=== PATIENT | female | born 1955 | race Caucasian/White ===

== ENCOUNTER 2023-04-24 | Outpatient (REF) | payer MEDICARE, OTHER, SELFPAY ==
--- NOTE | ~2023-04-24 | XR_ITS ---
EXAMINATION: XR KNEE, LEFT CLINICAL INFORMATION: Pain in the left knee. COMPARISON: X-ray of the left knee February 2023. TECHNIQUE: Four views of the left knee. FINDINGS: Moderate-size marginal osteophytes about all compartments without definite joint space narrowing. Findings indicative of hiqo-mj-ivxunjau osteoarthritis. Small joint effusion. Surrounding bone and soft tissues unremarkable. XR/XR knee LT 3V IMPRESSION: Oxsw-vn-mhsvcniv osteoarthritis of the left knee. No change compared to February 2023.
== END 2023-04-24 00:01 | disposition home or self-care (01) ==
LOC: HO.HOSX
PROVIDERS: Visit Provider Orthopaedic Surgery
DX: S83.242A Other tear of medial meniscus, current injury, left knee, initial encounter (principal)
CPT/HCPCS: 73562; 99212

== ENCOUNTER 2023-04-24 08:48 | Outpatient (AMB) | payer MEDICARE, OTHER, SELFPAY ==
--- NOTE | 2023-04-24 09:02 | A.OFFVIS_ITS ---
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 Sosa. For patient presents with complaints of progressively worsening left knee pain and giving way. She did undergo right total knee replacement surgery and 2021. She reports minimal discomfort in her right knee. She describes her left knee pain as sharp and severe in nature. Most of her left knee pain is along the medial and lateral aspects of her knee. Her symptoms have gotten worse over the last few years in spite of continued non operative treatments. She has had multiple injections. The most recent injection gave her minimal relief. She has also done physical therapy for 12 weeks over the last 6 months which aggravated her pain. She has tried Tylenol and anti-inflammatory medicines which gave her minimal relief. She states that her left knee will give out several times per day. Allergies walnuts Allergy (Uncoded 04/24/23 09:05) tingling in mouth Medication List - Last Reconciled 04/24/23 by Madi Sosa MD atorvastatin 40 mg PO .QOD calcium carbonate-vitamin D3 600 mg-20 mcg (800 unit) (Caltrate 600 plus D) 2 tabs PO DAILY lisinopril 5 mg PO DAILY PFSH Surgical History (Updated 04/24/23 @ 09:07 by Frida Richard [facility]) S/P left knee arthroscopy Hx of appendectomy History of total right knee replacement (TKR) (10/20/21) Social History (Updated 04/24/23 @ 09:08 by Frida Richard CMA) Patient Tobacco Use Status: Never used Tobacco Current occupational status: retired Physical Exam Vital Signs: BMI result Body Mass Index 30.9 Const Other: Well-nourished well-developed very friendly female awake alert and oriented x3 in no acute distress Lungs clear to auscultation bilaterally with symmetric expansion Cardiovascular exam regular rate and rhythm Abdominal exam is soft nontender nondistended Extrem Other: Bilateral lower extremity examination shows good capillary refill, no skin lesions noted, normal sensation light touch Left knee examination shows a minimal effusion, mild crepitus with range of motion, tenderness along her medial and lateral joint lines, positive Manuel's test, no instability Results Reviewed Results Reviewed: X-rays of the patient's left knee show mild diffuse joint space narrowing, no acute bony abnormalities MRI of the patient's left knee shows mild diffuse degenerative changes as well as tearing of her medial and lateral menisci Assessment & Plan Assessment & Plan (1) Tear of medial meniscus of left knee: Code(s): S83.242A - Other tear of medial meniscus, current injury, left knee, initial encounter Plan: Ms. Oconnell presents with progressively worsening left knee pain and mechanical symptoms due to tearing of her medial and lateral menisci. I had a lengthy discussion with the patient regarding the treatment options. She wishes to hold off on left total knee replacement surgery for as long as possible. The risks and benefits of left knee arthroscopic surgery were discussed at length with the patient. The patient wishes to proceed. She does understand that she may not get 100% relief of her symptoms depending on the severity of her degenerative changes. The patient will contact my office to pick a surgery date. She will follow-up as instructed. Feel free to call me at any time should questions regarding her orthopedic management arise. I spent 22 minutes in reviewing the patient's records and imaging studies, seeing the patient and documenting in the medical record. Orders: Orders XR knee LT 3V Today M25.562 - Pain in left knee Coding Level of Care Code Est Pt Level 2 (20227) Diagnoses Tear of medial meniscus of left knee S83.242A
[2023-04-24 09:05] VITALS: BMI 30.9
== END 2023-04-24 09:42 | disposition home or self-care (01) ==
PROVIDERS: PCP Nurse Practitioner Family; Visit Provider Orthopaedic Surgery
DX: S83.242A Other tear of medial meniscus, current injury, left knee, initial encounter (principal)
CPT/HCPCS: 99212

== ENCOUNTER 2023-05-24 12:23 | Day surgery (SDC) | payer MEDICARE, OTHER, SELFPAY ==
[2023-05-22 09:30] VITALS: BMI 30.9
--- NOTE | 2023-05-23 13:04 | HO.ANESPROP2 ---
Documented by User: Carline Schafer NP 05/23/23 13:04 HPI - Anesthesia Eval Consult details Narrative: 68yo F for Left Knee Arthroscopy,partial medial mensicectomy,poss lateral mensicectomy PMFSH Active Problems Active Problems: All Active Problems (Updated 05/22/23 @ 09:27 by Dorie Noonan RN) Tear of medial meniscus of left knee (Acute) Left knee pain (Acute) Past Medical History Medical History (Updated 05/22/23 @ 09:27 by Dorie Noonan RN) Elevated cholesterol HTN (hypertension) Tear of medial meniscus of knee Surgical History Surgical History (Updated 05/22/23 @ 09:30 by Dorie Noonan RN) S/P left knee arthroscopy Hx of appendectomy History of total right knee replacement (TKR) (10/20/21) Social History Social History (Updated 04/24/23 @ 09:08 by Frida Richard CMA) Patient Tobacco Use Status: Never used Tobacco Advance Directives: No Advance Directives Information Provided: Yes Current occupational status: retired [employer] Allergies Allergy/AdvReac Type Severity Reaction Status Date / Time walnut Allergy Intermediate tingling Verified 05/22/23 09:28 in mouth Active Medications: Current Medications Cefazolin Sodium/Dextrose (Ancef) 2 gm in 50 mls @ 100 mls/hr IV PREOP ONE Stop: 05/24/23 04:20 Home Medications Medication Instructions Recorded Confirmed Last Taken Type atorvastatin 40 mg tablet 40 mg PO .QOD 04/24/23 05/22/23 Unknown History calcium carbonate 600 mg-vitamin 2 tab PO DAILY 04/24/23 05/22/23 Unknown History D3 20 mcg (800 unit) chewable tablet (Caltrate 600 plus D) lisinopril 5 mg tablet 5 mg PO DAILY 04/24/23 05/22/23 Unknown History Exam Exam Date and Time: May 23, 2023 1304 Height,Weight and Vital Signs: Height 5 ft 4 in Weight 81.647 kg Assessment and Plan Assessment Anesthesia Assessment: Chart Reviewed Documented by User: Rylan Tucker MD 05/24/23 12:42 PMF Past Medical History Medical History (Updated 05/22/23 @ 09:27 by Dorie Noonan RN) Elevated cholesterol HTN (hypertension) Tear of medial meniscus of knee Family History Family history of problems with anesthesia: No Surgical History Surgical History (Updated 05/22/23 @ 09:30 by Dorie Noonan RN) S/P left knee arthroscopy Hx of appendectomy History of total right knee replacement (TKR) (10/20/21) History of Problems with Anesthesia: No Social History Social History (Updated 04/24/23 @ 09:08 by Frida Richard CMA) Patient Tobacco Use Status: Never used Tobacco Advance Directives: No Advance Directives Information Provided: Yes Current occupational status: retired Meds Allergies Allergy/AdvReac Type Severity Reaction Status Date / Time walnut Allergy Intermediate tingling Verified 05/22/23 09:28 in mouth Home Medications Medication Instructions Recorded Confirmed Last Taken Type atorvastatin 40 mg tablet 40 mg PO .QOD 04/24/23 05/22/23 Unknown History calcium carbonate 600 mg-vitamin 2 tab PO DAILY 04/24/23 05/22/23 Unknown History D3 20 mcg (800 unit) chewable tablet (Caltrate 600 plus D) lisinopril 5 mg tablet 5 mg PO DAILY 04/24/23 05/22/23 Unknown History Exam Airway Mallampati Class: II TM Dist: >3cm Neck ROM: Full Heart: rrr Lungs: cta Assessment and Plan Assessment Anesthesia Assessment: Anesthesia Plan Discussed Final Anesthetic Review Family History of Problems with Anesthesia: No History of Problems with Anesthesia: No NPO: Yes ASA Class: II Final Preanesthetic Review: No Changes in Pt Med Stat, Meds/Allgs Chart Reviewed, Consent Obtained/Reviewed and Anes Risks/Benef Reviewed Patient Risk: Intermediate Procedure Risk: Intermediate Anesthetic Plan Anesthetic Plan: GA and Agree w/ Assess. and Plan Disposition: Standard PACU
[2023-05-24] VITALS (11 sets, daily range): BP systolic 129–150; BP diastolic 66–89; PULSE 64–89; RESP 16–18; TEMP 36.2–37.1; O2SAT 95–99; BMI 30.9
[2023-05-24] MEDS: Lactated Ringers 1,000 ML 100 ML IVCONT (14:14)
--- NOTE | 2023-05-24 15:39 | PM.OP ---
Brief Operative Note Date of Service: 05/24/23 Pre-op diagnosis: Left knee medial meniscus tear, left knee degenerative joint disease, left knee plica syndrome Post-op diagnosis: same Procedure: Left knee arthroscopy with left knee arthroscopic partial medial meniscectomy, left knee arthroscopic chondroplasty of the undersurface of the patella, left knee arthroscopic plica excision Surgeon: Madi Sosa MD Anesthesia: GLMA Was an Radio Producer used for this Procedure?: No Estimated blood loss (mL): 10 Pathology: none sent Condition: stable Disposition: PACU
--- NOTE | 2023-05-24 15:40 | W.PM.OPN ---
Operative Note Operative Note Date of Service: 05/24/23 Narrative: After the patient was identified as Raiza Oconnell and their left knee was initialed by myself they were brought to the operating room where general anesthesia was induced by the anesthesiologist in routine fashion. The patient was given 2 g of IV Ancef preoperatively for infection prophylaxis. The patient's left lower extremity was prepped and draped in sterile fashion. A formal time-out was completed. Marcaine was injected into the planned incision sites as well as the patient's left knee joint. A #11 scalpel blade was used to make an anterolateral portal 1 cm proximal to the joint line and 1 cm lateral to the patellar tendon. Blunt trocar technique was used to enter the suprapatellar pouch with the knee in extension. Diagnostic arthroscopy showed multiple bands of thickened plica which would be excised at the end of the procedure. There were no loose bodies or abnormalities found in either the medial or lateral gutters. The articular surface of the patella showed diffuse grades 3 and 4 degenerative changes. The trochlear groove articular surface showed diffuse grades 3 and 4 degenerative changes. The patient's knee was flexed to 45 degrees and a valgus force was placed upon it. The medial compartment was entered. An anteromedial portal was made 1 cm proximal to the joint line and 1 cm medial to the patellar tendon. Probing of the medial meniscus showed a radial tear of the posterior horn. A partial medial meniscectomy was performed using the arthroscopic shaver. Following the partial meniscectomy the remainder of the meniscus tissue was stable. There were diffuse grades 3 and 4 degenerative changes of the medial femoral condyle as well as grades 2 degenerative changes of the medial tibial plateau. The articular surface of the medial femoral condyle was then made smooth using the arthroscopic shaver. The articular surface of the medial tibial plateau was already smooth so no chondroplasty was indicated. The patient's knee was placed into a neutral position. There was no injury to the anterior cruciate ligament. The patient's knee was then placed in the figure of 4 position and the lateral compartment was entered. There was no evidence of lateral meniscus tearing. There were minimal degenerative changes of the lateral femoral condyle and lateral tibial plateau. The patient's knee was once again brought into extension and the suprapatellar pouch was entered. The arthroscopic shaver and the ArthroCare Wand were used to excise the thickened bands of plica. The undersurface of the patella was then made smooth using the arthroscopic shaver. The articular surface of the trochlear groove was already smooth so no chondroplasty was indicated. The knee joint was irrigated and then drained. All arthroscopic instruments were removed. The 2 portals were closed with 3-0 nylon interrupted suture. The knee joint was injected with Marcaine. Dry sterile dressing and Renato bandages were placed over the patient's knee. The patient was awoken and extubated in the operating room. The patient was transferred to the recovery room in stable condition.
[2023-05-24] MEDS: HYDROmorphone HCl 0.5 MG/0.5 ML SYRINGE 0.25 MG IVPUSH ×4 (15:41→16:06)
[2023-05-24] MEDS: cefTRIAXone sodium 1 GM in 0.9 % Sodium Chloride 50 ML IV (15:58)
== END 2023-05-24 17:23 | disposition home or self-care (01) ==
PROVIDERS: PCP Nurse Practitioner Family; Visit Provider Orthopaedic Surgery
PROC: (CPT 29870; principal; 2023-05-24 14:40)
DX: S83.242A Other tear of medial meniscus, current injury, left knee, initial encounter (principal); M17.12 Unilateral primary osteoarthritis, left knee; M67.52 Plica syndrome, left knee; X58.XXXA Exposure to other specified factors, initial encounter; Y93.9 Activity, unspecified; Y92.9 Unspecified place or not applicable; Y99.8 Other external cause status; Z96.651 Presence of right artificial knee joint; I10 Essential (primary) hypertension; E78.00 Pure hypercholesterolemia, unspecified; Z79.899 Other long term (current) drug therapy; Z87.891 Personal history of nicotine dependence
CPT/HCPCS: 29881; J0131; J0171; J0690; J0696; J1100; J1170; J1885; J2371; J2405; J2795; J3010

== ENCOUNTER → 2023-05-24 12:23 | Outpatient (BNV) | payer MEDICARE, OTHER, SELFPAY | PROVIDERS: PCP Nurse Practitioner Family; Visit Provider Orthopaedic Surgery | DX: S83.232A Complex tear of medial meniscus, current injury, left knee, initial encounter (principal) | CPT/HCPCS: 29881 ==

== ENCOUNTER 2023-06-06 11:12 | Outpatient (AMB) | payer MEDICARE, OTHER, SELFPAY ==
--- NOTE | 2023-06-06 11:21 | A.OFFVIS_ITS ---
Intake Intake Visit Reasons: PO-Lt Knee 05/24/23 Intake Note: Raiza a 68 year old female presents today for a post operative left knee , DOS 05/24/23 . Patient reports that she is doing well, mild pain and soreness by the end of the day. Allergies walnut Allergy (Intermediate, Verified 06/06/23 11:34) tingling in mouth HPI PO-Lt Knee 05/24/23 HPI Details 68-year-old female who returns to the [facility] today for post-op left knee , 05/24/[address] Sosa. She continues to have mild pain and soreness in her knee by end of the day but is doing well overall. She has no other concerns today. [facility] Medical History (Updated 06/06/23 @ 12:27 by Alicia Stoddard PA-C) Elevated cholesterol HTN (hypertension) Tear of medial meniscus of knee Surgical History H/O carpal tunnel repair S/P left knee arthroscopy Hx of appendectomy History of total right knee replacement (TKR) (10/20/21) Social History Patient Tobacco Use Status: Former Tobacco user Quit Date: 1980 Tobacco use type: Cigarette Current occupational status: retired Review of Systems Const All systems reviewed & are unremarkable except as noted in HPI and below Physical Exam Extrem Other: Left knee: Incision clean, dry and intact. No erythema or joint effusion. Calf supple, nontender. NVI. Results Reviewed Results Reviewed: Date of Service: 05/24/23 Pre-op diagnosis: Left knee medial meniscus tear, left knee degenerative joint disease, left knee plica syndrome Post-op diagnosis: same Procedure: Left knee arthroscopy with left knee arthroscopic partial medial meniscectomy, left knee arthroscopic chondroplasty of the undersurface of the patella, left knee arthroscopic plica excision Surgeon: Madi Sosa MD Assessment & Plan Assessment & Plan (1) Tear of medial meniscus of left knee: Code(s): S83.242A - Other tear of medial meniscus, current injury, left knee, initial encounter Qualifiers: Tear current or old: current Encounter type: subsequent encounter Meniscus tear of knee type: peripheral Qualified Code(s): S83.222D - Peripheral tear of medial meniscus, current injury, left knee, subsequent encounter (2) Osteoarthritis of left knee: Code(s): M17.12 - Unilateral primary osteoarthritis, left knee Qualifiers: Osteoarthritis type: primary Qualified Code(s): M17.12 - Unilateral primary osteoarthritis, left knee Plan Sutures removed today, steri strips applied. We did discuss physical therapy which she would hold off at this time she does have exercises at home that she will perform from when she had her right TKA. I would like to see her back in [address] Sosa, sooner if needed. Patient Instructions: Scribed for Alicia Stoddard PA-C, by Maurizio Wakefield lpn or medical assistant, on 06/06/2023 at 11:30 AM EST. Alicia Greenwood PA-C, have personally reviewed and agree with the information entered by the scribe. Coding Level of Care Code Global (08990) Diagnoses Peripheral tear of medial meniscus of left knee as current injury, subsequent encounter S83.222D Tear current or old: current Encounter type: subsequent encounter Meniscus tear of knee type: peripheral Primary osteoarthritis of left knee M17.12 Osteoarthritis type: primary
== END 2023-06-06 11:52 | disposition home or self-care (01) ==
PROVIDERS: PCP Nurse Practitioner Family; Visit Provider Physician Assistant
DX: S83.222D Peripheral tear of medial meniscus, current injury, left knee, subsequent encounter (principal); M17.12 Unilateral primary osteoarthritis, left knee
CPT/HCPCS: 99024

== ENCOUNTER → 2023-06-06 11:12 | Outpatient (BNVA) | payer MEDICARE, OTHER, SELFPAY | PROVIDERS: PCP Nurse Practitioner Family; Visit Provider Physician Assistant ==

== ENCOUNTER 2023-07-04 11:08 | Outpatient (AMB) | payer MEDICARE, OTHER, SELFPAY ==
--- NOTE | 2023-07-04 11:12 | MHC.OFFVIS ---
Intake Intake Visit Reasons: PO-Lt Knee 05/24/23 Intake Note: Raiza is a 68 year old female who presents today for a post op appointment s/p Lt Knee 05/24/23 . She reports mild intermittent discomfort in her left knee. She denies any fevers or chills. She did recently aggravated her knee while doing work in her basement and going up and down the stairs multiple times. Allergies walnut Allergy (Intermediate, Verified 06/06/23 11:34) tingling in mouth Medication List - Last Reconciled 07/04/23 by Madi Sosa MD atorvastatin 40 mg PO .QOD calcium carbonate-vitamin D3 600 mg-20 mcg (800 unit) (Caltrate 600 plus D) 2 tabs PO DAILY lisinopril 5 mg PO DAILY oxycodone-acetaminophen 5-325 mg (Percocet) 1 tab PO DAILY PRN PFSH Medical History (Updated 06/06/23 @ 12:27 by Alicia Stoddard PA-C) Elevated cholesterol HTN (hypertension) Tear of medial meniscus of knee Surgical History H/O carpal tunnel repair S/P left knee arthroscopy Hx of appendectomy History of total right knee replacement (TKR) (10/20/21) Social History Patient Tobacco Use Status: Former Tobacco user Quit Date: 1980 Tobacco use type: Cigarette Current occupational status: retired Physical Exam Extrem Other: Left knee examination shows minimal discomfort with range of motion, minimal crepitus with range of motion Assessment & Plan Assessment & Plan (1) Left knee pain: Code(s): M25.562 - Pain in left knee Plan: Ms. Oconnell continues to do well after undergoing left knee arthroscopic surgery on 05/24/2023. She will continue with her home exercise program. She will follow up with me on an as-needed basis should her symptoms worsen in any way. Feel free to call me at any time should questions regarding her orthopedic management arise. Coding Level of Care Code Global (69656) Diagnoses Left knee pain M25.562
== END 2023-07-04 11:47 | disposition home or self-care (01) ==
PROVIDERS: PCP Nurse Practitioner Family; Visit Provider Orthopaedic Surgery
DX: M25.562 Pain in left knee (principal)
CPT/HCPCS: 99024

== ENCOUNTER → 2023-07-04 11:08 | Outpatient (BNVA) | payer MEDICARE, OTHER, SELFPAY | PROVIDERS: PCP Nurse Practitioner Family; Visit Provider Orthopaedic Surgery ==

== ENCOUNTER 2023-12-25 07:38 | Outpatient (AMB) | payer MEDICARE, OTHER, SELFPAY ==
--- NOTE | 2023-12-25 07:45 | MHC.OFFVIS ---
Intake Visit Reasons: OV - Left Knee - Request Inj Intake Note: Raiza is a 68 year old female who presents for a follow up for Left knee pain. The patient describes her pain as achy in nature. She did undergo left knee arthroscopic surgery on 05/24/2023. She has tried ibuprofen which gives her mild relief. She continues to walk for exercise. She also reports intermittent swelling in her left knee. She wishes to hold off on total knee replacement surgery for as long as possible. Allergies walnut Allergy (Intermediate, Verified 12/25/23 07:48) tingling in mouth Medication List - Last Reconciled 12/25/23 by Madi Sosa MD atorvastatin 40 mg PO .QOD calcium carbonate-vitamin D3 600 mg-20 mcg (800 unit) (Caltrate 600 plus D) 2 tabs PO DAILY lisinopril 10 mg PO DAILY oxycodone-acetaminophen 5-325 mg (Percocet) 1 tab PO DAILY PRN PFSH Medical History Elevated cholesterol HTN (hypertension) Tear of medial meniscus of knee Surgical History H/O carpal tunnel repair S/P left knee arthroscopy Hx of appendectomy History of total right knee replacement (TKR) (10/20/21) Social History Patient Tobacco Use Status: Former Tobacco user Quit Date: 1980 Tobacco use type: Cigarette Current occupational status: retired Physical Exam Const Other: Well-nourished well-developed very friendly female awake alert and oriented x3 in no acute distress Extrem Other: Bilateral lower extremity examination shows good capillary refill, no skin lesions noted, normal sensation light touch Left knee examination shows that the surgical incisions are well healed, no erythema, a moderate effusion, palpable crepitus with range of motion, pain with range of motion, no instability Office Procedures Joint Injection/Drain Joint Injection/Drain Primary Site: left knee Prep: site was prepped using aseptic technique Injected: 40 mg of, DepoMedrol and 1% plain lidocaine Procedure: The patient tolerated the procedure well Coding 34796 - Large joint Procedure code (CPT) selection complete Assessment & Plan Assessment & Plan (1) Osteoarthritis of left knee: Code(s): M17.12 - Unilateral primary osteoarthritis, left knee Category: Medical Qualifiers: Osteoarthritis type: primary Qualified Code(s): M17.12 - Unilateral primary osteoarthritis, left knee Plan Ms. Oconnell presents with left knee pain due to degenerative joint disease. I had a lengthy discussion with the patient regarding the treatment options. The patient wishes to hold off on left total knee replacement surgery for as long as possible. I agree with this plan. The risks and benefits of a left knee cortisone injection were discussed at length with the patient. The patient wished to proceed. She tolerated the injection well. Prior to the injection I aspirated 12 cc of clear fluid from her left knee. She will continue with her home exercise program. She will follow up with me on an as-needed basis should her symptoms not plateau at an unacceptable level over the next few months. Feel free to call me at any time should questions regarding her orthopedic management arise. I spent 20 minutes in reviewing the patient's records and imaging studies, seeing the patient and documenting in the medical record. Orders: Orders AMB Joint Injection/Aspiration Today M17.12 - Unilateral primary osteoarthritis, left knee Coding Level of Care Code Est Pt Level 3 (20995) Diagnoses Primary osteoarthritis of left knee M17.12 Osteoarthritis type: primary CPT Codes Coding - 07133 Large joint: 57016 - Large joint ([id number])
== END 2023-12-25 08:04 | disposition home or self-care (01) ==
PROVIDERS: PCP Nurse Practitioner Family; Visit Provider Orthopaedic Surgery
DX: M17.12 Unilateral primary osteoarthritis, left knee (principal)
CPT/HCPCS: 20610; 99213

== ENCOUNTER → 2023-12-25 07:38 | Outpatient (BNVA) | payer MEDICARE, OTHER, SELFPAY | PROVIDERS: PCP Nurse Practitioner Family; Visit Provider Orthopaedic Surgery | DX: M17.12 Unilateral primary osteoarthritis, left knee (principal) | CPT/HCPCS: 20610; 99212; J1010 ==

== ENCOUNTER 2024-03-26 08:25 | Outpatient (AMB) | payer MEDICARE, OTHER, SELFPAY ==
--- NOTE | 2024-03-26 08:28 | A.OFFVIS_ITS ---
Intake Visit Reasons: Left knee pain Intake Note: Raiza is a 69 year old female who presents with complaints of left knee pain and swelling. The patient describes her pain as sharp in nature. Her pain has gotten worse over the last few months. She has had cortisone injections in the past which gave her fairly good relief. She has also tried Tylenol and anti- inflammatory medicines which gave her only mild relief. She would like to hold off on surgery for as long as possible. Allergies walnut Allergy (Intermediate, Verified 03/26/24 08:30) tingling in mouth Medication List - Last Reconciled 03/26/24 by Madi Sosa MD atorvastatin 40 mg PO .QOD calcium carbonate-vitamin D3 600 mg-20 mcg (800 unit) (Caltrate 600 plus D) 2 tabs PO DAILY lisinopril 10 mg PO DAILY PFSH Medical History Elevated cholesterol HTN (hypertension) Tear of medial meniscus of knee Surgical History H/O carpal tunnel repair S/P left knee arthroscopy Hx of appendectomy History of total right knee replacement (TKR) (10/20/21) Social History Patient Tobacco Use Status: Former Tobacco user Tobacco use type: Cigarette Current occupational status: retired Physical Exam Const Other: Well-nourished well-developed very friendly female awake alert and oriented x3 in no acute distress Extrem Other: Bilateral lower extremity examination shows good capillary refill, no skin lesions noted, normal sensation light touch Left knee examination shows a moderate effusion, palpable crepitus with range of motion, pain with range motion, no instability Office Procedures Joint Injection/Aspiration Joint Injection/Aspiration Primary Site: left knee Prep: site was prepped using aseptic technique Injected: 40 mg of, DepoMedrol and 1% plain lidocaine Procedure: The patient tolerated the procedure well Coding 83151 - Large joint Procedure code (CPT) selection complete Results Reviewed Results Reviewed: X-rays of the patient's left knee taken previously show joint space narrowing, subchondral sclerosis, no acute bony abnormalities Assessment & Plan Assessment & Plan (1) Osteoarthritis of left knee: Code(s): M17.12 - Unilateral primary osteoarthritis, left knee Category: Medical Qualifiers: Osteoarthritis type: primary Qualified Code(s): M17.12 - Unilateral pr imary osteoarthritis, left knee (2) Left knee pain: Code(s): M25.562 - Pain in left knee Category: Medical Plan Ms. Oconnell presents with left knee pain due to degenerative joint disease. I had a lengthy discussion with the patient regarding the treatment options. The risks and benefits of a left knee cortisone injection were discussed at length with the patient. The patient wished to proceed. Prior to the injection I aspirated 14 cc of clear fluid from her left knee. She tolerated the injection well. She will continue activities as tolerated. She will follow up with me on an as-needed basis should her symptoms not plateau at an unacceptable level over the next few months. Feel free to call me at any time should questions regarding her orthopedic management arise. I spent 21 minutes in reviewing the patient's records and imaging studies, seeing the patient and documenting in the medical record. Orders: Orders AMB Joint Injection/Aspiration Today M17.12 - Unilateral primary osteoarthritis, left knee Coding Level of Care Code Est Pt Level 3 (81333) Diagnoses Primary osteoarthritis of left knee M17.12 Osteoarthritis type: primary Left knee pain M25.562 CPT Codes Coding - 28401 Large joint: 02696 - Large joint ([id number])
== END 2024-03-26 08:55 | disposition home or self-care (01) ==
PROVIDERS: PCP Nurse Practitioner Family; Visit Provider Orthopaedic Surgery
DX: M17.12 Unilateral primary osteoarthritis, left knee (principal); M25.562 Pain in left knee
CPT/HCPCS: 20610; 99213

== ENCOUNTER → 2024-03-26 08:25 | Outpatient (BNVA) | payer MEDICARE, OTHER, SELFPAY | PROVIDERS: PCP Nurse Practitioner Family; Visit Provider Orthopaedic Surgery | DX: M17.12 Unilateral primary osteoarthritis, left knee (principal) | CPT/HCPCS: 20610; 99212; J1010 ==

== ENCOUNTER 2024-06-30 08:26 | Outpatient (AMB) | payer MEDICARE, OTHER, SELFPAY ==
--- NOTE | 2024-06-30 08:33 | MHC.OFFVIS ---
Vital Signs 06/30/24 08:35 Height 5 ft 4 in Weight 172 lb BMI 29.5 Intake Visit Reasons: Left knee pain Intake Note: Raiza is a 69 year old female who presents with complaints of progressively worsening left knee pain. The patient describes her pain as sharp and severe in nature, 05/14. She did undergo right total knee replacement surgery in October of 2021. She reports minimal discomfort in her right knee. Her left knee pain has gotten worse over the last few years in spite of continued non operative treatments. She has done physical therapy which aggravated her pain. She has tried Tylenol and anti-inflammatory medicines which gave her minimal relief. She has had injections in the past which gave her only temporary relief. The patient has difficulty walking even short distances because of her left knee pain. At this point her left knee pain is interfering with her activities of daily living and her ability to sleep well through the night. Allergies walnut Allergy (Intermediate, Verified 06/30/24 08:36) tingling in mouth Medication List - Last Reconciled 07/01/24 by Madi Sosa MD atorvastatin 40 mg PO .QOD calcium carbonate-vitamin D3 600 mg-20 mcg (800 unit) (Caltrate plus D) 2 tabs PO DAILY lisinopril 10 mg PO DAILY PFSH Medical History Elevated cholesterol HTN (hypertension) Tear of medial meniscus of knee Surgical History H/O carpal tunnel repair S/P left knee arthroscopy Hx of appendectomy History of total right knee replacement (TKR) (10/20/21) Social History Patient Tobacco Use Status: Former Tobacco user Tobacco use type: Cigarette Current occupational status: retired Physical Exam Vital Signs: BMI result Body Mass Index 29.5 Const Other: Well-nourished well-developed very friendly female awake alert and oriented x3 in no acute distress Extrem Other: Bilateral lower extremity examination shows good capillary refill, no skin lesions noted, normal sensation light touch Left knee examination shows a minimal effusion, palpable crepitus with range of motion, pain with range of motion, range of motion from -3 degrees to 115 degrees, no instability Office Procedures AMB Joint Injection/Aspiration Joint Injection/Aspiration Primary Site: left knee Prep: site was prepped using aseptic technique Injected: 40 mg of, DepoMedrol and 1% plain lidocaine Procedure: The patient tolerated the procedure well Coding - Large joint Procedure code (CPT) selection complete Results Reviewed Results Reviewed: X-rays of the patient's left knee taken previously show end-stage degenerative joint disease with grade 4 ohzo-ze-[id number] arthritis, subchondral sclerosis, osteophyte formation, no acute bony abnormalities Assessment & Plan Assessment & Plan (1) Osteoarthritis of left knee: Code(s): M17.12 - Unilateral primary osteoarthritis, left knee Category: Medical Qualifiers: Osteoarthritis type: primary Qualified Code(s): M17.12 - Unilateral primary osteoarthritis, left knee (2) Left knee pain: Code(s): M25.562 - Pain in left knee Category: Medical Plan Ms. Oconnell presents with progressively worsening left knee pain due to end-stage degenerative joint disease. I had a lengthy discussion with the patient regarding the treatment options. The risks and benefits of a left knee cortisone injection were discussed at length with the patient. The patient wished to proceed. She tolerated the injection well. If she does not get lasting relief from the cortisone injection she is considering undergoing left total knee replacement surgery early next year. She will contact my office to pick a surgery date. I will see her back prior to her surgery to answer any final questions that she might have. Feel free to call me at any time should questions regarding her orthopedic management arise. I spent 22 minutes in reviewing the patient's records and imaging studies, seeing the patient and documenting in the medical record. Orders: Orders AMB Joint Injection/Aspiration 06/30/24 M17.12 - Unilateral primary osteoarthritis, left knee Coding Level of Care Code Est Pt Level 3 (94179) Complex EM visit Add On G2211 Diagnoses Primary osteoarthritis of left knee M17.12 Osteoarthritis type: primary Left knee pain M25.562 CPT Codes Coding - 37402 Large joint: 14303 - Large joint ([id number])
[2024-06-30 08:35] VITALS: BMI 29.5
== END 2024-06-30 09:14 | disposition home or self-care (01) ==
PROVIDERS: PCP Nurse Practitioner Family; Visit Provider Orthopaedic Surgery
DX: M17.12 Unilateral primary osteoarthritis, left knee (principal)
CPT/HCPCS: 20610; 99213

== ENCOUNTER → 2024-06-30 08:26 | Outpatient (BNVA) | payer MEDICARE, OTHER, SELFPAY | PROVIDERS: PCP Nurse Practitioner Family; Visit Provider Orthopaedic Surgery | DX: M17.12 Unilateral primary osteoarthritis, left knee (principal); M25.562 Pain in left knee | CPT/HCPCS: 20610; 99212; J1010; J2003 ==

== ENCOUNTER → 2024-09-11 08:07 | Outpatient (BNVA) | payer MEDICARE, OTHER, SELFPAY | PROVIDERS: PCP Nurse Practitioner Family | DX: Z01.818 Encounter for other preprocedural examination (principal) ==

== ENCOUNTER 2024-10-01 08:01 | Outpatient (AMB) | payer MEDICARE, OTHER, SELFPAY ==
--- NOTE | 2024-10-01 08:07 | MHC.OFFVIS ---
Vital Signs 10/01/24 08:13 Height 5 ft 4 in Weight 172 lb BMI 29.5 Intake Visit Reasons: Pre-Op: L TKA w/ 10/05/24 Intake Note: Raiza is a 69 year old female who presents with complaints of progressively worsening left knee pain. The patient describes her pain as sharp and severe in nature, 05/14. She did undergo right total knee replacement surgery in October of 2021. She reports minimal discomfort in her right knee. Her left knee pain has gotten worse over the last few years in spite of continued non operative treatments. She has done physical therapy which aggravated her pain. She has tried Tylenol and anti-inflammatory medicines which gave her minimal relief. She has had injections in the past which gave her only temporary relief. The patient has difficulty walking even short distances because of her left knee pain. At this point her left knee pain is interfering with her activities of daily living and her ability to sleep well through the night. Allergies walnut Allergy (Intermediate, Verified 10/01/24 08:13) tingling in mouth Medication List - Last Reconciled 10/01/24 by Madi Sosa MD amoxicillin 2,000 mg PO ONCE atorvastatin 40 mg PO .QOD calcium carbonate-vitamin D3 600 mg-20 mcg (800 unit) (Caltrate plus D) 1 tab PO BID lisinopril 10 mg PO BEDTIME sertraline 25 mg PO QPM [facility] Medical History Depression Habitual snoring Murmur Elevated cholesterol HTN (hypertension) Tear of medial meniscus of knee Surgical History H/O colonoscopy H/O carpal tunnel repair S/P left knee arthroscopy Hx of appendectomy History of total right knee replacement (TKR) (10/20/21) Social History Are you a primary live in caregiver to a significant other at home: Yes (spouse needs care) Do you presently have visiting nurse or other home services: No Patient Tobacco Use Status: Former Tobacco user Tobacco use type: Cigarette Current occupational status: retired Physical Exam Vital Signs: BMI result Body Mass Index 29.5 Const Other: Well-nourished well-developed very friendly female awake alert and oriented x3 in no acute distress Extrem Other: Bilateral lower extremity examination shows good capillary refill, no skin lesions noted, normal sensation light touch Left knee examination shows a minimal effusion, palpable crepitus with range of motion, pain with range of motion, range of motion from -3 degrees to 115 degrees, no instability Results Reviewed Results Reviewed: X-rays of the patient's left knee taken previously show end-stage degenerative joint disease with grade 4 [id number] arthritis, subchondral sclerosis, no acute bony abnormalities Assessment & Plan Assessment & Plan (1) Osteoarthritis of left knee: Code(s): M17.12 - Unilateral primary osteoarthritis, left knee Category: Medical Qualifiers: Osteoarthritis type: primary Qualified Code(s): M17.12 - Unilateral primary osteoarthritis, left knee Plan Ms. Oconnell presents with left knee pain due to end-stage degenerative joint disease. I had a lengthy discussion with the patient regarding the treatment options. At this point she has failed continued non operative treatments. The risks and benefits of left total knee replacement surgery were discussed at length with the patient. The patient wishes to proceed with surgery. director of food and nutrition services will be consulted following her surgery for home physical therapy and nursing. The patient will follow-up as instructed. Feel free to call me at any time should questions regarding her orthopedic management arise. I spent 20 minutes in reviewing the patient's records and imaging studies, seeing the patient and documenting in the medical record. Coding Level of Care Code Est Pt Level 3 (39049) Complex EM visit Add On G2211 Diagnoses Primary osteoarthritis of left knee M17.12 Osteoarthritis type: primary
--- OUTSIDE RECORDS SUMMARY | 2024-10-01 08:09 | XMS_ITS | Encounter Summary ---
Author Organization [employer] Address [address] [place] [address] Care Team Providers Care Plaster Whittler Name Role Phone Sanaz Blanco CONCRETE CARPENTER Primary Care Provider Unavailable Mary Blunt Unavailable Unavailable Encounter Details Date Type Department Care Team (Latest Contact Info) Description 09/01/2024 Travel Social History Tobacco Use Types Packs/Day Years Used Date Smoking Tobacco: Former Cigarettes Passive Smoke Exposure: Past Smokeless Tobacco: Never Alcohol Use Standard Drinks/Week Comments Yes 6 (1 standard drink = 0.6 oz pur e alcohol) Alcohol Answer Date Recorded How often do you have a drink containing alcohol ? 0 06/27/2024 How many drinks containing a lcohol do you have on a typical day when you are drinking? 0 06/27/2024 How often do you have six or more drinks on one occasion? 0 06/27/2024 Depression Answer Date Recorded Patient Health Questionnaire-9 Score 7 06/12/2023 Patient Health Questionnaire-9 Score 7 06/12/2023 Last PHQ-9: Questionnaire Data Not on file 1 08/12/2022 Housing Stability Answer Date Recorded What is your housing situation today? I have rey giang 09/02/[address] you li ve. Do you have problems with any of the following? None of the above 09/02/2023 Food Insecurity Answer Date Recorded Within the past 12 months, y ou worried that your food would run out before you got money to buy more: Never True 09/02/2023 Within the past 12 months,th e food you bought just didn't last and you didn't have enough money to get more: Never True Transportation Answer Date Recorded In the past 12 months, has l ack of transportation kept you from medical appts, meetings, work or from getting things needed for daily living? No 09/02/2023 Intimate Partner Violence Answer Date R ecorded Within the last year, have y ou been afraid of your partner or ex-partner? 2 06/27/2024 Within the last year, have y ou been humiliated or emotionally abused in other ways by your partner or ex-partner? 2 Within the last year, have y ou been kicked, hit, slapped, or otherwise physically hurt by your partner or ex-partner? 2 06/27/2024 Within the last year, have y ou been raped or forced to have any kind of sexual activity by your partner or ex-partner? 2 06/27/2024 Utilities Answer Date Recorded In the past 12 months, has t he electric, gas, oil or water company threatened to shut off services in your home? No 09/02/2023 Depression Answer Date Recorded Patient Health Questionnaire-2 Score 0 06/27/2024 Internet Access Answer Date Recorded Internet Access Q1 Yes 06/27/2024 Internet Access Q2 Not on file 06/27/2024 Education Answer Date Recorded What is the highest level of school you have completed or the highest degree you have received? Associate degree: academic program 05/31/2023 Comments No Sex and Gender Information Value Date Recorded Sex Assigned at Female 08/27/2022 4:06 PM EST Legal Sex Female 8:38 PM EDT Gender Identity Female 08/27/2022 4:06 PM EST Sexual Orientation Straight 08/27/2022 4: 06 PM EST Occupation Industry Job Start Date Job End Date Retired Not on file Not on file Not on file documented as of this encounter Plan of Treatment Upcoming Encounters Date Type Department Care Team (Late st Contact Info) Description 2025 9:00 AM EDT Office Visit [facility] [address] [place] [address] Rubina Devlin MD [address] [place] [address] documented as of this encounter Visit Diagnoses Not on filedocumented in this encounter Additional Health Concerns Assessment Noted Time PHQ-9 Depression Total Score: 7 06/12/20 10:16 AM EST documented as of this encounter Care Teams Plaster Whittler Relationship Specialty Start Date End Date Sanaz Blanco FNP PCP - General Family Medicine 08/27/22 Mary Blunt Community Health Worker 01/29/24 documented as of this encounter
--- OUTSIDE RECORDS SUMMARY | 2024-10-01 08:09 | XMS_ITS | Encounter Summary ---
Author Organization [employer] Address [address] [place] [address] Care Team Providers Care Elevated Guard Name Role Phone Sanaz Blanco STEAMFITTER SUPERVISOR Primary Care Provider Unavailable Mary Blunt Unavailable Unavailable Reason for Visit * Reason Onset Date Comments Appointment 09/07/2024 Encounter Details Date Type Department Care Team (Late st Contact Info) Description 09/07/2024 Telephone [place] [facility] [address] [place] [address] Sanaz Blanco FNP Appointment Social History Tobacco Use Types Packs/Day Years [...] the past 12 months, has t he [employer], gas, oil or water company threatened to [...] on file documented as of this encounter Miscellaneous Notes * Telephone Encounter - Theresa Hanks LPN - 09/07/2024 2:31 PM EST Call placed to patient. Patient states she just went to the surgeons office for pre-op intake. Office had told patient they had everything they needed for surgery. Patient thought appointment on 09/08/24 was for another preop clearance. Discussed with patient it appears to be for a new medication follow up. Patient was not aware and is agreeable to med follow up on 09/08/24. Patient states due to some issues with obtaining Rx, she started the medication on 08/28/24 but would like to still update provider. Appointment not cancelled, patient will come to appointment on 09/08/24. * Telephone Encounter - Hermila Doan - 09/07/2024 12:50 PM EST Pt LMOM requesting cancel tomorrow's appt due to no longer needed, but mentioned appt was for pre-admission testing whereas appt notes say med f/u Are these the same thing? Previous visit (where meds were prescribed) seems to be pre-op but otherwise not sure documented in this encounter Plan of Treatment Upcoming Encounters Date Type Department Care Team (Late st Contact Info) Description 2025 9:00 AM EDT Office Visit [facility] [address] [place] [address] Rubina Devlin MD [address] [place] [address] documented as of this encounter Visit Diagnoses Not on filedocumented in this encounter Additional Health Concerns Assessment Noted Time PHQ-9 Depression Total Score: 7 06/12/20 23 10:16 AM EST documented as of this encounter Care Teams Elevated Guard Relationship Specialty Start Date End Date Sanaz Blanco FNP PCP - General Family Medicine 08/27/22 Mary Blunt Community Health Worker 01/29/24 documented as of this encounter
--- OUTSIDE RECORDS SUMMARY | 2024-10-01 08:09 | XMS_ITS | Encounter Summary ---
Author Organization [employer] Address [address] [place] [address] Care Team Providers Care Invas Tech Name Role Phone Sanaz Blanco SYSTEM SAFETY ENGINEER Primary Care Provider Unavailable Mary Blunt Unavailable Unavailable Encounter Details Date Type Department Care Team (Latest Contact Info) Description 09/07/2024 Travel Social History Tobacco Use Types Packs/Day [...] 2025 9:00 AM EDT Office Visit [facility] [address] [place] [address] Rubina Devlin MD [address] [place] [address] documented as of this encounter Visit Diagnoses Not on filedocumented in this encounter Additional Health Concerns Assessment Noted Time PHQ-9 Depression Total Score: 7 06/12/20 10:16 AM EST documented as of this encounter Care Teams Invas Tech Relationship Specialty Start Date End Date Sanaz Blanco FNP PCP - General Family Medicine 08/27/22 Mary Blunt Community Health Worker 01/29/24 documented as of this encounter
--- OUTSIDE RECORDS SUMMARY | 2024-10-01 08:09 | XMS_ITS | Clinical Summary ---
Author Organization [employer] Address [address] [facility] [address] [place] [address] Care Team Providers Care Military Logistics Specialist Name Role Phone Sanaz Blanco Primary Care Provider Unavailable Mary Blunt Unavailable Unavailable Allergies Active Allergy Reactions Criticality Noted Date Comments Black [place] Flavoring Agent (Non-Screening) Itching Low 01/01/2024 [place] Hives 05/21/2011 Medications * This document contains information received from the source organization and may not represent a complete record from that organization. Calcium Carbonate-Vitami n D (CALTRATE 600+D PO) Take 2 tablets by mouth in the morning. Active atorvastatin (Lipitor) 40 MG tabletIndication s:Hypercholester emia TAKE ONE TABLET BY MOUTH EVERY OTHER DAY 45 tablet 3 05/15/20 24 Active amoxicillin (Amoxil) 500 MG capsule Active sertraline (Zoloft) 25 MG tabletIndication s:Depression, recurrent (CMS/HCC) Take 1 tablet (25 mg) by mouth Once per day. 90 tablet 3 09/08/19 25 026 Active lisinopril 10 MG tabletIndication s:Primary hypertension Take 1 tablet (10 mg) by mouth at bedtime. 90 tablet 3 09/22/19 25 026 Active lisinopril 10 MG tabletIndication s:Primary hypertension Take 1 tablet (10 mg) by mouth at bedtime. 90 tablet 3 06/27/20 24 025 Discontinued(Re order (will not trigger notification to Pharmacy)) sertraline (Zoloft) 25 MG tabletIndication s:Depression, recurrent (CMS/HCC) Take 1 tablet (25 mg) by mouth Once per day. 30 tablet 1 08/08/19 25 025 Discontinued(Re order (will not trigger notification to Pharmacy)) Active Problems Problem Noted Date Diagnosed Date Right knee pain 06/27/2024 Overview (06/27/2024): Patient receiving injections in right knee for OA at [facility]. Helpful for pain. Also taking ibuprofen and acetaminophen sparingly. S/p replacement of left knee 2 years ago. She is considering right knee replacement as well. Caregiver role strain 01/27/2024 Overview (06/27/2024): Patient with difficult home situation, caring for disables . Very stressful. Offered emotional support, discussed resources. Patient declines at this time. Encouraged patient to reach out for depressed mood, changes to mental health, resources. Depression, recurrent 01/01/2024 Status post arthroscopic surgery of left knee Overview (06/01/2023): Recovering very well No significant post op pain Ambulating well No s/s of infection Has f/u with surgeon in a few weeks. Pancreatic cyst 01/17/2023 Pulmonary nodule 01/17/2023 Adjustment disorder with mixed anxiety and depre ssed mood 01/17/2023 Overview (01/01/2024): Has good support in place from family and friends. Having increased stress d/t caregiver role for . Hoping to see therapist/BH to help her through this difficult time. Class 1 obesity 08/29/2022 Overview (09/02/2023): Approx 10 lbs of weight loss in the past year - largely due to stress. Hypercholesteremia 08/29/2022 Overview (06/27/2024): Component Ref Range & Units 6 mo ago 2 yr ago Cholesterol, Total 100 - 199 mg/dL 167 Triglycerides 0 - 149 mg/dL 92 119 R HDL Cholesterol >39 mg/dL 88 VLDL Cholesterol Daniel 5 - 40 mg/dL 17 LDL Chol Calc ([facility]) 0 - 99 mg/dL 62 Last lipid panel 12/27/23 well controlled. Tolerating atorvastatin 40 mg. We will continue with current plan. Hypertension 08/29/2022 Overview (06/27/2024): BP Readings from Last 4 Encounters: 06/27/24 130/72 01/01/24 126/74 09/02/23 146/82 05/31/23 157/81 BP at goal today. Patient taking lisinopril 10 mg with no side effects. We will continue with current plan. Last echo from 11/05/22 Mild dilation of the left atrium, LVEF 60-65%, Grade I mild diastolic dysfunction, w/ impaired LV relaxation. Vitamin D deficiency 08/29/2022 Overview (06/27/2024): Low D @ 28 (12/27/23). Taking daily supplement. We will recheck. Encounters * This document contains information received from the source organization and may not represent a complete record from that organization. Date Type Department Care Team Description 09/22/2024 Refill [facility] [address] [place] [address] Komal Gardner FNP Primary hypertension 09/21/2024 Travel 09/08/2024 3:00 PM EST Office Visit [facility] [address] [place] [address] Rubina Devlin MD Depression, recurrent (CMS/HCC) 09/07/2024 Travel 09/07/2024 Telephone [facility] [address] [place] [address] Sanaz Blanco FNP Appointment 09/01/2024 Travel 08/25/2024 Travel 08/12/2024 Travel 08/07/2024 11:30 AM EST Office Visit [facility] [address] [place] [address] Salma Alcantara MD Primary hypertension (Primary Dx); Osteoarthritis of left knee, unspecified osteoarthritis type; Vitamin D deficiency; Hypercholesteremia; Depression, recurrent (CMS/HCC); Systolic murmur 08/05/2024 Travel 07/17/2024 Travel from Last 3 Months Immunizations Name Administration Dates Next Due Tdap 05/16/2016 Social History Tobacco Use Types Packs/Day Years Used Date Smoking Tobacco: Former Cigarettes Passive Smoke Exposure: Past Smokeless Tobacco: Never Tobacco Cessation:Counseling Given: Not Answered Alcohol Use Standard Drinks/Week Comments Yes 6 [...] your housing situation today? I have rey rahat 09/02/[address] you li [...] file Not on file Not on file Last Filed Vital Signs Vital Sign Reading Time Taken Comments Blood Pressure 134/75 09/08/2024 2:51 PM EST Pulse 83 09/08/2024 2:51 PM EST Temperature 36.5 ??C (97.7 ??F) 09/08/2024 2:51 PM ES T Respiratory Rate 16 09/08/2024 2:51 PM EST Oxygen Saturation 98% 06/27/2024 9:04 AM EST Inhaled Oxygen Concentration - - Weight 78.5 kg (173 lb) 09/08/2024 2:51 PM EST Height 162.6 cm (5' 4 ) 09/08/2024 2:51 PM EST Body Mass Index 29.7 09/08/2024 2:51 PM EST Plan of Treatment Upcoming Encounters Date Type Department Care Team (Late st Contact Info) Description 2025 9:00 AM EDT Office Visit [place] [address] [place] [address] Rubina Devlin MD [address] [place] [address] Health Maintenance Due Date Last Done Comments CT Colonography 1956 FIT DNA/Cologuard 1956 FIT 1955 FOBT 1955 Sigmoidoscopy 1955 Pneumococcal Vaccine: 50+ Years (1 of 1 - PCV) 2006 Zoster Vaccines (1 of 2) 2006 COVID-19 Vaccine (1 - season) 2024 Influenza Vaccine (#1) 2024 Alcohol/Substance Use Screening 06/27/2025 06/27/2024 Depression Screening 06/27/2025 06/27/2024, 06/12/20 SDOH Screening 06/27/2025 06/27/2024 Tobacco Screening 06/27/2025 06/27/2024 Mammogram 01/13/2026 01/14/2024, 06/0 04/2023, 12/29/2021, Additional history exists DTaP/Tdap/Td Vaccines (2 - Td or Tdap) 05/16/2026 05/16/2016 HPV/Cotest 06/18/2027 Pap Smear 06/18/2027 06/18/2022, 06/14/2021 Lipid Panel 08/10/2029 08/10/2024, 12/04, 01/31/2023, Additional history exists RSV Patients and Patients Aged 60 years or older (1 - 1-dose 75+ series) 2031 Colonoscopy 12/28/2031 12/27/2021, 12/27/2021 Colorectal Cancer Screening 12/28/2031 Hepatitis C Screening Completed 08/29/2022 HIB Vaccines Aged Out No longer eligi ble based on patient's age to complete this topic HPV Vaccines Aged Out No longer eligi ble based on patient's age to complete this topic Hepatitis A Vaccines Aged Out No long er eligible based on patient's age to complete this topic Hepatitis B Vaccines Aged Out No long er eligible based on patient's age to complete this topic IPV Vaccines Aged Out No longer eligi ble based on patient's age to complete this topic Meningococcal Vaccine Aged Out No jefry richard eligible based on patient's age to complete this topic RSV under 20 months Aged Out No longe r eligible based on patient's age to complete this topic Rotavirus Vaccines Aged Out No longer eligible based on patient's age to complete this topic Procedures Procedure Name Priority Date/Time Associated Diagnosis Comments VITAMIN D 25 HYDROXY Routine 08/10/2024 9:16 AM EST Vitamin D deficiency LIPID PANEL, STANDARD Routine 08/10/2024 9:16 AM EST Hypercholesteremia COMPREHENSIVE METABOLIC PANEL Routine 08/10/2024 9:16 AM EST Primary hypertension BI MAMMOGRAM SCREENING TOMOSYNTHESIS BILATERAL Routine 01/14/2024 11:11 AM EDT HEPATITIS C ANTIBODY W/RFLX HCV QUANT PCR AND GENOTYPE Routine 08/29/2022 3:10 PM EST Encounter for hepatitis C screening test for low risk patient PAP SMEAR Routine 06/18/2022 12:00 AM EST HM COLONOSCOPY Routine 12/27/2021 from Last 3 Months or Most Recently Relevant to Health Maintenance Results * (ABNORMAL) Vitamin D 25 hydroxy 744833 (08/10/2024 9:16 AM EST) Vitamin D, 25-OH, Total 29.9(L) 30.0 - 100.0 ng/mL [facility] Comment: Vitamin D deficiency has been defined by the [place] of Medicine and an Endocrine Society practice guideline as a level of serum 25-OH vitamin D less than 20 ng/mL (1,2). The Endocrine Society went on to further define vitamin D insufficiency as a level between 21 and 29 ng/mL (2). 1. IOM ([place] of Medicine). 2010. Dietary reference ?? intakes for calcium and D. [place]: The ?? National Academies Press. 2. Yosvany MF, Saida NC, Gorge BLEVINS, et al. ?? Evaluation, treatment, and prevention of vitamin D ?? deficiency: an Endocrine Society clinical practice ?? guideline. JCEM. 2010; 96(7):1911-30. Blood Venous blood specimen / Unknown 08/10/2024 9:16 AM EST 08/10/2024 Narrative [facility] 1 - 08/11/2024 6:05 AM EST Performed at: ??01 - [facility] [address] ??[id number] [employer] Stitcher Hand: Sary Parker MD, Phone: ??[phone] [facility] Kendra [facility] LAB BLOOD ORDERABLES Deysi l Result [facility] * Lipid Panel, Standard 76365 (08/10/2024 9:16 AM EST) Cholesterol, Total 173 100 - 199 mg/dL [facility] 1 Triglycerides 107 0 - 149 mg/dL [facility] 1 HDL Cholesterol 90 >39 mg/dL [facility] 1 VLDL Cholesterol Daniel 19 5 - 40 mg/dL [facility] 1 LDL Chol Calc ([facility]) 64 0 - 99 mg/dL [facility] 1 Blood Venous blood specimen / Unknown 08/10/2024 9:16 AM EST 08/10/2024 Narrative [facility] - 08/11/2024 6:05 AM EST Performed at: ??01 - [facility] [address] ??[id number] [employer] St[employer] Hand: Sary Parker MD, Phone: ??[phone] [facility] LAB BLOOD ORDERABLES Deysi l Result Performing Organization Address [facility] Co de Phone Number [facility] * (ABNORMAL) Comprehensive metabolic panel (08/10/2024 9:16 AM EST) Glucose 110(H) 70 - 99 mg/dL [facility] Urea Nitrogen (BUN) 15 8 - 27 mg/dL [facility] Creatinine, Serum 0.69 0.57 - 1.00 mg/dL [facility] 1 eGFR 94 >59 mL/min/1.7 3 [facility] 1 BUN/Creatinine Ratio 22 12 - 28 [facility] 1 Sodium 142 134 - 144 mmol/L [facility] 1 Potassium 4.3 3.5 - 5.2 mmol/L [facility] 1 Chloride 103 96 - 106 mmol/L [facility] 1 Anion Gap 16.0 10.0 - 18.0 mmol/L [facility] 1 Carbon Dioxide 23 20 - 29 mmol/L [facility] 1 Calcium 9.3 8.7 - 10.3 mg/dL [facility] Protein, Total 6.5 6.0 - 8.5 g/dL [facility] 1 Albumin 4.6 3.9 - 4.9 g/dL [facility] 1 Globulin 1.9 1.5 - 4.5 g/dL [facility] 1 Bilirubin, Total 1.2 0.0 - 1.2 mg/dL [facility] 1 Alkaline Phosphatase 77 44 - 121 IU/L [facility] AST 17 0 - 40 IU/L [facility] ALT 17 0 - 32 IU/L [facility] 1 Blood Venous blood specimen / Unknown 08/10/2024 9:16 AM EST 08/10/2024 Narrative [facility] - 08/11/2024 6:05 AM EST Performed at: ??01 - [facility] [address] ??[id number] [employer] Hand: Sary Parker MD, Phone: ??[phone] Komal Gardner BUILDING EQUIPMENT INSPECTOR LAB BLOOD ORDERABLES Deysi minor Result [facility] * BI Mammogram Screening Tomosynthesis Bilateral (01/14/2024 11:11 AM EDT) Anatomical Region Laterality Modality Breast Bilateral Mammography 01/14/2024 11:1 1 AM EDT Narrative 01/14/2024 1:26 PM EDT PROCEDURE: MM Digital Mammo Screening INDICATION: Screening for breast cancer. No known palpable abnormalities. COMPARISON: Priors, most recent dated 01/11/2023 TECHNIQUE: Full-field digital CC and MLO 3D tomosynthesis images of both breasts were acquired. Computer-aided detection (CAD) was utilized in the interpretation of this study. DENSITY: The breast tissue is heterogeneously dense, which may obscure small masses. FINDINGS: No suspicious masses, suspicious microcalcifications, or areas of architectural distortion are seen in either breast to suggest malignancy. IMPRESSION: No mammographic evidence of malignancy. RECOMMENDATION: Annual mammographic screening BI-RADS: 1 (Negative) Lay letter mailed to patient WSN: [id number] Ordering Physician: Sanaz Blanco Dictated By: ?Apryl Gonzalez MD Dictated Date/Time: ?01/14/24 1:23 pm Reviewed By: ?Apryl Gonzalez MD Signed By: ? Apryl Gonzalez MD Signed Date/Time: ? 01/14/24 1:23 pm Transcribed By: ? CSB Director Corporate Date/Time: ? 01/14/24 1:20 pm Birads: Procedure Note Donotuseinterpreter, Image - 01/14/2024 PROCEDURE: MM Digital Mammo Screening INDICATION: Screening for breast cancer. No known palpableabnormalities. COMPARISON: Priors, most recent dated 01/11/2023 TECHNIQUE: Full-field digital CC and MLO 3D tomosynthesis images of bothbreasts were acquired. Computer-aided detection (CAD) was utilized in theinterpretation of this study. DENSITY: The breast tissue is heterogeneously dense, which may obscuresmall masses. FINDINGS: No suspicious masses, suspicious microcalcifications, or areasof architectural distortion are seen in either breast to suggestmalignancy. IMPRESSION: No mammographic evidence of malignancy. RECOMMENDATION: Annual mammographic screening BI-RADS: 1 (Negative) Lay letter mailed to patient WSN: [id number] Ordering Physician: Sanaz Blanco Dictated By: Apryl Gonzalez MD Dictated Date/Time: 01/14/24 1:23 pm Reviewed By: Apryl Gonzalez MD Signed By: Apryl Gonzalez MD Signed Date/Time: 01/14/24 1:23 pm Transcribed By: ARNAV Director Corporate Date/Time: 01/14/24 1:20 pm Birads: Sanaz Blanco BUILDING EQUIPMENT INSPECTOR IMG BI PROCEDURES Deysi l Result * Hepatits C Antibody w/Reflex HCV Quant PCR and Genotyping (08/29/2022 3:10 PM EST) Hepatitis C Virus Ab, Serum NEGATIVE (NEG) [facility] Comment: Reference range: Negative This test was performed on the [employer] immunoassay system. Testing performed or reported by [facility], a Service of [facility], [address] [place] [address] Kei Anne MD, [place] [facility]# [id number] 08/29/2022 3:10 PM EST 08/29/2022 3:12 PM EST Sanaz Blanco BUILDING EQUIPMENT INSPECTOR LAB BLOOD ORDERABLES F inal Result [facility] [address] [place] [address] * Pap Smear (06/18/2022 12:00 AM EST) Swab Historical Provider LAB CYTOLOGY ORDERABLES F inal Result * Hm Colonoscopy (12/27/2021) Colonoscopy 10 year recall Historical Provider HEALTH MAINTENANCE Final Result from Last 3 Months or Most Recently Relevant to Health [place] [id number] [facility] Care Teams Military Logistics Specialist Relationship Specialty Start Date End Date Sanaz Blanco FNP PCP - General Family Medicine 08/27/22 Mary Blunt Community Health Worker 01/29/24
--- OUTSIDE RECORDS SUMMARY | 2024-10-01 08:09 | XMS_ITS | Clinical Summary ---
Author Organization [facility] Address [address] [place] [address] Care Team Providers Care Deburrer Name Role Phone Sanaz Blanco Primary Care Provider [phone] Allergies No known active allergies Medications Medication Sig Dispensed Refills Start Date End Date Status lisinopril (PRINIVIL,ZESTRIL) tablet 5 mg TAKE ONE TABLET BY MOUTH EVERY DAY 0 05/16/2021 Active atorvastatin (LIPITOR) tablet 40 mgIndications:patie nt takes every other day Take 1 tablet (40 mg total) by mouth every other day. 0 Active calcium citrate-vitamin D (CITRACAL+D) 315-200 MG-UNIT per tablet Take 1 tablet by mouth 2 (two) times a day. 0 Active acetaminophen (TYLENOL EXTRA STRENGTH) 500 MG tablet TAKE TWO TABLETS BY MOUTH EVERY 6 HOURS NEEDED FOR MODERATE PAIN 0 07/13/2021 Active ibuprofen 600 MG tablet TAKE ONE TABLET BY MOUTH FOUR TIMES A DAY NEEDED FOR SEVERE PAIN WITH FOOD OR MILK 0 07/12/2021 Active celecoxib (CeleBREX) 200 MG capsule Take 200 mg by mouth daily. 0 10/20/2021 Active gabapentin (NEURONTIN) 300 MG capsule Take 300 mg by mouth every evening. 0 10/20/2021 Active amoxicillin (AMOXIL) 500 MG tablet Take 4 tabs 1 hour prior to dental appointment 20 tablet 3 11/03/2021 Active oxyCODONE (ROXICODONE) 5 MG immediate release tablet 1-2 tabs p.o. every 10 to 12 hours as needed for pain. May fill for lesser quantity 26 tablet 0 12/29/2021 Active Family History Medical History Relation Name Comments Cancer Father Cancer Mother Diabetes Mother Relation Name Status Comments Father (Age 71) Mother (Age 95) pnuemonia Social History Tobacco Use Types Packs/Day Years Used Date Smoking Tobacco: Never Assessed Tobacco Cessation:Counseling Given: Not Answered Sex and Gender Information Value Date Recorded Sex Assigned at Female 04/09/2023 1:38 PM EDT Gender Identity Female 04/09/2023 1:38 PM EDT Sexual Orientation Not on file Job Start Date Occupation Industry Not on file Not on file Not on file Last Filed Vital Signs Vital Sign Reading Time Taken Comments Blood Pressure - - Pulse - - Temperature - - Respiratory Rate - - Oxygen Saturation - - Inhaled Oxygen Concentration - - Weight 81.6 kg (180 lb) 04/09/2023 1:35 PM EDT Height 162.6 cm (5' 4 ) 04/09/2023 1:35 PM EDT Body Mass Index 30.9 04/09/2023 1:35 PM EDT Plan of Treatment Health Maintenance Due Date Last Done Comments Hepatitis C Screening 1955 COVID-19 Vaccine (#1) 1956 Depression Screening 1968 BMI Counseling 1974 Preventative Health Evaluation 1974 Colon Cancer Screening (Colonoscopy) 2001 Breast Cancer Screening (Mammogram) 2006 Shingrix-Zoster Vaccine (1 of 2) 2006 Fall Risk Assessment 2021 Osteoporosis Screening (DEXA Scan) 2021 Pneumococcal Vaccine (1 of 1 - PCV) 2021 Influenza Vaccine (#1) 2024 DTap / Tdap / Td (2 - Td or Tdap) 05/16/2026 016 RSV Adult > 60+ Yrs or Pregn ant (1 - 1-dose 75+ series) 2031 Hepatitis B Vaccines Aged Out No long er eligible based on patient's age to complete this topic RSV Ped < 20 months Aged Out No longe r eligible based on patient's age to complete this topic Care Teams Deburrer Relationship Specialty Start Date End Date Sanaz Blanco [address] [facility] [address] PCP - General Family Medicine 06/16/21
--- OUTSIDE RECORDS SUMMARY | 2024-10-01 08:09 | XMS_ITS | Data Portability ---
Author Organization [place] [facility] Le[facility] [place] Address [address] [place] [address] Care Team Providers Care Unix System Administrator Name Role Phone SULMA IBANEZ Primary Care Provider Assessment Encounter Date Assessment Date Assessment LastModified by Organization Details LastModified Time 10/23/2022 10/23/2022 Ms. Boles continues to do well after undergoing right total knee replacement surgery on October 20, 2021. She will continue with her home exercise program. She does know to take antibiotic before any dental work. The patient does have progressively worsening left knee pain and mechanical symptoms possibly due to a recurrent medial meniscus tear. Thus, I will send her for an MRI of her left knee for further evaluation. I will contact her by phone once the MRI results are available. [email or web address] Not available 10/23/2022 15:26:21 12/10/2022 12/10/2022 Pleasant 67-year-old female here for follow-up on her MRI study as described under HPI. I had a discussion with the patient guarding management. She has moderately severe arthritis of the left knee joint which is the predominant factor. She denies any acute known injury or instability. With her current arthritic states she is not an arthroscopy candidate. We did discuss having her see Dr. Montelongo for consult Tatian regarding left total knee arthroplasty which she is interested in sometime in the fall 2022. In the meantime she opted for cortisone injection the left knee joint. After verbal consent was granted by the patient. The procedure was then carried out. The patient tolerated the procedure well. Aftercare instructions were discussed in detail. She will have her next visit with Dr. Montelongo. Should she have any questions or concerns she should contact my office. She agrees with the above-noted plan. Indirect care and treatment in conjunction with Dr. Montelongo Additional treatment plan discussed with the patient in detail included the following; - Provider focused nonsteroidal anti-inflammatory regimen (discussed were the pros, cons, benefits and risks as well as any black box warnings) in patients over 60 years old they should be very cautious in taking these medications due to potential decreased kidney function and or elevated blood pressure. - Analgesic pain medication for pain suppression (discussed were the pros, cons, benefits and risks as well as any black box warnings) - The use of topical pain relieving medication were discussed - The use of ice to decrease inflammation and pain - The use of assistive ambulatory devices for ambulation and fall prevention - Formal specific guided physical therapy program I reviewed my findings at length with the patient today. ??We discussed the nature and etiology of this problem along with current treatment options. We discussed the expected course and outcomes and what to expect. We also discussed risks and benefits. ?? All of their questions were answered today, and there was exhibited understanding and comprehension of all that was discussed. 10 minutes were spent reviewing previous imaging and charting. ??10 minutes were spent obtaining patient history. ??5 minutes were spent on physical exam. ??5??minutes were spent explaining diagnosis and assessment. Today's documentation was made using voice recognition software. This note may contain grammatical errors secondary to the software. [email or web address] Not available 12/10/2022 15:14:18 02/08/2023 02/08/2023 HPI : ? Thank you for the pleasure of requesting a consultation on this patient. Patient comes in complaining of left knee pain. She underwent a right total knee replacement with Dr. Gaines in October 2021. She is recovering well in regards to the right knee. She has having increasing left knee pain. She underwent a cortisone injection in December which brought some relief but is starting to wear off. She also has some lateral sided hip and leg pain. This patient is experiencing left knee pain for a period lasting greater than the last three months, which is severe (VAS score greater than or equal to 6 on a 0-10 scale) in intensity and the restriction of function (appropriate for a patient of this age) are intolerable. The pain substantially limits activities of daily living. In particular, walking tolerance and ability to stair climb is reduced. Conservative management such as non-steroidal anti-inflammatory medications available by prescription, physician directed therapy, ice and/or heat and activity modification have been minimally effective or deemed insufficient by the patient for a period lasting greater than 3-6 months in duration. Assistive devices and external support were not deemed by the patient to be helpful in improving their function. The patient is unable to tolerate further conservative measures, including physical therapy, due to the severity of arthritis and level of pain. Review of systems is negative for rapidly progressive neurological disorder, chest pain, shortness of breath, fevers, chills, or any signs of active or persistent local or systemic infection. Physical Exam : Patient is well nourished, well-developed, in no acute distress, with appropriate mood and affect. The patient is oriented to time, place, and person. Respirations are even and unlabored. Gait evaluation does reveal a limp. There is no inguinal adenopathy. Examination of the contralateral knee shows normal range of motion, strength, no tenderness, and intact skin. The affected limb is well-perfused, without skin lesions, shows a grossly normal motor and sensory examination. Left knee motion is significantly reduced and does cause significant pain. The knee moves from 5-130 degrees. The knee is stable within that [id number] to AP and ML stress. The alignment of the knee is neutral. Lateral joint line tenderness. Muscle strength is normal. Tenderness along the IT band. Pedal pulses are palpable. Hip examination, including flexion and internal rotation, was negative in that groin pain was not produced. Assessment/Plan : The patient is an appropriate candidate for consideration of left total knee replacement. An extensive discussion was conducted of the natural history of the disease and the variety of surgical and non-surgical treatment options available to the patient. A risk/benefit analysis was discussed with the patient reviewing the advantages and disadvantages of surgical intervention at this time. A full explanation was given of the nature and the purpose of the procedure and anesthesia, its benefits, possible alternative methods of diagnosis of treatment, the risks involved, the possibility of complications, the foreseeable consequences of the procedure and the possible results of the non-treatment. No guarantee or assurance was made as to the results that may be obtained. Specifically, the risks were identified to include, but are not limited, to the following: Infection, phlebitis, pulmonary embolism, , paralysis, dislocation, pain, stiffness, instability, limp, weakness, breakage, leg-length inequality, uncontrolled bleeding, nerve injury, blood vessel injury, pressure sores, anesthetic risks, delayed healing of wound and bone, and wear and loosening. Additional risks of robotic knee replacement were discussed (if used) including but not limited to pin site infection, draining, longer incision, longer OR time, and fracture near the pin sites. Further discussion was undertaken with the patient about the details of surgical preparation, treatment and postoperative rehabilitation including medical clearance, autotransfusion, the hospital course and the postoperative rehabilitation involved. As a part of routine preoperative counseling, if the patient is a smoker, the patient recognizes the increased risk of complications in patients who utilize tobacco products. The patient has also been counseled regarding the elevated risk of surgical complications in patients with an elevated BMI. The patient demonstrates understanding of the increased risk in such patients. The patient was encouraged to participate in physical activity and diet modification under the direction of their primary care physician. We will plan on proceeding with left total knee arthroplasty using the [employer]jo Omnibot total knee replacement system. However, it is possible during the preoperative planning process or due to intraoperative findings that a different implant system may be utilized in order to optimize the patient's outcome. We had a discussion regarding implant and bearing options. We had a detailed discussion of the advantages and limitations of the specific implant designs, materials and bearing surfaces. All questions were answered to the patient's satisfaction, and the patient was asked to call the office with any further concerns. All in all, I feel that this patient is a good candidate for surgical reconstruction.? Plan for left total knee replacement, robotic assisted, on May 09, 2023 at [facility]. Not available 02/08/2023 14:35:02 Plan of Treatment Reminders Order Date Submit Date Provider Last Modified By Organization Details Last Modified Time Details Appointments None recorded. Lab None recorded. Referral None recorded. Procedures None recorded. Surgeries total knee replacement (SURG) 2022 023 [email or web address] [id number] [facility], [address] [place] [address], [address], 14:38:05 Imaging XR, knee, 3 view 2022 023 [facility], [address], [address], [place], [address], 3 15:40:51 XR, hip, unilateral, 2 or 3 view 2022 023 [facility], [address], [address], [place], [address], 3 15:40:51 XR, knee, 1 or 2 view 2022 023 snarus [facility], [address], [address], [place], [address], 3 10:10:03 Medication Orders Kenalog 40 mg/mL suspension for injection 2022 023 [facility], [address] [place], [address], 3 15:16:32 lidocaine (PF) 10 mg/mL (1 %) injection solution 2022 023 [facility], [address] [place], [address], 3 15:16:31 Patient TargetsNo targets recorded. Patient Instructions Encounter Date Encounter Id Patient Instructions Last Modified By Organization Details Last Modified Time 02/08/2023 [id number] AP, lateral, Ann, and patellar radiographs views of the left knee taken today demonstrate left knee degenerative joint disease with joint space narrowing, osteophyte formation, and subchondral sclerosis. There is wftl-wo-wezj articulation in the lateral compartment. AP pelvis, AP and lateral of the left hip demonstrate no signs of fracture, subluxation, dislocation or other acute bony changes. There are minimal degenerative changes of the left hip joint. Not available 02/08/2023 14:31:50 Reason for Referral None Reported. Results Created Date Observation Date Name Description Value Unit Range Abnormal Flag Note LastModifiedBy Organization Detail LastModifiedTime 11/08/19 23 MRI, knee, w/o contr ast No observ ation record ed. [email or web address] Not Available 2022 08:02:42 Result Notes None recorded. Problems Name Problem SNOMED Code Status Onset Date Resolution Date Notes Provider Name and Address Organization Details Recorded Time Arthritis of knee 578654811 Active 2022 Kyrie Montelongo MD [address], [place], [address], [place] [facility] 3 14:35:26 Osteoarthri tis of left knee joint 0269246069055 09 Active 2022 MANDY VARGHESE PA-C [address], [place], [address], [place] [facility], [facility] 3 15:12:56 Tear of medial meniscus of knee 721585871 Active 2022 MANDY VARGHESE PA-C [address], [place], [address], [place] [facility], [facility] 3 15:14:58 Pain of left knee joint 8822744670815 07 Active 2022 Yu Gaines MD [address], [place], [address], [place] [facility], [facility] 3 15:26:34 Problem Notes None recorded. Procedures Surgical History Date Name Laterality Status Provider Name and Address Organization Details Recorded Time 12/11/19 23 Knee Joint/Bursa Asp & Inj completed MANDY VARGHESE PA-C [address], [place], [address], [place] [facility] 12/10/2022 15:16:24 Total knee arthroplasty completed Evie Royal [place] [facility] 10/23/2022 14:59:13 Carpal tunnel surgery completed Evie Royal [place] [facility] 10/23/2022 14:59:26 Imaging Results Imaging Date Name Status LastModified by Organiz [facility] Details LastModified Time 11/07/2022 MRI, knee, w/o contrast completed [email or web address] Information not available 11/07/2022 08:02:42 Procedure Notes None recorded. Medical Equipment None Reported. Allergies No known drug allergies Medications Name Sig Start Date Stop Date Status Note LastModified by Organization Details LastModified Time tramadol 50 mg tablet TAKE ONE TO TWO TABLETS BY MOUTH AT BEDTIME FOR 5 DAYS active Not Available Not Available No t Available amoxicillin 500 mg tablet TAKE 4 TABLETS BY MOUTH 1 HOUR PRIOR TO DENTAL APPOINTME NT active Not Available Not Available No t Available Kenalog 40 mg/mL suspension for injection Take 1 mL by injection route. 2022 active Not Available Not Available Not Avai lable meloxicam 7.5 mg tablet TAKE ONE TABLET BY MOUTH AT BEDTIME active Not Available Not Available No t Available lisinopril 5 mg tablet TAKE ONE TABLET BY MOUTH EVERY DAY active Not Available Not Available No t Available oxycodone 5 mg tablet TAKE 1 TO 2 TABLET BY MOUTH EVERY 10 TO 12 HOURS NEEDED FOR PAIN 10/23 completed Not Available Not Available Not Available Jantoven 1 mg tablet TAKE 4 TABLETS ( 4MG) BY MOUTH AT DINNER DAILY UNLESS OTHERWISE INSTRUCTE D BY DR. GAINES'S OFFICE. 10/23 completed Not Available Not Available Not Available lidocaine (PF) 10 mg/mL (1 %) injection solution Take 1 mL by injection route. 2022 active Not Available Not Available Not Avai lable oxycodone 10 mg tablet TAKE 1 TO 1&1/2 TABLETS (10-15MG) BY MOUTH BY MOUTH EVERY 4 TO 6 HOURS NEEDED FOR SEVERE PAIN SCALE 7-10. 10/23 completed Not Available Not Available Not Available Vitals Date Recorded Body height Provider Name an d Address Organization Details Last Updated DateTime 12/10/[address] [place] [facility] 12/10/2022 13:32:33 Date Recorded Body height Body mass index (BMI) Body weight Provider Name and Address Organization Details Last Updated DateTime 10/23/2022 162.56 cm 30.9 kg/m2 [address]303.[address] [place] [facility] 10/23/2022 14:58:35 Date Recorded Body height Body mass index (BMI) Body weight Provider Name and Address Organization Details Last Updated DateTime 02/08/2023 162.56 cm 33.5 kg/m2 31687.[address] [place] [facility] 02/08/2023 14:09:59 Social History Question Answer Notes LastModified by Organizat ion Details LastModified Time Tobacco Smoking Status Former Smoker Dejan tapia, [place] [facility] 02/08/2023 14:10:29 What Is Your Level Of Alcohol Consumption? Moderate [email or web address] Information not available 02/08/2023 How Many Times Per Week Do You Consume Alcohol? 5-7 Times Per Week [email or web address] Information not available 02/08/2023 When Did You Quit Smoking? 16+yearssince lastcigarette [email or web address] Information not available 02/08/2023 Do You Use Any Illicit Or Recreational Drugs? No [email or web address] Information not available 02/08/2023 Do You Or Have You Ever Used Any Other Forms Of Tobacco Or Nicotine? No [email or web address] Information not available 02/08/2023 Sex: Unknown Functional Status None recorded. Mental Status None recorded. Family History Nothing Reported. Medical History Condition Response Hypertension Y Gynecological HistoryNo gynecological history recorded. Obstetrics History GPAL:G 0 P 0 0 0 0 Past Encounters Encounter ID Performer Location Encounter Start Date Encounter Closed Date Diagnosis/Indication Diagnosis SNOMED-CT Code Diagnosis ICD10 Code Diagnosis Note [id number] MD BINA Shelley [address] [address] 10/23/2022 14:52:33 10/23/2022 15:23:27 Pain of right knee joint 1899853117 54084 M25.561 Pain of le ft knee joint 9035077090 75882 M25.562 [id number] MD BINA Amanda [address] [address] 12/10/2022 13:22:40 12/10/2022 14:01:57 Osteoarthritis of left knee joint 9902442233 59890 M17.12 Tear of me dial meniscus of knee 169626893 S83.242D [id number] MD BINA Amandaisreal [address] [address] 02/08/2023 13:47:32 02/08/2023 14:41:47 Pain of left knee joint 5740877538 30926 M25.562 Pain of le ft hip joint 0687756823 84744 M25.552 Osteoarthr itis of left knee joint 0187377855 54289 M17.12 Arthritis of knee 092841 002 M13.869 Health Concerns Section Related Observation LastModified by Organization Detai ls LastModified Time None Recorded Concern Status LastModified by Organization Details LastModified Time None Recorded Advance Directives Directive None Recorded Payers Encounter Date Sequence Insurance Name Policy Number Policy Ball Covered Member ID Ball Member ID Guarantor Name 10/23/2022 1 [place]: [facility] Raiza P Spingler [id number] Raiza P Spingler 10/23/2022 2 () Raiza P Spingler [id number] Raiza P Spingler 12/10/2022 1 [place] [facility] Raiza P Spingler [id number] Raiza P Spingler 12/10/2022 2 () Raiza P Spingler [id number] Raiza P Spingler 02/08/2023 1 [place] [facility] Raiza P Spingler [id number] Raiza P Spingler 02/08/2023 2 () Raiza P Spingler [id number] Raiza P Spingler Notes Date Note Type Note Provider Name and Address Organization Details Recorded Time 10/23/2022 text/html The patient pres ents with complaints of mild intermittent discomfort in her right knee after undergoing right total knee replacement surgery on October 20, 2021. She continues with her home exercise program. She does not take any medicines for her discomfort. She denies any fevers or chills.Patient is most concerned with progressively worsening left knee pain and giving way. She describes her left knee pain as sharp in nature. Most of the pain is along the medial aspect of her left knee. She did injure her left knee several years ago. She twisted her knee and had acute onset of pain. She has done physical therapy which aggravated her pain. She has also tried Tylenol and anti-inflammatory medicines which gave her minimal relief. She has had injections in the past which gave her only temporary relief. She states that her left knee will give out several times per day. Yu Gaines MD [address] [place] [address], [address], [place] [facility] 10/23/2022 15:26:43 12/10/2022 text/html Dr. Gaines assess ment / Plan date of visit 10/23/2022 Ms. Boles continues to do well after undergoing right total knee replacement surgery on October 20, 2021. She will continue with her home exercise program. She does know to take antibiotic before any dental work. The patient does have progressively worsening left knee pain and mechanical symptoms possibly due to a recurrent medial meniscus tear. Thus, I will send her for an MRI of her left knee for further evaluation. I will contact her by phone once the MRI results are available. 1. Pain of right knee lvjxzP41.561: Pain in right knee XR KNEE, 1 OR 2 VIEW, [id number]. Pain of left knee rvddqO19.562: Pain in left knee Return to Office Patient will return to the office as needed.Encounter Sign-OffEncounter signed-off by Yu Gaines MD, 10/23/2022.Encounter performed and documented by Yu Gaines MDEncounter reviewed & signed by Yu Gaines MD on 10/23/2022 at 3:26pm HPI: 10/23/2022 x-rays AP and right lateral view were performed which reveal well-seated well-positioned right total knee arthroplasty without sign of obvious loosening or acute bony abnormality. However there was no left lateral knee x-ray performed. Patient is here for follow-up on her MRI results of her left knee those are by Dr. Gaines chronic pain. I personally reviewed these. Patient states ongoing left knee pain its been getting progressively worse. She describes the pain is generalized in nature throughout the entire knee. Denies any instability symptoms. Denies any known injury. She states certain weightbearing exercises increase her discomfort as well as bending. Here for evaluation and treatment discussion regarding her MRI. [facility] [address] [place] [address] Patient: RAIZA BOLES /Age/Sex: 1955 - 67 - FUnit#: [id number] Location/Status: SPDIMRI/REG CLIAccount#: [id number] Mnemonic/Ordering Site: [facility]/SPMAINOrdering Physician: YU GAINES MD __MR Knee LT WO - 11/02/22 -MRI of the left knee. November 02, 2022 at 1132 hoursClinical History: Left knee pain. Rule out tear.Technique: Multiplanar multiecho sequences through the left knee wereobtained without intravenous contrast.Comparison: No prior study is available for comparison.Findings:The re is no fracture or osteonecrosis.There is a vertical tear of the body and posterior horn of the lateralmeniscus. There are several cystic lesions along the posterolateral surfaceof the lateral tibial condyle, likely ganglion cysts. The anterior horn ofthe lateral meniscus is small in size with altered signal, likelydemonstrates complex tear.Degenerative changes are noted in the medial meniscus.Grade II injury of the proximal lateral collateral ligament. The cruciateand patellar retinaculum are intact. Extensor mechanism is preserved.Moderate joint effusion is seen. There is no Bolaños? s cyst.There are moderate degenerative changes of the knee joint in the form ofmarginal osteophytes and narrowing of the joint space. Articular cartilagein the medial and lateral femorotibial and patellofemoral compartments isworn. There are multiple small chondral defects, the most prominent in thelateral femoral articular surface.There is mild soft tissue edema in the prepatellar and infrapatellarregions.Im pression:1. Vertical tear of body and posterior horn of lateral meniscus.2. Anterior horn of lateral meniscus is small in size with altered signal,likely demonstrates complex tear.3. Grade II injury of proximal lateral collateral ligament.4. Moderate degenerative changes of the knee joint.5. Moderate joint effusion.6. Mild soft tissue edema in prepatellar and infrapatellar regions.7. Other findings as described above.Dictating Physician: IZZY JONES MDElectronically Signed by: IZZY JONES MDDic Date/Time: 11/07/22508Sign date/Time: 11/07/22508 MANDY VARGHESE PA-C [address] [place] [address], [phone], [place] [facility] 12/10/2022 15:17:07 OBGyn Episode No OBEpisode recorded.
--- OUTSIDE RECORDS SUMMARY | 2024-10-01 08:09 | XMS_ITS | Clinical Summary ---
Author Organization [facility] [place] Address [address] [place] [address] Care Team Providers Care Molder Name Role Phone Sanaz Blanco CONVERSION MAN Primary Care Provider Surgical History Surgery Date Site/Laterality Comments KNEE SURGERY PROCEDURE:KNEE SURGERY WRIST SURGERY PROCEDURE:WRIST SURGERY JOINT REPLACEMENT PROCEDURE:JOINT REPLACEMENT Medical History Medical History Date Comments Hypertension DX:Hypertension Family History Medical History Relation Name Comments Cancer Father Cancer Mother Diabetes Mother Relation Name Status Comments Father (Age 71) Mother (Age 95) pnuemonia Social History Tobacco Use Types Packs/Day Years Used Date Smoking Tobacco: Never Assessed Comments Unknown Sex and Gender Information Value Date Recorded Sex Assigned at Not on file Legal Sex Female 7:12 AM EST Gender Identity Not on file Sexual Orientation Not on file Obstetrics History Last Filed Vital Signs Vital Sign Reading Time Taken Comments Blood Pressure - - Pulse - - Temperature - - Respiratory Rate - - Oxygen Saturation - - Inhaled Oxygen Concentration - - Weight 81.6 kg (180 lb) 03/08/2022 11:08 AM EDT Height 162.6 cm (5' 4 ) 03/08/2022 11:08 AM EDT Body Mass Index 30.9 03/08/2022 11:08 AM EDT Plan of Treatment Health Maintenance Due Date Last Done Comments Breast Cancer Screening 1955 DTaP,Tdap,and Td Vaccines (1 - Tdap) 1975 Pneumococcal Vaccine: 50+ Ye ars (1 of 1 - PCV) 2006 Zoster Vaccines (1 of 2) 2006 Colorectal Cancer Screening: Colonoscopy 07/13/2022 Depression Screening 07/13/2022 Falls Risk Assessment 07/13/2022 Hepatitis C Screening 07/13/2022 Osteoporosis Screening (Bone Density Screening) 07/13/2022 Social Influencers of Health Screening 07/13/2022 COVID-19 Vaccine (1 - 2023-2 5 season) 2024 Influenza Vaccine (#1) 2024 RSV Immunization Patients 60 + Years Old (1 - 1-dose 75+ series) 2031 HIB Vaccines Aged Out No longer eligi [...] on patient's age to complete this topic MMR Vaccines Aged Out No longer eligi ble based on patient's age to complete this topic Meningococcal ACWY Vaccine Aged Out N o longer eligible based on patient's age to complete this topic Meningococcal B Vacine Aged Out No lo nger eligible based on patient's age to complete this topic RSV Immunization Patients Un lelo 20 months Aged Out No longer eligible b ased on patient's age to complete this topic Varicella Vaccines Aged Out No longer eligible based on patient's age to complete this topic Advance Directives Documents on File Type Date Recorded Patient Commercial Analyst Expl anation Health Care Decision (hx) 10/20/2021 AD REA DIRECTIVE Health Care Decision (hx) 10/20/2021 AD REA DIRECTIVE Care Teams Molder Relationship Specialty Start Date End Date Sanaz Blanco FNP PCP - General Family Medicine 06/16/21
--- OUTSIDE RECORDS SUMMARY | 2024-10-01 08:09 | XMS_ITS | Encounter Summary ---
Author Organization [employer] Address [address] [place] [address] [address] [place] [address] Care Team Providers Care Coastal/Harbor Defense Officer Name Role Phone Sanaz Blanco Primary Care Provider Unavailable Mary Blunt Unavailable Unavailable Reason for Visit * Reason Comments Follow-up Follow up per Dr Christiano damon re: new medication - doing fine feeling better Encounter Details Date Type Department Care Team (Late st Contact Info) Description 09/08/2024 3:00 PM EST Office Visit [facility] MEDICAL [address] [place] [address] Rubina Devlin MD [address] [place] [address] Depression, recurrent (CMS/HCC) Social History Tobacco Use Types Packs/Day Years [...] on file documented as of this encounter Last Filed Vital Signs Vital Sign Reading Time Taken Comments Blood Pressure 134/75 09/08/2024 2:51 PM EST Pulse 83 09/08/2024 2:51 PM EST Temperature 36.5 ??C (97.7 ??F) 09/08/2024 2:51 PM ES T Respiratory Rate 16 09/08/2024 2:51 PM EST Oxygen Saturation - - Inhaled Oxygen Concentration - - Weight 78.5 kg (173 lb) 09/08/2024 2:51 PM EST Height 162.6 cm (5' 4 ) 09/08/2024 2:51 PM EST Body Mass Index 29.7 09/08/2024 2:51 PM EST documented in this encounter Progress Notes * Rubina Devlin MD - 09/08/2024 3:00 PM EST Subjective Patient ID: Raiza Oconnell is a 69 y.o. female who presents for Follow-up (Follow up per Dr Alcantara re: new medication - doing fine feeling better ). HPI Followup, started on zoloft by Dr. Alcantara about a month ago, at her pre-op for her knee. Due to PHQscore of 11. Has h/o depression, has been on zoloft in the past. 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 Does see a counsellor already. I'm not crying every day' for the past week. Doesn't feel super happy or anything, just feels like she can function more. No side effects. Does not wish dose adjustment at this time. Review of Systems Review of Systems No fever No fatigue No cough No sinus symptoms No rash No leg swelling No urinary symptoms Objective Physical Exam Patient is alert and oriented, no apparent distress Head normo-cephalic, face symmetric Speech clear, no audible wheezing No respiratory distress, speaking full sentences Affect normal Assessment/Plan Diagnoses and all orders for this visit: Depression, recurrent (CMS/HCC) Comments: continue current dose of sertraline; pt will call if wishes adjustment. conitnue at least 6 months. Orders: - sertraline (Zoloft) 25 MG tablet; Take 1 tablet (25 mg) by mouth Once per day. documented in this encounter Plan of Treatment Upcoming Encounters Date Type Department Care Team (Late st Contact Info) Description 2025 9:00 AM EDT Office Visit [facility] MEDICAL [address] [place] [address] Rubina Devlin MD [address] [place] [address] documented as of this encounter Visit Diagnoses Diagnosis Depression, recurrent (CMS/HCC) Major depressive disorder, recurrent episode, unspecified documented in this encounter Additional Health Concerns Assessment Noted Time PHQ-9 Depression Total Score: 7 06/12/20 23 10:16 AM EST documented as of this encounter Care Teams Coastal/Harbor Defense Officer Relationship Specialty Start Date End Date Sanaz Blanco FNP PCP - General Family Medicine 08/27/22 Mary Blunt Community Health Worker 01/29/24 documented as of this encounter
--- OUTSIDE RECORDS SUMMARY | 2024-10-01 08:10 | XMS_ITS | Encounter Summary ---
Author Organization [employer] Address [address] [facility] 7[address] [place] [address] Care Team Providers Care Hand Box Folder Name Role Phone Sanaz Blanco ACCOUNTS PAYABLE MANAGER Primary Care Provider Unavailable Mary Blunt Unavailable Unavailable Reason for Visit * Reason Onset Date Comments Med Refill 09/22/2024 Encounter Details Date Type Department Care Team (Late st Contact Info) Description 09/22/2024 Refill [facility] MED[facility] [address] [place] [address] Komal Gardner FNP [address] [place] [address] Primary hypertension Social History Tobacco Use Types Packs/Day Years [...] is your housing situation today? I have rye giang 09/02/[address] you [...] Description 2025 9:00 AM EDT Office Visit [facility] MEDICAL [address] [place] [address] Rubina Devlin MD [address] [place] [address] documented as of this encounter Visit Diagnoses Diagnosis Primary hypertension Unspecified essential hypertension documented in this encounter Additional Health Concerns Assessment Noted Time PHQ-9 Depression Total Score: 7 06/12/20 23 10:16 AM EST documented as of this encounter Care Teams Hand Box Folder Relationship Specialty Start Date End Date Sanaz Blanco FNP PCP - General Family Medicine 08/27/22 Mary Blunt Community Health Worker 01/29/24 documented as of this encounter
--- OUTSIDE RECORDS SUMMARY | 2024-10-01 08:10 | XMS_ITS | Encounter Summary ---
Author Organization [employer] Address [address] [place] [address] Care Team Providers Care Ticket Seller Name Role Phone Sanaz Blanco SINGLE END SEWER Primary Care Provider Unavailable Mary Blunt Unavailable Unavailable Encounter Details Date Type Department Care Team (Latest Contact Info) Description 09/21/2024 Travel Social History Tobacco Use Types Packs/Day [...] 2025 9:00 AM EDT Office Visit [facility] MED[facility] [address] [place] [address] Rubina Devlin MD [address] [place] [address] documented as of this encounter Visit Diagnoses Not on filedocumented in this encounter Additional Health Concerns Assessment Noted Time PHQ-9 Depression Total Score: 7 06/12/20 10:16 AM EST documented as of this encounter Care Teams Ticket Seller Relationship Specialty Start Date End Date Sanaz Blanco FNP PCP - General Family Medicine 08/27/22 Mary Blunt Community Health Worker 01/29/24 documented as of this encounter
--- OUTSIDE RECORDS SUMMARY | 2024-10-01 08:10 | XMS_ITS | Continuity of Care Document ---
Author Name [facility] Organization [facility] Care Team Providers Care Warehouse Handler Name Role Phone [facility] Unavailable Unavailable Problems Combined list of problems from Department of Defense and Veterans Affairs facilities. It does not include entries that were removed or entered in error. Problem Status Onset Date Problem Type Date of Resolution Comments Source Diagnosis: ICD-10-CM Z71.0 Prsn encntr hlth serv to consult on behalf of another person Active Diagnosis [facility] [facility] Encounters Combined list of: 1) Encounters from Department of Veterans Affairs facilities going backup to the last 18 months, not all [place] inpatient encounters are included; 2) Encounters from the Department of Defense facilities going backup to 280 months. Location Location Details Encounter Type Encounter Number Reason For Visit Attending Provider ADM Date DC Date Status Disposition Source [facility] [place] [facility] Outpatient Encounter [id number] 12/18 [place] [facility] [place] [facility] [place] [facility] PROGRAM INTAKE ASSESSMENT [id number] Diagnos is: ICD-10- CM Z71.0 Prsn encntr hlth serv to consult on behalf of another person TERESE BELTRAN 02/24 [place] [facility] [place] [facility] [place] [facility] PROGRAM INTAKE ASSESSMENT [id number] Diagnos is: ICD-10- CM Z71.0 Prsn encntr hlth serv to consult on behalf of another person RENETTAKandisTERESE 07/24 [place] [facility] [place] [facility]
--- OUTSIDE RECORDS SUMMARY | 2024-10-01 08:10 | XMS_ITS | Encounter Summary ---
Author Organization [email or web address] Address [address] [facility] [address] [place] [address] Care Team Providers Care 3D Specialist Name Role Phone Sanaz Blanco Primary Care Provider Unavailable Ene Lozano Unavailable Unavailable Mary Blunt Unavailable Unavailable Encounter Details Date Type Department Care Team (Late st Contact Info) Description 01/08/2024 Orders Only [facility] [address] [place] [address] Provider, MD Molina Social History Tobacco Use Types Packs/Day Years Used Date Smoking Tobacco: Former Cigarettes Smokeless Tobacco: Never Alcohol Use Standard Drinks/Week Comments Yes 6 (1 standard drink = 0.6 oz pur e alcohol) Depression Answer Date Recorded Patient Health Questionnaire-9 [...] things needed for daily living? No 09/02/2023 Utilities Answer Date Recorded In the past 12 months, has t he electric, gas, oil or water [facility] threatened to shut off services in your home? No 09/02/2023 Depression Answer Date Recorded Patient Health Questionnaire-2 Score 1 06/12/2023 Education Answer Date Recorded What is the highest level of school you have completed or the highest degree you have received? Associate degree: academic program 05/31/2023 Comments Unknown Sex and Gender Information Value Date Recorded Sex Assigned at Female 08/27/2022 4:06 PM EST Legal Sex Female 8:38 PM EDT Gender Identity Female 08/27/2022 4:06 PM EST Sexual Orientation Straight 08/27/2022 4: 06 PM EST Occupation Industry Job Start Date Job End Date Retired/ Going back to work perdiem Not on file Not o n file Not on file documented as of this encounter Plan of Treatment Upcoming Encounters Date Type Department Care Team (Late st Contact Info) Description 2025 9:00 AM EDT Office Visit [facility] MEDICAL [address] [place] [address] Rubina Devlin MD [address] [place] [address] documented as of this encounter Procedures Procedure Name Priority Date/Time Associated Diagnosis Comments DXA BONE DENSITY HIP/SPINE/PELVIS Routine 10/31/2023 5:43 AM EDT documented in this encounter Results * DXA BONE DENSITY HIP/SPINE/PELVIS (10/31/2023 5:43 AM EDT) Anatomical Region Laterality Modality Radiographic Peg ging us Historical Provider MD GOMEZ DXA PROCEDURES Final Result documented in this encounter Visit Diagnoses Not on filedocumented in this encounter Additional Health Concerns Assessment Noted Time PHQ-9 Depression Total Score: 7 06/12/20 10:16 AM EST documented as of this encounter Care Teams 3D Specialist Relationship Specialty Start Date End Date Sanaz Blanco FNP PCP - General Family Medicine 08/27/22 Ene Lozano Community Health Worker 12/10/22 4 Mary Blunt Community Health Worker 01/29/24 documented as of this encounter
--- OUTSIDE RECORDS SUMMARY | 2024-10-01 08:10 | XMS_ITS | Data Portability ---
Author Organization [facility] Address [address] [place] [address] Assessment Encounter Date Assessment Date Assessment LastModified by Organization Details LastModified Time 10/22/2023 10/22/2023 X-RAYS: Three standing views of the left foot were ordered, obtained and reviewed by me today at [facility], demonstrating healed hallux MTP joint with well aligned hallux, well-positioned hardware, second hammertoe. IMPRESSION: 14 weeks postop, doing well; second varus hammertoe PLAN: She is doing well from the standpoint of her hallux and I believe she will continue to improve. I have recommended supportive shoe wear. With regard to her second hammertoe, I have suggested he do taping the toe in a more plantarflexed position or wearing a Budin splint, which was provided today. She wishes to follow up with me as needed in the future. If her second toe becomes more bothersome, I would recommend left second metatarsal shortening (Malika) osteotomy, second MTP angular correction and second PIP arthrodesis. All questions were answered. She understands and agrees with this plan. The patient is ambulatory, but has weakness and/or instability of their extremity which requires stabilization from this semi-rigid/rigid orthosis to improve their function. Verbal and written instructions for the use and application of this item were given. Patient was instructed that should the brace result in increased pain, decreased sensation, increased swelling or an overall worsening of their medical condition, to please contact our office immediately. [email or web address] Not available 10/22/2023 12:39:14 Plan of Treatment Reminders Order Date Submit Date Provider Last Modified By Organization Details Last Modified Time Details Appointments None recorded. Lab None recorded. Referral None recorded. Procedures None recorded. Surgeries None recorded. Imaging XR, foot, 3 or more view - recheck 3v foot wb-- room 107 024 024 [email or web address] Not available 4 14:04:37 Medication Orders None recorded. Patient TargetsNo targets recorded. Patient InstructionsNo instructions recorded. Reason for Referral None Reported. Problems Name Problem SNOMED Code Status Onset Date Resolution Date Notes Provider Name and Address Organization Details Recorded Time No complaints [id number] Active Status : 'I'; Not Available [facility] 4 09:25:00 Problem Notes None recorded. Medical Equipment None Reported. Allergies Allergen ID Allergen Name Allergen Category Reaction Reaction Severity Criticality Documentation Date Start Date Code Code System Note Provider Name and Address Organization Details Recorded Time 75247 walnut allergeni c extract food Not available Not available Not available 10/07/20232010 41484 0 RxNorm Aller gyRea ction : 'Skin React ion'; Not Available [facility] 4 12:31:57 No known drug allergies Medications Name Sig Start Date Stop Date Status Note LastModified by Organization Details LastModified Time amoxicillin 500 mg capsule TAKE 4 CAPSULES BY MOUTH 1 HOUR PRIOR TO DENTAL APPOINTMENT active Not Available Not Available Not Available acetaminophe n 500 mg tablet TAKE 2 TABLETS BY MOUTH EVERY 8 HOURS NEEDED FOR PAIN active Not Available Not Available No t Available meloxicam 7.5 mg tablet TAKE ONE TABLET BY MOUTH AT BEDTIME active Not Available Not Available No t Available oxycodone-ac etaminophen 5 mg-325 mg tablet TAKE ONE TABLET BY MOUTH EVERY DAY NEEDED FOR PAIN active Not Available Not Available No t Available aspirin 325 mg tablet,delay ed release TAKE 1 TABLET DAILY TO START THE DAY AFTER SURGERY active Not Available Not Available No t Available cholecalcife rol (vitamin D3) 125 mcg (5,000 unit) capsule TAKE 1 CAPSULE BY MOUTH EVERY DAY active Not Available Not Available No t Available oxycodone 5 mg tablet TAKE 1 TABLET BY MOUTH EVERY 12 HOURS NEEDED FOR PAIN. DO NOT DRIVE WHILE ON THIS MEDICATION active Not Available Not Available N ot Available oxycodone HCl-oxycodon e-ASA 1 tab q [address] WHILE ON THIS MEDICATION 2023 active Statu s: 'Curr ent'; Not Available Not Available Not Available Vitals Date Recorded Body height Body mass index (BMI) Body weight Provider Name and Address Organization Details Last Updated DateTime 10/22/2023 162.56 cm 30 kg/m2 58950.66 g BEBETO CHAYO [facility] 10/22/2023 12:23:46 Social History None recorded. Functional Status None recorded. Mental Status None recorded. Family History Nothing Reported. Medical History No medical history recorded. Gynecological HistoryNo gynecological history recorded. Obstetrics History GPAL:G 0 P 0 0 0 0 Past Encounters Encounter ID Performer Location Encounter Start Date Encounter Closed Date Diagnosis/Indication Diagnosis SNOMED-CT Code Diagnosis ICD10 Code Diagnosis Note [id number] MD Macie Cowan [address] [place] [address] 10/22/2023 12:13:20 11/11/2023 11:44:06 Pain in left foot 8543323655 07479 M79.672 Follow-up orthopedic assessment 845037365 Z47.89 Hammer toe 653503843 M20 .42 Health Concerns Section Related Observation LastModified by Organization Detai ls LastModified Time None Recorded Concern Status LastModified by Organization Details LastModified Time None Recorded Advance Directives Directive None Recorded Payers Encounter Date Sequence Insurance Name Policy Number Policy Ball Covered Member ID Ball Member ID Guarantor Name 10/22/2023 2 ELISA () Raiza Lucian Spingler [id number] Raiza Lucian Spingler 10/22/2023 1 MEDICARE B-CO: [facility] [employer] Raiza Epstein Spingler [id number] Raiza Epstein Spingler Notes Date Note Type Note Provider Name and Address Organization Details Recorded Time 10/22/2023 text/html Raiza is a cresencio y pleasant 68-year-old woman who is 14 weeks status post left hallux MTP arthrodesis with plate screw construct and calcaneal autogenous bone graft augmentation. I last saw her 8 weeks ago. She is doing very well. She denies any pain about her great toe. She has been experiencing some discomfort about her left second hammertoe and she did not have any pain about the second toe preoperatively. She is happy with her surgical result. She has been wearing regular shoes. Past family, medical, social history and review of systems has been reviewed and is located in the patient? s chart. No interval change. Tye Baxter MD [address], [place], [address], [facility] 10/22/2023 16:51:18 OBGyn Episode No OBEpisode recorded.
[2024-10-01 08:13] VITALS: BMI 29.5
== END 2024-10-01 08:31 | disposition home or self-care (01) ==
PROVIDERS: PCP Nurse Practitioner Family; Visit Provider Orthopaedic Surgery
DX: M17.12 Unilateral primary osteoarthritis, left knee (principal)
CPT/HCPCS: 99213; G2211

== ENCOUNTER → 2024-10-01 08:01 | Outpatient (BNVA) | payer MEDICARE, OTHER, SELFPAY | PROVIDERS: PCP Nurse Practitioner Family; Visit Provider Orthopaedic Surgery | DX: M17.12 Unilateral primary osteoarthritis, left knee (principal) | CPT/HCPCS: 99212 ==

== ENCOUNTER 2024-10-05 09:58 | Day surgery (SDC) | payer MEDICARE, OTHER, SELFPAY ==
[2024-09-07 10:27] VITALS: BP 162/73; PULSE 63; RESP 20; O2SAT 96; BMI 29.7
--- NOTE | 2024-09-07 10:50 | HO.ANESPROP2 ---
Documented by User: Carline Schafer NP 10/01/24 14:28 HPI - Anesthesia Eval Consult details Narrative: 69yo F for Left?Knee Replacement Total, 10/05/24 Medically optimized per PCP No recent illness No CP/SOB within limits of knee pain, walking/stairs Murmur: long standing, benign PMFSH Active Problems Active Problems: All Active Problems Osteoarthritis of left knee (Acute) Tear of medial meniscus of left knee (Acute) Left knee pain (Acute) Past Medical History Medical History Depression Habitual snoring Murmur Elevated cholesterol HTN (hypertension) Tear of medial meniscus of knee Family History Family history of problems with anesthesia: No Surgical History Surgical History H/O colonoscopy H/O carpal tunnel repair S/P left knee arthroscopy Hx of appendectomy History of total right knee replacement (TKR) (10/20/21) History of Problems with Anesthesia: No Social History Social History Are you a primary regular senior care provider to a significant other at home: Yes (spouse needs care) Do you presently have visiting nurse or other home services: No Patient Tobacco Use Status: Former Tobacco user Tobacco use type: Cigarette Use of substances other than those prescribed or required for medical reasons: No Have you been hit, kicked, punched, or otherwise hurt by someone within the past year? If so, by whom?: No Are you DNR?: No Advance Directives: No Advance Directives Information Provided: Yes Advance Directives on File: No Recently lost weight without trying: No Eating poorly because of decreased appetite: No Nutrition Risks: No Nutritional Risk Patient : No : No Poor oral hygiene: Yes (crown) Current occupational status: retired Meds Allergies Allergy/AdvReac Type Severity Reaction Status Date / Time walnut Allergy Intermediate tingling Verified 10/01/24 08:13 in mouth Home Medications ?Medication ?Instructions ?Recorded ?Confirmed ?Last Taken ?Type atorvastatin 40 mg tablet 40 mg PO .QOD 04/24/23 10/01/24 Unknown History calcium 600 mg (as carbonate)-vit 1 tab PO BID 04/24/23 10/01/24 Unknown History D3 20 mcg (800 unit) chewable tablet (Caltrate plus D) lisinopril 10 mg tablet 10 mg PO BEDTIME 12/25/23 10/01/24 Unknown History amoxicillin 500 mg tablet 2,000 mg PO ONCE 09/07/24 10/01/24 Unknown History sertraline 25 mg tablet 25 mg PO QPM 09/07/24 10/01/24 Unknown History Exam Height,Weight and Vital Signs: Height 5 ft 4 in Weight 78.471 kg Last Vital Signs Pulse 63 09/07/24 10:27 Resp 20 09/07/24 10:27 BP 162/73 H 09/07/24 10:27 Pulse Ox 96 09/07/24 10:27 O2 Del Method Room Air 09/07/24 10:27 Pertinent Lab Results Pertinent Lab Results: Lab Results 09/07/24 09/07/24 10/01/24 Range/Units 10:45 11:16 09:00 WBC 7.1 (4.8-10.8) X10*3/uL RBC 4.54 (4.20-5.50) X10*6/uL Hgb 14.6 (12.0-16.0) g/dl Hct 43.7 (37.0-47.0) % MCV 96.3 (80.0-98.0) fL MCH 32.2 (27.0-33.0) pg MCHC 33.4 (31.0-35.0) g/dl RDW 12.0 (11.0-16.0) % Plt Count 219 (160-400) X10*3/uL MPV 10.3 (9.4-12.3) fL Absolute Nucleated RBC 0.000 (0.0-0.012) X10*3/uL Nucleated RBC % (auto) 0.0 (0.0-0.2) /100WBC Nasal Screen MRSA (PCR) NEGATIVE (Negative) Nasal S. aureus Screen POSITIVE A (Negative) Nasal MRSA/S.aureus Interp SEE NOTE Blood Type B Positive Antibody Screen NEGATIVE CMP 08/2024 from outside facility [place] Narrative Narrative: EKG 08/2024 SR @ 70 LAD c/w LAFB Airway Mallampati Class: III TM Dist: >3cm Neck ROM: Full Loose/Missing/Broken Teeth: Yes (crown #3, stable) Assessment and Plan Assessment Anesthesia Assessment: Anesthesia Plan Discussed and PAT Visit Final Anesthetic Review Family History of Problems with Anesthesia: No History of Problems with Anesthesia: No Documented by User: Jammie Rosa MD 10/05/24 11:17 PMFSH Past Medical History Medical History Depression Habitual snoring Murmur Elevated cholesterol HTN (hypertension) Tear of medial meniscus of knee Surgical History Surgical History H/O colonoscopy H/O carpal tunnel repair S/P left knee arthroscopy Hx of appendectomy History of total right knee replacement (TKR) (10/20/21) Social History Social History Are you a primary regular senior care provider to a significant other at home: Yes (spouse needs care) Do you presently have visiting nurse or other home services: No Patient Tobacco Use Status: Former Tobacco user Tobacco use type: Cigarette Use of substances other than those prescribed or required for medical reasons: No Have you been hit, kicked, punched, or otherwise hurt by someone within the past year? If so, by whom?: No Are you DNR?: No Advance Directives: No Advance Directives Information Provided: Yes Advance Directives on File: No Recently lost weight without trying: No Eating poorly because of decreased appetite: No Nutrition Risks: No Nutritional Risk Patient : No : No Poor oral hygiene: Yes (crown) Current occupational status: retired Meds Allergies Allergy/AdvReac Type Severity Reaction Status Date / Time walnut Allergy Intermediate tingling Verified 10/01/24 08:13 in mouth Home Medications ?Medication ?Instructions ?Recorded ?Confirmed ?Last Taken ?Type atorvastatin 40 mg tablet 40 mg PO .QOD 04/24/23 10/01/24 Unknown History calcium 600 mg (as carbonate)-vit 1 tab PO BID 04/24/23 10/01/24 Unknown History D3 20 mcg (800 unit) chewable tablet (Caltrate plus D) lisinopril 10 mg tablet 10 mg PO BEDTIME 12/25/23 10/01/24 Unknown History amoxicillin 500 mg tablet 2,000 mg PO ONCE 09/07/24 10/01/24 Unknown History sertraline 25 mg tablet 25 mg PO QPM 09/07/24 10/01/24 Unknown History Exam Airway Heart: rrr Lungs: cta Assessment and Plan Final Anesthetic Review NPO: Yes ASA Class: II Final Preanesthetic Review: No Changes in Pt Med Stat, Meds/Allgs Chart Reviewed, Consent Obtained/Reviewed and Anes Risks/Benef Reviewed Patient Risk: Intermediate Procedure Risk: Intermediate Anesthetic Plan Anesthetic Plan: Spinal, Neuraxial Block: and Regional Block Disposition: Standard PACU
[2024-09-07 11:59] LABS: Hematocrit 43.7 % (37.0-47.0); Hemoglobin 14.6 g/dl (12.0-16.0); Mean Corpuscular HGB Conc 33.4 g/dl (31.0-35.0); Mean Corpuscular Hemoglobin 32.2 pg (27.0-33.0); Mean Corpuscular Volume 96.3 fL (80.0-98.0); Mean Platelet Volume 10.3 fL (9.4-12.3); Platelet Count 219 X10*3/uL (160-400); Red Blood Count 4.54 X10*6/uL (4.20-5.50); White Blood Count 7.1 X10*3/uL (4.8-10.8)
[2024-09-07 13:04] LABS: MRSA Nasal PCR NEGATIVE (Negative); SA Nasal PCR POSITIVE (Negative)
[2024-10-05] VITALS (8 sets, daily range): BP systolic 129–166; BP diastolic 71–83; PULSE 47–66; RESP 16–18; TEMP 36.1–36.7; O2SAT 93–100; BMI 29.7
[2024-10-05] MEDS: Lactated Ringers 1,000 ML 100 ML IVCONT ×2 (10:37→16:15)
[2024-10-05] MEDS: ceFAZolin Sodium/Dextrose,Iso 2 GM/50 ML PIGGYBACK IV (12:30)
[2024-10-05] MEDS: Acetaminophen 1,000 MG/100 ML PIGGYBACK 400 MG IV (13:10)
[2024-10-05] MEDS: oxyCODONE HCl Immed Release 5 MG TABLET PO ×3 (16:31→23:33)
[2024-10-05] MEDS: methocarbamoL 500 MG TABLET PO ×2 (16:32→20:33)
[2024-10-05] MEDS: HYDROmorphone HCl 0.5 MG/0.5 ML SYRINGE IVPUSH ×2 (17:26→21:44)
[2024-10-05] MEDS: Aspirin 325 MG TABLET PO ×2 (17:27→20:32)
[2024-10-05] MEDS: 0.9 % Sodium Chloride Flush 3 ML SYRINGE IVFLUSH (17:27)
--- NOTE | 2024-10-05 19:41 | PHA.MEDREC ---
Addendum entered by Cheri Robb RPh 10/05/24 19:50: reviewed by [facility]. Original Note: Pharmacy Consult ? Medication Reconciliation Pharmacy reviewed med rec done by nursing. Spoke with patient and she was able to confirm her medications and confirm she is getting her medications mail ordered through [facility]. She confirmed her Atorvastatin 40mg tab, taking it every other day and confirmed she took that 2 days ago and everything else yesterday.
[2024-10-05] MEDS: Celecoxib 200 MG CAPSULE PO (20:32)
[2024-10-05] MEDS: Atorvastatin Calcium 40 MG TABLET PO (20:32)
[2024-10-05] MEDS: Sertraline HCL 25 MG TABLET PO (20:32)
[2024-10-05] MEDS: lisinopriL 10 MG TABLET PO (20:32)
[2024-10-05] MEDS: oxyCODONE HCl ER 10 MG TAB.ER.12H PO (20:33)
[2024-10-05] MEDS: Gabapentin 100 MG CAPSULE PO (20:33)
[2024-10-05] MEDS: Docusate Sodium 100 MG CAPSULE PO (20:33)
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
[2024-10-06] MEDS: HYDROmorphone HCl 0.5 MG/0.5 ML SYRINGE IVPUSH ×4 (02:08→17:23)
[2024-10-06] MEDS: Lactated Ringers 1,000 ML 100 ML IVCONT ×2 (02:23→11:11)
[2024-10-06 03:48] VITALS: BP 160/71; PULSE 71; RESP 18; TEMP 36.2; O2SAT 96
[2024-10-06] MEDS: oxyCODONE HCl Immed Release 5 MG TABLET PO ×6 (04:13→23:39)
[2024-10-06 07:01] LABS: MANUAL DIFF FLAG NO
[2024-10-06 07:09] LABS: Basophils Percent Auto 0.3 % (0-2); Hematocrit 32.5 % (37.0-47.0); Hemoglobin 10.8 g/dl (12.0-16.0); Imm Gran Abs Auto 0.05 X10*3/uL (0.00-0.03); Imm Gran Pct Auto 0.4 % (0.0-0.4); Lymphocytes Absolute Auto 1.3 X10*3/uL (1.2-4.9); Lymphocytes Percent Auto 11.3 % (20-40); Mean Corpuscular HGB Conc 33.2 g/dl (31.0-35.0); Mean Corpuscular Hemoglobin 31.8 pg (27.0-33.0); Mean Corpuscular Volume 95.6 fL (80.0-98.0); Mean Platelet Volume 10.7 fL (9.4-12.3); Monocytes Absolute Auto 0.8 X10*3/uL (0.1-1.2); Monocytes Percent Auto 7.1 % (2-11); Neutrophils Absolute Auto 9.4 x10*3/uL (2.0-8.3); Neutrophils Percent Auto 80.9 % (45-73); Platelet Count 183 X10*3/uL (160-400); Red Cell Distribution Width 12.3 % (11.0-16.0); White Blood Count 11.6 X10*3/uL (4.8-10.8)
[2024-10-06] MEDS: Aspirin 325 MG TABLET PO ×2 (07:19→19:51)
[2024-10-06] MEDS: Docusate Sodium 100 MG CAPSULE PO ×2 (07:20→19:50)
[2024-10-06] MEDS: Celecoxib 200 MG CAPSULE PO ×2 (07:20→19:50)
[2024-10-06] MEDS: oxyCODONE HCl ER 10 MG TAB.ER.12H PO ×2 (07:20→19:52)
[2024-10-06] MEDS: methocarbamoL 500 MG TABLET PO ×3 (07:20→19:52)
[2024-10-06 07:30] LABS: Anion Gap 10 (12-20); Blood Urea Nitrogen 17 mg/dL (9-16); Calcium 8.6 mg/dL (8.4-10.2); Carbon Dioxide 24 mmol/L (22-29); Chloride 106 mmol/L (96-108); Creatinine Clr Calc Pharmacy 89.4; Estimated Glomerular Filt Rate > 60; Glucose Fasting 161 mg/dL (60-99); Potassium 3.8 mmol/L (3.3-5.1); Sodium 136 mmol/L (135-145)
[2024-10-06 07:40] VITALS: BP 167/83; PULSE 64; RESP 16; TEMP 36.3; O2SAT 98
--- NOTE | 2024-10-06 09:19 | HO.POSTANES ---
Post Anesthesia Evaluation Post Anesthesia Evaluation Date of Service: 10/06/24 Vital Signs: Vital Signs Temp Pulse Resp BP Pulse Ox O2 Del Method 10/06/24 07:40 97.3 F 64 16 167/83 H 98 Room Air 10/06/24 03:48 97.2 F 71 18 160/71 H 96 Room Air 10/05/24 23:53 97.3 F 63 18 166/77 H 93 Room Air Anesthesia: Spinal Mental Status: Awake Pain Control: Satisfactory Hydration: Adequate Anesthesia-Related Issues: No Anes. Related Issues
--- NOTE | 2024-10-06 09:31 | PM.OP ---
Brief Operative Note Date of Service: 10/05/24 Pre-op diagnosis: Left knee degenerative joint disease Post-op diagnosis: same Procedure: Left total knee arthroplasty Implants: Diaz Triathlon cemented posterior stabilized total knee arthroplasty with a femoral component size 4 left, tibial component size 3, polyethylene liner size 3 with 9 mm of thickness, an asymmetric patellar component size 29 with 9 mm of thickness Surgeon: Madi Sosa MD Anesthesia: regional and spinal Was an Decommissioning Well Site Manager used for this Procedure?: No Decommissioning Well Site Manager: Antonia Mcduffie Estimated blood loss (mL): 200 Pathology: other (Bony fragments from the left femur, tibia and patella) Condition: stable Disposition: PACU
--- NOTE | 2024-10-06 09:34 | P.OP_ITS ---
Operative Note Operative Note Date of Service: 10/05/24 Narrative: After the patient was identified as Raiza Oconnell and her left knee was initialed by myself the patient was brought to the holding area where a left leg nerve block was performed by the anesthesiologist in routine fashion. The patient was then brought to the operating room where conscious sedation and spinal anesthesia were performed by the anesthesiologist in routine fashion. The patient was given 2 g of IV Ancef preoperatively for infection prophylaxis. The patient's left lower extremity was prepped and draped in sterile fashion. A formal time-out was completed. The patient's left knee was placed onto a small bump to produce 30? of knee flexion during exposure. A #10 scalpel blade was used to make a midline incision extending 1 handbreadth proximal and distal to the patella. A second #10 scalpel blade was used to dissect the subcutaneous tissues down to the extensor mechanism. The subcutaneous flaps were maintained as thick as possible. A medial parapatellar arthrotomy was then performed using a #10 scalpel blade. The arthrotomy was begun just medial to the patellar tendon. The arthrotomy was continued 1 cm medial to the patella and then 5 mm into the medial aspect of the quadriceps tendon. The infrapatellar fat pad was partially excised to help with exposure. The soft tissue retinaculum was raised one-half of the way around the medial aspect of the proximal tibia. The patella was everted and the knee was flexed to 90?. There was no injury to the patellar tendon or its insertion onto the tibial tubercle. A drill bit was introduced into the distal aspect of the femur with a starting point 1 cm anterior to the origin of the posterior cruciate ligament. The intramedullary alignment sandra was put into place. The distal alignment guide was set for a 5 degree valgus cut. The distal cutting block was put into place and was held with 4 pins. The intramedullary alignment sandra was removed. Soft tissues were retracted in the distal femoral cut was made using a sagittal saw. The distal aspect of the femur measured to be a size 4 left component. Two drill holes were placed into the distal aspect of the femur marking 3? of external rotation. The distal cutting block was impacted into place and was held with 2 pins. Soft tissues were retracted and the 4 distal femoral cuts were made using a sagittal saw. Final notching and drilling of the distal aspect of the femur were performed in routine fashion. The trial femoral component was impacted into place. The knee was taken through a full range of motion. The patella tracked well. The patella was everted and the knee was flexed to 90?. The trial component was removed and our attention was directed to the proximal tibia. The medial and lateral menisci were removed using a #10 scalpel blade. A small rim of the medial meniscus was left intact to help prevent injury to the medial collateral ligament. A drill bit was then introduced into the proximal tibia with a starting point midway from medial to lateral and one-third of the way posteriorly. The intramedullary alignment sandra was put into place. The proximal tibial cutting guide was placed over the alignment sandra in line with the 2nd toe. The guide was held in place using 3 pins. The intramedullary alignment sandra was removed. Soft tissues were retracted and the proximal tibial cut was made using a sagittal saw. The proximal tibia measured to be a size 3 component. The tibial tray was put into place with a 9 mm liner. The femoral component was impacted into place. The knee was taken through a full range of motion. There was full flexion and full extension. There was no instability with varus or valgus stress testing with the knee in flexion or extension. The patella tracked well with no medially directed force. The rotation of the tibial tray was marked using electrocautery with the knee in extension. The patella was everted and the knee was flexed to 90?. All trial components were removed. The tibial tray was placed onto the proximal tibia in line with the electrocautery isaac. The tray was held in place using 3 pins. Final broaching of the proximal tibia was performed in routine fashion. The trial liner and trial femoral component were put into place. The knee was brought into extension and our attention was directed to the patella. The patella measured 25 mm in thickness. The patellar resection guide was set for a 10 mm resection. Soft tissues were retracted and the patella cut was made using a sagittal saw. The remaining patella measured 15 mm in thickness. The undersurface of the patella was measur ed to be a size 29 asymmetric component. Three drill holes were placed into the undersurface of the patella in routine fashion. The trial component was put into place. The knee was taken through a full range of motion. The patella tracked well. The patella was everted and the knee was flexed to 90?. All trial components were removed. The knee was once again brought into extension and placed onto a small bump. The knee joint was irrigated with copious amounts of normal saline solution via pulse lavage while the cement was mixed. The patella was everted and the knee was flexed to 90?. A small amount of cement was placed along the posterior aspects of the tibial and femoral components. Cement was then pressurized into the proximal tibia. The tibial component was impacted into place. Any excess cement was removed. The polyethylene liner was then impacted into place. Cement was then pressurized into the distal aspect of the femur. A small amount of cement was placed into the intramedullary canal to help reduce bleeding. The femoral component was impacted into place. Any excess cement was removed. The knee was then brought into extension. Cement was pressurized into the undersurface of the patella. The patellar component was put into place and was held with a patella clamp. Any excess cement was removed. Once the cement had hardened the patellar clamp was removed. The knee was taken through a full range of motion. There was full flexion and extension. There was no instability with varus or valgus stress testing with the knee in flexion or extension. The patella tracked well with no medially directed force. The knee joint was irrigated with copious amounts of normal saline solution via pulse lavage. Any significant bleeding vessels were coagulated. The patient's left knee was placed onto a small bump. The arthrotomy was closed with #2 Ethibond [id number] interrupted suture as well as #1 Vicryl [id number] interrupted suture. The wound was once again irrigated. The subcutaneous tissues were closed with 0 Vicryl and 2-0 Vicryl interrupted sutures. The skin was closed with skin elizabeth. Dry sterile dressing and Renato bandages were placed over the patient's left knee. The patient was awake and alert. The patient was transferred to the recovery room in stable condition.
--- NOTE | 2024-10-06 09:52 | MHC.CM.PN ---
PT IS INDEPENDENT HAS OWN RIDE HOME WILL; BE GPOING HOME WITH A VNA REQUESTED CARETENDERS
[2024-10-06 11:13] VITALS: BP 134/82; PULSE 69; RESP 16; TEMP 36.8; O2SAT 98
--- NOTE | 2024-10-06 14:03 | PM.DS ---
DS: Providers Provider Date of Service: 10/07/24 Date of discharge: 10/07/24 Primary care physician: Rubina Devlin MD Consults: 10/05/24 15:39 Consult to Hospitalist Routine Comment: Consulting Provider: [facility] Reason For Exam: Routine medical management DS: Diagnosis Discharge Diagnosis (1) Status post total left knee replacement: Status: Acute DS: Summary Hospital Course Hospital Course: The patient underwent a successful left total knee arthroplasty, they were transferred to PACU and then to the floor to recover. During their stay, their vitals were stable, afebrile at 98.2. Labs were unremarkable, H/H 9.7/28.6. POD 1 they were started on Aspirin 325mg po bid for DVT ppx, they also received Physical Therapy services twice a day. Prior to discharge, their dressing was clean dry and intact, and the plan was to be discharged home with VNA services. Time Attestation Total time managing care of this patient today: 30 mintues. Discharge Coordination Time (in mins): 30 Quality: Safe Use of Opioids Does Pt have an Active Cancer Diagnosis on the Problem List?: No Quality: Stroke Does the patient have a stroke diagnosis?: No Physical Exam Vital Signs: Vital Signs: Last Vital Signs Temp 98.2 F 10/06/24 11:13 Pulse 69 10/06/24 11:13 Resp 16 10/06/24 11:13 BP 134/82 10/06/24 11:13 Pulse Ox 98 10/06/24 11:13 O2 Del Method Room Air 10/06/24 11:13 BMI result Body Mass Index 29.7 Const: General: cooperative, healthy appearing and no acute distress Resp: Effort & Inspection: normal respiratory effort and able to speak in complete sentences Cardio: Rate: regular rate Peripheral pulses: Peripheral pulses 2+ throughout GI: Palpation (GI): Soft to palpation Skin: Lesions: no lesions Rashes: no rashes Extrem: Other: left knee dressing is c/d/i. Able to dorsi/plantar flex. Calf is supple and nontender. Sensation intact. Pedal pulse intact. DS: Data Data Completed and Pending Pending studies at discharge: Pending at discharge 10/05/24 14:06 Surgical [PTH] Routine Labs on day of discharge: Laboratory Results - last 24 hr 10/06/24 05:38 WBC 11.6 H RBC 3.40 L D Hgb 10.8 L D Hct 32.5 L D MCV 95.6 MCH 31.8 MCHC 33.2 RDW 12.3 Plt Count 183 MPV 10.7 Immature Gran % (Auto) 0.4 Neut % (Auto) 80.9 H Lymph % (Auto) 11.3 L [place] % (Auto) 7.1 Eos % (Auto) 0.0 Baso % (Auto) 0.3 Lymph # (Auto) 1.3 [place] # (Auto) 0.8 Eos # (Auto) 0.0 Baso # (Auto) 0.0 Abs Immat Gran (auto) 0.05 H Absolute Neuts (auto) 9.4 H Absolute Nucleated RBC 0.000 Nucleated RBC % (auto) 0.0 Sodium 136 Potassium 3.8 Chloride 106 Carbon Dioxide 24 Anion Gap 10 L BUN 17 H Creatinine 0.61 Estim Creat Clear Calc 89.4 Estimated GFR > 60 Fasting Glucose 161 H Calcium 8.6 Discharge Plan Discharge Patient Disposition: Home Health Service Referrals: Antonia Mcduffie PA-C [Physician Family Practice Nurse Practitioner] - 10/22/24 12:45 pm Discharge Medications: New celecoxib 200 mg Capsule 200 mg PO BID 30 Days Qty: 60 0RF methocarbamol 500 mg Tablet 500 mg PO TID 7 Days Qty: 21 0RF acetaminophen 325 mg Tablet 650 mg PO Q6H PRN (Reason: Pain, Mild 1-3,Fever,Headache) 30 Days Qty: 240 0RF aspirin 325 mg Tablet 325 mg PO BID 42 Days Qty: 84 0RF docusate sodium 100 mg Capsule 100 mg PO BID Qty: 30 0RF gabapentin 100 mg Capsule 100 mg PO BEDTIME 7 Days Qty: 7 0RF oxycodone 5 mg Tablet 5 mg PO Q4H 7 Days Qty: 42 0RF Rx Instructions: Partial Fill upon patient request. Continued sertraline 25 mg Tablet 25 mg PO BEDTIME atorvastatin 40 mg tablet 40 mg PO Q48H Caltrate 600 plus D 600 mg-20 mcg (800 unit) tablet,chewable 1 tab PO BID lisinopril 10 mg tablet 10 mg PO BEDTIME Discharge Orders: Discharge Order (Routine); Ordered 10/07/24 Ordered By: Antonia Mcduffie Diet: Advance to usual diet Activity on Discharge: Use cane or walker Activity Restrictions/Additional Instructions: Physical Therapy for ROM 0-120, quad strength, gait training. Use walker for ambulation Limit stair climbing, No shower, No tub bath, No driving Continue anticoagulant x 6 weeks Keep Aquacel dressing clean, dry and intact. Follow up with orthopedics in 2 weeks Print Language: Setswana
--- NOTE | 2024-10-06 14:04 | P.F2F_ITS ---
Service Date Service Date: 10/06/24 Encounter Date of encounter: 10/06/24 Reasons for Services Signs and symptoms assessed: s/p LTKA Pt. is considered homebound due to recent surgery. Unable to drive, poor balance, poor gait mechanics. Reason for physical therapy: home safety and mobility, therapeutic exercises, restore joint function, gait/transfer training and ADL training Homebound: Leaving the home is medically contraindicated at this time without the asist of a device and/or another person due th the listed conditions above and below. Reason homebound: unsteady gait / fall risk, leg weakness, pain with ambulation, poor balance / fall risk and unable to drive Certification: Based on the above findings, I certify that this patient is confined to the home and needs intermittent long term care, physical therapy and/or speech therapy, or continues to need occupational therapy. The patient is under my care, and I have initiated the establishment of the plan of care. The patient will be followed by a physician who will periodically review the plan of care. Time Spent With Patient Time: Total time managing care of this patient today ____ minutes.
[2024-10-06 15:33] VITALS: BP 148/79; PULSE 65; RESP 20; TEMP 36; O2SAT 99
--- NOTE | 2024-10-06 15:46 | P.PNOP_ITS ---
Subjective Subjective Date of Service: 10/06/24 Interval history: POD 1 s/p LT TKA no overnight events resting in bed pain not well managed denies sob, cp, palpitations Physical Exam Vital Signs: Vital Signs: Last Vital Signs Temp 96.8 F 10/06/24 15:33 Pulse 65 10/06/24 15:33 Resp 20 10/06/24 15:33 BP 148/79 H 10/06/24 15:33 Pulse Ox 99 10/06/24 15:33 O2 Del Method Room Air 10/06/24 15:33 BMI result Body Mass Index 29.7 Const: General: cooperative, healthy appearing and no acute distress Resp: Effort & Inspection: normal respiratory effort and able to speak in complete sentences Cardio: Rate: regular rate Peripheral pulses: Peripheral pulses 2+ throughout GI: Palpation (GI): Soft to palpation Skin: General skin exam: no rashes or lesions noted Extrem: Other: bandage clean dry and intact. [place] intact. No erythema or joint effusion. Calf supple nontender. Neurovascularly intact. Procedures Date of Service Date of Service: 10/06/24 Progress Note: A&P Assessment and plan (1) Status post total left knee replacement: Status: Acute Assessment and Plan: * Continue pain mgmnt * Aspirin for dvt ppx PT for LT TKA * Dispo planning-Pending PT eval, pain mgmnt Need for continued inpatient stay: pain management and PT Time Spent With Patient Time: Total time managing care of this patient today ____ minutes. Quality Stroke Does the patient have a stroke diagnosis?: No VTE Prior VTE?: No VTE Risk Level:: Surgical - very high VTE Device Contraindication: N/A - Device Ordered VTE Drug Contraindication: N/A - Med Ordered
[2024-10-06] MEDS: 0.9 % Sodium Chloride Flush 3 ML SYRINGE IVFLUSH (19:05)
[2024-10-06] MEDS: ceFAZolin Sodium/Dextrose,Iso 2 GM/50 ML PIGGYBACK IV (19:06)
[2024-10-06 19:07] VITALS: BP 156/74; PULSE 61; RESP 18; TEMP 37.4; O2SAT 97
[2024-10-06] MEDS: lisinopriL 10 MG TABLET PO (19:50)
[2024-10-06] MEDS: Gabapentin 100 MG CAPSULE PO (19:51)
[2024-10-06] MEDS: Sertraline HCL 25 MG TABLET PO (19:51)
[2024-10-06 23:43] VITALS: BP 141/72; PULSE 68; RESP 18; TEMP 36.9; O2SAT 97
[2024-10-07 03:07] VITALS: RESP 18
[2024-10-07] MEDS: HYDROmorphone HCl 0.5 MG/0.5 ML SYRINGE IVPUSH (03:07)
[2024-10-07] MEDS: ceFAZolin Sodium/Dextrose,Iso 2 GM/50 ML PIGGYBACK IV (03:08)
[2024-10-07 03:39] VITALS: BP 160/74; PULSE 59; RESP 16; TEMP 36.2; O2SAT 97
[2024-10-07] MEDS: oxyCODONE HCl Immed Release 5 MG TABLET PO (03:39)
[2024-10-07 06:03] LABS: MANUAL DIFF FLAG NO
[2024-10-07 06:11] LABS: Basophils Percent Auto 0.4 % (0-2); Eosinophils Absolute Auto 0.1 X10*3/uL (0.0-0.4); Hematocrit 28.6 % (37.0-47.0); Hemoglobin 9.7 g/dl (12.0-16.0); Imm Gran Abs Auto 0.02 X10*3/uL (0.00-0.03); Imm Gran Pct Auto 0.3 % (0.0-0.4); Lymphocytes Absolute Auto 1.1 X10*3/uL (1.2-4.9); Mean Corpuscular HGB Conc 33.9 g/dl (31.0-35.0); Mean Corpuscular Hemoglobin 32.3 pg (27.0-33.0); Mean Corpuscular Volume 95.3 fL (80.0-98.0); Mean Platelet Volume 10.7 fL (9.4-12.3); Monocytes Absolute Auto 0.7 X10*3/uL (0.1-1.2); Monocytes Percent Auto 9.3 % (2-11); Neutrophils Absolute Auto 5.9 x10*3/uL (2.0-8.3); Platelet Count 150 X10*3/uL (160-400); Red Cell Distribution Width 12.6 % (11.0-16.0); White Blood Count 7.9 X10*3/uL (4.8-10.8)
[2024-10-07 06:22] LABS: Anion Gap 10 (12-20); Blood Urea Nitrogen 8 mg/dL (9-16); Calcium 8.7 mg/dL (8.4-10.2); Carbon Dioxide 25 mmol/L (22-29); Chloride 103 mmol/L (96-108); Creatinine Clr Calc Pharmacy 95.7; Estimated Glomerular Filt Rate > 60; Glucose Fasting 150 mg/dL (60-99); Potassium 3.8 mmol/L (3.3-5.1); Sodium 134 mmol/L (135-145)
[2024-10-07] MEDS: oxyCODONE HCl Immed Release 5 MG TABLET 10 MG PO (07:29)
[2024-10-07 08:00] VITALS: BP 141/79; PULSE 64; RESP 12; TEMP 36.6; O2SAT 97
[2024-10-07] MEDS: Docusate Sodium 100 MG CAPSULE PO (08:21)
[2024-10-07] MEDS: methocarbamoL 500 MG TABLET PO (08:21)
[2024-10-07] MEDS: Celecoxib 200 MG CAPSULE PO (08:21)
[2024-10-07] MEDS: Aspirin 325 MG TABLET PO (08:21)
[2024-10-07] MEDS: oxyCODONE HCl ER 10 MG TAB.ER.12H PO (08:22)
[2024-10-07] MEDS: 0.9 % Sodium Chloride Flush 3 ML SYRINGE IVFLUSH (08:24)
== END 2024-10-07 11:08 | disposition home health service (06) ==
LOC: HO.SSS 09:59 → HO.S3 14:26
PROVIDERS: Nurse Practitioner; Physician Assistant; PCP Internal Medicine; Visit Provider Orthopaedic Surgery
PROC: (CPT 27447; principal; 2024-10-05 12:00)
DX: M17.12 Unilateral primary osteoarthritis, left knee (principal); R26.2 Difficulty in walking, not elsewhere classified; M25.562 Pain in left knee; R01.1 Cardiac murmur, unspecified; I10 Essential (primary) hypertension; E78.00 Pure hypercholesterolemia, unspecified; R06.83 Snoring; Z96.651 Presence of right artificial knee joint; F32.A Depression, unspecified; Z79.899 Other long term (current) drug therapy; Z98.890 Other specified postprocedural states; Z87.891 Personal history of nicotine dependence
CPT/HCPCS: 27447; 36415; 80048; 85025; 85027; 86850; 86900; 86901; 87640; 87641; 88304; 88305; 88311; 97110; 97116; 97161; 97530; C1776; J0131; J0171; J0665; J0690; J1100; J1171; J2003; J2250; J2405; J2704; J3370; J7120

== ENCOUNTER → 2024-10-05 09:58 | Outpatient (BNV) | payer MEDICARE, OTHER, SELFPAY | PROVIDERS: PCP Internal Medicine; Visit Provider Physician Assistant | DX: I10 Essential (primary) hypertension (principal); Z96.652 Presence of left artificial knee joint | CPT/HCPCS: 99222 ==

== ENCOUNTER → 2024-10-05 09:58 | Outpatient (BNV) | payer MEDICARE, OTHER, SELFPAY | PROVIDERS: PCP Internal Medicine; Visit Provider Orthopaedic Surgery | DX: Z47.1 Aftercare following joint replacement surgery (principal); Z96.652 Presence of left artificial knee joint; M17.12 Unilateral primary osteoarthritis, left knee | CPT/HCPCS: 27447; 99024 ==

== ENCOUNTER 2024-10-22 08:15 | Outpatient (REF) | payer MEDICARE, OTHER, SELFPAY ==
--- NOTE | ~2024-10-22 | XR_ITS ---
EXAMINATION: XR KNEE, LEFT CLINICAL INFORMATION: M25.569 - Pain in unspecified knee COMPARISON: 04/24/2023. TECHNIQUE: AP view bilateral knees standing, lateral and patellofemoral views left knee. FINDINGS: Right Knee: Post total right knee arthroplasty. Tibial and femoral components intact, well seated, in anatomic alignment. Normal soft tissues. Left Knee: There is been a total left knee arthroplasty. Tibial and femoral components are intact, well seated, in anatomic alignment. There is no associated patellar resurfacing. No fracture or periprosthetic abnormality. There is small volume subcutaneous and intra-articular gas. There are ventral skin elizabeth present. There is expected prepatellar soft tissue swelling. XR/XR knee LT 3V IMPRESSION: 1. Post left knee arthroplasty without complication. Electronically signed by: Doc Silverio MD 10/26/2024 08:25 AM EDT
== END 2024-10-22 08:16 | disposition home or self-care (01) ==
LOC: HO.HOSX 08:15
PROVIDERS: Visit Provider Physician Assistant
DX: Z96.653 Presence of artificial knee joint, bilateral (principal)
CPT/HCPCS: 73562; 99212

== ENCOUNTER 2024-10-22 12:27 | Outpatient (AMB) | payer MEDICARE, OTHER, SELFPAY ==
--- NOTE | 2024-10-22 12:37 | MHC.OFFVIS ---
Intake Visit Reasons: 2WK PO: L TKA w/ 10/05/24 Intake Note: Raiza is a 69 year old female who presents today for a post op appointment s/p left total knee arthroplasty 10/05/24 Patient reports - . Allergies walnut Allergy (Intermediate, Verified 10/22/24 12:37) tingling in mouth HPI HPI 2WK PO: L TKA w/ 10/05/24: Details: Ms. Briseno is a 69-year-old female who presents to the office today status post left total knee arthroplasty with Dr. Tracey on 10/05/2024. Patient is doing very well. She is using a cane to ambulate. She is working with [facility]. Her pain is well managed. No additional complaints. [facility]LY [facility] Medical History Depression Habitual snoring Murmur Elevated cholesterol HTN (hypertension) Tear of medial meniscus of knee Surgical History H/O colonoscopy H/O carpal tunnel repair S/P left knee arthroscopy Hx of appendectomy History of total right knee replacement (TKR) (10/20/21) Social History Household Members: Spouse Housing: House Are you a primary primary care coordinator to a significant other at home: Yes (spouse needs care) Do you presently have visiting nurse or other home services: No Patient Tobacco Use Status: Former Tobacco user Tobacco use type: Cigarette Second Hand Smoke Exposure: No Substance Use Type: Marijuana service: No Current occupational status: retired Review of Systems Const All systems reviewed & are unremarkable except as noted in HPI and below Physical Exam Const General: cooperative, healthy appearing and no acute distress Resp Effort & Inspection: normal respiratory effort and able to speak in complete sentences Cardio Rate: regular rate Peripheral pulses: Peripheral pulses 2+ throughout Skin Lesions: no lesions Rashes: no rashes Extrem Other: Left knee incision site is clean dry and intact. Salvador intact. Range of motion is 0-120. Calf is supple and nontender. Able to dorsiflex and plantar flex. NVI. Assessment & Plan Assessment & Plan (1) Status post total left knee replacement: Code(s): Z96.652 - Presence of left artificial knee joint Category: Surgical Plan Ms. Briseno is a 69-year-old female who presents to the office today status post left total knee arthroplasty with Dr. Tracey on 10/05/2024. Patient is doing very well. She is using a cane to ambulate. She is working with [facility]. Her pain is well managed. No additional complaints. On the office today, salvador removed and Steri-Strips were applied. Patient will continue working with physical therapy. She will continue anticoagulation for 6 weeks total postop. She will see Dr. tracey in 4 weeks, sooner if needed. X-rays of the left knee which were obtained while in the office today and were reviewed by me, Antonia Mcduffie PA-C, revealed left knee total arthroplasty with satisfactory alignment. Orders: Orders XR knee RT 1V Today M25.569 - Pain in unspecified knee XR knee LT 3V Today M25.569 - Pain in unspecified knee Coding Level of Care Code Global (80199) Diagnoses Status post total left knee replacement Z96.652
--- OUTSIDE RECORDS SUMMARY | 2024-10-22 14:46 | XMS_ITS | Encounter Summary ---
Author Organization [employer] Address [address] 7[address] [place] [address] Care Team Providers Care Lieutenant Ballistics Name Role Phone Sanaz Blanco COUNTRY PRINTER Primary Care Provider Unavailable Mary Blunt Unavailable Unavailable Encounter Details Date Type Department Care Team (Latest Contact Info) Description 10/21/2024 Travel Social History Tobacco Use Types Packs/Day [...] Care Team (Late st Contact Info) Description 10/28/2024 11:[address] [facility] MEDICAL [address] [place] [address] Salma Alcantara MD [address] [place] [address] 2025 9:00 AM EDT Office Visit [facility] [address] [place] [address] Rubina Devlin MD [address] [place] [address] documented as of this encounter Visit Diagnoses Not on filedocumented in this encounter Additional Health Concerns Assessment Noted Time PHQ-9 Depression Total Score: 7 06/12/20 23 10:16 AM EST documented as of this encounter Care Teams Lieutenant Ballistics Relationship Specialty Start Date End Date Sanaz Blanco FNP PCP - General Family Medicine 08/27/22 Mary Blunt Community Health Worker 01/29/24 documented as of this encounter
--- OUTSIDE RECORDS SUMMARY | 2024-10-22 14:46 | XMS_ITS | Encounter Summary ---
Author Organization [employer] Address [address] [facility] 7t [place] [address] Care Team Providers Care Mender Knit Goods Name Role Phone Sanaz Blanco Primary Care Provider Unavailable Mary Blunt Unavailable Unavailable Encounter Details Date Type Department Care Team ([facility] st Contact Info) Description 10/16/2024 Population Health Risk Score [facility] (C3) Department [address] [address] Provider, Population Health Generic Social History Tobacco Use Types Packs/Day Years [...] Info) Description 10/28/2024 11:30 AM EDT Telemedicine [facility] MEDICAL [address] [place] [address] Salma Alcantara MD [address] [place] [address] 2025 9:00 AM EDT Office Visit [facility] MEDICAL [address] [place] [address] Rubina Devlin MD [address] [place] [address] documented as of this encounter Visit Diagnoses Not on filedocumented in this encounter Additional Health Concerns Assessment Noted Time PHQ-9 Depression Total Score: 7 06/12/20 23 10:16 AM EST documented as of this encounter Care Teams Mender Knit Goods Relationship Specialty Start Date End Date Sanaz Blanco FNP PCP - General Family Medicine 08/27/22 Mary Blunt Community Health Worker 01/29/24 documented as of this encounter
--- OUTSIDE RECORDS SUMMARY | 2024-10-22 14:46 | XMS_ITS | Encounter Summary ---
Author Organization [employer] Address [address] 7[address] [place] [address] Care Team Providers Care Cosmetics Presser Name Role Phone Sanaz Blanco LEAD ELECTRICAL ENGINEER Primary Care Provider Unavailable Mary Blunt Unavailable Unavailable Encounter Details Date Type Department Care Team (Latest Contact Info) Description 10/11/2024 Travel Social History Tobacco Use Types Packs/Day [...] 10/28/2024 11:[address] [facility] MEDICAL [address] [place] [address] Salma Alcantara MD 70 [place] [address] 2025 9:00 AM EDT Office Visit [facility] [address] [place] [address] Rubina Devlin MD [address] [place] [address] documented as of this encounter Visit Diagnoses Not on filedocumented in this encounter Additional Health Concerns Assessment Noted Time PHQ-9 Depression Total Score: 7 06/12/20 23 10:16 AM EST documented as of this encounter Care Teams Cosmetics Presser Relationship Specialty Start Date End Date Sanaz Blanco FNP PCP - General Family Medicine 08/27/22 Mary Blunt Community Health Worker 01/29/24 documented as of this encounter
--- OUTSIDE RECORDS SUMMARY | 2024-10-22 14:46 | XMS_ITS | Encounter Summary ---
Author Organization [employer] Address [address] 7t [place] [address] Care Team Providers Care Mobile Phone Salesperson Name Role Phone Sanaz Blanco AGENT TICKETING GATE Primary Care Provider Unavailable Mary Blunt Unavailable Unavailable Encounter Details Date Type Department Care Team (Latest Contact Info) Description 10/19/2024 Travel Social History Tobacco Use Types Packs/Day [...] Info) Description 10/28/2024 11:30 AM EDT Telemedicine [facility] MEDICAL [address] [place] [address] Salma Alcantara MD 70 [place] [address] 2025 9:00 AM EDT Office Visit [facility] [address] [place] [address] Rubina Devlin MD [address] [place] [address] documented as of this encounter Visit Diagnoses Not on filedocumented in this encounter Additional Health Concerns Assessment Noted Time PHQ-9 Depression Total Score: 7 06/12/20 23 10:16 AM EST documented as of this encounter Care Teams Mobile Phone Salesperson Relationship Specialty Start Date End Date Sanaz Blanco FNP PCP - General Family Medicine 08/27/22 Mary Blunt Community Health Worker 01/29/24 documented as of this encounter
--- OUTSIDE RECORDS SUMMARY | 2024-10-22 14:46 | XMS_ITS | Data Portability ---
Author Organization [place] [facility] Lucian Leos [facility] [place] Address [address] [place] [address] Care Team Providers Care Pleater Name Role Phone SULMA IBANEZ Primary Care [...] degrees. The knee is stable within that [id number] to AP and ML stress. The alignment [...] robotic assisted, on May 09, 2023 at [facility]. Not available 02/08/2023 14:35:02 Plan of Treatment Reminders Order Date Submit Date Provider Last Modified By Organization Details Last Modified Time Details Appointments None recorded. Lab None recorded. Referral None recorded. Procedures None recorded. Surgeries total knee replacement (SURG) 2022 023 [email or web address] [id number] [facility], [address] [place] [address], [address], 14:38:05 Imaging XR, knee, 3 view 2022 023 [facility], [address], [place], [address], 3 15:40:51 XR, hip, unilateral, 2 or 3 view 2022 023 [facility], [address], [address], [place], [address], 3 15:40:51 XR, knee, 1 or 2 view 2022 023 snarus [facility], [address], [address], [place], [address], 3 10:10:03 Medication Orders Kenalog 40 mg/mL suspension for injection 2022 023 [facility], [address] [place], [address], 3 15:16:32 lidocaine (PF) 10 mg/mL (1 %) injection solution 2022 023 [facility], [address] [place], [address], 3 15:16:31 Patient TargetsNo targets recorded. Patient Instructions Encounter Date Encounter Id Patient Instructions Last Modified By Organization Details Last Modified Time 02/08/2023 [id number] AP, lateral, Ann, and patellar radiographs views of the left knee taken today demonstrate left knee degenerative joint disease with joint space narrowing, osteophyte formation, and subchondral sclerosis. There is uuvy-sq-tshc articulation in the lateral compartment. AP pelvis, [...] Organization Details Recorded Time Arthritis of knee 716688158 Active 2022 Kyrie Montelongo MD [address], [place], [address], [place] [facility] 3 14:35:26 Osteoarthri tis of left knee joint 7563399870938 09 Active 2022 MANDY VARGHESE PA-C [address], [place], [address], [place] [facility] 3 15:12:56 Tear of medial meniscus of knee 465943128 Active 2022 MANDY VARGHESE PA-C [address], [place], [address], [place] [facility] 3 15:14:58 Pain of left knee joint 5800606257827 07 Active 2022 Yu Gaines MD [address], [place], [address], [place] [facility] 3 15:26:34 Problem Notes None recorded. Procedures Surgical History Date Name Laterality Status Provider Name and Address Organization Details Recorded Time 12/11/19 23 Knee Joint/Bursa Asp & Inj completed MANDY VARGHESE PA-C [address], [place], [address], [place] [facility] 12/10/2022 15:16:24 Total knee arthroplasty completed Evie Royal [place] [facility] 10/23/2022 14:59:13 Carpal tunnel surgery completed Evie Royal [place] [facility] 10/23/2022 14:59:26 Imaging Results Imaging Date Name Status LastModified by Organiz [facility] Details LastModified Time 11/07/2022 MRI, knee, [...] cm Rose Mckeon [facility] 12/10/2022 13:32:33 Date Recorded Body height Body mass index (BMI) Body weight Provider Name and Address Organization Details Last Updated DateTime 10/23/2022 162.56 cm 30.9 kg/m2 27991.[address] [place] [facility] 10/23/2022 14:58:35 Date Recorded Body height Body mass index (BMI) Body weight Provider Name and Address Organization Details Last Updated DateTime 02/08/2023 162.56 cm 33.5 kg/m2 47970.[address] [place] [facility] 02/08/2023 14:09:59 Social History Question Answer Notes LastModified by Organizat ion Details LastModified Time Tobacco Smoking Status Former Smoker Dejan tapia, [place] [facility] 02/08/2023 14:10:29 What Is Your Level Of Alcohol Consumption? Moderate [email or web address] Information not available 02/08/2023 How Many Times Per Week Do You Consume Alcohol? 5-7 Times Per Week [email or web address] Information not available 02/08/2023 When Did You Quit Smoking? 16+yearssince lastcigarette [email or web address] Information not available 02/08/2023 Do You Use Any Illicit Or Recreational Drugs? No [email or web address] Information not available 02/08/2023 Do You Or Have You Ever Used Any Other Forms Of Tobacco Or Nicotine? No [email or web address] Information not available 02/08/2023 Sex: Unknown Functional [...] Diagnosis Note 1417 MD BINA Shelley [address] [address] 10/23/2022 14:52:33 10/23/2022 15:23:27 Pain of right knee joint 0235909029 03595 M25.561 Pain of le ft knee joint 3837667667 41215 M25.562 7001 MD BINA Amanda [address] [address] 12/10/2022 13:22:40 12/10/2022 14:01:57 Osteoarthritis of left knee joint 9811002463 07151 M17.12 Tear of me dial meniscus of knee 910822586 S83.242D [id number] MD BINA Amandaisreal [address] [address] 02/08/2023 13:47:32 02/08/2023 14:41:47 Pain of left knee joint 8757566690 70703 M25.562 Pain of le ft hip joint 6689593072 17783 M25.552 Osteoarthr itis of left knee joint 6297107741 59514 M17.12 Arthritis of knee 651693 002 M13.869 Health Concerns Section Related Observation LastModified by Organization Detai ls LastModified Time None Recorded Concern Status LastModified by Organization Details LastModified Time None Recorded Advance Directives Directive None Recorded Payers Encounter Date Sequence Insurance Name Policy Number Policy Ball Covered Member ID Ball Member ID Guarantor Name 10/23/2022 1 [place] [facility] Raiza P Spingler [id number] Raiza P Spingler 10/23/2022 2 () Raiza P Spingler [id number] Raiza P Spingler 12/10/2022 1 [place] [facility] Raiza P Spingler [id number] Raiza P Spingler 12/10/2022 2 () Raiza P Spingler [id number] Raiza P Spingler 02/08/2023 1 [place] [facility] Raiza P Spingler [id number] Raiza P Spingler 02/08/2023 2 () Raiza P Spingler [id number] Raiza P Spingler Notes Date Note Type [...] several times per day. Yu Gaines MD [address] [place] [address], [address], [place] [facility] 10/23/2022 15:26:43 12/10/2022 text/html Dr. Gaines [...] are available. 1. Pain of right knee zwkohM87.561: Pain in right knee XR KNEE, 1 OR 2 VIEW, 340264. Pain of left knee zhjmyL02.562: Pain in left knee Return to Office [...] evaluation and treatment discussion regarding her MRI. [facility] [address] [place] [address] Patient: RAIZA BOLES /Age/Sex: 1955 - 67 - FUnit#: [id number] Location/Status: SPDIMRI/REG CLIAccount#: [id number] Mnemonic/Ordering Site: [facility]/SPMAINOrdering Physician: YU GAINES MD [...] Date/Time: 11/07/22508Sign date/Time: 11/07/22508 MANDY VARGHESE PA-C [address] [place] [address], [address], [place] [facility] 12/10/2022 15:17:07 OBGyn Episode No OBEpisode recorded.
--- OUTSIDE RECORDS SUMMARY | 2024-10-22 14:46 | XMS_ITS | Clinical Summary ---
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
--- OUTSIDE RECORDS SUMMARY | 2024-10-22 14:46 | XMS_ITS | Clinical Summary ---
Author Organization [employer] Address [address] [facility] 7t [place] [address] Care Team Providers Care Social Media Sr Strategy Manager Name Role Phone Sanaz Blanco SOLAR ELECTRIC INSTALLER Primary Care Provider Unavailable Mary Blunt Unavailable Unavailable Allergies Active Allergy Reactions Criticality Noted Date Comments Black Welcome Flavoring Agent (Non-Screening) Itching Low 01/01/2024 Welcome Hives 05/21/2011 Medications * This document contains information received from the source organization and may not represent a complete record from that organization. Calcium Carbonate-Vitamin D (CALTRATE 600+D PO) Take 2 tablets by mouth in the morning. Active atorvastatin (Lipitor) 40 MG tabletIndications :Hypercholesterem ia TAKE ONE TABLET BY MOUTH EVERY OTHER DAY 45 tablet 3 4 Active amoxicillin (Amoxil) 500 MG capsule Active sertraline (Zoloft) 25 MG tabletIndications :Depression, recurrent (CMS/HCC) Take 1 tablet (25 mg) by mouth Once per day. 90 tablet 3 5 09/08/19 26 Active lisinopril 10 MG tabletIndications :Primary hypertension Take 1 tablet (10 mg) by mouth at bedtime. 90 tablet 3 5 09/22/19 26 Active Active Problems Problem Noted Date Diagnosed Date Right knee pain 06/27/2024 Overview (06/27/2024): Patient receiving injections in right knee for OA at [facility]. Helpful for pain. Also taking ibuprofen and [...] - 40 mg/dL 17 LDL Chol Calc ([facility]) 0 - 99 mg/dL 62 Last lipid [...] organization. Date Type Department Care Team Description 10/21/2024 Travel 10/19/2024 Travel 10/16/2024 Population Health Risk Score [facility] ([facility] Department [address] [id number] Provider, Population Health Generic 10/11/2024 Travel 09/22/2024 Refill [facility] MEDICAL [address] [place] [address] Komal Gardner FNP Primary hypertension 09/21/2024 Travel 09/08/2024 3:00 PM EST Office Visit [facility] MEDICAL [address] [place] [address] Rubina Devlin MD Depression, recurrent (CMS/HCC) 09/07/2024 Travel 09/07/2024 Telephone [facility] MEDICAL [address] [place] [address] Sanaz Blanco FNP Appointment 09/01/2024 Travel 08/25/2024 Travel 08/12/2024 Travel 08/07/2024 11:30 AM EST Office Visit [facility] MEDICAL [address] [place] [address] Salma Alcantara MD Primary hypertension (Primary Dx); Osteoarthritis of left knee, unspecified osteoarthritis type; Vitamin D deficiency; Hypercholesteremia; Depression, recurrent (CMS/HCC); Systolic murmur 08/05/2024 Travel from Last 3 Months Immunizations Name [...] Info) Description 10/28/2024 11:30 AM EDT Telemedicine [facility] MEDICAL [address] [place] [address] Salma Alcantara MD [address] [place] [address] 2025 9:00 AM EDT [facility] [address] [place] [address] Rubina Devlin MD [address] [place] [address] Health Maintenance Due Date Last Done Comments CT Colonography 1955 FIT DNA/Cologuard 1955 FIT 1955 FOBT 1955 Sigmoidoscopy 1955 Pneumococcal Vaccine: 50+ Years (1 of 1 - PCV) 2006 Zoster Vaccines (1 of 2) 2006 COVID-19 Vaccine (1 - 2023- season) 2024 Influenza Vaccine (#1) 2024 Alcohol/Substance [...] Results * (ABNORMAL) Vitamin D 25 hydroxy 558826 (08/10/2024 9:16 AM EST) Vitamin D, 25-OH, Total 29.9(L) 30.0 - 100.0 ng/mL [facility] 1 Comment: Vitamin D deficiency has been defined by the Pearson of Medicine and an Endocrine Society practice guideline as a level of serum 25-OH vitamin D less than 20 ng/mL (1,2). The Endocrine Society went on to further define vitamin D insufficiency as a level between 21 and 29 ng/mL (2). 1. IOM (Pearson of Medicine). 2010. Dietary reference ?? intakes for calcium and D. [place]: The ?? National Academies Press. 2. Yosvany MF, Saida NC, Gorge BLEVINS, et al. ?? Evaluation, treatment, and prevention of vitamin D ?? deficiency: an Endocrine Society clinical practice ?? guideline. JCEM. 2011 Feb; 96(7):1911-30. Blood Venous blood specimen / Unknown 08/10/2024 9:16 AM EST 08/10/2024 Narrative [facility] 1 - 08/11/2024 6:05 AM EST Performed at: ??01 - [facility] [address] ??[id number] Ton Container Shipper: Sary Parker MD, Phone: ??[phone] Komal Dmitrysaurabh [facility] LAB BLOOD ORDERABLES Deysi minor Result [facility] 1 * Lipid Panel, Standard 95058 (08/10/2024 9:16 AM EST) Cholesterol, Total 173 100 - 199 mg/dL [facility] 1 Triglycerides 107 0 - 149 mg/dL [facility] 1 HDL Cholesterol 90 >39 mg/dL [facility] 1 VLDL Cholesterol Daniel 19 5 - 40 mg/dL [facility] 1 LDL Chol Calc (NIH) 64 0 - 99 mg/dL [facility] 1 Blood Venous blood specimen / Unknown 08/10/2024 9:16 AM EST 08/10/2024 Narrative [facility] 1 - 08/11/2024 6:05 AM EST Performed at: ??01 - [facility] [address] ??[id number] Ton Container Shipper: Sary Parker MD, Phone: ??[phone] [facility] Divinemyrna [facility] LAB BLOOD ORDERABLES Deysi minor Result Performing Organization Address [facility]/ZIP Co de Phone Number [facility] 1 * [...] AM EST Performed at: ??01 - [facility] [address] ??[id number] Ton Container Shipper: Sary Parker MD, Phone: ??[phone] Komal Gardner SOLAR ELECTRIC INSTALLER LAB BLOOD ORDERABLES Deysi minor Result [facility] [...] (Negative) Lay letter mailed to patient WSN: [id number] Ordering Physician: Sanaz Blanco Dictated By: ?Apryl Gonzalez MD Dictated Date/Time: ?01/14/24 1:23 pm Reviewed By: ?Apryl Gonzalez MD Signed By: ? Apryl Gonzalez MD Signed Date/Time: ? 01/14/24 1:23 pm Transcribed By: ? CSB Stamping Die Maker Bench Date/Time: ? 01/14/24 1:20 pm Birads: Procedure [...] (Negative) Lay letter mailed to patient WSN: [id number] Ordering Physician: Sanaz Blanco Dictated By: Apryl Gonzalez MD Dictated Date/Time: 01/14/24 1:23 pm Reviewed By: Apryl Gonzalez MD Signed By: Apryl Gonzalez MD Signed Date/Time: 01/14/24 1:23 pm Transcribed By: CSB Stamping Die Maker Bench Date/Time: 01/14/24 1:20 pm Birads: Sanaz Blanco SOLAR ELECTRIC INSTALLER IMG BI PROCEDURES Deysi l Result * Hepatits C Antibody w/Reflex HCV Quant PCR and Genotyping (08/29/2022 3:10 PM EST) Hepatitis C Virus Ab, Serum NEGATIVE (NEG) [facility] Comment: Reference range: Negative This test was performed on the Venegas Reporting Consultant immunoassay system. Testing performed or reported by [facility], a Service of [facility], [address] [place], [place] [address] [address] Kei Anne MD, Electronic Masking System Operator [facility]# [id number] 08/29/2022 3:10 PM EST 08/29/2022 3:12 PM EST Sanaz Blanco SOLAR ELECTRIC INSTALLER LAB BLOOD ORDERABLES F inal Result [facility] [address] [place] [address] * Pap Smear (06/18/2022 12:00 AM EST) Swab Historical Provider LAB CYTOLOGY ORDERABLES F inal Result * Hm Colonoscopy (12/27/2021) Colonoscopy 10 year recall Historical Provider HEALTH MAINTENANCE Final Result from Last 3 Months or Most Recently Relevant to Health Maintenance Insurance MEDICARE Member Subscriber Plan / Payer (Ef fective 2022-Present) Name:Raiza Oconnell Member ID:[id number] Relation to Subscriber:Self Name:Raiza Oconnell Subscriber ID:[id number] Payer ID:STATE Group ID:Not on file Type:Medicare Address: [facility] [address] [place] [address] [facility] Care Teams Social Media Sr Strategy Manager Relationship Specialty Start Date End Date Sanaz Blanco FNP PCP - General Family Medicine 08/27/22 Mary Blunt Community Health Worker 01/29/24
--- OUTSIDE RECORDS SUMMARY | 2024-10-22 14:46 | XMS_ITS | Encounter Summary ---
Author Name [facility] Organization [facility] [place] Address [address] [place] [address] Selected Encounter This section includes the information on record at [place] for the Encounter. Date/Time Encounter Type Encounter Description Reason Provider Source Jul 24, 2024 10:30 AM PROGRAM INTAKE ASSESSMENT ADMIN PAT ACTIVTIES (MASNONCT) ICD-10-CM Z71.0 Prsn encntr hlth serv to consult on behalf of another person TERESE BELTRAN E Encounter Template Text not used by [place] Assessments - Encounter Diagnoses This section includes the primary and secondary diagnoses documented for the Encounter. Date/Time Primary/Secondary Diagnosis Diagnosis Name Provider Source Jul 24, 2024 11:28 AM PRIMARY Prsn encntr hlth serv to consult on behalf of another person TERESE BELTRAN [facility] Encounter Notes: All associated encounter notes This section contains the clinical notes associated to the Encounter. Date/Time Encounter Note(s) Provider Source Jul 24, 2024 11:11 AM CAREGIVER CERTIFIC ATE: LOCAL TITLE: [facility] TELEPHONE NOTE STANDARD TITLE: CAREGIVER CERTIFICATE DATE OF NOTE: JUL 24, 2024@11:11 ENTRY DATE: JUL 24, 2024@11:12:05 AUTHOR: TERESE BELTRAN EXP COSIGNER: URGENCY: STATUS: COMPLETED This account underwriter returned a call to the [facility] office in [place] from the . She took the call from her neighbor's house, noting that she was there so she could have some privacy and brief respite. reports that the Deering has recently returned home from a brief hospital admission, but that his MH was deteriorating, as well as his physical health. Reported that the Deering has continued to consumme alcohol, and was already drinking by 10:30 this AM. He is increasingly paranoid and refuses some care from providers. She stated that he is an increasing risk of harm to both himself (noting his falling from bed 6 times in one night) and to her, reporting angry demeanor and interactions. She reports having filed a 201A, presumably for POA. She states that she is at the end of her rope, and is frustrated trying to manage the Deering while he becomes increasingly more challenging. She is uncertain that he can remain safely in their home, and was seeking options for [facility] covered LTC placement. She had spoken with a person from the contract senior living program, and had their contact info. discussed her calling them to discuss placement, also the need for a PCP consult, and how to approach that. Also continued to discuss the [employer]GC[employer], which she remains interested in and hopes to be able to apply when she feels she is less in the middle of a crisis. Discussed her safety at home, which she feels is adequate, but noted that the does not have his LTC or any of his guns currently due to recent questions about his mental capacity. He speaks about getting them back persistently, but she does not want that to happen. She assurred t/w that she was safe, and would return to enroll in [employer]GC[employer] in the future. /krzysztof/ TERESE BELTRAN LCSW Clinical Aesthetician Signed: 07/24/2024 11:28 TERESE BELTRAN [facility]
--- OUTSIDE RECORDS SUMMARY | 2024-10-22 14:46 | XMS_ITS | Clinical Summary ---
Author Organization [facility] Address [address] [place] [address] Care Team Providers Care Safety Lead Name Role Phone Sanaz Blanco Primary Care Provider [phone] Allergies No known active allergies Medications Medication [...] age to complete this topic Care Teams Safety Lead Relationship Specialty Start Date End Date Sanaz Blanco [address] [facility] [place] [address] PCP - General Family Medicine 06/16/21
--- OUTSIDE RECORDS SUMMARY | 2024-10-22 14:47 | XMS_ITS | Encounter Summary ---
Author Organization [employer] Address [address] [place] [address] Care Team Providers Care Engineering Professionals Name Role Phone Sanaz Blanco Primary Care Provider Unavailable Ene Lozano Unavailable Unavailable Mary Blunt Unavailable Unavailable Encounter Details Date Type Department Care Team (Late st Contact Info) Description 01/08/2024 Orders Only [place] [facility] MEDICAL [address] [place] [address] Provider, MD Molina Social History Tobacco Use [...] t he electric, gas, oil or water [employer] threatened to shut off services in your [...] Info) Description 10/28/2024 11:30 AM EDT Telemedicine [facility] [address] [place] [address] Salma Alcantara MD [address] [place] [address] 2025 9:00 AM EDT Office Visit [facility] [address] [place] [address] Rubina Devlin MD [address] [place] [address] documented as of this encounter Procedures Procedure [...] documented as of this encounter Care Teams Engineering Professionals Relationship Specialty Start Date End Date Sanaz Blanco FNP PCP - General Family Medicine 08/27/22 Ene Lozano Community Health Worker 12/10/22 4 Mary Blunt Community Health Worker 01/29/24 documented as of this encounter
--- OUTSIDE RECORDS SUMMARY | 2024-10-22 14:47 | XMS_ITS | Data Portability ---
Author Organization [place] [facility], [facility] Address [address] [place] [address] Assessment Encounter Date Assessment Date Assessment LastModified by Organization Details LastModified Time 10/22/2023 10/22/2023 X-RAYS: Three standing views of the left foot were ordered, obtained and reviewed by me today at [facility], demonstrating healed hallux MTP joint with [...] 3v foot wb-- room 107 024 024 [email or web address] Not available 4 14:04:37 Medication Orders None recorded. Patient TargetsNo targets recorded. Patient InstructionsNo instructions recorded. Reason for Referral None Reported. Problems Name Problem SNOMED Code Status Onset Date Resolution Date Notes Provider Name and Address Organization Details Recorded Time No complaints [id number] Active Status : 'I'; Not Available [facility] 4 09:25:00 Problem Notes None recorded. Medical Equipment None Reported. Allergies Allergen ID Allergen Name Allergen Category Reaction Reaction Severity Criticality Documentation Date Start Date Code Code System Note Provider Name and Address Organization Details Recorded Time 53771 walnut allergeni c extract food Not available Not available Not available 10/07/20232010 16973 0 RxNorm Aller gyRea ction : 'Skin React ion'; Not Available [facility] 4 12:31:57 No known drug allergies [...] Updated DateTime 10/22/2023 162.56 cm 30 kg/m2 82267.66 g BEBETO CHAYO Norris [place] [facility] 10/22/2023 12:23:46 Social History None recorded. Functional Status None recorded. Mental Status None recorded. Family History Nothing Reported. Medical History No medical history recorded. Gynecological HistoryNo gynecological history recorded. Obstetrics History GPAL:G 0 P 0 0 0 0 Past Encounters Encounter ID Performer Location Encounter Start Date Encounter Closed Date Diagnosis/Indication Diagnosis SNOMED-CT Code Diagnosis ICD10 Code Diagnosis Note [id number] MD Macie Cowan 1[address] [place] [address] 10/22/2023 12:13:20 11/11/2023 11:44:06 Pain in left foot [id number] 85707 M79.672 Follow-up orthopedic assessment 086882401 Z47.89 Hammer toe 223390901 M20 .42 Health Concerns Section Related Observation LastModified by Organization Detai ls LastModified Time None Recorded Concern Status LastModified by Organization Details LastModified Time None Recorded Advance Directives Directive None Recorded Payers Encounter Date Sequence Insurance Name Policy Number Policy Ball Covered Member ID Ball Member ID Guarantor Name 10/22/2023 2 ELISA () Raiza Lucian Spingler [id number] Raiza Lucian Spingler 10/22/2023 1 MEDICARE [place]: [facility] [employer] Raiza Epstein Spingler [id number] Raiza Epstein Spingler Notes Date Note Type [...] No interval change. Tye Baxter MD [address] [facility] [address], [place], [address], [facility] 10/22/2023 16:51:18 OBGyn Episode No OBEpisode recorded.
--- OUTSIDE RECORDS SUMMARY | 2024-10-22 14:47 | XMS_ITS | Encounter Summary ---
Author Organization [employer] Address [address] [facility] 7t [place] [address] Care Team Providers Care Mannequin Refinisher Name Role Phone Sanaz Blanco PROFESSIONAL DEVELOPMENT MANAGER Primary Care Provider Unavailable Mary Blunt Unavailable Unavailable Reason for Visit * Reason Onset Date Comments Med Refill 09/22/2024 Encounter Details Date Type Department Care Team (Late st Contact Info) Description 09/22/2024 Refill [facility] MEDICAL [address] [place] [address] Komal Gardner FNP [address] [place] [address] Primary hypertension Social History Tobacco Use Types [...] Info) Description 10/28/2024 11:30 AM EDT Telemedicine [address] [address] Salma Alcantara MD [address] [place] [address] 2025 9:00 AM EDT Office Visit [facility] MEDICAL [address] [place] [address] Rubina Devlin MD [address] [place] [address] documented as of this encounter Visit Diagnoses Diagnosis Primary hypertension Unspecified essential hypertension documented in this encounter Additional Health Concerns Assessment Noted Time PHQ-9 Depression Total Score: 7 06/12/20 23 10:16 AM EST documented as of this encounter Care Teams Mannequin Refinisher Relationship Specialty Start Date End Date Sanaz Blanco FNP PCP - General Family Medicine 08/27/22 Mary Blunt Community Health Worker 01/29/24 documented as of this encounter
--- OUTSIDE RECORDS SUMMARY | 2024-10-22 14:47 | XMS_ITS | Continuity of Care Document ---
Author Name [facility] Organization [facility] Care Team Providers Care Seconds Handler Name Role Phone [facility] Unavailable Unavailable Problems Combined list of problems from Department of Defense and Veterans Affairs facilities. It does not include entries that were removed or entered in error. Problem Status Onset Date Problem Type Date of Resolution Comments Source Diagnosis: ICD-10-CM Z71.0 Prsn encntr hlth serv to consult on behalf of another person Active Diagnosis [facility] [place] [facility] Encounters Combined list of: 1) Encounters from Department of Veterans Affairs facilities going backup to the last 18 months, not all ID inpatient encounters are included; 2) Encounters from the Department of Defense facilities going backup to 280 months. Location Location Details Encounter Type Encounter Number Reason For Visit Attending Provider ADM Date DC Date Status Disposition Source [facility] [place] [facility] Outpatient Encounter [id number] 12/18 [place] [facility] [facility] [place] [facility] PROGRAM INTAKE ASSESSMENT [id number] Diagnos is: ICD-10- CM Z71.0 Prsn encntr hlth serv to consult on behalf of another person TERESE BELTRAN 02/24 [place] [facility] [place] [place] [facility] [place] [facility] PROGRAM INTAKE ASSESSMENT [id number] Diagnos is: ICD-10- CM Z71.0 Prsn encntr hlth serv to consult on behalf of another person RENETTAKandisTERESE LO 07/24 [place] [facility] [place] [facility]
== END 2024-10-22 13:03 | disposition home or self-care (01) ==
LOC: HO.HOS 12:28
PROVIDERS: PCP Nurse Practitioner Family; Visit Provider Physician Assistant
DX: Z96.652 Presence of left artificial knee joint (principal)
CPT/HCPCS: 99024

== ENCOUNTER → 2024-10-22 12:32 | Outpatient (BNV) | payer MEDICARE, OTHER, SELFPAY | PROVIDERS: Visit Provider Radiology Diagnostic Radiology | DX: M25.562 Pain in left knee (principal) | CPT/HCPCS: 73562 ==

== ENCOUNTER 2024-11-06 08:40 | Outpatient (REF) | payer MEDICARE, OTHER, SELFPAY ==
--- NOTE | ~2024-11-06 | XR_ITS ---
EXAMINATION: XR KNEE, LEFT CLINICAL INFORMATION: M25.569 - Pain in unspecified knee COMPARISON: None available. TECHNIQUE: AP view bilateral knees standing, lateral and patellofemoral views left knee. FINDINGS: Right Knee: Total arthroplasty without complication. Normal alignment. Normal soft tissues. Left Knee: Total left knee arthroplasty in place. Femoral and tibial components intact, well seated, in anatomic alignment. Associated patellar resurfacing. Normal patellar alignment. Small suprapatellar joint effusion. Normal soft tissues. XR/XR knee LT 3V IMPRESSION: 1. Total left knee arthroplasty without definite complication. Electronically signed by: Doc Silverio MD 11/09/2024 02:57 PM EDT
--- OUTSIDE RECORDS SUMMARY | 2024-11-06 09:11 | XMS_ITS | Encounter Summary ---
Author Organization [employer] Address [address] [place] [address] Care Team Providers Care Beer Coil Cleaner Name Role Phone Sanaz Blanco Primary Care Provider Unavailable Ene Lozano Unavailable Unavailable Mary Blunt Unavailable Unavailable Encounter Details Date Type Department Care Team (Late st Contact Info) Description 01/08/2024 Orders Only [place] [facility] MED[facility] [address] [place] [address] Provider, MD Molina Social History Tobacco Use [...] t he electric, gas, oil or water [employer] threatened to shut off services in your [...] Description 2025 9:00 AM EDT Office Visit [facility] MEDICAL [address] [place] [address] Rubina Devlin MD [address] [place] [address] documented as of this encounter Procedures Procedure [...] documented as of this encounter Care Teams Beer Coil Cleaner Relationship Specialty Start Date End Date Sanaz Blanco FNP PCP - General Family Medicine 08/27/22 Ene Lozano Community Health Worker 12/10/22 4 Mary Blunt Community Health Worker 01/29/24 documented as of this encounter
--- OUTSIDE RECORDS SUMMARY | 2024-11-06 09:11 | XMS_ITS | Clinical Summary ---
Author Organization [employer] Address [address] [facility] 7t [place] [address] Care Team Providers Care Shop Technician Name Role Phone Sanaz Blanco Primary Care Provider Unavailable Mary Blunt Unavailable Unavailable Allergies Active Allergy Reactions Criticality Noted Date Comments Black [place] Flavoring Agent (Non-Screening) Itching Low 01/01/2024 [place] Hives 05/21/2011 Medications * This document contains [...] Active amoxicillin (Amoxil) 500 MG capsule Active lisinopril 10 MG tabletIndication s:Primary hypertension Take 1 tablet (10 mg) by mouth at bedtime. 90 tablet 3 09/22/19 25 026 Active acetaminophen (Tylenol) 325 MG tablet Take 325 mg by mouth every 6 (six) hours if needed. 10/09/19 25 Active aspirin 325 MG EC tablet Take 325 mg by mouth Once per day. 07/11/20 23 Active celecoxib (CeleBREX) 200 MG capsule Take 200 mg by mouth 2 times daily. 10/06/19 25 Active oxyCODONE (Roxicodone) 5 MG immediate release tablet Take 5 mg by mouth every 6 (six) hours if needed for severe pain. Active sertraline (Zoloft) 50 MG tabletIndication s:Depression, recurrent (CMS/HCC) Take 1 tablet (50 mg) by mouth Once per day. 90 tablet 1 10/29/19 25 025 Active sertraline (Zoloft) 25 MG tabletIndication s:Depression, recurrent (CMS/HCC) Take 1 tablet (25 mg) by mouth Once per day. 90 tablet 3 09/08/19 25 025 Discontinued Active Problems Problem Noted Date Diagnosed Date Right knee pain 06/27/2024 Overview (06/27/2024): Patient receiving injections in right knee for OA at [facility]. Helpful for pain. Also taking ibuprofen and [...] - 40 mg/dL 17 LDL Chol Calc ([facility]) 0 - 99 mg/dL 62 Last lipid [...] organization. Date Type Department Care Team Description 10/30/2024 Travel 10/28/2024 11:30 AM EDT Telemedicine [facility] MEDICAL [address] [place] [address] Salma Alcantara MD Depression, recurrent (CMS/HCC) (Primary Dx); History of knee replacement procedure of left knee 10/27/2024 Travel 10/21/2024 Travel 10/19/2024 Travel 10/16/2024 Population Health Risk Score [facility] ([facility] Department [address] [place] [address] [phone] Provider, Population Health Generic 10/11/2024 Travel 09/22/2024 Refill [facility] MEDICAL [address] [place] [address] Komal Gardner FNP Primary hypertension 09/21/2024 Travel 09/08/2024 3:00 PM EST Office Visit [facility] [address] [place] [address] Rubina Devlin MD Depression, recurrent (CMS/HCC) 09/07/2024 Travel 09/07/2024 Telephone [facility] [address] [place] [address] Sanaz Blanco FNP Appointment 09/01/2024 Travel 08/25/2024 Travel 08/12/2024 Travel from Last 3 Months Immunizations Name [...] Answer Date Recorded Patient Health Questionnaire-9 Score 10 10/28/2024 Patient Health Questionnaire-9 Score 10 10/28/2024 Last PHQ-9: Questionnaire Data Not on file 0 10/28/2024 Housing Stability Answer Date Recorded What is [...] Answer Date Recorded Patient Health Questionnaire-2 Score 4 10/28/2024 Internet Access Answer Date Recorded Internet Access [...] 2025 9:00 AM EDT Office Visit [facility] [address] [place] [address] Rubina Devlin MD [address] [place] [address] Health Maintenance Due Date Last Done Comments CT Colonography 1956 FIT DNA/Cologuard 1956 FIT 1956 FOBT 1955 Sigmoidoscopy 1955 Pneumococcal Vaccine: 50+ Years (1 of 1 - PCV) 2006 Zoster Vaccines (1 of 2) 2006 COVID-19 Vaccine (1 - season) 2024 Influenza Vaccine (#1) 2024 Depression Monitoring (PHQ-9) 04/30/2025 10/28/2024, 10/28/2024 Alcohol/Substance Use Screening 06/27/2025 06/27/2024 SDOH Screening 06/27/2025 06/27/2024 Tobacco Screening 06/27/2025 06/27/2024 Depression Screening 10/28/2025 10/28/2024, 10/29/19 25 Mammogram 01/13/2026 01/14/2024, 06/0 04/2023, 12/29/2021, Additional [...] Results * (ABNORMAL) Vitamin D 25 hydroxy 305316 (08/10/2024 9:16 AM EST) Vitamin D, 25-OH, Total 29.9(L) 30.0 - 100.0 ng/mL [facility] 1 Comment: Vitamin D deficiency has been defined by the [place] of Medicine and an Endocrine Society practice guideline as a level of serum 25-OH vitamin D less than 20 ng/mL (1,2). The Endocrine Society went on to further define vitamin D insufficiency as a level between 21 and 29 ng/mL (2). 1. IOM ([place] of Medicine). 2010. Dietary reference ?? intakes for calcium and D. [place]: The ?? National LUM[employer]back Press. 2. Yosvany MF, Saida NC, Gorge BLEVINS, et al. ?? Evaluation, treatment, and prevention of vitamin D ?? deficiency: an Endocrine Society clinical practice ?? guideline. JCEM. 2010; 96(6):1911-30. Blood Venous blood specimen / Unknown 08/10/2024 9:16 AM EST 08/10/2024 Narrative [facility] 1 - 08/11/2024 6:05 AM EST Performed at: ??01 - [facility] [address] ??[id number] Manager Integrity: Sary Parker MD, Phone: ??[phone] [facility] LAB BLOOD ORDERABLES Deysi l Result Performing Organization Address [facility]/ZIP Co de Phone Number [facility] 1 * Lipid Panel, Standard 28494 (08/10/2024 9:16 AM EST) Cholesterol, Total 173 [...] AM EST Performed at: ??01 - [facility] [address] ??[id number] Manager Integrity: Sary Parker MD, Phone: ??[phone] [facility] LAB BLOOD ORDERABLES Deysi l Result [facility] 1 * (ABNORMAL) Comprehensive metabolic panel [...] AM EST Performed at: ??01 - [facility] [address] ??[id number] Manager Integrity: Sary Parker MD, Phone: ??[phone] Komal Gardner [employer] LAB BLOOD ORDERABLES Deysi l Result [facility] 1 * BI Mammogram Screening [...] (Negative) Lay letter mailed to patient WSN: [id number] Ordering Physician: Sanaz Blanco Dictated By: ?Apryl Gonzalez MD Dictated Date/Time: ?01/14/24 1:23 pm Reviewed By: ?Apryl Gonzalez MD Signed By: ? Apryl Gonzalez MD Signed Date/Time: ? 01/14/24 1:23 pm Transcribed By: ? CSB Manager Intermediate Date/Time: ? 01/14/24 1:20 pm Birads: Procedure [...] (Negative) Lay letter mailed to patient WSN: [id number] Ordering Physician: Sanaz Blanco Dictated By: Apryl Gonzalez MD Dictated Date/Time: 01/14/24 1:23 pm Reviewed By: Apryl Gonzalez MD Signed By: Apryl Gonzalez MD Signed Date/Time: 01/14/24 1:23 pm Transcribed By: ARNAV Manager Intermediate Date/Time: 01/14/24 1:20 pm Birads: Sanaz Blanco [employer] IMG BI PROCEDURES Deysi l Result * Hepatits C Antibody w/Reflex HCV Quant PCR and Genotyping (08/29/2022 3:10 PM EST) Hepatitis C Virus Ab, Serum NEGATIVE (NEG) [facility] Comment: Reference range: Negative This test was performed on the [employer] immunoassay system. Testing performed or reported by [facility], a Service of [facility], [address] [place] [id number] Kei Anne MD, Maintenance Team Leader [facility]# [id number] 08/29/2022 3:10 PM EST 08/29/2022 3:12 PM EST Sanaz Blanco [employer] LAB BLOOD ORDERABLES F inal Result Performing Organization Address [facility]/State/[facility] Co de Phone Number [facility] [address] [place] [address] * Pap Smear (06/18/2022 12:00 AM EST) Swab Historical Provider LAB CYTOLOGY ORDERABLES F inal Result * Hm Colonoscopy (12/27/2021) Colonoscopy 10 year recall Historical Provider HEALTH MAINTENANCE Final Result from Last 3 Months or Most Recently Relevant to Health Maintenance Insurance MEDICARE [facility] Care Teams Shop Technician Relationship Specialty Start Date End Date Sanaz Blanco FNP PCP - General Family Medicine 08/27/22 Mary Blunt Community Health Worker 01/29/24
--- OUTSIDE RECORDS SUMMARY | 2024-11-06 09:11 | XMS_ITS | Data Portability ---
Author Organization [place] [facility] Lucian Leos [place] Address [address] [place] [address] Care Team Providers Care Icer Hand Name Role Phone SULMA IBANEZ Primary Care [...] findings at length with the patient today. ? ? ?We discussed the nature and etiology of this problem along with current treatment options. We discussed the expected course and outcomes and what to expect. We also discussed risks and benefits. ? ? ? All of their questions were answered today, and there was exhibited understanding and comprehension of all that was discussed. 10 minutes were spent reviewing previous imaging and charting. ? ? ?10 minutes were spent obtaining patient history. ? ? ?5 minutes were spent on physical exam. ? ? ?5? ? ?minutes were spent explaining diagnosis and assessment. Today's documentation was made using voice recognition software. This note may contain grammatical errors secondary to the software. [email or web address] Not available 12/10/2022 15:14:18 02/08/2023 02/08/2023 HPI : ?Thank you for the pleasure of requesting a [...] degrees. The knee is stable within that [id number] to AP and ML stress. The alignment [...] robotic assisted, on May 09, 2023 at [facility]. Not available 02/08/2023 14:35:02 Plan of Treatment Reminders Order Date Submit Date Provider Last Modified By Organization Details Last Modified Time Details Appointments None recorded. Lab None recorded. Referral None recorded. Procedures None recorded. Surgeries total knee replacement (SURG) 2022 023 [email or web address] 0 [facility], [address] [facility], [place], [address], 3 14:38:05 Imaging XR, knee, 3 view 2022 023 [facility], [address], [place], [address], 3 15:40:51 XR, hip, unilateral, 2 or 3 view 2022 023 [facility], [address], [place], [address], 3 15:40:51 XR, knee, 1 or 2 view 2022 023 [place] [facility], [address], [place], [address], 3 10:10:03 Medication Orders Kenalog 40 mg/mL suspension for injection 2022 023 [place] [address] [facility], [address] [place], [address], 3 15:16:32 lidocaine (PF) 10 mg/mL (1 %) injection solution 2022 023 [place] [address] [facility], [address] [place], [address], 3 15:16:31 Patient TargetsNo targets recorded. Patient Instructions Encounter Date Encounter Id Patient Instructions Last Modified By Organization Details Last Modified Time 02/08/2023 [id number] AP, lateral, Ann, and patellar radiographs views of the left knee taken today demonstrate left knee degenerative joint disease with joint space narrowing, osteophyte formation, and subchondral sclerosis. There is jesc-nq-sqpt articulation in the lateral compartment. AP pelvis, AP and lateral of the left hip demonstrate no signs of fracture, subluxation, dislocation or other acute bony changes. There are minimal degenerative changes of the left hip joint. Not available 02/08/2023 14:31:50 Reason for Referral None Reported. Results Created Date Observation Date Name Description Value Unit Range Abnormal Flag Note LastModifiedBy Organization Detail LastModifiedTime 04/05/20 23 MRI, knee, w/o contr ast No observ ation record ed. [email or web address] Not Available 2022 08:02:42 Result Notes None recorded. Problems Name Problem SNOMED Code Status Onset Date Resolution Date Notes Provider Name and Address Organization Details Recorded Time Arthritis of knee 330362953 Active 2022 Kyrie Montelongo MD [address], [place], [address], [place] [facility] 3 14:35:26 Osteoarthri tis of left knee joint 4705212729602 09 Active 2022 MANDY VARGHESE PA-C [address], [place], [address], [place] [facility] 3 15:12:56 Tear of medial meniscus of knee 360968353 Active 2022 MANDY VARGHESE PA-C [address], [place], [address], [place] [facility] 3 15:14:58 Pain of left knee joint 3763568123397 07 Active 2022 Yu Gaines MD [address], [place], [address], [place] [facility] 3 15:26:34 Problem Notes None recorded. Procedures Surgical History Date Name Laterality Status Provider Name and Address Organization Details Recorded Time 12/11/19 23 Knee Joint/Bursa Asp & Inj completed MANDY VARGHESE PA-C [address], [place], [address], [place] [facility] 12/10/2022 15:16:24 Total knee arthroplasty completed Evie Royal [place] [facility] 10/23/2022 14:59:13 Carpal tunnel surgery completed Evie Royal [place] [facility] 10/23/2022 14:59:26 Imaging Results Imaging Date Name Status LastModified by Organiz ation Details LastModified Time 11/07/2022 MRI, knee, w/o [...] cm Rose Mckeon [place] [facility] 12/10/2022 13:32:33 Date Recorded Body height Body mass index (BMI) Body weight Provider Name and Address Organization Details Last Updated DateTime 10/23/2022 162.56 cm 30.9 kg/m2 70870.[address] [place] [facility] 10/23/2022 14:58:35 Date Recorded Body height Body mass index (BMI) Body weight Provider Name and Address Organization Details Last Updated DateTime 02/08/2023 162.56 cm 33.5 kg/m2 [address]7030.[address] [place] [facility] 02/08/2023 14:09:59 Social History Question Answer Notes LastModified by Organizat ion Details LastModified Time Tobacco Smoking Status Former Smoker Dejan Olivia null, [place] [facility] 02/08/2023 14:10:29 What Is Your Level Of Alcohol Consumption? Moderate [email or web address] Information not available 02/08/2023 How Many Times Per Week Do You Consume Alcohol? 5-7 Times Per Week [email or web address] Information not available 02/08/2023 When Did You Quit Smoking? 16+yearssince lastcigarette [email or web address] Information not available 02/08/2023 Do You Use Any Illicit Or Recreational Drugs? No [email or web address] Information not available 02/08/2023 Do You Or Have You Ever Used Any Other Forms Of Tobacco Or Nicotine? No [email or web address] Information not available 02/08/2023 Sex: Unknown Functional [...] Diagnosis Note 1417 MD BINA Shelley [address] [facility] [address] [place] [address] 10/23/2022 14:52:33 10/23/2022 15:23:27 Pain of right knee joint 2738666555 51625 M25.561 Pain of le ft knee joint 3573152069 41631 M25.562 7001 MD BINA Amanda [address] [facility] [address] [place] [address] 12/10/2022 13:22:40 12/10/2022 14:01:57 Osteoarthritis of left knee joint 7713202908 90942 M17.12 Tear of me dial meniscus of knee 195465126 S83.242D 68744 MD BINA Amanda [address] [facility] [address] [place] [address] 02/08/2023 13:47:32 02/08/2023 14:41:47 Pain of left knee joint 6846716614 41848 M25.562 Pain of le ft hip joint 2190483788 13063 M25.552 Osteoarthr itis of left knee joint 9469832723 00234 M17.12 Arthritis of knee 734911 002 M13.869 Health Concerns Section Related Observation LastModified by Organization Detai ls LastModified Time None Recorded Concern Status LastModified by Organization Details LastModified Time None Recorded Advance Directives Directive None Recorded Payers Encounter Date Sequence Insurance Name Policy Number Policy Ball Covered Member ID Ball Member ID Guarantor Name 10/23/2022 1 MEDICARE [place]: [facility] Raiza P Spingler [id number] Raiza P Spingler 10/23/2022 2 () Raiza P Spingler [id number] Raiza P Spingler 12/10/2022 1 [place]: [facility] Raiza P Spingler [id number] Raiza P Spingler 12/10/2022 2 () Raiza P Spingler [id number] Raiza P Spingler 02/08/2023 1 MEDICARE [place]: [employer] Raiza P Spingler [id number] Raiza P Spingler 02/08/2023 2 () Raiza P Spingler [id number] Raiza P Spingler Notes Date Note Type [...] several times per day. Yu Gaines MD [address] [place] [address], [address], [place] [facility] 10/23/2022 15:26:43 12/10/2022 text/html Dr. Gaines [...] are available. 1. Pain of right knee jifyrO64.561: Pain in right knee XR KNEE, 1 OR 2 VIEW, 007333. Pain of left knee yuddnS89.562: Pain in left knee Return to Office [...] evaluation and treatment [facility] [address] [place] [address] Patient: RAIZA BOLES /Age/Sex: 1955 67 - FUnit#: [id number] Location/Status: SPDIMRI/REG CLIAccount#: [id number] Mnemonic/Ordering Site: [facility]/SPMAINOrdering Physician: YU GAINES MD [...] Date/Time: 11/07/22508Sign date/Time: 11/07/22508 MANDY VARGHESE PA-C [address] [place] [address], [address], [place] [facility] 12/10/2022 15:17:07 OBGyn Episode No OBEpisode recorded.
--- OUTSIDE RECORDS SUMMARY | 2024-11-06 09:11 | XMS_ITS | Data Portability ---
Author Organization [place] [facility] Address [address] [place] [address] Assessment Encounter Date Assessment Date Assessment LastModified by Organization Details LastModified Time 10/22/2023 10/22/2023 X-RAYS: Three standing views of the left foot were ordered, obtained and reviewed by me today at [facility], demonstrating healed hallux MTP joint with [...] 3v foot wb-- room 107 024 024 [email or web address] Not available 4 14:04:37 Medication Orders None recorded. Patient TargetsNo targets recorded. Patient InstructionsNo instructions recorded. Reason for Referral None Reported. Problems Name Problem SNOMED Code Status Onset Date Resolution Date Notes Provider Name and Address Organization Details Recorded Time No complaints 361731182 Active Status : 'I'; Not Available [facility] 4 09:25:00 Problem Notes None recorded. Medical Equipment None Reported. Allergies Allergen ID Allergen Name Allergen Category Reaction Reaction Severity Criticality Documentation Date Start Date Code Code System Note Provider Name and Address Organization Details Recorded Time 48762 walnut allergeni c extract food Not available Not available Not available 10/07/20232010 20157 0 RxNorm Aller gyRea ction : 'Skin React ion'; Not Available [facility] 4 12:31:57 No known drug allergies Medications [...] Updated DateTime 10/22/2023 162.56 cm 30 kg/m2 39899.66 g BEBETO CHAYO [place] [facility] 10/22/2023 12:23:46 Social History None recorded. Functional Status None recorded. Mental Status None recorded. Family History Nothing Reported. Medical History No medical history recorded. Gynecological HistoryNo gynecological history recorded. Obstetrics History GPAL:G 0 P 0 0 0 0 Past Encounters Encounter ID Performer Location Encounter Start Date Encounter Closed Date Diagnosis/Indication Diagnosis SNOMED-CT Code Diagnosis ICD10 Code Diagnosis Note [id number] MD Macie Cowan [address] [place] [address] 10/22/2023 12:13:20 11/11/2023 11:44:06 Pain in left foot 7823345328 26697 M79.672 Follow-up orthopedic assessment 310070989 Z47.89 Hammer toe 896420374 M20 .42 Health Concerns Section Related Observation LastModified by Organization Detai ls LastModified Time None Recorded Concern Status LastModified by Organization Details LastModified Time None Recorded Advance Directives Directive None Recorded Payers Encounter Date Sequence Insurance Name Policy Number Policy Ball Covered Member ID Ball Member ID Guarantor Name 10/22/2023 2 ELISA () Raiza Lucian Spingler [id number] Raiza Lucian Spingler 10/22/2023 1 MEDICARE [place]: [facility] Raiza Epstein Spingler [id number] Raiza Epstein Spingler Notes Date Note [...] No interval change. Tye Baxter MD [address] [facility] [address], [place], [address], [facility] 10/22/2023 16:51:18 OBGyn Episode No OBEpisode recorded.
--- OUTSIDE RECORDS SUMMARY | 2024-11-06 09:11 | XMS_ITS | Clinical Summary ---
Author Organization [facility] Address [address] [place] [address] Care Team Providers Care Electrolysis Needle Operator Name Role Phone Sanaz Blanco Primary Care Provider +1- [phone] Allergies No known active allergies Medications Medication [...] age to complete this topic Care Teams Electrolysis Needle Operator Relationship Specialty Start Date End Date Saanz Blanco [address] [facility] [place] [address] PCP - General Family Medicine 06/16/21
--- OUTSIDE RECORDS SUMMARY | 2024-11-06 09:11 | XMS_ITS | Clinical Summary ---
Author Organization [facility] Address [address] [place] [address] Care Team Providers Care Medical Asst Name Role Phone Sanaz Blanco DRUM SANDER Primary Care Provider Surgical History Surgery Date [...] Influencers of Health Screening 07/13/2022 COVID-19 Vaccine ( - 2023-2 5 season) 2024 Influenza Vaccine (Season Ended) 2025 RSV Immunization Adult Patie nts (1 - 1-dose 75+ series) 2031 HIB [...] Documents on File Type Date Recorded Patient Air Conditioning Supervisor Expl anation Health Care Decision (hx) 10/20/2021 AD REA DIRECTIVE Health Care Decision (hx) 10/20/2021 AD REA DIRECTIVE Care Teams Medical Asst Relationship Specialty Start Date End Date Sanaz Blanco FNP PCP - General Family Medicine 06/16/21
--- OUTSIDE RECORDS SUMMARY | 2024-11-06 09:11 | XMS_ITS | Continuity of Care Document ---
Author Name [facility] Organization [facility] Care Team Providers Care Recreation Therapy Director Name Role Phone [facility] Unavailable Unavailable Problems Combined list of problems from Department of Defense and Veterans Affairs facilities. It does not include entries that were removed or entered in error. Problem Status Onset Date Problem Type Date of Resolution Comments Source Diagnosis: ICD-10-CM Z71.0 Prsn encntr hlth serv to consult on behalf of another person Active Diagnosis [facility] [place] [facility] Encounters Combined list of: 1) Encounters from Department of Veterans Affairs facilities going backup to the last 18 months, not all [place] inpatient encounters are included; 2) Encounters from the Department of Defense facilities going backup to 280 months. Location Location Details Encounter Type Encounter Number Reason For Visit Attending Provider ADM Date DC Date Status Disposition Source [place] [facility] [place] [facility] Outpatient Encounter [id number] 12/18 [place] [facility] [place] [facility] [place] PROGRAM INTAKE ASSESSMENT [id number] Diagnos is: ICD-10- CM Z71.0 Prsn encntr hlth serv to consult on behalf of another person TERESE BELTRAN 02/24 [place] [facility] [place] [place] [facility] [place] [facility] PROGRAM INTAKE ASSESSMENT [id number] Diagnos is: ICD-10- CM Z71.0 Prsn encntr hlth serv to consult on behalf of another person RENETTAKandisTERESE 07/24 [place] [facility] [place] [facility]
== END 2024-11-06 08:41 | disposition home or self-care (01) ==
LOC: HO.HOSX 08:40
PROVIDERS: Visit Provider Physician Assistant
DX: M25.562 Pain in left knee (principal); Z96.652 Presence of left artificial knee joint
CPT/HCPCS: 73562; 99212

== ENCOUNTER 2024-11-06 13:05 | Outpatient (AMB) | payer MEDICARE, OTHER, SELFPAY ==
--- NOTE | 2024-11-06 13:11 | MHC.OFFVIS ---
Intake Visit Reasons: PO L TKA w/ 10/05/24 Intake Note: Raiza is a 69 year old female who presents today for a wound check s/p left total knee arthroplasty 10/05/24 Patient reports she was . Allergies walnut Allergy (Intermediate, Verified 10/22/24 12:37) tingling in mouth HPI HPI PO L TKA w/ 10/05/24: Details: Patient is a 69-year-old female who presents the office today for a wound check status post left total knee arthroplasty with Dr. Sosa performed on 10/05/2024. She reports that this morning she had a pustule area that she popped. When she did so she noticed some pus coming from the area. She continues to have some of the Steri-Strips in place. [facility] Medical History Depression Habitual snoring Murmur Elevated cholesterol HTN (hypertension) Tear of medial meniscus of knee Surgical History H/O colonoscopy H/O carpal tunnel repair S/P left knee arthroscopy Hx of appendectomy History of total right knee replacement (TKR) (10/20/21) Social History Household Members: Spouse Housing: House Are you a primary resident care manager to a significant other at home: Yes (spouse needs care) Do you presently have visiting nurse or other home services: No Patient Tobacco Use Status: Former Tobacco user Tobacco use type: Cigarette Second Hand Smoke Exposure: No Substance Use Type: Marijuana service: No Current occupational status: retired Review of Systems Const All systems reviewed & are unremarkable except as noted in HPI and below Physical Exam Const General: cooperative, healthy appearing and no acute distress Resp Effort & Inspection: normal respiratory effort and able to speak in complete sentences Cardio Rate: regular rate Peripheral pulses: Peripheral pulses 2+ throughout Skin Lesions: no lesions Rashes: no rashes Extrem Other: Left knee incision site is intact. There are 2 small areas along the incision site 1 the size of a nickel the other size of a dime but they are slightly erythematous. There is no active drainage from these areas. Range of motion 0-120. NVI. Assessment & Plan Assessment & Plan (1) Status post total left knee replacement: Code(s): Z96.652 - Presence of left artificial knee joint Category: Surgical Plan While the office today conducted wound check of the left knee status post left total knee arthroplasty with Dr. Sosa performed on 10/05/2024. It appears the patient has started to develop some small suture abscesses. I sent a prescription for Bactrim 800-160 mg to the pharmacy she should take this by mouth twice a day for the next 10 days. She has a follow-up appointment with Dr. Sosa next . I educated her on the signs of infection which include but are not limited to any increase in redness swelling drainage or warmth. Should she experience any the she will contact our office immediately or present to the emergency department for further evaluation and treatment. Patient understands and accepts. Orders: Orders XR knee LT 3V Today M25.569 - Pain in unspecified knee Medications: New sulfamethoxazole-trimethoprim 800-160 mg (Bactrim DS) 1 tab PO BID 20 tabs 0RF 10 days Coding Level of Care Code Global (42108) Diagnoses Status post total left knee replacement Z96.652
--- OUTSIDE RECORDS SUMMARY | 2024-11-06 14:57 | XMS_ITS | Clinical Summary ---
Author Organization [facility] Address [address] [place] [address] Care Team Providers Care Coding Clerk Name Role Phone Sanaz Blanco Primary Care Provider +1- [phone] Allergies No known active allergies Medications Medication [...] age to complete this topic Care Teams Coding Clerk Relationship Specialty Start Date End Date Sanaz Blanco [address] [facility] [place] [address] PCP - General Family Medicine 06/16/21
--- OUTSIDE RECORDS SUMMARY | 2024-11-06 14:58 | XMS_ITS | Encounter Summary ---
Author Organization [employer] Address [address] [place] [address] Care Team Providers Care Union Carpenter Name Role Phone Sanaz Blanco Primary Care Provider Unavailable Ene Lozano Unavailable Unavailable Mary Blunt Unavailable Unavailable Encounter Details Date Type Department Care Team (Late st Contact Info) Description 01/08/2024 Orders Only [place] [facility] [address] [place] [address] Provider, MD Mol[place] Social History Tobacco Use [...] t he electric, gas, oil or water Raise threatened to shut off services in your [...] Description 2025 9:00 AM EDT Office Visit [facility] [address] [place] [address] Rubina Devlin MD [address] [place] [address] documented as of this encounter Procedures Procedure [...] documented as of this encounter Care Teams Union Carpenter Relationship Specialty Start Date End Date Sanaz Blanco FNP PCP - General Family Medicine 08/27/22 Ene Lozano Community Health Worker 12/10/22 4 Mary Blunt Community Health Worker 01/29/24 documented as of this encounter
--- OUTSIDE RECORDS SUMMARY | 2024-11-06 14:58 | XMS_ITS | Continuity of Care Document ---
Author Name [facility] Organization [facility] Care Team Providers Care Operations Supervisor 2Nd Shift Name Role Phone [facility] Unavailable Unavailable Problems Combined list of problems from Department of Defense and Veterans Affairs facilities. It does not include entries that were removed or entered in error. Problem Status Onset Date Problem Type Date of Resolution Comments Source Diagnosis: ICD-10-CM Z71.0 Prsn encntr hlth serv to consult on behalf of another person Active Diagnosis [facility] [place] [facility] Encounters Combined list of: 1) Encounters from Department of Veterans Affairs facilities going backup to the last 18 months, not all [place] inpatient encounters are included; 2) Encounters from the Department of Defense facilities going backup to 280 months. Location Location Details Encounter Type Encounter Number Reason For Visit Attending Provider ADM Date DC Date Status Disposition Source [place] [facility] [place] [facility] Outpatient Encounter [id number] 12/18 [place] [facility] [place] [facility] [place] [facility] PROGRAM INTAKE ASSESSMENT [id number] Diagnos is: ICD-10- CM Z71.0 Prsn encntr hlth serv to consult on behalf of another person TERESE BELTRAN 02/24 [place] [facility] [place] [facility] [place] [facility] PROGRAM INTAKE ASSESSMENT [id number] Diagnos is: ICD-10- CM Z71.0 Prsn encntr hlth serv to consult on behalf of another person RENETTAKandisTERESE 07/24 [place] [facility] [place] [facility]
--- OUTSIDE RECORDS SUMMARY | 2024-11-06 14:58 | XMS_ITS | Encounter Summary ---
Author Organization [employer] Address [address] [facility] [address] [place] [address] Care Team Providers Care Target Network Analyst Name Role Phone Sanaz Blanco GLASSWARE SELECTOR Primary Care Provider Unavailable Mary Blunt Unavailable Unavailable Encounter Details Date Type Department Care Team (Latest Contact Info) Description 11/06/2024 Travel Social History Tobacco Use Types Packs/Day [...] 2025 9:00 AM EDT Office Visit [facility] [address] [place] [address] Rubina Devlin MD [address] [place] [address] documented as of this encounter Visit Diagnoses Not on filedocumented in this encounter Additional Health Concerns Assessment Noted Time PHQ-9 Depression Total Score: 10 025 11:56 AM EDT documented as of this encounter Care Teams Target Network Analyst Relationship Specialty Start Date End Date Sanaz Blanco FNP PCP - General Family Medicine 08/27/22 Mary Blunt Community Health Worker 01/29/24 documented as of this encounter
--- OUTSIDE RECORDS SUMMARY | 2024-11-06 14:58 | XMS_ITS | Clinical Summary ---
Author Organization [employer] Address [address] [place] [address] Care Team Providers Care Underwriting Support Manager Name Role Phone Sanaz Blanco Primary Care Provider Unavailable Mary Blunt Unavailable Unavailable Allergies Active Allergy Reactions Criticality Noted Date Comments Black Pacolet Flavoring Agent (Non-Screening) Itching Low 01/01/2024 Pacolet Hives 05/21/2011 Medications * This document contains [...] injections in right knee for OA at [facility]. Helpful for pain. Also taking ibuprofen and [...] - 40 mg/dL 17 LDL Chol Calc ([facility]) 0 - 99 mg/dL 62 Last lipid [...] organization. Date Type Department Care Team Description 11/06/2024 Travel 10/30/2024 Travel 10/28/2024 11:30 AM EDT Telemedicine [facility] [address] [place] [address] Salma Alcantara MD Depression, recurrent (CMS/HCC) (Primary Dx); History of knee replacement procedure of left knee 10/27/2024 Travel 10/21/2024 Travel 10/19/2024 Travel 10/16/2024 Population Health Risk Score Community Care [facility] ([facility]) Department [address] [place] [phone] Provider, Population Health Generic 10/11/2024 Travel 09/22/2024 Refill [facility] [address] [place] [address] Komal Gardner FNP Primary hypertension 09/21/2024 Travel 09/08/2024 3:00 PM EST Office Visit [facility] [address] [place] [address] Rubina Devlin MD Depression, recurrent (CMS/HCC) 09/07/2024 Travel 09/07/2024 Telephone [facility] [address] [place] [address] Sanaz Blanco FNP Appointment 09/01/2024 Travel 08/25/2024 [...] 9:00 AM EDT Office Visit [facility] [address] [place] [address] Rubina Devlin MD [address] [place] [address] Health Maintenance Due Date Last Done Comments CT Colonography 1955 FIT DNA/Cologuard 1955 FIT 1955 FOBT 1955 Sigmoidoscopy 1955 Pneumococcal Vaccine: 50+ Years (1 of 1 - PCV) 2006 Zoster Vaccines (1 of 2) 2006 COVID-19 Vaccine (1 - 2023- season) 2024 Influenza Vaccine (#1) 2024 Depression Monitoring (PHQ-9) 04/30/2025 10/28/2024, 10/28/2024 Alcohol/Substance Use Screening 06/27/2025 06/27/2024 SDOH Screening 06/27/2025 06/27/2024 Tobacco Screening 06/27/2025 06/27/2024 Depression Screening 10/28/2025 10/28/2024, 10/29/19 25 Mammogram 01/13/2026 01/14/2024, 06/0 04/2023, 12/29/2021, Additional history exists DTaP/Tdap/Td Vaccines (2 - Td or Tdap) 05/16/2026 05/16/2016 HPV/Cotest 06/18/2027 Pap Smear 06/18/2027 06/18/2022, 06/14/2021 Lipid Panel 08/10/2029 08/10/2024, 052 11/2023, 01/31/2023, Additional history exists RSV Patients and [...] Results * (ABNORMAL) Vitamin D 25 hydroxy 619733 (08/10/2024 9:16 AM EST) Vitamin D, 25-OH, Total 29.9(L) 30.0 - 100.0 ng/mL [facility] 1 Comment: Vitamin D deficiency has been defined by the Eagle of Medicine and an Endocrine Society practice guideline as a level of serum 25-OH vitamin D less than 20 ng/mL (1,2). The Endocrine Society went on to further define vitamin D insufficiency as a level between 21 and 29 ng/mL (2). 1. IOM (Eagle of Medicine). 2010. Dietary reference ?? intakes for calcium and D. Rolle [place]: The ?? National [employer] Press. 2. Yosvany MF, Saida NC, Gorge BLEVINS, et al. ?? Evaluation, treatment, and prevention of vitamin D ?? deficiency: an Endocrine Society clinical practice ?? guideline. JCEM. 2010; 96(9):1911-30. Blood Venous blood specimen / Unknown 08/10/2024 9:16 AM EST 08/10/2024 Narrative [facility] 1 - 08/11/2024 6:05 AM EST Performed at: ??01 - [facility] [address] ??[id number] Senior Java Ui Developer: Sary Parker MD, Phone: ??[phone] [facility] LAB BLOOD ORDERABLES Deysi l Result Performing Organization Address City/[facility]/ZIP Co de Phone Number [facility] 1 * Lipid Panel, Standard 36963 (08/10/2024 9:16 AM EST) Cholesterol, Total 173 [...] AM EST Performed at: ??01 - [facility] [address] ??[id number] Senior Java Ui Developer: Sary Parker MD, Phone: ??[phone] [facility] LAB BLOOD ORDERABLES Deysi l Result Performing Organization Address City/[facility]/ZIP Co de Phone Number [facility] 1 [...] AM EST Performed at: ??01 - [facility] [address] ??[id number] Senior Java Ui Developer: Sary Parker MD, Phone: ??[phone] Komal Gardner CHANNEL DEVELOPMENT DIRECTOR LAB BLOOD ORDERABLES Deysi l Result [facility] [...] (Negative) Lay letter mailed to patient WSN: [id number] Ordering Physician: Sanaz Blanco Dictated By: ?Apryl Gonzalez MD Dictated Date/Time: ?01/14/24 1:23 pm Reviewed By: ?Apryl Gonzalez MD Signed By: ? Apryl Gonzalez MD Signed Date/Time: ? 01/14/24 1:23 pm Transcribed By: ? CSB Early Intervention School Psychologist Date/Time: ? 01/14/24 1:20 pm Birads: Procedure [...] (Negative) Lay letter mailed to patient WSN: [id number] Ordering Physician: Sanaz Blanco Dictated By: Apryl Gonzalez MD Dictated Date/Time: 01/14/24 1:23 pm Reviewed By: Apryl Gonzalez MD Signed By: Apryl Gonzalez MD Signed Date/Time: 01/14/24 1:23 pm Transcribed By: ARNAV Early Intervention School Psychologist Date/Time: 01/14/24 1:20 pm Birads: Sanaz Blanco CHANNEL DEVELOPMENT DIRECTOR IMG BI PROCEDURES Deysi l Result * Hepatits C Antibody w/Reflex HCV Quant PCR and Genotyping (08/29/2022 3:10 PM EST) Hepatitis C Virus Ab, Serum NEGATIVE (NEG) [facility] Comment: Reference range: Negative This test was performed on the [employer] immunoassay system. Testing performed or reported by [facility], a Service of [facility], [address] [place] [address] Kei Anne MD, Tie Binder [facility]# [id number] 08/29/2022 3:10 PM EST 08/29/2022 3:12 PM EST Sanaz Blanco CHANNEL DEVELOPMENT DIRECTOR LAB BLOOD ORDERABLES F inal Result Performing Organization Address City/State/[facility] Co de Phone Number [facility] [address] [place] [address] * Pap Smear (06/18/2022 12:00 AM EST) Swab Historical Provider LAB CYTOLOGY ORDERABLES F inal Result * Hm Colonoscopy (12/27/2021) Colonoscopy 10 year recall Historical Provider HEALTH MAINTENANCE Final Result from Last 3 Months or Most Recently Relevant to Health Maintenance Insurance MEDICARE [facility] Care Teams Underwriting Support Manager Relationship Specialty Start Date End Date Sanaz Blanco FNP PCP - General Family Medicine 08/27/22 Mary Blunt Community Health Worker 01/29/24
--- OUTSIDE RECORDS SUMMARY | 2024-11-06 14:58 | XMS_ITS | Clinical Summary ---
Author Organization [facility] Address [address] [place] [address] Care Team Providers Care Pharmacy Account Director Name Role Phone Sanaz Blanco BACK SEWER Primary Care Provider Surgical History Surgery Date [...] Documents on File Type Date Recorded Patient Semiconductor Wafer Inspector Expl anation Health Care Decision (hx) 10/20/2021 AD REA DIRECTIVE Health Care Decision (hx) 10/20/2021 AD REA DIRECTIVE Care Teams Pharmacy Account Director Relationship Specialty Start Date End Date Sanaz Blanco FNP PCP - General Family Medicine 06/16/21
== END 2024-11-06 13:53 | disposition home or self-care (01) ==
LOC: HO.HOS 13:06
PROVIDERS: Visit Provider Physician Assistant
DX: Z96.652 Presence of left artificial knee joint (principal)
CPT/HCPCS: 99024

== ENCOUNTER → 2024-11-06 13:08 | Outpatient (BNV) | payer MEDICARE, OTHER, SELFPAY | PROVIDERS: Visit Provider Radiology Diagnostic Radiology | DX: M25.562 Pain in left knee (principal); Z96.652 Presence of left artificial knee joint | CPT/HCPCS: 73562 ==

== ENCOUNTER 2024-11-10 09:53 | Outpatient (AMB) | payer MEDICARE, OTHER, SELFPAY ==
--- NOTE | 2024-11-10 10:07 | MHC.OFFVIS ---
Intake Visit Reasons: PO- Wound Check L TKA w/ 10/05/24 Intake Note: Raiza is a 69 year old female who presents today for a would check s/p left TKA 10/05/24 Patient reports she noticed the bandage getting saturated almost everyday. She feels like it is stinging her as well. Allergies walnut Allergy (Intermediate, Verified 11/10/24 10:14) tingling in mouth HPI HPI PO- Wound Check L TKA w/ 10/05/24: Details: Patient is a 69-year-old female who presents the office today for wound check status post left total knee arthroplasty with Dr. Sosa on 10/05/2024. I last saw the patient on Saturday11/06/2024 who and the patient appeared to be forming a suture abscess over the incision site. I provided the patient with Bactrim 800-160 mg in which she has been taking. She presented to the office today stating that her symptoms have been worsening and she continues to have drainage from the area. [facility] Medical History Depression Habitual snoring Murmur Elevated cholesterol HTN (hypertension) Tear of medial meniscus of knee Surgical History H/O colonoscopy H/O carpal tunnel repair S/P left knee arthroscopy Hx of appendectomy History of total right knee replacement (TKR) (10/20/21) Social History Household Members: Spouse Housing: House Are you a primary life care planner to a significant other at home: Yes (spouse needs care) Do you presently have visiting nurse or other home services: No Patient Tobacco Use Status: Former Tobacco user Tobacco use type: Cigarette Second Hand Smoke Exposure: No Substance Use Type: Marijuana service: No Current occupational status: retired Review of Systems Const All systems reviewed & are unremarkable except as noted in HPI and below Physical Exam Const General: cooperative, healthy appearing and no acute distress Resp Effort & Inspection: normal respiratory effort and able to speak in complete sentences Cardio Rate: regular rate Peripheral pulses: Peripheral pulses 2+ throughout Skin Lesions: no lesions Rashes: no rashes Extrem Other: Left knee incision site is intact. There are 2 small areas along the incision site 1 the size of a nickel the other size of a dime but they are slightly erythematous. There is no active drainage from these areas. Range of motion 0-120. NVI. Irritation from previous bandage noted with no signs of infection. Assessment & Plan Assessment & Plan (1) Status post total left knee replacement: Code(s): Z96.652 - Presence of left artificial knee joint Category: Surgical Plan Patient is a 69-year-old female who presents the office today for wound check status post left total knee arthroplasty with Dr. Sosa on 10/05/2024. I last saw the patient on Saturday11/06/2024 who and the patient appeared to be forming a suture abscess over the incision site. I provided the patient with Bactrim 800-160 mg in which she has been taking. She presented to the office today stating that her symptoms have been worsening and she continues to have drainage from the area. Dr. Sosa was available to see the patient with me in the office today in a collaborative treatment plan was created. The patient will continue taking Bactrim as directed. She has an upcoming appointment with Dr. Sosa on 11/12/2024 in which she will keep. Bandages were placed over the area and she was instructed to keep the area clean dry and intact. She may shower and wash the area with soap and water gently. She will follow-up with Dr. Sosa on 11/12/2024, sooner if needed. Coding Level of Care Code Global (77562) Diagnoses Status post total left knee replacement Z96.652
--- OUTSIDE RECORDS SUMMARY | 2024-11-10 11:23 | XMS_ITS | Data Portability ---
Author Organization [place] [facility] Lucian Leos [employer] Address [address] [place] [address] Care Team Providers Care Hl7 Interface Developer Name Role Phone SULMA IBANEZ Primary Care [...] degrees. The knee is stable within that gpjqc-zh-pwqowa to AP and ML stress. The alignment [...] robotic assisted, on May 09, 2023 at [facility]. Not available 02/08/2023 14:35:02 Plan of Treatment Reminders Order Date Submit Date Provider Last Modified By Organization Details Last Modified Time Details Appointments None recorded. Lab None recorded. Referral None recorded. Procedures None recorded. Surgeries total knee replacement (SURG) 2022 023 [email or web address] [id number] [facility] [place] [address], [place], [address], 3 14:38:05 Imaging XR, knee, 3 view 2022 023 [facility], [address], [place], [address], 3 15:40:51 XR, hip, unilateral, 2 or 3 view 2022 023 [facility], [address], [place], [address], 3 15:40:51 XR, knee, 1 or 2 view 2022 023 snarus [facility], [address], [place], [address], 3 10:10:03 Medication Orders Kenalog 40 mg/mL suspension for injection 2022 023 [place] [address] [facility], [address] [place], [address], 3 15:16:32 lidocaine (PF) 10 mg/mL (1 %) injection solution 2022 023 [place] [address] [facility], [address] [place], [address], 3 15:16:31 Patient TargetsNo targets recorded. Patient Instructions Encounter Date Encounter Id Patient Instructions Last Modified By Organization Details Last Modified Time 02/08/2023 [id number] AP, lateral, Ann, and patellar radiographs views of the left knee taken today demonstrate left knee degenerative joint disease with joint space narrowing, osteophyte formation, and subchondral sclerosis. There is jwgf-kx-gwmo articulation in the lateral compartment. AP pelvis, [...] Organization Details Recorded Time Arthritis of knee 536116926 Active 2022 Kyrie Montelongo MD [address], [place], [address], [place] [facility] 3 14:35:26 Osteoarthri tis of left knee joint 9477001860351 09 Active 2022 MANDY VARGHESE PA-C [address], [place], [address], [place] [facility] 3 15:12:56 Tear of medial meniscus of knee 093514599 Active 2022 MANDY VARGHESE PA-C [address], [place], [address], [place] [facility] 3 15:14:58 Pain of left knee joint 4864753811882 07 Active 2022 Yu Gaines MD [address], [place], [address], [place] [facility] 3 15:26:34 Problem Notes None recorded. Procedures Surgical History Date Name Laterality Status Provider Name and Address Organization Details Recorded Time 12/11/19 23 Knee Joint/Bursa Asp & Inj completed MANDY VARGHESE PA-C [address], [place], [address], [place] [facility] 12/10/2022 15:16:24 Total knee arthroplasty completed Evie Royal [place] - [facility] 10/23/2022 14:59:13 Carpal tunnel surgery completed Evie Royal [facility] - [facility] 10/23/2022 14:59:26 Imaging Results Imaging Date [...] cm Rose Mckeon [place] - [facility] 12/10/2022 13:32:33 Date Recorded Body height Body mass index (BMI) Body weight Provider Name and Address Organization Details Last Updated DateTime 10/23/2022 162.56 cm 30.9 kg/m2 57566.[address] [facility] 10/23/2022 14:58:35 Date Recorded Body height Body mass index (BMI) Body weight Provider Name and Address Organization Details Last Updated DateTime 02/08/2023 162.56 cm 33.5 kg/m2 16043.[address] [facility] 02/08/2023 14:09:59 Social History Question Answer Notes LastModified by Organizat ion Details LastModified Time Tobacco Smoking Status Former Smoker Dejan Olivia null, [place] [facility] 02/08/2023 14:10:29 What Is Your Level Of Alcohol Consumption? Moderate [email or web address] Information not available 02/08/2023 How Many Times Per Week Do You Consume Alcohol? 5-7 Times Per Week [email or web address] Information not available 02/08/2023 When Did You Quit Smoking? 16+yearssince lastcigarette [email or web address] Information not available 02/08/2023 Do You Use Any Illicit Or Recreational Drugs? No [email or web address] Information not available 02/08/2023 Do You Or Have You Ever Used Any Other Forms Of Tobacco Or Nicotine? No [email or web address] Information not available 02/08/2023 Sex: Unknown Functional [...] Diagnosis Note [id number] MD BINA Shelley [address] [facility] [address] [place] [address] 10/23/2022 14:52:33 10/23/2022 15:23:27 Pain of right knee joint 8845286034 15394 M25.561 Pain of le ft knee joint 2360168745 35284 M25.562 7001 MD BINA Amanda [address] [facility] [address] [place] [address] 12/10/2022 13:22:40 12/10/2022 14:01:57 Osteoarthritis of left knee joint 5994032577 71185 M17.12 Tear of me dial meniscus of knee 822196900 S83.242D [id number] MD BINA Amanda [address] [facility] [address] [place] [address] 02/08/2023 13:47:32 02/08/2023 14:41:47 Pain of left knee joint 3915339373 63871 M25.562 Pain of le ft hip joint 3175452686 60412 M25.552 Osteoarthr itis of left knee joint 5776915006 51751 M17.12 Arthritis of knee 116867 002 M13.869 Health Concerns Section Related Observation LastModified by Organization Detai ls LastModified Time None Recorded Concern Status LastModified by Organization Details LastModified Time None Recorded Advance Directives Directive None Recorded Payers Encounter Date Sequence Insurance Name Policy Number Policy Ball Covered Member ID Ball Member ID Guarantor Name 10/23/2022 1 MEDICARE B-MS: [facility] [employer] Raiza P Spingler [id number] Raiza P Spingler 10/23/2022 2 () Raiza P Spingler [id number] Raiza P Spingler 12/10/2022 1 MEDICARE B-[place]: [facility] [employer] Raiza P Spingler [id number] Raiza P Spingler 12/10/2022 2 () Raiza P Spingler [id number] Raiza P Spingler 02/08/2023 1 MEDICARE B-MS: [employer] Raiza P Spingler [id number] Raiza P Spingler 02/08/2023 2 () Raiza P Spingler [id number] Raiza P Spingler Notes Date Note Type [...] several times per day. Yu Gaines MD [address] [place] [address], [address], [place] [facility] 10/23/2022 15:26:43 12/10/2022 text/html Dr. Gaines [...] are available. 1. Pain of right knee twsitR54.561: Pain in right knee XR KNEE, 1 OR 2 VIEW, 759452. Pain of left knee pwxmoK52.562: Pain in left knee Return to Office [...] evaluation and treatment discussion regarding her MRI. [facility] [address] [place] [address] Patient: RAIZA BOLES /Age/Sex: 1955 67 - FUnit#: [id number] Location/Status: SPDIMRI/REG CLIAccount#: [id number] Mnemonic/Ordering Site: [facility]ELTWO/SPMAINOrdering Physician: YU GAINES MD [...] Physician: IZZY JONES MDElectronically Signed by: IZZY JOENS MDDic Date/Time: 11/07/22508Sign date/Time: 11/07/22508 MANDY VARGHESE PA-C [address] [place] [address], [phone], [place] [facility] 12/10/2022 15:17:07 OBGyn Episode No OBEpisode recorded.
--- OUTSIDE RECORDS SUMMARY | 2024-11-10 11:23 | XMS_ITS | Encounter Summary ---
Author Organization [employer] Address [address] [place] [address] Care Team Providers Care Contact Clerk Name Role Phone Sanaz Blanco Primary Care Provider Unavailable Ene Lozano Unavailable Unavailable Mary Blunt Unavailable Unavailable Encounter Details Date Type Department Care Team (Late st Contact Info) Description 01/08/2024 Orders Only [place] [facility] [address] [place] [address] Provider, MD Molina Social History Tobacco Use [...] t he electric, gas, oil or water [employer] threatened to shut off services in your [...] Description 2025 9:00 AM EDT Office Visit [facility] [address] [place] [address] Rubina Devlin MD [address] [place] [address] documented as of this encounter Procedures Procedure [...] documented as of this encounter Care Teams Contact Clerk Relationship Specialty Start Date End Date Sanaz Blanco FNP PCP - General Family Medicine 08/27/22 Ene Lozano Community Health Worker 12/10/22 4 Mary Blunt Community Health Worker 01/29/24 documented as of this encounter
--- OUTSIDE RECORDS SUMMARY | 2024-11-10 11:23 | XMS_ITS | Encounter Summary ---
Author Organization [employer] Address [address] [place] [address] Care Team Providers Care Interlocking Installer Name Role Phone Sanaz Blanco ANIMAL CARE ASSISTANT Primary Care Provider Unavailable Mary Blunt Unavailable [...] 2025 9:00 AM EDT Office Visit [facility] [address] [place] [address] Rubina Devlin MD [address] [place] [address] documented as of this encounter Visit Diagnoses Not on filedocumented in this encounter Additional Health Concerns Assessment Noted Time PHQ-9 Depression Total Score: 10 025 11:56 AM EDT documented as of this encounter Care Teams Interlocking Installer Relationship Specialty Start Date End Date Sanaz Blanco FNP PCP - General Family Medicine 08/27/22 Mary Blunt Community Health Worker 01/29/24 documented as of this encounter
--- OUTSIDE RECORDS SUMMARY | 2024-11-10 11:23 | XMS_ITS | Clinical Summary ---
Author Organization [facility] Address [address] [place] [address] Care Team Providers Care Embossing Machine Operator Helper Name Role Phone Sanaz Blanco Primary Care Provider [phone] Allergies No known active allergies Medications Medication [...] age to complete this topic Care Teams Embossing Machine Operator Helper Relationship Specialty Start Date End Date Sanaz Blanco [address] [facility] [place] [address] PCP - General Family Medicine 06/16/21
--- OUTSIDE RECORDS SUMMARY | 2024-11-10 11:23 | XMS_ITS | Data Portability ---
Author Organization [place] [facility] Address [address] [place] [address] Assessment Encounter Date Assessment Date Assessment LastModified by Organization Details LastModified Time 10/22/2023 10/22/2023 X-RAYS: Three standing views of the left foot were ordered, obtained and reviewed by me today at [facility], demonstrating healed hallux MTP joint with well [...] 3v foot wb-- room 107 024 024 [id number] Not available 4 14:04:37 Medication Orders None recorded. Patient TargetsNo targets recorded. Patient InstructionsNo instructions recorded. Reason for Referral None Reported. Problems Name Problem SNOMED Code Status Onset Date Resolution Date Notes Provider Name and Address Organization Details Recorded Time No complaints [id number] Active Status : 'I'; Not Available [facility] 4 09:25:00 Problem Notes None recorded. Medical Equipment None Reported. Allergies Allergen ID Allergen Name Allergen Category Reaction Reaction Severity Criticality Documentation Date Start Date Code Code System Note Provider Name and Address Organization Details Recorded Time 88642 walnut allergeni c extract food Not available Not available Not available 10/07/20232010 95018 0 RxNorm Aller gyRea ction : 'Skin React ion'; Not Available [facility] 4 12:31:57 No known drug allergies Medications [...] Updated DateTime 10/22/2023 162.56 cm 30 kg/m2 40611.66 g BEBETO CHAYO [place] [facility] [place] [facility] 10/22/2023 12:23:46 Social History None recorded. Functional Status None recorded. Mental Status None recorded. Family History Nothing Reported. Medical History No medical history recorded. Gynecological HistoryNo gynecological history recorded. Obstetrics History GPAL:G 0 P 0 0 0 0 Past Encounters Encounter ID Performer Location Encounter Start Date Encounter Closed Date Diagnosis/Indication Diagnosis SNOMED-CT Code Diagnosis ICD10 Code Diagnosis Note [id number] MD Macie Cowan 1st [address] [place] [address] 10/22/2023 12:13:20 11/11/2023 11:44:06 Pain in left foot 3519085919 67766 M79.672 Follow-up orthopedic assessment 194871572 Z47.89 Hammer toe 681157720 M20 .42 Health Concerns Section Related Observation LastModified by Organization Detai ls LastModified Time None Recorded Concern Status LastModified by Organization Details LastModified Time None Recorded Advance Directives Directive None Recorded Payers Encounter Date Sequence Insurance Name Policy Number Policy Ball Covered Member ID Ball Member ID Guarantor Name 10/22/2023 2 ELISA () Raiza Lucian Spingler [id number] Raiza Lucian Spingler 10/22/2023 1 MEDICARE [place] [facility] Raiza Epstein Spingler [id number] Raiza Epstein Spingler Notes Date Note [...] patient? s chart. No interval change. Tye Baxtre MD [address] [facility] [address], [place], [address], [facility] [place] [facility] 10/22/2023 16:51:18 OBGyn Episode No OBEpisode recorded.
--- OUTSIDE RECORDS SUMMARY | 2024-11-10 11:23 | XMS_ITS | Clinical Summary ---
Author Organization [facility] Address [address] [place] [address] Care Team Providers Care Cotton Agent Name Role Phone Sanaz Blanco AUTOMOTIVE DIAGNOSTIC TECHNICIAN Primary Care Provider Surgical History Surgery Date [...] age to complete this topic Meningococcal B Vaccine Aged Out No l onger eligible based on patient's age to complete this topic RSV Immunization Patients Un lelo 20 months Aged Out No longer eligible b ased on patient's age to complete this topic Varicella Vaccines Aged Out No longer eligible based on patient's age to complete this topic Advance Directives Documents on File Type Date Recorded Patient Floor Representative Expl anation Health Care Decision (hx) 10/20/2021 AD REA DIRECTIVE Health Care Decision (hx) 10/20/2021 AD REA DIRECTIVE Care Teams Cotton Agent Relationship Specialty Start Date End Date Sanaz Blanco FNP PCP - General Family Medicine 06/16/21
--- OUTSIDE RECORDS SUMMARY | 2024-11-10 11:23 | XMS_ITS | Clinical Summary ---
Author Organization [employer] Address [address] [facility] [address] [place] [address] Care Team Providers Care General Ledger Accountant Name Role Phone Sanaz Blanco Primary Care Provider Unavailable Mary Blunt Unavailable Unavailable Allergies Active Allergy Reactions Criticality Noted Date Comments Black [place] Flavoring Agent (Non-Screening) Itching Low 01/01/2024 [place] Hives 05/21/2011 Medications * This document contains [...] injections in right knee for OA at [facility]. Helpful for pain. Also taking ibuprofen [...] - 40 mg/dL 17 LDL Chol Calc ([facility]) 0 - 99 mg/dL 62 Last lipid [...] 10/30/2024 Travel 10/28/2024 11:30 AM EDT Telemedicine [facility] MEDICAL [address] [place] [address] Salma Alcantara MD Depression, recurrent (CMS/HCC) (Primary Dx); History of knee replacement procedure of left knee 10/27/2024 Travel 10/21/2024 Travel 10/19/2024 Travel 10/16/2024 Population Health Risk Score Community Care [facility] (C3) Department [address] [place] [phone] Provider, Population Health Generic 10/11/2024 Travel 09/22/2024 Refill [facility] MEDICAL [address] [place] [address] Komal Gardner FNP Primary hypertension 09/21/2024 Travel 09/08/2024 3:00 PM EST Office Visit [facility] [address] [place] [address] Rubina Devlin MD Depression, recurrent (CMS/HCC) 09/07/2024 Travel 09/07/2024 Telephone [facility] [address] [place] [address] Sanaz Blanco FNP Appointment 09/01/2024 Travel 08/25/2024 [...] Description 2025 9:00 AM EDT Office Visit [facility] MEDICAL [address] [place] [address] Rubina Devlin MD [address] [place] [address] Health Maintenance Due Date Last Done Comments [...] Procedure Name Priority Date/Time Associated Diagnosis Comments LIPID PANEL, STANDARD Routine 08/10/2024 9:16 AM EST Hypercholesteremia BI MAMMOGRAM SCREENING TOMOSYNTHESIS BILATERAL Routine 01/14/2024 11:11 AM EDT HEPATITIS C ANTIBODY W/RFLX HCV QUANT PCR AND GENOTYPE Routine 08/29/2022 3:10 PM EST Encounter for hepatitis C screening test for low risk patient PAP SMEAR Routine 06/18/2022 12:00 AM EST HM COLONOSCOPY Routine 12/27/2021 from Last 3 Months or Most Recently Relevant to Health Maintenance Results * Lipid Panel, Standard 29580 (08/10/2024 9:16 AM EST) Cholesterol, Total 173 [...] AM EST Performed at: ??01 - [facility] [address] ??[id number] Dimensional Inspector: Sary Parker MD, Phone: ??[phone] us Komal Gardner TRAINING AND DEVELOPMENT HEAD LAB BLOOD ORDERABLES Deysi l Result [facility] [...] (Negative) Lay letter mailed to patient WSN: [id number] Ordering Physician: Sanaz Blanco Dictated By: ?Apryl Gonzalez MD Dictated Date/Time: ?01/14/24 1:23 pm Reviewed By: ?Apryl Gonzalez MD Signed By: ? Apryl Gonzalez MD Signed Date/Time: ? 01/14/24 1:23 pm Transcribed By: ? CSB Gas Meter Repair Supervisor Date/Time: ? 01/14/24 1:20 pm Birads: Procedure Note Lupe, Image - 01/14/2024 PROCEDURE: MM Digital Mammo [...] (Negative) Lay letter mailed to patient WSN: [id number] Ordering Physician: Sanaz Blanco Dictated By: Apryl Gonzalez MD Dictated Date/Time: 01/14/24 1:23 pm Reviewed By: Apryl Gonzalez MD Signed By: Apryl Gonzalez MD Signed Date/Time: 01/14/24 1:23 pm Transcribed By: ARNAV Gas Meter Repair Supervisor Date/Time: 01/14/24 1:20 pm Birads: Sanaz Blanco TRAINING AND DEVELOPMENT HEAD IMG BI PROCEDURES Deysi l Result * Hepatits C Antibody w/Reflex HCV Quant PCR and Genotyping (08/29/2022 3:10 PM EST) Hepatitis C Virus Ab, Serum NEGATIVE (NEG) [facility] Comment: Reference range: Negative This test was performed on the [employer] immunoassay system. Testing performed or reported by [facility], a Service of [facility], [address] [place] [address] Kei Anne MD, Mechanical Engineering Advisor [facility]# [id number] 08/29/2022 3:10 PM EST 08/29/2022 3:12 PM EST Sanaz Blanco TRAINING AND DEVELOPMENT HEAD LAB BLOOD ORDERABLES F inal Result [facility] [address] [place] [address] * Pap Smear (06/18/2022 12:00 AM EST) Swab Historical Provider LAB CYTOLOGY ORDERABLES F inal Result * Hm Colonoscopy (12/27/2021) Colonoscopy 10 year recall us Historical Provider HEALTH MAINTENANCE Final Result from Last 3 Months or Most Recently Relevant to Health Maintenance Insurance MEDICARE Member Subscriber Plan / Payer ( fective 2022-Present) Name:Raiza Oconnell Member ID:[id number] Relation to Subscriber:Self Name:Raiza Oconnell Subscriber ID:[id number] Payer ID:STATE Group ID:Not on file Type:Medicare Address: [facility] [address] [address] [facility] Care Teams General Ledger Accountant Relationship Specialty Start Date End Date Sanaz Blanco FNP PCP - General Family Medicine 08/27/22 Mary Blunt Community Health Worker 01/29/24
--- OUTSIDE RECORDS SUMMARY | 2024-11-10 11:23 | XMS_ITS | Continuity of Care Document ---
Author Name [facility] Organization [facility] Care Team Providers Care Perinatal Educator Name Role Phone [facility] Unavailable Unavailable Problems Combined list of problems from Department of Defense and Veterans Affairs facilities. It does not include entries that were removed or entered in error. Problem Status Onset Date Problem Type Date of Resolution Comments Source Diagnosis: ICD-10-CM Z71.0 Prsn encntr hlth serv to consult on behalf of another person Active Diagnosis [facility] Encounters Combined list of: 1) Encounters from Department of Veterans Affairs facilities going backup to the last 18 months, not all [place] inpatient encounters are included; 2) Encounters from the Department of Defense facilities going backup to 280 months. Location Location Details Encounter Type Encounter Number Reason For Visit Attending Provider ADM Date DC Date Status Disposition Source [place] [facility] [facility] Outpatient Encounter [id number] 12/18 [place] [facility] [place] [facility] PROGRAM INTAKE ASSESSMENT [id number] Diagnos is: ICD-10- CM Z71.0 Prsn encntr hlth serv to consult on behalf of another person TERESE BELTRAN 02/24 [place] [facility] [place] [facility] PROGRAM INTAKE ASSESSMENT [id number] Diagnos is: ICD-10- CM Z71.0 Prsn encntr hlth serv to consult on behalf of another person RENETTAKandisTERESE 07/24 [place] [facility] [place] [facility]
== END 2024-11-10 10:50 | disposition home or self-care (01) ==
LOC: HO.HOS 09:53
PROVIDERS: Visit Provider Physician Assistant
DX: Z96.652 Presence of left artificial knee joint (principal)
CPT/HCPCS: 99024

== ENCOUNTER → 2024-11-10 09:53 | Outpatient (BNVA) | payer MEDICARE, OTHER, SELFPAY | PROVIDERS: Visit Provider Physician Assistant | DX: Z47.1 Aftercare following joint replacement surgery (principal); Z96.652 Presence of left artificial knee joint; Z79.2 Long term (current) use of antibiotics | CPT/HCPCS: 99212 ==

== ENCOUNTER 2024-11-12 13:32 | Outpatient (AMB) | payer MEDICARE, OTHER, SELFPAY ==
--- NOTE | 2024-11-12 13:40 | MHC.OFFVIS ---
Intake Visit Reasons: PO: L TKA w/ 10/05/24-one week follow up Intake Note: Raiza is a 69 year old female who presents today post-operatively after undergoing left total knee arthroplasty on 10/05/24. Patient was seen earlier this week on 11/10/24 for a wound check. At the time of her visit bandages were placed over the area and she was instructed to keep the area clean dry and intact. Patient was also notified she may shower and wash the area with soap and water gently. Patient was instructed to continue taking Bactrim. She continues with her physical therapy exercises. She denies any fevers or chills. Allergies walnut Allergy (Intermediate, Verified 11/12/24 13:43) tingling in mouth Medication List - Last Reconciled 11/12/24 by Madi Sosa MD acetaminophen 650 mg (2 x 325 mg) PO Q6H PRN 30 days aspirin 325 mg PO BID 42 days atorvastatin 40 mg PO Q48H calcium carbonate-vitamin D3 600 mg-20 mcg (800 unit) (Caltrate plus D) 1 tab PO BID celecoxib 200 mg PO BID 30 days docusate sodium 100 mg PO BID gabapentin 100 mg PO BEDTIME 7 days lisinopril 10 mg PO BEDTIME methocarbamol 500 mg PO TID 7 days oxycodone 5 mg PO Q8H 7 days sertraline 25 mg PO BEDTIME sulfamethoxazole-trimethoprim 800-160 mg (Bactrim DS) 1 tab PO BID 10 days PFSH Medical History Depression Habitual snoring Murmur Elevated cholesterol HTN (hypertension) Tear of medial meniscus of knee Surgical History H/O colonoscopy H/O carpal tunnel repair S/P left knee arthroscopy Hx of appendectomy History of total right knee replacement (TKR) (10/20/21) Social History Household Members: Spouse Housing: House Are you a primary career development associate to a significant other at home: Yes (spouse needs care) Do you presently have visiting nurse or other home services: No Patient Tobacco Use Status: Former Tobacco user Tobacco use type: Cigarette Second Hand Smoke Exposure: No Substance Use Type: Marijuana service: No Current occupational status: retired Physical Exam Extrem Other: Left knee examination shows that the surgical incision is well healed, there is a suture abscess along the mid aspect of the incision measuring approximately 1 mm x 1 mm, no suture material seen, full active extension and flexion to 120 degrees with minimal discomfort Assessment & Plan Assessment & Plan (1) Status post total left knee replacement: Code(s): Z96.652 - Presence of left artificial knee joint Category: Medical Plan Ms. Oconnell presents for follow-up of her left knee suture abscess. At this point the abscess is improving. She has minimal discomfort with full range of motion. I will keep her on Bactrim until her follow-up appointment next week. She will continue with her physical therapy exercises. She will contact me prior to her follow-up appointment should any questions or concerns arise. Medications: Refilled sulfamethoxazole-trimethoprim 800-160 mg (Bactrim DS) 1 tab PO BID 10 days 20 tabs 0RF Coding Level of Care Code Global (11921) Diagnoses Status post total left knee replacement Z96.652
--- OUTSIDE RECORDS SUMMARY | 2024-11-12 16:20 | XMS_ITS | Clinical Summary ---
Author Organization [facility] Address [address] [place] [address] Care Team Providers Care Bottling Line Operator Name Role Phone Sanaz Blanco Primary Care Provider [phone] Allergies No known active allergies Medications Medication [...] age to complete this topic Care Teams Bottling Line Operator Relationship Specialty Start Date End Date Sanaz Blanco [address] [facility] [place] [address] PCP - General Family Medicine 06/16/21
--- OUTSIDE RECORDS SUMMARY | 2024-11-12 16:20 | XMS_ITS | Clinical Summary ---
Author Organization [employer] Address [address] [facility] 7t [place] [address] Care Team Providers Care Cloth Colorer Name Role Phone Sanaz Blanco Primary Care Provider Unavailable Mary Blunt Unavailable Unavailable Allergies Active Allergy Reactions Criticality Noted Date Comments Black [place] Flavoring Agent (Non-Screening) Itching Low 01/01/2024 [place] Hives 05/21/2011 Medications * This document contains [...] injections in right knee for OA at [facility]. Helpful for pain. Also taking ibuprofen [...] - 40 mg/dL 17 LDL Chol Calc ([facility]) 0 - 99 mg/dL 62 [...] organization. Date Type Department Care Team Description 11/10/2024 Travel 11/06/2024 Travel 10/30/2024 Travel 10/28/2024 11:30 AM EDT Telemedicine [facility] MEDICAL [address] [place] [address] Salma Alcantara MD Depression, recurrent (CMS/HCC) (Primary Dx); History of knee replacement procedure of left knee 10/27/2024 Travel 10/21/2024 Travel 10/19/2024 Travel 10/16/2024 Population Health Risk Score [facility] (C3) Department [address] [place] [phone] Provider, Population Health Generic 10/11/2024 Travel 09/22/2024 Refill [facility] MEDICAL [address] [place] [address] Komal Gardner FNP Primary hypertension 09/21/2024 Travel 09/08/2024 3:00 PM EST Office Visit [facility] [address] [place] [address] Rubina Devlin MD Depression, recurrent (CMS/HCC) 09/07/2024 Travel 09/07/2024 Telephone [facility] MEDICAL [address] [place] [address] Sanaz Blanco FNP Appointment 09/01/2024 Travel 08/25/2024 Travel from Last 3 Months Immunizations Name [...] Description 2025 9:00 AM EDT Office Visit [facility] MEDICAL [address] [place] [address] Rubina Devlin MD [address] [place] [address] Health Maintenance Due Date Last Done Comments CT Colonography 1956 FIT DNA/Cologuard 1955 FIT 1955 FOBT 1955 Sigmoidoscopy 1955 Pneumococcal Vaccine: 50+ Years (1 of 1 - PCV) 2006 Zoster Vaccines (1 of 2) 2006 COVID-19 Vaccine (1 - 2023- season) 2024 Influenza Vaccine (#1) 2024 Depression Monitoring 04/30/2025 10/28/2024, 025 Alcohol/Substance Use Screening 06/27/2025 06/27/2024 SDOH Screening [...] Health Maintenance Results * Lipid Panel, Standard 82207 (08/10/2024 9:16 AM EST) Cholesterol, Total 173 [...] AM EST Performed at: ??01 - [facility] [address] ??[id number] Health And Safety Director: Sary Parker MD, Phone: ??[phone] us Komal Garnder EVISCERATOR LAB BLOOD ORDERABLES Deysi minor Result [facility] [...] (Negative) Lay letter mailed to patient WSN: [id number] Ordering Physician: Sanaz Blanco Dictated By: ?Apryl Gonzaelz MD Dictated Date/Time: ?01/14/24 1:23 pm Reviewed By: ?Apryl Gonzalez MD Signed By: ? Apryl Gonzalez MD Signed Date/Time: ? 01/14/24 1:23 pm Transcribed By: ? CSB Staff Readiness Officer Date/Time: ? 01/14/24 1:20 pm Birads: Procedure [...] (Negative) Lay letter mailed to patient WSN: [id number] Ordering Physician: Sanaz Blanco Dictated By: Apryl Gonzalez MD Dictated Date/Time: 01/14/24 1:23 pm Reviewed By: Apryl Gonzalez MD Signed By: Apryl Gonzalez MD Signed Date/Time: 01/14/24 1:23 pm Transcribed By: ARNAV Staff Readiness Officer Date/Time: 01/14/24 1:20 pm Birads: Sanaz Blanco EVISCERATOR IMG BI PROCEDURES Deysi l Result * Hepatits C Antibody w/Reflex HCV Quant PCR and Genotyping (08/29/2022 3:10 PM EST) Hepatitis C Virus Ab, Serum NEGATIVE (NEG) [facility] Comment: Reference range: Negative This test was performed on the [employer] Worker immunoassay system. Testing performed or reported by [facility], a Service of [facility], [address] [place] [address] Kei Anne MD, Fast Food Crew Lead [facility]# [id number] 08/29/2022 3:10 PM EST 08/29/2022 3:12 PM EST Sanaz Blanco EVISCERATOR LAB BLOOD ORDERABLES F inal Result [facility] [address] [place] [address] * Pap Smear (06/18/2022 12:00 AM EST) Swab Historical Provider LAB CYTOLOGY ORDERABLES F inal Result * Hm Colonoscopy (12/27/2021) Colonoscopy 10 year recall us Historical Provider HEALTH MAINTENANCE Final Result from Last 3 Months or Most Recently Relevant to Health Maintenance Insurance MEDICARE Member Subscriber Plan / Payer (Ef fective 2022-Present) Name:Raiza Oconnell Member ID:[id number] Relation to Subscriber:Self Name:Raiza Oconnell Subscriber ID:[id number] Payer ID:[facility] Group ID:Not on file Type:Medicare [facility] [address] [address] [facility] Care Teams Cloth Colorer Relationship Specialty Start Date End Date Sanaz Blanco FNP PCP - General Family Medicine 08/27/22 Mary Blunt Community Health Worker 01/29/24
--- OUTSIDE RECORDS SUMMARY | 2024-11-12 16:20 | XMS_ITS | Encounter Summary ---
Author Organization [facility] [employer] Address [address] [place] [address] Care Team Providers Care Product Technology Scientist Name Role Phone Sanaz Blanco VP INTEGRITY Primary Care Provider Unavailable Mary lBunt Unavailable Unavailable Encounter Details Date Type Department Care Team (Latest Contact Info) Description 11/10/2024 Travel Social History Tobacco Use Types Packs/Day [...] 2025 9:00 AM EDT Office Visit [facility] MED[facility] [address] [place] [address] Rubina Devlin MD [address] [place] [address] documented as of this encounter Visit Diagnoses Not on filedocumented in this encounter Additional Health Concerns Assessment Noted Time PHQ-9 Depression Total Score: 10 025 11:56 AM EDT documented as of this encounter Care Teams Product Technology Scientist Relationship Specialty Start Date End Date Sanaz Blanco FNP PCP - General Family Medicine 08/27/22 Mary Blunt Community Health Worker 01/29/24 documented as of this encounter
--- OUTSIDE RECORDS SUMMARY | 2024-11-12 16:20 | XMS_ITS | Continuity of Care Document ---
Author Name [facility] Organization [facility] Care Team Providers Care Biochemical Development Engineer Name Role Phone [facility] Unavailable Unavailable Problems Combined list of problems from Department of Defense and Veterans Affairs facilities. It does not include entries that were removed or entered in error. Problem Status Onset Date Problem Type Date of Resolution Comments Source Diagnosis: ICD-10-CM Z71.0 Prsn encntr hlth serv to consult on behalf of another person Active Diagnosis [facility] [place] [facility] Encounters Combined list of: 1) Encounters from Department of Veterans Affairs facilities going backup to the last 18 months, not all [place] inpatient encounters are included; 2) Encounters from the Department of Defense facilities going backup to 280 months. Location Location Details Encounter Type Encounter Number Reason For Visit Attending Provider ADM Date DC Date Status Disposition Source [place] [facility] [place] [facility] Outpatient Encounter [id number] 12/18 [place] [facility] [place] [place] [facility] [place] [facility] PROGRAM INTAKE ASSESSMENT [id number] Diagnos is: ICD-10- CM Z71.0 Prsn encntr hlth serv to consult on behalf of another person TERESE BELTRAN 02/24 [place] [facility] [place] [place] [facility] [place] [facility] PROGRAM INTAKE ASSESSMENT [id number] Diagnos is: ICD-10- CM Z71.0 Prsn encntr hlth serv to consult on behalf of another person RENETTAKandisTERESE 07/24 [place] [facility] [place] [place] [facility]
--- OUTSIDE RECORDS SUMMARY | 2024-11-12 16:20 | XMS_ITS | Data Portability ---
Author Organization [place] [facility], [facility] Address [address] [place] [address] Assessment Encounter Date Assessment Date Assessment LastModified by Organization Details LastModified Time 10/22/2023 10/22/2023 X-RAYS: Three standing views of the left foot were ordered, obtained and reviewed by me today at [facility], demonstrating healed hallux MTP joint with [...] 3v foot wb-- room 107 024 024 [email or web address] Not available 4 14:04:37 Medication Orders None recorded. Patient TargetsNo targets recorded. Patient InstructionsNo instructions recorded. Reason for Referral None Reported. Problems Name Problem SNOMED Code Status Onset Date Resolution Date Notes Provider Name and Address Organization Details Recorded Time No complaints 877928426 Active Status : 'I'; Not Available [facility] 4 09:25:00 Problem Notes None recorded. Medical Equipment None Reported. Allergies Allergen ID Allergen Name Allergen Category Reaction Reaction Severity Criticality Documentation Date Start Date Code Code System Note Provider Name and Address Organization Details Recorded Time 33550 walnut allergeni c extract food Not available Not available Not available 10/07/20232010 89411 0 RxNorm Aller gyRea ction : 'Skin React ion'; Not Available [facility] 4 12:31:57 No known drug [...] Updated DateTime 10/22/2023 162.56 cm 30 kg/m2 21781.66 g BEBETO CHAYO Norris [place] [facility] [place] [facility] 10/22/2023 12:23:46 Social History None recorded. Functional Status None recorded. Mental Status None recorded. Family History Nothing Reported. Medical History No medical history recorded. Gynecological HistoryNo gynecological history recorded. Obstetrics History GPAL:G 0 P 0 0 0 0 Past Encounters Encounter ID Performer Location Encounter Start Date Encounter Closed Date Diagnosis/Indication Diagnosis SNOMED-CT Code Diagnosis ICD10 Code Diagnosis Note [id number] MD Macie Cowan [address] [place] [address] 10/22/2023 12:13:20 11/11/2023 11:44:06 Pain in left foot 2617241858 27145 M79.672 Follow-up orthopedic assessment 213621623 Z47.89 Hammer toe 208838107 M20 .42 Health Concerns Section Related Observation LastModified by Organization Detai ls LastModified Time None Recorded Concern Status LastModified by Organization Details LastModified Time None Recorded Advance Directives Directive None Recorded Payers Encounter Date Sequence Insurance Name Policy Number Policy Ball Covered Member ID Ball Member ID Guarantor Name 10/22/2023 2 ELISA () Raiza Lucian Spingler [id number] Raiza Lucian Spingler 10/22/2023 1 MEDICARE B-DC: [facility] [employer] Raiza Epstein Spingler [id number] Raiza Epstein Spingler Notes Date Note [...] No interval change. Tye Baxter MD [address] [facility] [address], [place], [address], [facility] [place] [facility] 10/22/2023 16:51:18 OBGyn Episode No OBEpisode recorded.
--- OUTSIDE RECORDS SUMMARY | 2024-11-12 16:20 | XMS_ITS | Clinical Summary ---
Author Organization [facility] Address [address] [place] [address] Care Team Providers Care Dental Scheduling Coordinator Name Role Phone Sanaz Blanco TICKET COLLECTOR Primary Care Provider Surgical History Surgery Date [...] Documents on File Type Date Recorded Patient Construction Code Administrator Expl anation Health Care Decision (hx) 10/20/2021 AD REA DIRECTIVE Health Care Decision (hx) 10/20/2021 AD REA DIRECTIVE Care Teams Dental Scheduling Coordinator Relationship Specialty Start Date End Date Sanaz Blanco FNP PCP - General Family Medicine 06/16/21
--- OUTSIDE RECORDS SUMMARY | 2024-11-12 16:21 | XMS_ITS | Encounter Summary ---
Author Organization [employer] Address [address] [place] [address] Care Team Providers Care Ec Teacher Name Role Phone Sanaz Blanco Primary Care Provider Unavailable Ene Lozano Unavailable Unavailable Mary Blunt Unavailable Unavailable Encounter Details Date Type Department Care Team (Late st Contact Info) Description 01/08/2024 Orders Only [facility] [address] [place] [address] Provider, MD Molina Social History Tobacco Use [...] t he electric, gas, oil or water [employer] threatened to shut off services in your [...] Description 2025 9:00 AM EDT Office Visit [facility] [address] [place] [address] Rubina Devlin MD [address] [place] [address] documented as of this encounter Procedures Procedure [...] documented as of this encounter Care Teams Ec Teacher Relationship Specialty Start Date End Date Sanaz Blanco FNP PCP - General Family Medicine 08/27/22 Ene Lozano Community Health Worker 12/10/22 4 Mary Blunt Community Health Worker 01/29/24 documented as of this encounter
--- OUTSIDE RECORDS SUMMARY | 2024-11-12 16:21 | XMS_ITS | Data Portability ---
Author Organization [place] [facility] Lucian Leos [facility] [place] Address [address] [place] [address] Care Team Providers Care Quality Specialist Name Role Phone SULMA IBANEZ Primary Care Provider [phone] Assessment Encounter Date Assessment Date Assessment LastModified [...] degrees. The knee is stable within that erocl-xx-ipvrcl to AP and ML stress. The alignment [...] May 09, 2023 at [facility]. Not available 02/08/2023 14:35:02 Plan of Treatment Reminders Order Date Submit Date Provider Last Modified By Organization Details Last Modified Time Details Appointments None recorded. Lab None recorded. Referral None recorded. Procedures None recorded. Surgeries total knee replacement (SURG) 2022 023 [email or web address] 0 [facility], [address], [place], [address], 3 14:38:05 Imaging XR, knee, 3 view 2022 023 [facility], [address], [place], [address], 3 15:40:51 XR, hip, unilateral, 2 or 3 view 2022 023 [facility], [address], [address], [place], [address], 3 15:40:51 XR, knee, 1 or 2 view 2022 023 [place]arus [facility], [address], [place], [address], 3 10:10:03 Medication Orders Kenalog 40 mg/mL suspension for injection 2022 023 [place] [address] [facility], [address] [place], [address], 3 15:16:32 lidocaine (PF) 10 mg/mL (1 %) injection solution 2022 023 [place] [address] [facility], [address] [place], [address], 3 15:16:31 Patient TargetsNo targets recorded. Patient Instructions Encounter Date Encounter Id Patient Instructions Last Modified By Organization Details Last Modified Time 02/08/2023 [id number] AP, lateral, Ann, and patellar radiographs views of the left knee taken today demonstrate left knee degenerative joint disease with joint space narrowing, osteophyte formation, and subchondral sclerosis. There is uwpl-tg-oduc articulation in the lateral compartment. AP pelvis, [...] Organization Details Recorded Time Arthritis of knee 194432679 Active 2022 Kyrie Montelongo MD [address], [place], [address], [place] [facility] 3 14:35:26 Osteoarthri tis of left knee joint 8671243201132 09 Active 2022 MANDY VARGHESE PA-C [address], [place], [address], [place] [facility], [facility] 3 15:12:56 Tear of medial meniscus of knee 731946996 Active 2022 MANDY VARGHESE PA-C [address], [place], [address], [place] [facility], P 3 15:14:58 Pain of left knee joint 5528556758818 07 Active 2022 Yu Gaines MD [address], [place], [address], [place] [facility], [facility] 3 15:26:34 Problem Notes None recorded. Procedures Surgical History Date Name Laterality Status Provider Name and Address Organization Details Recorded Time 12/11/19 23 Knee Joint/Bursa Asp & Inj completed MANDY VARGHESE PA-C [address], [place], [address], [place] [facility] 12/10/2022 15:16:24 Total knee arthroplasty completed Evie Royal [place] [facility] 10/23/2022 14:59:13 Carpal tunnel surgery completed Evie Royal [place] [facility] 10/23/2022 14:59:26 Imaging Results Imaging Date [...] cm Rose Mckeon [place] - [facility] 12/10/2022 13:32:33 Date Recorded Body height Body mass index (BMI) Body weight Provider Name and Address Organization Details Last Updated DateTime 10/23/2022 162.56 cm 30.9 kg/m2 56873.[address] [place] [facility] 10/23/2022 14:58:35 Date Recorded Body height Body mass index (BMI) Body weight Provider Name and Address Organization Details Last Updated DateTime 02/08/2023 162.56 cm 33.5 kg/m2 26407.[address] [place] [facility] 02/08/2023 14:09:59 Social History Question Answer Notes LastModified by Organizat ion Details LastModified Time Tobacco Smoking Status Former Smoker Dejan Olivia null, [place] [facility] 02/08/2023 14:10:29 What Is Your Level Of Alcohol Consumption? Moderate Information not available 02/08/2023 How Many Times Per Week Do You Consume Alcohol? 5-7 Times Per Week [email or web address] Information not available 02/08/2023 When Did You Quit Smoking? 16+yearssince lastcigarette [email or web address] Information not available 02/08/2023 Do You Use Any Illicit Or Recreational Drugs? No [email or web address] Information not available 02/08/2023 Do You Or Have You Ever Used Any Other Forms Of Tobacco Or Nicotine? No [email or web address] Information not available 02/08/2023 Sex: Unknown Functional [...] Diagnosis Note [id number] MD BINA Shelley [address] [facility] [address] [place] [address] 10/23/2022 14:52:33 10/23/2022 15:23:27 Pain of right knee joint 7685343025 09904 M25.561 Pain of le ft knee joint 7475943003 38930 M25.562 [id number] MD BINA Amanda [address] [facility] [address] [place] [address] 12/10/2022 13:22:40 12/10/2022 14:01:57 Osteoarthritis of left knee joint 3829855776 69077 M17.12 Tear of me dial meniscus of knee 396123465 S83.242D [id number] MD BINA Amanda [address] [facility] [address] [place] [address] 02/08/2023 13:47:32 02/08/2023 14:41:47 Pain of left knee joint 4784802416 72746 M25.562 Pain of le ft hip joint 8179796398 39252 M25.552 Osteoarthr itis of left knee joint 2139475407 62146 M17.12 Arthritis of knee 731410 002 M13.869 Health Concerns Section Related Observation LastModified by Organization Detai ls LastModified Time None Recorded Concern Status LastModified by Organization Details LastModified Time None Recorded Advance Directives Directive None Recorded Payers Encounter Date Sequence Insurance Name Policy Number Policy Ball Covered Member ID Ball Member ID Guarantor Name 10/23/2022 1 MEDICARE B-UT: [facility] [employer] Raiza P Spingler [id number] Raiza P Spingler 10/23/2022 2 () Raiza P Spingler [id number] Raiza P Spingler 12/10/2022 1 MEDICARE B-[place]: [facility] [employer] Raiza P Spingler [id number] Raiza P Spingler 12/10/2022 2 () Raiza P Spingler [id number] Raiza P Spingler 02/08/2023 1 MEDICARE B-UT: [employer] Raiza P Spingler [id number] Raiza P Spingler 02/08/2023 2 () Raiza P Spingler [id number] Raiza P Spingler Notes Date Note Type [...] several times per day. Yu Gaines MD [address] [place] [address], [address], [place] [facility] 10/23/2022 15:26:43 12/10/2022 text/html Dr. Gaines [...] are available. 1. Pain of right knee sgaqhQ03.561: Pain in right knee XR KNEE, 1 OR 2 VIEW, 137446. Pain of left knee pfhtyB20.562: Pain in left knee Return to Office [...] evaluation and treatment discussion regarding [facility] [address] [place] [address] Patient: RAIZA BOLES /Age/Sex: 1955 67 - FUnit#: [id number] Location/Status: SPDIMRI/REG CLIAccount#: [id number] Mnemonic/Ordering Site: KNEELTWO/SPMAINOrdering Physician: YU GAINES MD [...] Date/Time: 11/07/22508Sign date/Time: 11/07/22508 MANDY VARGHESE PA-C [address] [place] [address], [address], [place] [facility] 12/10/2022 15:17:07 OBGyn Episode No OBEpisode recorded.
== END 2024-11-12 13:54 | disposition home or self-care (01) ==
LOC: HO.HOS 13:32
PROVIDERS: Visit Provider Orthopaedic Surgery
DX: Z96.652 Presence of left artificial knee joint (principal)
CPT/HCPCS: 99024

== ENCOUNTER → 2024-11-12 13:32 | Outpatient (BNVA) | payer MEDICARE, OTHER, SELFPAY | PROVIDERS: Visit Provider Orthopaedic Surgery | DX: Z47.1 Aftercare following joint replacement surgery (principal); Z96.652 Presence of left artificial knee joint | CPT/HCPCS: 99212 ==

== ENCOUNTER 2024-11-18 13:29 | Outpatient (AMB) | payer MEDICARE, OTHER, SELFPAY ==
--- NOTE | 2024-11-18 13:39 | MHC.OFFVIS ---
Vital Signs 11/18/24 13:44 Height 5 ft 4 in Weight 172 lb BMI 29.5 Intake Visit Reasons: PO: L TKA w/ 10/05/24-one week follow up Intake Note: Raiza is a 69 year old female who presents for follow-up after undergoing left total knee replacement surgery on 10/05/2024. She continues with her physical therapy exercises. She denies any fevers or chills. She does take oxycodone as needed for her pain. She continues to take Bactrim for a suture abscess. Allergies walnut Allergy (Intermediate, Verified 11/18/24 13:44) tingling in mouth Medication List - Last Reconciled 11/18/24 by Madi Sosa MD acetaminophen 650 mg (2 x 325 mg) PO Q6H PRN 30 days aspirin 325 mg PO BID 42 days atorvastatin 40 mg PO Q48H calcium carbonate-vitamin D3 600 mg-20 mcg (800 unit) (Caltrate plus D) 1 tab PO BID celecoxib 200 mg PO BID 30 days docusate sodium 100 mg PO BID gabapentin 100 mg PO BEDTIME 7 days lisinopril 10 mg PO BEDTIME methocarbamol 500 mg PO TID 7 days oxycodone 5 mg PO Q8H 7 days sertraline 25 mg PO BEDTIME sulfamethoxazole-trimethoprim 800-160 mg (Bactrim DS) 1 tab PO BID 10 days PFSH Medical History Depression Habitual snoring Murmur Elevated cholesterol HTN (hypertension) Tear of medial meniscus of knee Surgical History H/O colonoscopy H/O carpal tunnel repair S/P left knee arthroscopy Hx of appendectomy History of total right knee replacement (TKR) (10/20/21) Social History Household Members: Spouse Housing: House 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 at home: Yes (spouse needs care) Do you presently have visiting nurse or other home services: No Patient Tobacco Use Status: Former Tobacco user Tobacco use type: Cigarette Second Hand Smoke Exposure: No Substance Use Type: Marijuana service: No Current occupational status: retired Physical Exam Vital Signs: BMI result Body Mass Index 29.5 Extrem Other: Left knee examination shows that the surgical incision is well healed, the suture abscess is closing well, now approximately 1 mm in length, no drainage, full active extension and flexion to 110 degrees with minimal discomfort, her patella tracks well Assessment & Plan Assessment & Plan (1) Status post total left knee replacement: Code(s): Z96.652 - Presence of left artificial knee joint Category: Medical Plan Ms. Oconnell continues to do well after undergoing left total knee replacement surgery on 10/05/2024. At this point her suture abscess continues to heal well. She will complete her course of Bactrim. She will contact me prior to her follow-up appointment in 2 weeks should any questions or concerns arise. Coding Level of Care Code Global (42545) Diagnoses Status post total left knee replacement Z96.652
[2024-11-18 13:44] VITALS: BMI 29.5
--- OUTSIDE RECORDS SUMMARY | 2024-11-18 16:03 | XMS_ITS | Data Portability ---
Author Organization [place] [facility] Lucian Leos [facility] [place] Address [address] [place] [address] Care Team Providers Care Printer Operator Name Role Phone SULMA IBANEZ Primary Care Provider [phone] Assessment Encounter Date Assessment Date Assessment LastModified [...] degrees. The knee is stable within that ylkyz-qd-htgzfu to AP and ML stress. The alignment [...] robotic assisted, on May 09, 2023 at [facility]. Not available 02/08/2023 14:35:02 Plan of Treatment Reminders Order Date Submit Date Provider Last Modified By Organization Details Last Modified Time Details Appointments None recorded. Lab None recorded. Referral None recorded. Procedures None recorded. Surgeries total knee replacement (SURG) 2022 023 [email or web address] 0 [facility], [address] [facility], [place], [address], 3 14:38:05 Imaging XR, knee, 3 view 2022 023 [facility], [address], [address], [place], [address], 3 15:40:51 XR, hip, unilateral, 2 or 3 view 2022 023 [facility], [address], [address], [place], [address], 3 15:40:51 XR, knee, 1 or 2 view 2022 023 [place] [facility], [address], [address], [place], [address], 3 10:10:03 Medication Orders Kenalog 40 mg/mL suspension for injection 2022 023 [place] [address] [facility], [address] [place], [address], 3 15:16:32 lidocaine (PF) 10 mg/mL (1 %) injection solution 2022 023 [place] [address] [facility], [address] [place], [address], 3 15:16:31 Patient TargetsNo targets recorded. Patient Instructions Encounter Date Encounter Id Patient Instructions Last Modified By Organization Details Last Modified Time 02/08/2023 [id number] AP, lateral, Ann, and patellar radiographs views of the left knee taken today demonstrate left knee degenerative joint disease with joint space narrowing, osteophyte formation, and subchondral sclerosis. There is ofsm-ac-xdvj articulation in the lateral compartment. AP pelvis, [...] Organization Details Recorded Time Arthritis of knee 519649392 Active 2022 Kyrie Montelongo MD [address], [place], [address], [place] [facility] 3 14:35:26 Osteoarthri tis of left knee joint 1353743057861 09 Active 2022 MANDY VARGHESE PA-C [address], [place], [address], [place] [facility] 3 15:12:56 Tear of medial meniscus of knee 400500594 Active 2022 MANDY VARGHESE PA-C [address], [place], [address], [place] [facility] 3 15:14:58 Pain of left knee joint 8400186173542 07 Active 2022 Yu Gaines MD [address], [place], [address], [place] [facility] 3 15:26:34 Problem Notes None recorded. Procedures Surgical History Date Name Laterality Status Provider Name and Address Organization Details Recorded Time 12/11/19 23 Knee Joint/Bursa Asp & Inj completed MANDY VARGHESE PA-C [address], [place], [address], [place] [facility] 12/10/2022 15:16:24 Total knee arthroplasty completed Evie Royal [place] [facility] 10/23/2022 14:59:13 Carpal tunnel surgery completed Evie Royal [place] [facility] 10/23/2022 14:59:26 Imaging Results Imaging Date [...] cm Rose Mckeon [place] - [facility] 12/10/2022 13:32:33 Date Recorded Body height Body mass index (BMI) Body weight Provider Name and Address Organization Details Last Updated DateTime 10/23/2022 162.56 cm 30.9 kg/m2 63735.[address] [place] [facility] 10/23/2022 14:58:35 Date Recorded Body height Body mass index (BMI) Body weight Provider Name and Address Organization Details Last Updated DateTime 02/08/2023 162.56 cm 33.5 kg/m2 94585.[address] [place] [facility] 02/08/2023 14:09:59 Social History Question Answer Notes LastModified by Organizat ion Details LastModified Time Tobacco Smoking Status Former Smoker Dejan Olivia null, [place] [facility] 02/08/2023 14:10:29 What Is Your Level Of Alcohol Consumption? Moderate [email or web address] Information not available 02/08/2023 How Many Times Per Week Do You Consume Alcohol? 5-7 Times Per Week [email or web address] Information not available 02/08/2023 When Did You Quit Smoking? 16+yearssince lastcigarette [email or web address] Information not available 02/08/2023 Do You Use Any Illicit Or Recreational Drugs? No [email or web address] Information not available 02/08/2023 Do You Or Have You Ever Used Any Other Forms Of Tobacco Or Nicotine? No [email or web address] Information not available 02/08/2023 Sex: Unknown Functional [...] Diagnosis Note 1417 MD BINA Shelley [address] [facility] [address] [place] [address] 10/23/2022 14:52:33 10/23/2022 15:23:27 Pain of right knee joint 0324860607 55645 M25.561 Pain of le ft knee joint 4360302774 20414 M25.562 7001 MD BINA Amanda [address] [facility] [address] [place] [address] 12/10/2022 13:22:40 12/10/2022 14:01:57 Osteoarthritis of left knee joint 2097009244 53933 M17.12 Tear of me dial meniscus of knee 628142420 S83.242D [id number] MD BINA Amanda [address] [facility] [address] [place] [address] 02/08/2023 13:47:32 02/08/2023 14:41:47 Pain of left knee joint 5757561189 76700 M25.562 Pain of le ft hip joint 7209537841 88163 M25.552 Osteoarthr itis of left knee joint 1989868728 06929 M17.12 Arthritis of knee 887275 002 M13.869 Health Concerns Section Related Observation LastModified by Organization Detai ls LastModified Time None Recorded Concern Status LastModified by Organization Details LastModified Time None Recorded Advance Directives Directive None Recorded Payers Encounter Date Sequence Insurance Name Policy Number Policy Ball Covered Member ID Ball Member ID Guarantor Name 10/23/2022 1 MEDICARE B-NE: [facility] [employer] Raiza P Spingler [id number] Raiza P Spingler 10/23/2022 2 () Raiza P Spingler [id number] Raiza P Spingler 12/10/2022 1 MEDICARE B-[place]: [facility] [employer] [facility] Raiza P Spingler [id number] Raiza P Spingler 12/10/2022 2 () Raiza P Spingler [id number] Raiza P Spingler 02/08/2023 1 MEDICARE B-NE: [employer] Raiza P Spingler [id number] Raiza P Spingler 02/08/2023 2 () Raiza P Spingler [id number] Raiza P Spingler Notes Date Note Type [...] several times per day. Yu Gaines MD [address] [place] [address], [address], [place] [facility] 10/23/2022 15:26:43 12/10/2022 text/html Dr. Gaines [...] are available. 1. Pain of right knee piuuwP73.561: Pain in right knee XR KNEE, 1 OR 2 VIEW, 604091. Pain of left knee pvhaiT08.562: Pain in left knee Return to Office [...] evaluation and treatment discussion [facility] [address] [place] [address] Patient: RAIZA BOLES /Age/Sex: 1955 67 - FUnit#: [id number] Location/Status: SPDIMRI/REG CLIAccount#: [id number] Mnemonic/Ordering Site: KNEELTWO/SPMAINOrdering Physician: YU GAINES MD [...] Date/Time: 11/07/22508Sign date/Time: 11/07/22508 MANDY VARGHESE PA-C [address] [place] [address], [address], [place] [facility] 12/10/2022 15:17:07 OBGyn Episode No OBEpisode recorded.
--- OUTSIDE RECORDS SUMMARY | 2024-11-18 16:03 | XMS_ITS | Clinical Summary ---
Author Organization [facility] Address [address] [place] [address] Care Team Providers Care Gypsum Roofer Name Role Phone Sanaz Blanco FACULTY MEMBER Primary Care Provider Surgical History Surgery Date [...] Documents on File Type Date Recorded Patient Specimen Transporter Expl anation Health Care Decision (hx) 10/20/2021 AD REA DIRECTIVE Health Care Decision (hx) 10/20/2021 AD REA DIRECTIVE Care Teams Gypsum Roofer Relationship Specialty Start Date End Date Sanaz Blanco FNP PCP - General Family Medicine 06/16/21
--- OUTSIDE RECORDS SUMMARY | 2024-11-18 16:03 | XMS_ITS | Encounter Summary ---
Author Organization [employer] Address [address] [facility] [address] [place] [address] Care Team Providers Care Robot Operator Name Role Phone Sanaz Blanco Primary Care Provider Unavailable Ene Lozano Unavailable Unavailable Mary Blunt Unavailable Unavailable Encounter Details Date Type Department Care Team (Late st Contact Info) Description 01/08/2024 Orders Only [place] [facility] MEDICAL [address] [place] [address] Provider, MD Molina Social History Tobacco Use [...] t he electric, gas, oil or water delicious threatened to shut off services in your [...] Description 2025 9:00 AM EDT Office Visit [facility] MEDICAL [address] [place] [address] Rubina Devlin MD [address] [place] [address] documented as of this encounter Procedures Procedure [...] documented as of this encounter Care Teams Robot Operator Relationship Specialty Start Date End Date Sanaz Blanco FNP PCP - General Family Medicine 08/27/22 Ene Lozano Community Health Worker 12/10/22 4 Mary Blunt Community Health Worker 01/29/24 documented as of this encounter
--- OUTSIDE RECORDS SUMMARY | 2024-11-18 16:03 | XMS_ITS | Data Portability ---
Author Organization [place] [facility] Address [address] [place] [address] Assessment Encounter Date Assessment Date Assessment LastModified by Organization Details LastModified Time 10/22/2023 10/22/2023 X-RAYS: Three standing views of the left foot were ordered, obtained and reviewed by me today at [facility], demonstrating healed hallux MTP joint with well [...] 3v foot wb-- room 107 024 024 [email or web address] Not available 4 14:04:37 Medication Orders None recorded. Patient TargetsNo targets recorded. Patient InstructionsNo instructions recorded. Reason for Referral None Reported. Problems Name Problem SNOMED Code Status Onset Date Resolution Date Notes Provider Name and Address Organization Details Recorded Time No complaints 883945615 Active Status : 'I'; Not Available [facility] 4 09:25:00 Problem Notes None recorded. Medical Equipment None Reported. Allergies Allergen ID Allergen Name Allergen Category Reaction Reaction Severity Criticality Documentation Date Start Date Code Code System Note Provider Name and Address Organization Details Recorded Time 31434 walnut allergeni c extract food Not available Not available Not available 10/07/20232010 53750 0 RxNorm Aller gyRea ction : 'Skin React ion'; Not Available [facility] 4 12:31:57 No known drug allergies [...] Updated DateTime 10/22/2023 162.56 cm 30 kg/m2 22864.66 g BEBETO CHAYO Norris [place] [facility] [place] [facility] 10/22/2023 12:23:46 Social History None recorded. Functional Status None recorded. Mental Status None recorded. Family History Nothing Reported. Medical History No medical history recorded. Gynecological HistoryNo gynecological history recorded. Obstetrics History GPAL:G 0 P 0 0 0 0 Past Encounters Encounter ID Performer Location Encounter Start Date Encounter Closed Date Diagnosis/Indication Diagnosis SNOMED-CT Code Diagnosis ICD10 Code Diagnosis Note [id number] MD Macie Cowan [address] [place] [address] 10/22/2023 12:13:20 11/11/2023 11:44:06 Pain in left foot 1444184152 84638 M79.672 Follow-up orthopedic assessment 643371203 Z47.89 Hammer toe 321747174 M20 .42 Health Concerns Section Related Observation LastModified by Organization Detai ls LastModified Time None Recorded Concern Status LastModified by Organization Details LastModified Time None Recorded Advance Directives Directive None Recorded Payers Encounter Date Sequence Insurance Name Policy Number Policy Ball Covered Member ID Ball Member ID Guarantor Name 10/22/2023 2 ELISA () Raiza Lucian Spingler [id number] Raiza Lucian Spingler 10/22/2023 1 MEDICARE [place] [facility] Raiza Epstein Spingler [id number] Raiza Epstein Spingler Notes Date Note [...] No interval change. Tye Baxter MD [address] [facility] [address], [place], [address], [facility] [place] [facility] 10/22/2023 16:51:18 OBGyn Episode No OBEpisode recorded.
--- OUTSIDE RECORDS SUMMARY | 2024-11-18 16:03 | XMS_ITS | Clinical Summary ---
Author Organization [facility] Address [address] [place] [address] Care Team Providers Care Boiler Assistant Operator Name Role Phone Sanaz Blanco Primary Care Provider [phone]- [phone] Allergies No known active allergies Medications Medication [...] age to complete this topic Care Teams Boiler Assistant Operator Relationship Specialty Start Date End Date Sanaz Blanco [address] [facility] [place] [address] PCP - General Family Medicine 06/16/21
--- OUTSIDE RECORDS SUMMARY | 2024-11-18 16:03 | XMS_ITS | Continuity of Care Document ---
Author Name [facility] Organization [facility] Care Team Providers Care Plate Colorer Name Role Phone [facility] Unavailable Unavailable Problems Combined list of problems from Department of Defense and Veterans Affairs facilities. It does not include entries that were removed or entered in error. Problem Status Onset Date Problem Type Date of Resolution Comments Source Diagnosis: ICD-10-CM Z71.0 Prsn encntr hlth serv to consult on behalf of another person Active Diagnosis [facility] [place] [facility] Encounters Combined list of: 1) Encounters from Department of Veterans Affairs facilities going backup to the last 18 months, not all [place] inpatient encounters are included; 2) Encounters from the Department of Defense facilities going backup to 280 months. Location Location Details Encounter Type Encounter Number Reason For Visit Attending Provider ADM Date DC Date Status Disposition Source [place] [facility] [place] [facility] Outpatient Encounter [id number] 12/18 [place] [facility] [place] [place] [facility] [place] PROGRAM INTAKE ASSESSMENT [id number] Diagnos is: ICD-10- CM Z71.0 Prsn encntr hlth serv to consult on behalf of another person TERESE BELTRAN 02/24 [place] [facility] [place] [facility] [place] [facility] PROGRAM INTAKE ASSESSMENT [id number] Diagnos is: ICD-10- CM Z71.0 Prsn encntr hlth serv to consult on behalf of another person RENETTAKandisTERESE 07/24 [place] [facility] [place] [place] [facility]
--- OUTSIDE RECORDS SUMMARY | 2024-11-18 16:03 | XMS_ITS | Clinical Summary ---
Author Organization [employer] Address [address] [facility] [address] [place] [address] Care Team Providers Care Logistics Analytics Manager Name Role Phone Sanaz Blanco Primary Care Provider Unavailable Mary Blunt Unavailable Unavailable Allergies Active Allergy Reactions Criticality Noted Date Comments Black Dix Flavoring Agent (Non-Screening) Itching Low 01/01/2024 Dix Hives 05/21/2011 Medications * This document contains [...] injections in right knee for OA at [facility]. Helpful for pain. Also taking ibuprofen [...] 10/30/2024 Travel 10/28/2024 11:30 AM EDT Telemedicine [facility] MEDICAL [address] [place] [address] Salma Alcantara MD Depression, recurrent (CMS/HCC) (Primary Dx); History of knee replacement procedure of left knee 10/27/2024 Travel 10/21/2024 Travel 10/19/2024 Travel 10/16/2024 Population Health Risk Score [facility] ([facility]) Department [address] [place] [phone] Provider, Population Health Generic 10/11/2024 Travel 09/22/2024 Refill [facility] MEDICAL [address] [place] [address] Komal Gardner FNP Primary hypertension 09/21/2024 Travel 09/08/2024 3:00 PM EST Office Visit [facility] [address] [place] [address] Rubina Devlin MD Depression, recurrent (CMS/HCC) 09/07/2024 Travel 09/07/2024 Telephone [facility] MEDICAL [address] [address] Sanaz Blanco FNP Appointment 09/01/2024 Travel 08/25/2024 [...] Description 2025 9:00 AM EDT Office Visit [facility] MEDICAL [address] [place] [address] Rubina Devlin MD [address] [place] [address] Health Maintenance Due Date Last Done Comments [...] Health Maintenance Results * Lipid Panel, Standard 78211 (08/10/2024 9:16 AM EST) Cholesterol, Total 173 [...] AM EST Performed at: ??01 - [facility] [address] ??[id number] Motorcyles Final Inspector: Sary Parker MD, Phone: ??[phone] us Komal Gardner WAFFLE MACHINE OPERATOR LAB BLOOD ORDERABLES Deysi minor Result [facility] [...] (Negative) Lay letter mailed to patient WSN: [id number] Ordering Physician: Sanaz Blanco Dictated By: ?Apryl Gonzalez MD Dictated Date/Time: ?01/14/24 1:23 pm Reviewed By: ?Apryl Gonzalez MD Signed By: ? Apryl Gonzalez MD Signed Date/Time: ? 01/14/24 1:23 pm Transcribed By: ? CSB Water Maintenance Supervisor Date/Time: ? 01/14/24 1:20 pm Birads: [...] (Negative) Lay letter mailed to patient WSN: [id number] Ordering Physician: Sanaz Blanco Dictated By: Apryl Gonzalez MD Dictated Date/Time: 01/14/24 1:23 pm Reviewed By: Apryl Gonzalez MD Signed By: Apryl Gonzalez MD Signed Date/Time: 01/14/24 1:23 pm Transcribed By: ARNAV Water Maintenance Supervisor Date/Time: 01/14/24 1:20 pm Birads: Sanaz Blanco WAFFLE MACHINE OPERATOR IMG BI PROCEDURES Deysi l Result * Hepatits C Antibody w/Reflex HCV Quant PCR and Genotyping (08/29/2022 3:10 PM EST) Hepatitis C Virus Ab, Serum NEGATIVE (NEG) [facility] Comment: Reference range: Negative This test was performed on the [employer] Datacap Developer immunoassay system. Testing performed or reported by [facility], a Service of [facility], [address] [place] [address] Kei Anne MD, Customer Care Manager [facility]# [id number] 08/29/2022 3:10 PM EST 08/29/2022 3:12 PM EST Sanaz Blanco WAFFLE MACHINE OPERATOR LAB BLOOD ORDERABLES F inal Result [facility] [address] [place] [address] * Pap Smear (06/18/2022 12:00 AM EST) Swab Historical Provider LAB CYTOLOGY ORDERABLES F inal Result * Hm Colonoscopy (12/27/2021) Colonoscopy 10 year recall us Historical Provider HEALTH MAINTENANCE Final Result from Last 3 Months or Most Recently Relevant to Health Maintenance Insurance MEDICARE Member Subscriber Plan / Payer (Ef fective 2022-Present) Name:Raiza Oconnell Member ID:[id number] Relation to Subscriber:Self Name:Raiza Oconnell Subscriber ID:[id number] Payer ID:[facility] Group ID:Not on file Type:Medicare [facility] [address] [address] [facility] Care Teams Logistics Analytics Manager Relationship Specialty Start Date End Date Sanaz Blanco FNP PCP - General Family Medicine 08/27/22 Mary Blunt Community Health Worker 01/29/24
== END 2024-11-18 13:57 | disposition home or self-care (01) ==
LOC: HO.HOS 13:29
PROVIDERS: Visit Provider Orthopaedic Surgery
DX: Z96.652 Presence of left artificial knee joint (principal)
CPT/HCPCS: 99024

== ENCOUNTER → 2024-11-18 13:29 | Outpatient (BNVA) | payer MEDICARE, OTHER, SELFPAY | PROVIDERS: Visit Provider Orthopaedic Surgery | DX: Z47.89 Encounter for other orthopedic aftercare (principal); Z96.652 Presence of left artificial knee joint | CPT/HCPCS: 99212 ==

== ENCOUNTER 2024-12-03 13:14 | Outpatient (AMB) | payer MEDICARE, OTHER, SELFPAY ==
[2024-12-03 13:21] VITALS: BMI 29.5
--- NOTE | 2024-12-03 13:21 | A.OFFVIS_ITS ---
Vital Signs 12/03/24 13:21 Height 5 ft 4 in Weight 172 lb BMI 29.5 Intake Visit Reasons: PO: L TKA w/DR 10/05/24 Intake Note: Raiza is a 69 year old female who presents for a wound check after undergoing left total knee replacement surgery on 10/05/2024. Patient reports she is feeling well and states she only has minimal pain at night time. She has completed formal physical therapy. She does take oxycodone intermittently at night to help her sleep. Allergies walnut Allergy (Intermediate, Verified 12/03/24 13:22) tingling in mouth Medication List - Last Reconciled 12/03/24 by Madi Sosa MD acetaminophen 650 mg (2 x 325 mg) PO Q6H PRN 30 days atorvastatin 40 mg PO Q48H calcium carbonate-vitamin D3 600 mg-20 mcg (800 unit) (Caltrate plus D) 1 tab PO BID lisinopril 10 mg PO BEDTIME oxycodone 5 mg PO Q8H sertraline 50 mg PO BEDTIME PFSH Medical History Depression Habitual snoring Murmur Elevated cholesterol HTN (hypertension) Tear of medial meniscus of knee Surgical History H/O colonoscopy H/O carpal tunnel repair S/P left knee arthroscopy Hx of appendectomy History of total right knee replacement (TKR) (10/20/21) Social History Household Members: Spouse Housing: House Are you a primary youth career specialist to a significant other at home: Yes (spouse needs care) Do you presently have visiting nurse or other home services: No Patient Tobacco Use Status: Former Tobacco user Tobacco use type: Cigarette Second Hand Smoke Exposure: No Substance Use Type: Marijuana service: No Current occupational status: retired Physical Exam Vital Signs: BMI result Body Mass Index 29.5 Extrem Other: Left knee examination shows that the surgical incision is well healed, no erythema, full active extension and flexion to 115 degrees, her patella tracks well Assessment & Plan Assessment & Plan (1) Left knee pain: Code(s): M25.562 - Pain in left knee Category: Medical Plan Ms. Spingler continues to do well after undergoing left total knee replacement surgery on 10/05/2024. She will continue with her home exercise program. She does know to take antibiotics before any dental work. She will contact me prior to her follow-up appointment in 2 months should any questions or concerns arise. Feel free to call me at any time should questions regarding her orthopedic management arise. Coding Level of Care Code Global (49468) Diagnoses Left knee pain M25.562
--- OUTSIDE RECORDS SUMMARY | 2024-12-03 15:41 | XMS_ITS | Data Portability ---
Author Organization [place] [facility] Address [address] [place] [address] Assessment Encounter Date Assessment Date Assessment LastModified by Organization Details LastModified Time 10/22/2023 10/22/2023 X-RAYS: Three standing views of the left foot were ordered, obtained and reviewed by me today at [facility], demonstrating healed hallux MTP joint with well [...] 3v foot wb-- room 107 024 024 [id number] Not available 4 14:04:37 Medication Orders None recorded. Patient TargetsNo targets recorded. Patient InstructionsNo instructions recorded. Reason for Referral None Reported. Problems Name Problem SNOMED Code Status Onset Date Resolution Date Notes Provider Name and Address Organization Details Recorded Time No complaints 844903190 Active Status : 'I'; Not Available [facility] 4 09:25:00 Problem Notes None recorded. Medical Equipment None Reported. Allergies Allergen ID Allergen Name Allergen Category Reaction Reaction Severity Criticality Documentation Date Start Date Code Code System Note Provider Name and Address Organization Details Recorded Time 88606 walnut allergeni c extract food Not available Not available Not available 10/07/20232010 22397 0 RxNorm Aller gyRea ction : 'Skin React ion'; Not Available [facility] 4 12:31:57 No known drug allergies [...] Updated DateTime 10/22/2023 162.56 cm 30 kg/m2 02308.66 g BEBETO CHAYO Norris [place] [facility] 10/22/2023 12:23:46 Social History None recorded. Functional Status None recorded. Mental Status None recorded. Family History Nothing Reported. Medical History No medical history recorded. Gynecological HistoryNo gynecological history recorded. Obstetrics History GPAL:G 0 P 0 0 0 0 Past Encounters Encounter ID Performer Location Encounter Start Date Encounter Closed Date Diagnosis/Indication Diagnosis SNOMED-CT Code Diagnosis ICD10 Code Diagnosis Note [id number] MD Macie Cowan 1[address] [place] [address] 10/22/2023 12:13:20 11/11/2023 11:44:06 Pain in left foot 0982107790 53681 M79.672 Follow-up orthopedic assessment 778282077 Z47.89 Hammer toe 327321436 M20 .42 Health Concerns Section Related Observation LastModified by Organization Detai ls LastModified Time None Recorded Concern Status LastModified by Organization Details LastModified Time None Recorded Advance Directives Directive None Recorded Payers Encounter Date Sequence Insurance Name Policy Number Policy Ball Covered Member ID Ball Member ID Guarantor Name 10/22/2023 2 ELISA () Raiza Lucian Spingler [id number] Raiza Lucian Spingler 10/22/2023 1 MEDICARE [place]: [facility] Raiza Epstein Spingler [id number] Raiza Epstein Spingler Notes Date Note [...] No interval change. Tye Baxter MD [address] [facility] [address], [place], [address], [facility] 10/22/2023 16:51:18 OBGyn Episode No OBEpisode recorded.
--- OUTSIDE RECORDS SUMMARY | 2024-12-03 15:41 | XMS_ITS | Continuity of Care Document ---
Author Name [facility] Organization [facility] Care Team Providers Care Audiology Doctor Name Role Phone [facility] Unavailable Unavailable Problems Combined list of problems from Department of Defense and Veterans Affairs facilities. It does not include entries that were removed or entered in error. Problem Status Onset Date Problem Type Date of Resolution Comments Source Diagnosis: ICD-10-CM Z71.0 Prsn encntr hlth serv to consult on behalf of another person Active Diagnosis [facility] [place] [facility] Encounters Combined list of: 1) Encounters from Department of Veterans Affairs facilities going backup to the last 18 months, not all [place] inpatient encounters are included; 2) Encounters from the Department of Defense facilities going backup to 280 months. Location Location Details Encounter Type Encounter Number Reason For Visit Attending Provider ADM Date DC Date Status Disposition Source [place] [facility] [place] [facility] Outpatient Encounter [id number] 12/18 [place] [facility] [place] [place] [facility] PROGRAM INTAKE ASSESSMENT [id number] Diagnos is: ICD-10- CM Z71.0 Prsn encntr hlth serv to consult on behalf of another person TERESE BELTRAN 02/24 [place] [facility] [place] [place] [facility] [place] [facility] PROGRAM INTAKE ASSESSMENT [id number] Diagnos is: ICD-10- CM Z71.0 Prsn encntr hlth serv to consult on behalf of another person RENETTAKandisTERESE 07/24 [place] [facility] [place] [place] [facility]
--- OUTSIDE RECORDS SUMMARY | 2024-12-03 15:41 | XMS_ITS | Encounter Summary ---
Author Organization [employer] Address [address] [place] [address] Care Team Providers Care Economics Analyst Name Role Phone Sanaz Blanco Primary Care Provider Unavailable Ene Lozano Unavailable Unavailable Mary Blunt Unavailable Unavailable Encounter Details Date Type Department Care Team (Late st Contact Info) Description 01/08/2024 Orders Only [place] [facility] MEDICAL [address] [place] [address] Provider, MD Molina Social History Tobacco Use [...] t he electric, gas, oil or water [employer] threatened to shut off services in your [...] Description 2025 9:00 AM EDT Office Visit [facility] MEDICAL [address] [place] [address] Rubina Devlin MD [address] [place] [address] documented as of this encounter Procedures Procedure [...] documented as of this encounter Care Teams Economics Analyst Relationship Specialty Start Date End Date Sanaz Blanco FNP PCP - General Family Medicine 08/27/22 Ene Lozano Community Health Worker 12/10/22 4 Mary Blunt Community Health Worker 01/29/24 documented as of this encounter
--- OUTSIDE RECORDS SUMMARY | 2024-12-03 15:41 | XMS_ITS | Clinical Summary ---
Author Organization [employer] Address [address] [facility] [address] [place] [address] Care Team Providers Care Machine Cell Tuber Name Role Phone Sanaz Blanco CURBER Primary Care Provider Unavailable Mary Blunt Unavailable Unavailable Allergies Active Allergy Reactions Criticality Noted Date Comments Black Caneadea Flavoring Agent (Non-Screening) Itching Low 01/01/2024 Caneadea Hives 05/21/2011 Medications * This document contains [...] 500 MG capsule Active lisinopril 10 MG tabletIndications :Primary hypertension Take 1 tablet (10 mg) by mouth at bedtime. 90 tablet 3 5 09/22/19 26 Active acetaminophen (Tylenol) 325 MG tablet Take 325 mg by mouth every 6 (six) hours if needed. 5 Active aspirin 325 MG EC tablet Take 325 mg by mouth Once per day. 3 Active celecoxib (CeleBREX) 200 MG capsule Take 200 mg by mouth 2 times daily. 5 Active oxyCODONE (Roxicodone) 5 MG immediate release tablet Take 5 mg by mouth every 6 (six) hours if needed for severe pain. Active sertraline (Zoloft) 50 MG tabletIndications :Depression, recurrent (CMS/HCC) Take 1 tablet (50 mg) by mouth Once per day. 90 tablet 1 0304/26/20 25 Active Active Problems Problem Noted Date Diagnosed Date Right knee pain 06/27/2024 Overview (06/27/2024): Patient receiving injections in right knee for OA at [facility]. Helpful for pain. Also taking [...] - 40 mg/dL 17 LDL Chol Calc ([facility]) 0 - 99 mg/dL 62 Last lipid [...] organization. Date Type Department Care Team Description 11/23/2024 Travel 11/10/2024 Travel 11/06/2024 Travel 10/30/2024 Travel 10/28/2024 11:30 AM EDT Telemedicine [facility] MEDICAL [address] [place] [address] Salma Alcantara MD Depression, recurrent (CMS/HCC) (Primary Dx); History of knee replacement procedure of left knee 10/27/2024 Travel 10/21/2024 Travel 10/19/2024 Travel 10/16/2024 Population Health Risk Score [facility] (C3) Department [address] [place] [address] Provider, Population Health Generic 10/11/2024 Travel 09/22/2024 Refill [facility] MEDICAL [address] [place] [address] Komal Gardner FNP Primary hypertension 09/21/2024 Travel 09/08/2024 3:00 PM EST Office Visit [facility] [address] [place] [address] Rubina Devlin MD Depression, recurrent (CMS/HCC) 09/07/2024 Travel 09/07/[address] [facility] MEDICAL [address] [place], [place] [address] Sanaz Blanco FNP Appointment from Last 3 Months Immunizations Name Administration [...] 2025 9:00 AM EDT Office Visit [facility] MED[facility] [address] [place] [address] Rubina Devlin MD [address] [place] [address] Health Maintenance Due Date Last Done Comments CT Colonography 1955 FIT DNA/Cologuard 1955 FIT 1955 FOBT 1955 Sigmoidoscopy 1955 Pneumococcal Vaccine: 50+ Years (1 of 1 - PCV) 2006 Zoster Vaccines (1 of 2) 2006 COVID-19 Vaccine (1 - 2023- season) 2024 Influenza Vaccine (#1) 2024 Alcohol/Substance Use Screening 06/27/2025 06/27/2024 SDOH Screening 06/27/2025 06/27/2024 Tobacco Screening 06/27/2025 06/27/2024 Depression Screening 10/28/2025 10/28/2024, 10/29/19 Mammogram 01/13/2026 01/14/2024, 04/2023, 12/29/2021, Additional history exists DTaP/Tdap/Td Vaccines [...] Health Maintenance Results * Lipid Panel, Standard 34091 (08/10/2024 9:16 AM EST) Cholesterol, Total 173 [...] AM EST Performed at: ??01 - [facility] [address] ??[id number] Radiology Scheduler: Sary Parker MD, Phone: ??[phone] Komal Gardner [facility] LAB BLOOD ORDERABLES Deysi l Result [...] (Negative) Lay letter mailed to patient WSN: [id number] Ordering Physician: Sanaz Blanco Dictated By: ?Apryl Gonzalez MD Dictated Date/Time: ?01/14/24 1:23 pm Reviewed By: ?Apryl Gonzalez MD Signed By: ? Apryl Gonzalez MD Signed Date/Time: ? 01/14/24 1:23 pm Transcribed By: ? CSB School Psychologist Assistant Date/Time: ? 01/14/24 1:20 pm Birads: Procedure Note Donfedericater, Image - 01/14/2024 PROCEDURE: MM Digital Mammo [...] (Negative) Lay letter mailed to patient WSN: [id number] Ordering Physician: Sanaz Blanco Dictated By: Apryl Gonzalez MD Dictated Date/Time: 01/14/24 1:23 pm Reviewed By: Apryl Gonzalez MD Signed By: Apryl Gonzalez MD Signed Date/Time: 01/14/24 1:23 pm Transcribed By: ARNAV School Psychologist Assistant Date/Time: 01/14/24 1:20 pm Birads: Sanaz Blanco CURBER IMG BI PROCEDURES Deysi l Result * Hepatits C Antibody w/Reflex HCV Quant PCR and Genotyping (08/29/2022 3:10 PM EST) Hepatitis C Virus Ab, Serum NEGATIVE (NEG) [facility] Comment: Reference range: Negative This test was performed on the [employer] Manager immunoassay system. Testing performed or reported by [facility], a Service of [facility], [address] [place] [address] [place] [address] Kei Anne MD, Welder Fitter Gas [facility]# [id number] 08/29/2022 3:10 PM EST 08/29/2022 3:12 PM EST Sanaz Blanco CURBER LAB BLOOD ORDERABLES F inal Result Performing Organization Address [facility]/State/ZIP Co de Phone Number [facility] [address] [place], [place] [address] * Pap Smear (06/18/2022 12:00 AM EST) Swab Historical Provider LAB CYTOLOGY ORDERABLES F inal Result * Hm Colonoscopy (12/27/2021) Colonoscopy 10 year recall Historical Provider HEALTH MAINTENANCE Final Result from Last 3 Months or Most Recently Relevant to Health Maintenance Insurance MEDICARE [facility] Care Teams Machine Cell Tuber Relationship Specialty Start Date End Date Sanaz Blanco FNP PCP - General Family Medicine 08/27/22 Mary Blunt Community Health Worker 01/29/24
--- OUTSIDE RECORDS SUMMARY | 2024-12-03 15:41 | XMS_ITS | Data Portability ---
Author Organization [facility] Lucian Leos [facility] [place] Address [address] [place] [address] Care Team Providers Care Spud Sorter Name Role Phone SULMA IBANEZ Primary Care [...] degrees. The knee is stable within that kiind-yq-jvxtcm to AP and ML stress. The alignment [...] robotic assisted, on May 09, 2023 at [facility]. Not available 02/08/2023 14:35:02 Plan of Treatment Reminders Order Date Submit Date Provider Last Modified By Organization Details Last Modified Time Details Appointments None recorded. Lab None recorded. Referral None recorded. Procedures None recorded. Surgeries total knee replacement (SURG) 2022 023 [id number] [facility], [address] [facility], [place], [address], 3 14:38:05 Imaging XR, knee, 3 view 2022 023 [facility], [address], [place], [address], 3 15:40:51 XR, hip, unilateral, 2 or 3 view 2022 023 [facility], [address], [address], [place], [address], 3 15:40:51 XR, knee, 1 or 2 view 2022 023 [place] [facility], [address], [place], [address], 3 10:10:03 Medication Orders Kenalog 40 mg/mL suspension for injection 2022 023 [place] [address] [facility], [address] [place], [address], 3 15:16:32 lidocaine (PF) 10 mg/mL (1 %) injection solution 2022 023 [place] [address] [facility], [address] [place], [address], 3 15:16:31 Patient TargetsNo targets recorded. Patient Instructions Encounter Date Encounter Id Patient Instructions Last Modified By Organization Details Last Modified Time 02/08/2023 [id number] AP, lateral, Ann, and patellar radiographs views of the left knee taken today demonstrate left knee degenerative joint disease with joint space narrowing, osteophyte formation, and subchondral sclerosis. There is cgwl-rd-bvsr articulation in the lateral compartment. AP pelvis, [...] Organization Details Recorded Time Arthritis of knee 376114672 Active 2022 Kyrie Montelongo MD [address], [place], [address], [place] [facility] 3 14:35:26 Osteoarthri tis of left knee joint 5937868541549 09 Active 2022 MANDY VARGHESE PA-C [address], [place], [address], [place] [facility] 3 15:12:56 Tear of medial meniscus of knee 622151515 Active 2022 MANDY VARGHESE PA-C [address], [place], [address], [place] [facility] 3 15:14:58 Pain of left knee joint 6161511222802 07 Active 2022 Yu Gaines MD [address], [place], [address], [place] [facility] 3 15:26:34 Problem Notes None recorded. Procedures Surgical History Date Name Laterality Status Provider Name and Address Organization Details Recorded Time 12/11/19 23 Knee Joint/Bursa Asp & Inj completed MANDY VARGHESE PA-C [address], [place], [address], [place] [facility] 12/10/2022 15:16:24 Total knee arthroplasty completed Evie Royal [place] [facility] 10/23/2022 14:59:13 Carpal tunnel surgery completed Evie Royal [facility] 10/23/2022 14:59:26 Imaging Results Imaging Date [...] cm Rose Mckeon [facility] 12/10/2022 13:32:33 Date Recorded Body height Body mass index (BMI) Body weight Provider Name and Address Organization Details Last Updated DateTime 10/23/2022 162.56 cm 30.9 kg/m2 66736.[address] [place] [facility] 10/23/2022 14:58:35 Date Recorded Body height Body mass index (BMI) Body weight Provider Name and Address Organization Details Last Updated DateTime 02/08/2023 162.56 cm 33.5 kg/m2 [address]393[address] [place] [facility] 02/08/2023 14:09:59 Social History Question Answer Notes LastModified by Organizat ion Details LastModified Time Tobacco Smoking Status Former Smoker Dejan Olivia null, [place] [facility] 02/08/2023 14:10:29 What Is Your Level Of Alcohol Consumption? Moderate [email or web address] Information not available 02/08/2023 How Many Times Per Week Do You Consume Alcohol? 5-7 Times Per Week Information not available 02/08/2023 When Did You Quit Smoking? 16+yearssince lastcigarette [email or web address] Information not available 02/08/2023 Do You Use Any Illicit Or Recreational Drugs? No [email or web address] Information not available 02/08/2023 Do You Or Have You Ever Used Any Other Forms Of Tobacco Or Nicotine? No [email or web address] Information not available 02/08/2023 Sex: Unknown Functional [...] Diagnosis Note [id number] MD BINA Shelley [address] [facility] [address] [place] [address] 10/23/2022 14:52:33 10/23/2022 15:23:27 Pain of right knee joint 6375870101 86347 M25.561 Pain of le ft knee joint 7512520596 88231 M25.562 7001 KAYE CONNER [address] [facility] [address] [place] [address] 12/10/2022 13:22:40 12/10/2022 14:01:57 Osteoarthritis of left knee joint 4694715491 83929 M17.12 Tear of me dial meniscus of knee 136764347 S83.242D [id number] MD BINA Amanda [address] [facility] [address] [place] [address] 02/08/2023 13:47:32 02/08/2023 14:41:47 Pain of left knee joint 0523125275 25370 M25.562 Pain of le ft hip joint 6895704265 57711 M25.552 Osteoarthr itis of left knee joint 0193575433 82714 M17.12 Arthritis of knee 375723 002 M13.869 Health Concerns Section Related Observation LastModified by Organization Detai ls LastModified Time None Recorded Concern Status LastModified by Organization Details LastModified Time None Recorded Advance Directives Directive None Recorded Payers Encounter Date Sequence Insurance Name Policy Number Policy Ball Covered Member ID Ball Member ID Guarantor Name 10/23/2022 1 MEDICARE [place]: [facility] Raiza P Spingler [id number] Raiza P Spingler 10/23/2022 2 () Raiza P Spingler [id number] Raiza P Spingler 12/10/2022 1 [place] [facility] Raiza P Spingler [id number] Raiza P Spingler 12/10/2022 2 () Raiza P Spingler [id number] Raiza P Spingler 02/08/2023 1 [place]IC[place]: [employer] Raiza P Spingler [id number] Raiza P Spingler 02/08/2023 2 () Raiza P Spingler [id number] Raiza P Spingler Notes Date Note Type [...] several times per day. Yu Gaines MD [address] [place] [address], [address], [place] [facility] 10/23/2022 15:26:43 12/10/2022 text/html Dr. Gaines [...] are available. 1. Pain of right knee rvkgiJ81.561: Pain in right knee XR KNEE, 1 OR 2 VIEW, 926026. Pain of left knee hqbtzX93.562: Pain in left knee Return to Office [...] evaluation and treatment discussion regarding her MRI. [facility] [address] [place] [address] Patient: RAIZA BOLES /Age/Sex: 1955 - 67 - FUnit#: [id number] Location/Status: SPDIMRI/REG CLIAccount#: [id number] Mnemonic/Ordering Site: [facility]NEELTWO/SPMAINOrdering Physician: YU GAINES MD [...] Date/Time: 11/07/22508Sign date/Time: 11/07/22508 MANDY VARGHESE PA-C [address] [place] [address], [place], [address], [place] [facility] 12/10/2022 15:17:07 OBGyn Episode No OBEpisode recorded.
--- OUTSIDE RECORDS SUMMARY | 2024-12-03 15:41 | XMS_ITS | Encounter Summary ---
Author Name [facility] [employer] Organization [facility] [employer] [employer] [facility] Address [address] [place] [address] Selected Encounter This section includes the information on record at [place] for the Encounter. Date/Time Encounter Type Encounter Description Reason Provider Source Jul 24, 2024 10:30 AM PROGRAM INTAKE ASSESSMENT ADMIN PAT ACTIVTIES (MASNONCT) ICD-10-CM Z71.0 Prsn encntr hlth serv to consult on behalf of another person TERESE BELTRAN E Encounter Template Text not used by [place] Assessments - Encounter Diagnoses This section includes the primary and secondary diagnoses documented for the Encounter. Date/Time Primary/Secondary Diagnosis Diagnosis Name Provider Source Jul 24, 2024 11:28 AM PRIMARY Prsn encntr hlth serv to consult on behalf of another person TERESE BELTRAN [facility] Encounter Notes: All associated encounter notes This section contains the clinical notes associated to the Encounter. Date/Time Encounter Note(s) Provider Source Jul 24, 2024 11:11 AM CAREGIVER CERTIFIC ATE: LOCAL TITLE: [facility] TELEPHONE NOTE STANDARD TITLE: CAREGIVER CERTIFICATE DATE OF NOTE: JUL 24, 2024@11:11 ENTRY DATE: JUL 24, 2024@11:12:05 AUTHOR: TERESE BELTRAN EXP COSIGNER: URGENCY: STATUS: COMPLETED This publicity writer returned a call to the [facility] office in [place] from the . She took the call from her neighbor's house, noting that she was there so she could have some privacy and brief respite. reports that the has recently returned home from a brief hospital admission, but that his MH was deteriorating, as well as his physical health. Reported that the has continued to consumme alcohol, and was [...] and is frustrated trying to manage the [place] while he becomes increasingly more challenging. She is uncertain that he can remain safely in their home, and was seeking options for VA covered LTC placement. She had spoken with a person from the contract retirement program, and had their contact info. discussed [...] the future. /krzysztof/ TERESE BELTRAN LCSW Clinical Circus Laborer Signed: 07/24/2024 11:28 [facility] BELTRAN [facility]
--- OUTSIDE RECORDS SUMMARY | 2024-12-03 15:41 | XMS_ITS | Clinical Summary ---
Author Organization [facility] Address [address] [place] [address] Care Team Providers Care Classroom Assistant Name Role Phone Sanaz Blanco Primary Care Provider [phone] Allergies No known active allergies Medications Medication [...] age to complete this topic Care Teams Classroom Assistant Relationship Specialty Start Date End Date Sanaz Blanco [address] [facility] [place] [address] PCP - General Family Medicine 06/16/21
--- OUTSIDE RECORDS SUMMARY | 2024-12-03 15:41 | XMS_ITS | Clinical Summary ---
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
== END 2024-12-03 13:42 | disposition home or self-care (01) ==
LOC: HO.HOS 13:15
PROVIDERS: Visit Provider Orthopaedic Surgery
DX: M25.562 Pain in left knee (principal)
CPT/HCPCS: 99024

== ENCOUNTER → 2024-12-03 13:14 | Outpatient (BNVA) | payer MEDICARE, OTHER, SELFPAY | PROVIDERS: Visit Provider Orthopaedic Surgery | DX: M25.562 Pain in left knee (principal) | CPT/HCPCS: 99212 ==

== ENCOUNTER 2025-02-10 09:00 | Outpatient (AMB) | payer MEDICARE, OTHER, SELFPAY ==
[2025-02-10 09:08] VITALS: BMI 29.5
--- NOTE | 2025-02-10 09:08 | MHC.OFFVIS ---
Vital Signs 02/10/25 09:08 Height 5 ft 4 in Weight 172 lb BMI 29.5 Intake Visit Reasons: OV: L TKA w/ 10/05/24, Right shoulder pain and weakness Intake Note: Raiza is a 69 year old female who presents with complaints of progressively worsening right shoulder pain and weakness. She did undergo left total knee replacement surgery on 10/05/2024. She reports minimal discomfort in her left knee. She denies any fevers or chills. The patient states that she injured her right shoulder several months ago. She rolled onto her shoulder and felt a ?pop?. Since that time she has had weakness lifting her right hand above shoulder height. She has done physical therapy exercises which aggravated her pain. She has also tried Tylenol and anti-inflammatory medicines which gave her minimal relief. Allergies walnut Allergy (Intermediate, Verified 02/10/25 09:09) tingling in mouth Medication List - Last Reconciled 02/10/25 by Madi Sosa MD acetaminophen 650 mg (2 x 325 mg) PO Q6H PRN 30 days atorvastatin 40 mg PO Q48H calcium carbonate-vitamin D3 600 mg-20 mcg (800 unit) (Caltrate plus D) 1 tab PO BID lisinopril 10 mg PO BEDTIME oxycodone 5 mg PO Q24H PRN sertraline 50 mg PO BEDTIME PFSH Medical History Depression Habitual snoring Murmur Elevated cholesterol HTN (hypertension) Tear of medial meniscus of knee Surgical History H/O colonoscopy H/O carpal tunnel repair S/P left knee arthroscopy Hx of appendectomy History of total right knee replacement (TKR) (10/20/21) Social History Household Members: Spouse Housing: House Are you a primary cardiac care nurse to a significant other at home: Yes (spouse needs care) Do you presently have visiting nurse or other home services: No Patient Tobacco Use Status: Former Tobacco user Tobacco use type: Cigarette Second Hand Smoke Exposure: No Substance Use Type: Marijuana service: No Current occupational status: retired Physical Exam Vital Signs: BMI result Body Mass Index 29.5 Const Other: Well-nourished well-developed very friendly female awake alert and oriented x3 in no acute distress Extrem Other: Bilateral upper extremity examination shows good capillary refill, no skin lesions noted, normal sensation light touch Right shoulder examination shows slightly decreased range of motion when compared to her left shoulder, 4/5 strength with supraspinatus testing, positive impingement signs, no instability Left knee exam shows that the surgical incision is well healed, no erythema, full active extension and flexion to 115 degrees, her patella tracks well Assessment & Plan Assessment & Plan (1) Rotator cuff insufficiency of right shoulder: Code(s): M25.311 - Other instability, right shoulder Category: Medical Plan Ms. Oconnell is doing well after undergoing left total knee replacement surgery. She does have right shoulder pain and weakness due to impingement syndrome and possible rotator cuff tearing. Thus, I will send her for an MRI of her right shoulder for further evaluation. I will see her back once the MRI is completed to discuss the findings and treatment options. She will contact me prior to that time should her symptoms worsen in any way. I spent 20 minutes in reviewing the patient's records and imaging studies, seeing the patient and documenting in the medical record. Orders: Orders MR shoulder RT wo con Today M25.311 - Other instability, right shoulder Medications: Refilled oxycodone Partial Fill upon patient request. 5 mg PO Q24H PRN 10 tabs 0RF pain Coding Level of Care Code Est Pt Level 3 (52523) Complex EM visit Add On G2211 Diagnoses Rotator cuff insufficiency of right shoulder M25.311
--- OUTSIDE RECORDS SUMMARY | 2025-02-10 09:17 | XMS_ITS | Clinical Summary ---
Author Organization [facility] Address [address] [place] [address] Care Team Providers Care Shear Helper Name Role Phone Sanaz Blanco CAREER DEVELOPMENT COORDINATOR/TEACHER Primary Care Provider Surgical History Surgery Date [...] 2023-2 5 season) 2024 Influenza Vaccine (#1) 2025 RSV Immunization Adult Patie nts (1 [...] Documents on File Type Date Recorded Patient Basketball Coach Expl anation Health Care Decision (hx) 10/20/2021 AD REA DIRECTIVE Health Care Decision (hx) 10/20/2021 AD REA DIRECTIVE Care Teams Shear Helper Relationship Specialty Start Date End Date Sanaz Blanco FNP PCP - General Family Medicine 06/16/21
--- OUTSIDE RECORDS SUMMARY | 2025-02-10 09:17 | XMS_ITS | Data Portability ---
Author Organization [facility] Address [address] [place] [address] Assessment Encounter Date Assessment Date Assessment LastModified by Organization Details LastModified Time 10/22/2023 10/22/2023 X-RAYS: Three standing views of the left foot were ordered, obtained and reviewed by me today at [facility], demonstrating healed hallux MTP joint with [...] 3v foot wb-- room 107 024 024 Not available 4 14:04:37 Medication Orders None recorded. Patient TargetsNo targets recorded. Patient InstructionsNo instructions recorded. Reason for Referral None Reported. Problems Name Problem SNOMED Code Status Onset Date Resolution Date Notes Provider Name and Address Organization Details Recorded Time No complaints 036730211 Active Status : 'I'; Not Available [facility] 4 09:25:00 Problem Notes None recorded. Medical Equipment None Reported. Allergies Allergen ID Allergen Name Allergen Category Reaction Reaction Severity Criticality Documentation Date Start Date Code Code System Note Provider Name and Address Organization Details Recorded Time 56904 walnut allergeni c extract food Not available Not available Not available 10/07/20232010 02586 0 RxNorm Aller gyRea ction : 'Skin React ion'; Not Available [facility] 4 12:31:57 No known drug allergies [...] Updated DateTime 10/22/2023 162.56 cm 30 kg/m2 58643.66 g BEBETO Norris [place] - [facility] 10/22/2023 12:23:46 [...] SNOMED-CT Code Diagnosis ICD10 Code Diagnosis Note [id number] MD Macie Cowan [address] [place] [address] 10/22/2023 12:13:20 11/11/2023 11:44:06 Pain in left foot 9095734722 13695 M79.672 Follow-up orthopedic assessment 811483370 Z47.89 Hammer toe 057125968 M20 .42 Health Concerns Section Related Observation LastModified by Organization Detai ls LastModified Time None Recorded Concern Status LastModified by Organization Details LastModified Time None Recorded Advance Directives Directive None Recorded Payers Insurance Date Sequence Insurance Name Policy Number Policy Ball Covered Member ID Ball Member ID Guarantor Name 03/13/2024 2 () Raiza Lucian Spingler [id number] Raiza Lucian Spingler 03/13/2024 1 MEDIC[place]: [facility] SERVICES Raiza Epstein Spingler [id number] Raiza Perezgler Notes Date Note Type Note Provider Name [...] been reviewed and is located in the patient s chart. No interval change. Tye Baxter MD [address] [place] [address] [address], [place], [address], [facility] - [facility] 10/22/2023 16:51:18 OBGyn Episode No OBEpisode recorded.
--- OUTSIDE RECORDS SUMMARY | 2025-02-10 09:17 | XMS_ITS ---
Author Name [facility] Organization Unknown History of Medication Use Medication Directions Dispensed Refills Start Date End Date Stat Kenalog 40 mg/mL suspension for injection Take 1 mL by injection route. 12/10/2022 active Jantoven 1 mg tablet TAKE 4 TABLETS ( 4MG) BY MOUTH AT DINNER DAILY UNLESS OTHERWISE INSTRUCTED BY DR. GAINES'S OFFICE. 10/23/2022 completed oxycodone 10 mg tablet TAKE 1 TO 1&1/2 TABLETS (10-15MG) BY MOUTH BY MOUTH EVERY 4 TO 6 HOURS NEEDED FOR SEVERE PAIN SCALE 7-10. 10/23/2022 completed amoxicillin 500 mg tablet TAKE 4 TABLETS BY MOUTH 1 HOUR PRIOR TO DENTAL APPOINTMENT active meloxicam 7.5 mg tablet TAKE ONE TABLET BY MOUTH AT BEDTIME active Problems Problem Status Onset Date Problem Type Date of Resoluti on Source Osteoarthritis of left knee joint active 2022-12-10 ProblemAct [facility] Arthritis of knee active 2023-02-08 ProblemAct [facility] Tear of medial meniscus of knee active 2022-12-10 ProblemAct [facility] Pain of left knee joint active 2022-10-23 ProblemAct [facility] Encounters Encounter Type Encounter Reason Primary Diagnosis Location Date Ambulatory [facility] [place] 02/21/2023 [facility]ulatory [facility] [place] 02/21/2023 [facility] [place] 11/27/2022 Ambulatory [facility] [place] 11/26/2022 Care Team Organization Name Specialty Phone Email Start Date End Da te [facility] SULMA IBANEZ Primary Care 04/09/2023 04/09/2023 [facility] 04/09/2023
--- OUTSIDE RECORDS SUMMARY | 2025-02-10 09:17 | XMS_ITS | Clinical Summary ---
Author Organization [employer] Address [address] [place] [address] Care Team Providers Care Shoulder Boner Name Role Phone Sanaz Blanco 8TH GRADE MATHEMATICS TEACHER Primary Care Provider Unavailable Mary Blunt Unavailable Unavailable Allergies Active Allergy Reactions Criticality Noted Date Comments Black [place] Flavoring Agent (Non-Screening) Itching Low 01/01/2024 [place] Hives 05/21/2011 Medications * This document contains [...] mouth Once per day. 90 tablet 1 03/26/04/26/20 Active Active Problems Problem Noted Date Diagnosed Date Right knee pain 06/27/2024 Overview (06/27/2024): Patient receiving injections in right knee for OA at [facility]. Helpful for pain. Also taking ibuprofen and [...] - 40 mg/dL 17 LDL Chol Calc ([facility]) 0 - 99 mg/dL 62 Last [...] organization. Date Type Department Care Team Description 02/01/2025 Travel 01/12/2025 Travel 12/28/2024 Travel 12/20/2024 Travel 12/08/2024 Travel 12/07/2024 Travel 11/23/2024 Travel from Last 3 Months Immunizations Immunization Administration Dates Next Due Tdap 05/16/2016 Social [...] 83 09/08/2024 2:51 PM EST Temperature 36.5 C (97.7 F) 09/08/2024 2:51 PM EST Respiratory Rate 16 09/08/2024 2:51 PM EST [...] 2025 9:00 AM EDT Office Visit [facility] [address] [place] [address] Rubina Devlin MD [address] [place] [address] Health Maintenance Due Date Last Done Comments CT Colonography 1956 FIT DNA/Cologuard 1956 FIT 1956 FOBT 1956 Sigmoidoscopy 1955 Pneumococcal Vaccine: 50+ Years (1 of 1 - PCV) 2006 Zoster Vaccines (1 of 2) 2006 COVID-19 Vaccine (1 - season) 2024 Influenza Vaccine (#1) 2025 Depression Monitoring 04/30/2025 10/28/2024, 025 Alcohol/Substance Use [...] Health Maintenance Results * Lipid Panel, Standard 25519 (08/10/2024 9:16 AM EST) Cholesterol, Total 173 100 - 199 mg/dL [facility] 1 Triglycerides 107 0 - 149 mg/dL [facility] 1 HDL Cholesterol 90 >39 mg/dL [facility] 1 VLDL Cholesterol Daniel 19 5 - 40 mg/dL [facility] 1 LDL Chol Calc ([facility]) 64 0 - 99 mg/dL [facility] 1 Blood Venous blood specimen / Unknown 08/10/2024 9:16 AM EST 08/10/2024 Narrative [facility] 1 - 08/11/2024 6:05 AM EST Performed at: - [facility] [address] [id number] Internal Medicine Nurse Practitioner: Sary Parker MD, Phone: [phone] Komal Gardner 8TH GRADE MATHEMATICS TEACHER LAB BLOOD ORDERABLES Deysi minor Result [facility] [...] (Negative) Lay letter mailed to patient WSN: [id number] Ordering Physician: Sanaz Blanco Dictated By: Apryl Gonzalez MD Dictated Date/Time: 01/14/24 1:23 pm Reviewed By: Apryl Gonzalez MD Signed By: Apryl Gonzalez MD Signed Date/Time: 01/14/24 1:23 pm Transcribed By: ARNAV Rock Cutter Date/Time: 01/14/24 1:20 pm Birads: Procedure Note Donotuseinterpreter, [...] (Negative) Lay letter mailed to patient WSN: [id number] Ordering Physician: Sanaz Blanco Dictated By: Apryl Gonzalez MD Dictated Date/Time: 01/14/24 1:23 pm Reviewed By: Apryl Gonzalez MD Signed By: Apryl Gonzalez MD Signed Date/Time: 01/14/24 1:23 pm Transcribed By: ARNAV Rock Cutter Date/Time: 01/14/24 1:20 pm Birads: Sanaz Blanco 8TH GRADE MATHEMATICS TEACHER IMG BI PROCEDURES Deysi l Result * Hepatits C Antibody w/Reflex HCV Quant PCR and Genotyping (08/29/2022 3:10 PM EST) Hepatitis C Virus Ab, Serum NEGATIVE (NEG) [facility] Comment: Reference range: Negative This test was performed on the [employer] Analyst immunoassay system. Testing performed or reported by [facility], a Service of [facility], [address] [place] [address] [place] [address] Kei Anne MD, Clinical Engineering Manager [facility]# [id number] 08/29/2022 3:10 PM EST 08/29/2022 3:12 PM EST Sanaz Blanco [facility] LAB BLOOD ORDERABLES F inal Result [facility] [address] [place] [address] * Pap Smear (06/18/2022 12:00 AM EST) Swab Historical Provider LAB CYTOLOGY ORDERABLES F inal Result * Colonoscopy (12/27/2021) Colonoscopy 10 year recall Historical Provider HEALTH MAINTENANCE Final Result from Last 3 Months or Most Recently Relevant to Health Maintenance Insurance MEDICARE Member Subscriber Plan / Payer (Ef fective 2022-Present) Name:Raiza Oconnell Member ID:[id number] Relation to Subscriber:Self Name:Raiza Oconnell Subscriber ID:[id number] Payer ID:STATE Group ID:Not on file Type:Medicare Address: [facility].[address] [address] [facility] Care Teams Shoulder Boner Relationship Specialty Start Date End Date Sanaz Blanco FNP PCP - General Family Medicine 08/27/22 Mary Blunt Community Health Worker 01/29/24
--- OUTSIDE RECORDS SUMMARY | 2025-02-10 09:17 | XMS_ITS | Clinical Summary ---
Author Organization [facility] Address [address] [place] [address] Care Team Providers Care Inspector Handbag Frames Name Role Phone Sanaz Blanco Primary Care Provider [phone] Allergies No known active allergies Medications Medication [...] 1 - PCV) 2021 Influenza Vaccine (#1) 2025 DTap / Tdap / Td (2 - [...] age to complete this topic Care Teams Inspector Handbag Frames Relationship Specialty Start Date End Date Sanaz Blanco [address] [facility] [place] [address] PCP - General Family Medicine 06/16/21
== END 2025-02-10 09:30 | disposition home or self-care (01) ==
LOC: HO.HOS 09:01
PROVIDERS: Visit Provider Orthopaedic Surgery
DX: M25.311 Other instability, right shoulder (principal)
CPT/HCPCS: 99213; G2211

== ENCOUNTER → 2025-02-10 09:00 | Outpatient (BNVA) | payer MEDICARE, OTHER, SELFPAY | PROVIDERS: Visit Provider Orthopaedic Surgery | DX: M25.311 Other instability, right shoulder (principal); Z96.652 Presence of left artificial knee joint | CPT/HCPCS: 99212 ==

== ENCOUNTER → 2025-02-19 07:50 | Outpatient (BNV) | payer MEDICARE, OTHER, SELFPAY | PROVIDERS: Visit Provider Radiology Diagnostic Radiology | DX: M75.121 Complete rotator cuff tear or rupture of right shoulder, not specified as traumatic (principal) | CPT/HCPCS: 73221 ==

== ENCOUNTER 2025-02-19 07:52 | Outpatient (REF) | payer MEDICARE, OTHER, SELFPAY ==
--- NOTE | ~2025-02-19 | MR_ITS ---
CLINICAL HISTORY: M25.311 - Other instability, right shoulder Exam: MRI of the right shoulder without intravenous contrast. Comparison: None provided. Findings: There is a full-thickness tear of the distal rotator cuff near the junction of the supraspinatus and infraspinatus tendons. The fluid gap measures 10 mm medial to lateral by 9 mm anterior to posterior. There is delamination of fluid into the supraspinatus and infraspinatus tendon bellies, especially of the supraspinatus tendon. This tear also communicates with a more extensive partial-thickness articular surface tear of the infraspinatus tendon and a partial-thickness bursal surface tear of the distal supraspinatus tendon. No tendon retraction or muscle atrophy is seen at this time. Teres minor is intact. Mild subscapularis tendinopathy is seen without tear. There is a tear of the superior labrum extending from the 10 o'clock to 12 o'clock position. This tear extends into the biceps anchor. Moderate tendinopathy of the intra-articular portion of the tendon of the long head of the biceps without complete tear or dislocation. There is prominent fluid within the biceps tendon sheath. No tear of the anteroinferior labrum is identified. There is a large glenohumeral joint effusion. This fluid freely extends outside of the confines of the glenohumeral joint through the full-thickness rotator cuff tear. There is a type 2 acromion. Moderate degenerative change of the AC joint. Impression: 1. Full-thickness tear of the distal rotator cuff at the junction of the supraspinatus and infraspinatus tendons. There is fluid delamination into the tendon bellies with direct communication of this tear with a articular surface tear of the infraspinatus tendon and bursal surface tear of the supraspinatus tendon. 2. Subscapularis tendinopathy without tear. 3. SLAP tear. 4. Biceps tendinopathy with tenosynovitis. 5. Glenohumeral joint and AC joint DJD. This document has been electronically signed by: Everardo Camargo MD on 02/20/2025 08:27:59
--- OUTSIDE RECORDS SUMMARY | 2025-02-19 07:55 | XMS_ITS | Clinical Summary ---
Author Organization [facility] Address [address] [place] [address] Phone Care Team Providers Care Admitting Interviewer Name Role Phone Rubina Devlin MD Primary Care Provider [phone] Allergies No known active allergies Medications calcium citrate-vitamin D3 (CITRACAL+D) 315 mg-5 mcg (200 unit) per tablet Take 1 tablet by mouth 2 (two) times a day. Active atorvastatin (LIPITOR) 40 MG tablet Take 1 tablet by mouth every other day. Active acetaminophen (TYLENOL) 325 mg tablet Take 325 mg by mouth every 6 (six) hours as needed for pain (specific location in comments). 10/08/2024 Active celecoxib (CELEBREX) 200 MG capsule Take 200 mg by mouth 2 (two) times a day. 10/08/2024 Active docusate (COLACE) 100 mg tablet Take 100 mg by mouth 2 (two) times a day. 10/08/2024 Active gabapentin (NEURONTIN) 100 MG capsule Take 100 mg by mouth daily. 10/07/2024 Active methocarbamoL (ROBAXIN) 500 MG tablet Take 500 mg by mouth 3 (three) times a day. 10/08/2024 Active oxyCODONE 5 MG immediate release tablet Take 5 mg by mouth every 4 (four) hours as needed for pain (specific location in comments). 10/08/2024 Active lisinopril (PRINIVIL,ZESTR IL) 10 MG tablet Take 10 mg by mouth daily. 10/08/2024 Active sertraline (ZOLOFT) 25 MG tablet Take 50 mg by mouth daily. 10/08/2024 Active Encounters Date Type Department Care Team Description 12/01/2024 8:00 AM EDT Home Care Visit [facility] [address] [place] [address] Gideon Hernandez, PT PT OASIS DISCHARGE VISIT 11/26/2024 8:00 AM EDT Home Care Visit [facility] [address] [place] [address] Gideon Hernandez, PT PT HOME VISIT 11/24/2024 8:00 AM EDT Home Care Visit [facility] [address] [place] [address] Gideon Hernandez, PT PT HOME VISIT from Last 3 Months Social History Tobacco Use Types Packs/Day Years Used Date Smoking Tobacco: Former Cigarettes Q uit: 1980 Smokeless Tobacco: Never Tobacco Cessation:Counseling Given: Not Answered Home Health Assessment: Transportation Answer Date Recorded Lack of Transportation (Medical) No 12/01/2024 Lack of Transportation (Non-Medical) No 12/01/2024 Patient Unable or Declines to Respond No 12/01/2024 Education Answer Date Recorded Are you interested in more education? Not on mirza e 11/30/2022 Are you concerned about learning? Not on file 11/30/2022 No 11/30/2022 No 11/30/2022 Digital Access Answer Date Recorded No 12/29/2022 No 12/29/2022 Reliable internet access at home? Not on file 12/29/2022 Device with a working camera? Not on file Comments Unknown Sex and Gender Information Value Date Recorded Sex Assigned at Not on file Legal Sex Female 9:49 AM EDT Gender Identity Not on file Sexual Orientation Not on file Last Filed Vital Signs Vital Sign Reading Time Taken Comments Blood Pressure 130/72 12/01/2024 7:59 AM EDT Pulse 74 12/01/2024 7:59 AM EDT Temperature 36.4 C (97.6 F) 12/01/2024 7:59 AM EDT Respiratory Rate 18 12/01/2024 7:59 AM EDT Oxygen Saturation 99% 12/01/2024 7:59 AM EDT Inhaled Oxygen Concentration - - Weight 81.6 kg (180 lb) 09/25/2023 1:43 PM EST Height 162.6 cm (5' 4 ) 09/25/2023 1:43 PM EST Body Mass Index 30.9 09/25/2023 1:43 PM EST Plan of Treatment Health Maintenance Due Date Last Done Comments CREATININE LEVEL 1956 POTASSIUM LEVEL 1956 DEPRESSION SCREENING 1968 SMOKING Hx and SMOKELESS TOBACCO SCREENING 1969 HEPATITIS C SCREENING 1974 SCREENING FOR DIABETES 1991 COLOGUARD 2001 COLONOSCOPY 2001 COLORECTAL CANCER SCREENING 2001 FIT TEST 2001 FOBT 2001 SIGMOIDOSCOPY 2001 VIRTUAL COLONOSCOPY 2001 PNEUMOCOCCAL VACCINES (50+ years) (1 of 1 - PCV) 2006 ZOSTER VACCINES (1 of 2) 2006 OSTEOPOROSIS SCREENING INITI AL (ONE-TIME) 2021 COVID-19 VACCINE (1 - 2023-2 5 season) 2024 MAMMOGRAM 01/13/2026 01/14/2024, 01/11/2023 Adult Td,Tdap Booster 05/16/2026 05/16/2016 LIPID PANEL 08/10/2029 08/10/2024 RSV VACCINE (1 - 1-dose 75+ series) 2031 HEPATITIS A VACCINES Aged Out No long er eligible based on patient's age to complete this topic HIB VACCINES Aged Out No longer eligi ble based on patient's age to complete this topic MENINGOCOCCAL VACCINES (ACWY) Aged Out No longer eligible based on patient's age to complete this topic MENINGOCOCCAL VACCINES (B) Aged Out N o longer eligible based on patient's age to complete this topic Medical Devices Not on file Insurance [facility] [place] [address] MEDICARE PART A & B [facility] Address: [facility] ATTN: CLAIMS [address] [address] [place] [address] MEDICARE PART A & [place] [address] [place] [address] [facility] Address: [facility] ATTN:[employer] CLAIMS [address] [address] [place] [address] MEDICARE PART A & B [facility] Address: [facility] ATTN:[employer] CLAIMS [address] [address] [place] [address] [place] [address] MEDICARE PART A & B [facility] Address: [facility] ATTN:[employer] CLAIMS [address] [address] [place] [address] MEDICARE PART A & B [facility] [place] [address] MEDICARE PART A & B Care Teams Admitting Interviewer Relationship Specialty Start Date End Date Rubina Devlin MD [address] [place] [address] PCP - General Pediatrics 10/07/24 Additional Source Comments The information contained in this document represents components of the legal health record. It is not the complete legal health record.[facility]
--- OUTSIDE RECORDS SUMMARY | 2025-02-19 07:56 | XMS_ITS | Clinical Summary ---
Author Organization [employer] Address [address] [place] [address] Care Team Providers Care Work Station Support Specialist Name Role Phone Sanaz Blanco ORTHOTIC ASSISTANT Primary Care Provider Unavailable Mary Blunt Unavailable Unavailable Allergies Active Allergy Reactions Criticality Noted Date Comments Black [place] Flavoring Agent (Non-Screening) Itching Low 01/01/2024 [place] Hives 05/21/2011 Medications * This document contains [...] injections in right knee for OA at [facility]. Helpful for pain. Also taking ibuprofen and [...] 40 mg/dL 17 LDL Chol Calc ([facility]) 0 - 99 mg/dL 62 Last [...] 2025 9:00 AM EDT Office Visit [facility] [address] [place] [address] Rubina Devlin MD [address] [place] [address] Health Maintenance Due Date Last Done Comments [...] Health Maintenance Results * Lipid Panel, Standard 04116 (08/10/2024 9:16 AM EST) Cholesterol, Total 173 100 - 199 mg/dL [facility] 1 Triglycerides 107 0 - 149 mg/dL [facility] 1 HDL Cholesterol 90 >39 mg/dL [facility] 1 VLDL Cholesterol Daniel 19 5 - 40 mg/dL [facility] 1 LDL Chol Calc ([facility]) 64 0 - 99 mg/dL [facility] 1 Blood Venous blood specimen / Unknown 08/10/2024 9:16 AM EST 08/10/2024 Narrative [facility] 1 - 08/11/2024 6:05 AM EST Performed at: - [facility] [address] [id number] Telemetry Monitor: Sary Parker MD, Phone: [phone] Komal Gardner ORTHOTIC ASSISTANT LAB BLOOD ORDERABLES Deysi minor Result [facility] [...] (Negative) Lay letter mailed to patient WSN: [id number] Ordering Physician: Sanaz Blanco Dictated By: Apryl Gonzalez MD Dictated Date/Time: 01/14/24 1:23 pm Reviewed By: Apryl Gonzalez MD Signed By: Apryl Gonzalez MD Signed Date/Time: 01/14/24 1:23 pm Transcribed By: ARNAV Turbo Generator Oiler Date/Time: 01/14/24 1:20 pm Birads: Procedure Note [...] (Negative) Lay letter mailed to patient WSN: [id number] Ordering Physician: Sanaz Blanco Dictated By: Apryl Gonzalez MD Dictated Date/Time: 01/14/24 1:23 pm Reviewed By: Apryl Gonzalez MD Signed By: Apryl Gonzalez MD Signed Date/Time: 01/14/24 1:23 pm Transcribed By: ARNAV Turbo Generator Oiler Date/Time: 01/14/24 1:20 pm Birads: Sanaz Blanco ORTHOTIC ASSISTANT IMG BI PROCEDURES Deysi l Result * Hepatits C Antibody w/Reflex HCV Quant PCR and Genotyping (08/29/2022 3:10 PM EST) Hepatitis C Virus Ab, Serum NEGATIVE (NEG) [facility] Comment: Reference range: Negative This test was performed on the [employer] Specialist immunoassay system. Testing performed or reported by [facility], a Service of [facility], [address] [place] [address] [place] [address] Kei Anne MD, Geological Drafter [facility]# [id number] 08/29/2022 3:10 PM EST 08/29/2022 3:12 PM EST Sanaz Blanco [facility] LAB BLOOD ORDERABLES F inal Result [facility] [address] [place] [address] * Pap Smear (06/18/2022 12:00 AM EST) Swab Historical Provider LAB CYTOLOGY ORDERABLES F inal Result * Colonoscopy (12/27/2021) Colonoscopy 10 year recall Historical Provider HEALTH MAINTENANCE Final Result from Last 3 Months or Most Recently Relevant to Health Maintenance Insurance MEDICARE Member Subscriber Plan / Payer (Ef fective 2022-Present) Name:Raiza Oconnell Member ID:[id number] Relation to Subscriber:Self Name:Raiza Oconnell Subscriber ID:[id number] Payer ID:STATE Group ID:Not on file Type:Medicare Address: [facility].[address] [address] [facility] Care Teams Work Station Support Specialist Relationship Specialty Start Date End Date Sanaz Blanco FNP PCP - General Family Medicine 08/27/22 Mary Blunt Community Health Worker 01/29/24
--- OUTSIDE RECORDS SUMMARY | 2025-02-19 07:56 | XMS_ITS | Data Portability ---
Author Organization [facility] Address [address] [place] [address] Assessment Encounter Date Assessment Date Assessment LastModified by Organization Details LastModified Time 10/22/2023 10/22/2023 X-RAYS: Three standing views of the left foot were ordered, obtained and reviewed by me today at [facility], demonstrating healed hallux MTP joint with [...] 3v foot wb-- room 107 024 024 [email or web address] Not available 4 14:04:37 Medication Orders None recorded. Patient TargetsNo targets recorded. Patient InstructionsNo instructions recorded. Reason for Referral None Reported. Problems Name Problem SNOMED Code Status Onset Date Resolution Date Notes Provider Name and Address Organization Details Recorded Time No complaints 329991465 Active Status : 'I'; Not Available [facility] 4 09:25:00 Problem Notes None recorded. Medical Equipment None Reported. Allergies Allergen ID Allergen Name Allergen Category Reaction Reaction Severity Criticality Documentation Date Start Date Code Code System Note Provider Name and Address Organization Details Recorded Time 85515 walnut allergeni c extract food Not available Not available Not available 10/07/20232010 82043 0 RxNorm Aller gyRea ction : 'Skin React ion'; Not Available [facility] 4 12:31:57 No known [...] Updated DateTime 10/22/2023 162.56 cm 30 kg/m2 82484.66 g BEBETO Norris [place] - [facility] 10/22/2023 12:23:46 Social History None recorded. Functional Status None recorded. Mental Status None recorded. Family History Nothing Reported. Medical History No medical history recorded. Gynecological HistoryNo gynecological history recorded. Obstetrics History GPAL:G 0 P 0 0 0 0 Past Encounters Encounter ID Performer Location Encounter Start Date Encounter Closed Date Diagnosis/Indication Diagnosis SNOMED-CT Code Diagnosis ICD10 Code Diagnosis Note [id number] MD Macie Cowan [address] [place] [address] 10/22/2023 12:13:20 11/11/2023 11:44:06 Pain in left foot 8263440776 61971 M79.672 Follow-up orthopedic assessment 146771201 Z47.89 Hammer toe 724481776 M20 .42 Health Concerns Section Related Observation LastModified by Organization Detai ls LastModified Time None Recorded Concern Status LastModified by Organization Details LastModified Time None Recorded Advance Directives Directive None Recorded Payers Insurance Date Sequence Insurance Name Policy Number Policy Ball Covered Member ID Ball Member ID Guarantor Name 03/13/2024 2 () Raiza Lucian Spingler [id number] Raiza Lucian Spingler 03/13/2024 1 MEDICARE B[place]: [facility] [employer] Raiza Epstein Spingler [id number] Raiza Perezgler Notes Date Note Type [...] chart. No interval change. Tye Baxter MD [address] [place] [address] [address], [place], [address], [facility] 10/22/2023 16:51:18 OBGyn Episode No OBEpisode recorded.
--- OUTSIDE RECORDS SUMMARY | 2025-02-19 07:56 | XMS_ITS | Clinical Summary ---
Author Organization [facility] Address [address] [place] [address] Care Team Providers Care Wheat Washer Name Role Phone Sanaz Blanco SENIOR SVP Primary Care Provider Surgical History Surgery Date [...] Documents on File Type Date Recorded Patient Mission Analyst Expl anation Health Care Decision (hx) 10/20/2021 AD REA DIRECTIVE Health Care Decision (hx) 10/20/2021 AD REA DIRECTIVE Care Teams Wheat Washer Relationship Specialty Start Date End Date Sanaz Blanco FNP PCP - General Family Medicine 06/16/21
--- OUTSIDE RECORDS SUMMARY | 2025-02-19 07:56 | XMS_ITS | Clinical Summary ---
Author Organization [facility] Address [address] [place] [address] Care Team Providers Care Prospecting Driller Helper Name Role Phone Sanaz Blanco Primary Care Provider [phone] Allergies No known active allergies Medications Medication [...] age to complete this topic Care Teams Prospecting Driller Helper Relationship Specialty Start Date End Date Sanaz Blanco [address] [facility] [place] [address] PCP - General Family Medicine 06/16/21
== END 2025-02-19 07:53 | disposition home or self-care (01) ==
LOC: HO.MRI 07:52
PROVIDERS: Visit Provider Orthopaedic Surgery
DX: M25.311 Other instability, right shoulder (principal)
CPT/HCPCS: 73221

== ENCOUNTER 2025-03-17 08:33 | Outpatient (AMB) | payer MEDICARE, OTHER, SELFPAY ==
[2025-03-17 08:44] VITALS: BP 142/90; PULSE 68; O2SAT 96; BMI 29.5
--- NOTE | 2025-03-17 08:44 | A.OFFVIS_ITS ---
Vital Signs 03/17/25 08:44 Height 5 ft 4 in Weight 172 lb BMI 29.5 BP 142/90 H Blood Pressure Location Rt brachial Position Sitting Pulse 68 Pulse Source Pulse Oximeter Pulse Oximetry (%) 96 Oxygen Delivery Method Room Air Intake Visit Reasons: OV-MRI Shoulder RT review- Done on 02/19/25 Intake Note: Raiza is a 69 year old female who presents with complaints of progressively worsening right shoulder pain and weakness. She did undergo left total knee replacement surgery on 10/05/2024. She reports minimal discomfort in her left knee. She denies any fevers or chills. The patient states that she injured her right shoulder several months ago. She rolled onto her shoulder and felt a ?pop?. Since that time she has had weakness lifting her right hand above shoulder height. She has done physical therapy exercises which aggravated her pain. She has also tried Tylenol and anti-inflammatory medicines which gave her minimal relief. Allergies walnut Allergy (Intermediate, Verified 03/17/25 08:44) tingling in mouth Medication List - Last Reconciled 03/17/25 by Madi Sosa MD acetaminophen 650 mg (2 x 325 mg) PO Q6H PRN 30 days atorvastatin 40 mg PO Q48H calcium carbonate-vitamin D3 600 mg-20 mcg (800 unit) (Caltrate plus D) 1 tab PO BID lisinopril 10 mg PO BEDTIME oxycodone 10 mg PO DAILY PRN sertraline 50 mg PO BEDTIME PFSH Medical History Depression Habitual snoring Murmur Elevated cholesterol HTN (hypertension) Tear of medial meniscus of knee Surgical History H/O colonoscopy H/O carpal tunnel repair S/P left knee arthroscopy Hx of appendectomy History of total right knee replacement (TKR) (10/20/21) Social History Household Members: Spouse Housing: House Are you a primary primary care pediatrician to a significant other at home: Yes (spouse needs care) Do you presently have visiting nurse or other home services: No Patient Tobacco Use Status: Former Tobacco user Tobacco use type: Cigarette Second Hand Smoke Exposure: No Substance Use Type: Marijuana service: No Current occupational status: retired Physical Exam Vital Signs: Last Vital Signs Pulse 68 03/17/25 08:44 BP 142/90 H 03/17/25 08:44 Pulse Ox 96 03/17/25 08:44 Oxygen Delivery Method Room Air 03/17/25 08:44 BMI result Body Mass Index 29.5 Const Other: Well-nourished well-developed very friendly female awake alert and oriented x3 in no acute distress Extrem Other: Right shoulder examination shows decreased range of motion when compared to her left shoulder, 4/5 strength with supraspinatus testing, positive impingement signs, tenderness over her acromioclavicular joint, no instability Results Reviewed Results Reviewed: MRI of the patient's right shoulder show severe acromioclavicular joint narrowing, a type 2 acromion, a full-thickness rotator cuff tear Assessment & Plan Assessment & Plan (1) Rotator cuff insufficiency of right shoulder: Code(s): M25.311 - Other instability, right shoulder Category: Medical Plan Ms. Oconnell presents with progressively worsening right shoulder pain and weakness due to impingement syndrome, acromioclavicular joint arthritis and a full-thickness rotator cuff tear. I had a lengthy discussion with the patient regarding the treatment options. At this point she has failed continued non operative treatments. The risks and benefits of right shoulder surgery were discussed at length with the patient. The patient wishes to proceed. Surgery will involve right shoulder arthroscopic distal clavicle excision, right shoul lelo arthroscopic acromioplasty and right shoulder mini open rotator cuff repair. She will continue with her [id number] exercises in the meantime. Feel free to call me at any time should questions regarding her orthopedic management arise. I spent 21 minutes in reviewing the patient's records and imaging studies, seeing the patient and documenting in the medical record. Coding Level of Care Code Est Pt Level 3 (80068) Complex EM visit Add On G2211 Diagnoses Rotator cuff insufficiency of right shoulder M25.311
--- OUTSIDE RECORDS SUMMARY | 2025-03-17 08:45 | XMS_ITS | Clinical Summary ---
Author Organization [facility] Address [address] [facility] [address] [place] [phone] Phone Care Team Providers Care Hedis Manager Name Role Phone Rubina Devlin MD Primary Care Provider [phone] Allergies No known active allergies Medications calcium [...] 50 mg by mouth daily. 10/08/2024 Active Social History Tobacco Use Types Packs/Day Years Used Date Smoking Tobacco: Former Cigarettes Q uit: 1981 Smokeless Tobacco: Never Tobacco Cessation:Counseling Given: Not [...] topic Medical Devices Not on file Insurance [employer] [facility] Address: [facility] ATTN:[employer] CLAIMS [address] [address] [place] [address] MEDICARE PART A & B [facility] [place] [address] MEDICARE PART A [place] [address] [place] [address] [place] [address] MEDICARE PART A & B [facility] Address: [facility] ATTN:[employer] CLAIMS [address] [address] [place] [address] [place] [address] MEDICARE PART A & B [facility] Address: [facility] ATTN:ELISA CLAIMS [address] [address] [place] [address] MEDICARE PART A & B [facility] [place] [address] MEDICARE PART A & B Care Teams Hedis Manager Relationship Specialty Start Date End Date Rubina Devlin MD [address] [place] [address] PCP - General Pediatrics 10/07/24 Additional Source Comments The information contained in this document represents components of the legal health record. It is not the complete legal health record.[facility]
--- OUTSIDE RECORDS SUMMARY | 2025-03-17 08:45 | XMS_ITS | Clinical Summary ---
Author Organization [facility] Address [address] [place] [address] Care Team Providers Care Machine Tender Name Role Phone Sanaz Blanco CLINICAL BIOCHEMICAL GENETICIST Primary Care Provider Surgical History Surgery Date [...] 2) 2006 Colorectal Cancer Screening: Colonoscopy 07/13/2022 Falls Risk Assessment 07/13/2022 Hepatitis C Screening 07/13/2022 Osteoporosis Screening (Bone Density Screening) 07/13/2022 Social Influencers of Health Screening 07/13/2022 COVID-19 Vaccine (1 - 2023-2 5 season) 2024 Depression Screening 08/05/2024 Influenza Vaccine (#1) 2025 RSV Immunization Adult [...] Documents on File Type Date Recorded Patient Crate Builder Expl anation Health Care Decision (hx) 10/20/2021 AD REA DIRECTIVE Health Care Decision (hx) 10/20/2021 AD REA DIRECTIVE Care Teams Machine Tender Relationship Specialty Start Date End Date Sanaz Blanco FNP PCP - General Family Medicine 06/16/21
--- OUTSIDE RECORDS SUMMARY | 2025-03-17 08:45 | XMS_ITS | Clinical Summary ---
Author Organization [employer] Address [address] [facility] 7t [place] [address] Care Team Providers Care Latin American Studies Director Name Role Phone Sanaz Blanco LUMBER PRESS OPERATOR Primary Care Provider Unavailable Mary Blunt Unavailable Unavailable Allergies Active Allergy Reactions Criticality Noted Date Comments Black [place] Flavoring Agent (Non-Screening) Itching Low 01/01/2024 [place] Hives 05/21/2011 Medications * This document contains [...] 90 tablet 3 09/22/19 25 026 Active sertraline (Zoloft) 50 MG tabletIndication s:Depression, recurrent (CMS/HCC) Take 1 tablet (50 mg) by mouth Once per day. 90 tablet 3 03/16/20 25 026 Active acetaminophen (Tylenol) 325 MG tablet Take 325 mg by mouth every 6 (six) hours if needed. 10/09/19 25 025 Discontinued(Th erapy completed) aspirin 325 MG EC tablet Take 325 mg by mouth Once per day. 07/11/20 23 025 Discontinued( erapy completed) celecoxib (CeleBREX) 200 MG capsule Take 200 mg by mouth 2 times daily. 10/06/19 25 025 Discontinued(Th erapy completed) oxyCODONE (Roxicodone) 5 MG immediate release tablet Take 5 mg by mouth every 6 (six) hours if needed for severe pain. 025 Discontinued(Th erapy completed) sertraline (Zoloft) 50 MG tabletIndication s:Depression, recurrent (CMS/HCC) Take 1 tablet (50 mg) by mouth Once per day. 90 tablet 1 10/29/19 025 Discontinued(Re order (will not trigger notification to Pharmacy)) Active Problems Problem Noted Date Diagnosed Date Right knee pain 06/27/2024 Overview (06/27/2024): Patient receiving injections in right knee for OA at [facility]. Helpful for pain. Also taking ibuprofen [...] 40 mg/dL 17 LDL Chol Calc ([facility]) 0 - 99 mg/dL 62 [...] organization. Date Type Department Care Team Description 2025 9:00 AM EDT Office Visit [facility] MEDICAL [address] [place] [address] Rubina Devlin MD Primary hypertension (Primary Dx); Depression, recurrent (CMS/HCC); Hyperglycemia 03/15/2025 Travel 03/09/2025 Travel 03/03/2025 Travel 02/22/2025 Travel 02/01/2025 Travel 01/12/2025 Travel 12/28/2024 Travel 12/20/2024 Travel from Last 3 Months Immunizations Immunization [...] Sign Reading Time Taken Comments Blood Pressure 125/74 2025 9:10 AM EDT Pulse 63 2025 9:10 AM EDT Temperature 36.5 C (97.7 F) 2025 9:10 AM EDT Respiratory Rate 16 2025 9:10 AM EDT Oxygen Saturation 98% 06/27/2024 9:04 AM EST Inhaled Oxygen Concentration - - Weight 76.7 kg (169 lb 3.2 oz) 2025 9:10 A M EDT Height 162.6 cm (5' 4 ) 09/08/2024 2:51 PM EST Body Mass Index 29.04 09/08/2024 2:51 PM EST Plan of Treatment Upcoming Encounters Date Type Department Care Team (Late st Contact Info) Description 09/10/2025 9:00 AM EST Office Visit [facility] MEDICAL [address] [place] [address] Rubina Devlin MD [address] [place] [address] Health Maintenance Due Date Last Done Comments [...] Tobacco Screening 06/27/2025 06/27/2024 Mammogram 01/13/2026 01/14/2024, 06/04/2023, 12/29/2021, Additional history exists DTaP/Tdap/Td Vaccines (2 [...] Procedure Name Priority Date/Time Associated Diagnosis Comments COMPREHENSIVE METABOLIC PANEL Routine 2025 9:56 AM EDT Primary hypertension HEMOGLOBIN A1C Routine 2025 9:56 AM EDT Hyperglycemia LIPID PANEL, STANDARD Routine 08/10/2024 9:16 AM [...] Recently Relevant to Health Maintenance Results * Hemoglobin A1c (2025 9:56 AM EDT) Hemoglobin A1c 5.4 4.8 - 5.6 % [facility] 1 Comment: Prediabetes: 5.7 - 6.4 Diabetes: >6.4 Glycemic control for adults with diabetes: <7.0 Blood Venous blood specimen / Unknown 2025 9:56 AM EDT 2025 Narrative Resulting Agency Comment Performed at: 01 - [facility] [address] [id number] Beauty Operator Apprentice: Sary Parker MD, Phone: [phone] us Rubina Devlin MD LAB BLOOD ORDERABLES Final Resul t [facility] 1 * (ABNORMAL) Comprehensive metabolic panel (2025 9:56 AM EDT) Glucose 126(H) 70 - 99 mg/dL [facility] 1 Urea Nitrogen (BUN) 18 8 - 27 mg/dL [facility] 1 Creatinine, Serum 0.74 0.57 - 1.00 mg/dL [facility] 1 eGFR 88 >59 mL/min/1.7 3 [facility] 1 BUN/Creatinine Ratio 24 12 - 28 [facility] 1 Sodium 141 134 - 144 mmol/L [facility] 1 Potassium 4.1 3.5 - 5.2 mmol/L [facility] 1 Chloride 101 96 - 106 mmol/L [facility] 1 Anion Gap 18.0 10.0 - 18.0 mmol/L [facility] 1 Carbon Dioxide 22 20 - 29 mmol/L [facility] 1 Calcium 9.5 8.7 - 10.3 mg/dL [facility] 1 Protein, Total 6.4 6.0 - 8.5 g/dL [facility] 1 Albumin 4.6 3.9 - 4.9 g/dL [facility] 1 Globulin 1.8 1.5 - 4.5 g/dL [facility] 1 Bilirubin, Total 1.4(H) 0.0 - 1.2 mg/dL [facility] 1 Alkaline Phosphatase 74 44 - 121 IU/L [facility] 1 AST 10 0 - 40 IU/L [facility] 1 ALT 11 0 - 32 IU/L [facility] 1 Blood Venous blood specimen / Unknown 2025 9:56 AM EDT 2025 Narrative Resulting Agency Comment Performed at: [facility] [id number] Beauty Operator Apprentice: Sary Parker MD, Phone: [phone] us Rubina Devlin MD LAB BLOOD ORDERABLES Final Resul t [facility] 1 * Lipid Panel, Standard 95550 (08/10/2024 9:16 AM EST) [facility] Cholesterol, Total 173 100 - 199 mg/dL [facility] 1 Triglycerides 107 0 - 149 mg/dL [facility] 1 HDL Cholesterol 90 >39 mg/dL [facility] 1 VLDL Cholesterol Daniel 19 5 - 40 mg/dL [facility] 1 LDL Chol Calc ([facility]) 64 0 - 99 mg/dL [facility] 1 Blood Venous blood specimen / Unknown 08/10/2024 9:16 AM EST 08/10/2024 Narrative [facility] 1 - 08/11/2024 6:05 AM EST Performed at: [facility] [address] [id number] Beauty Operator Apprentice: Sary Parker MD, Phone: [phone] Komal Gardner LUMBER PRESS OPERATOR LAB BLOOD ORDERABLES Deysi minor Result [...] (Negative) Lay letter mailed to patient WSN: [id number] Ordering Physician: Sanaz Blanco Dictated By: Apryl Gonzalez MD Dictated Date/Time: 01/14/24 1:23 pm Reviewed By: Apryl Gonzalez MD Signed By: Apryl Gonzalez MD Signed Date/Time: 01/14/24 1:23 pm Transcribed By: ARNAV Loading Unit Operator Powder Charging Date/Time: 01/14/24 1:20 pm Birads: Procedure Note [...] (Negative) Lay letter mailed to patient WSN: [id number] Ordering Physician: Sanaz Blanco Dictated By: Apryl Gonzalez MD Dictated Date/Time: 01/14/24 1:23 pm Reviewed By: Apryl Gonzalez MD Signed By: Apryl Gonzalez MD Signed Date/Time: 01/14/24 1:23 pm Transcribed By: ARNAV Loading Unit Operator Powder Charging Date/Time: 01/14/24 1:20 pm Birads: Sanaz Blanco LUMBER PRESS OPERATOR IMG BI PROCEDURES Deysi l Result * Hepatits C Antibody w/Reflex HCV Quant PCR and Genotyping (08/29/2022 3:10 PM EST) Hepatitis C Virus Ab, Serum NEGATIVE (NEG) [facility] Comment: Reference range: Negative This test was performed on the [place] Paint immunoassay system. Testing performed or reported by [facility], a Service of [facility], [address] [place] [address] Kei Anne MD, Wrapper Hand [facility]# [id number] 08/29/2022 3:10 PM EST 08/29/2022 3:12 PM EST Sanaz Blanco LUMBER PRESS OPERATOR LAB BLOOD ORDERABLES F inal Result [facility] [address] [place] [address] * Pap Smear (06/18/2022 12:00 AM EST) Swab Historical Provider LAB CYTOLOGY ORDERABLES F inal Result * Hm Colonoscopy (12/27/2021) Colonoscopy 10 year recall Historical Provider HEALTH MAINTENANCE Final Result from Last 3 Months or Most Recently Relevant to Health Maintenance Insurance [place] [id number] [facility] Care Teams Latin American Studies Director Relationship Specialty Start Date End Date Sanaz Blanco FNP PCP - General Family Medicine 08/27/22 Mary Blunt Community Health Worker 01/29/24
--- OUTSIDE RECORDS SUMMARY | 2025-03-17 08:45 | XMS_ITS | Clinical Summary ---
Author Organization [facility] Address [address] [place] [address] Care Team Providers Care Armature Inspector Name Role Phone Sanaz Blanco Primary Care Provider [phone] Allergies No known active allergies Medications Medication [...] age to complete this topic Care Teams Armature Inspector Relationship Specialty Start Date End Date Sanaz Blanco [address] [facility] [place] [address] PCP - General Family Medicine 06/16/21
== END 2025-03-17 09:05 | disposition home or self-care (01) ==
LOC: HO.HOS 08:34
PROVIDERS: Visit Provider Orthopaedic Surgery
DX: M25.311 Other instability, right shoulder (principal)
CPT/HCPCS: 99214; G2211

== ENCOUNTER → 2025-03-17 08:33 | Outpatient (BNVA) | payer MEDICARE, OTHER, SELFPAY | PROVIDERS: Visit Provider Orthopaedic Surgery | DX: M25.311 Other instability, right shoulder (principal) | CPT/HCPCS: 99212 ==

== ENCOUNTER 2025-06-04 06:46 | Day surgery (SDC) | payer MEDICARE, OTHER, SELFPAY ==
--- OUTSIDE RECORDS SUMMARY | 2025-05-10 17:39 | XMS_ITS | Clinical Summary ---
Author Organization [facility] Address [address] [place] [address] Care Team Providers Care Assistant Program Director Name Role Phone Sanaz Blanco Primary Care Provider [phone] Allergies No known active allergies Medications Medication [...] age to complete this topic Care Teams Assistant Program Director Relationship Specialty Start Date End Date Sanaz Blanco [address] [facility] [place] [address] PCP - General Family Medicine 06/16/21
--- OUTSIDE RECORDS SUMMARY | 2025-05-10 17:39 | XMS_ITS | Clinical Summary ---
Author Organization [facility] Address [address] [facility] [address] [place] [address] Phone Care Team Providers Care Licensed Retail Supervisor Name Role Phone Rubina Devlin MD Primary Care Provider [phone] Allergies No known active allergies Medications calcium [...] 2006 OSTEOPOROSIS SCREENING INITI AL (ONE-TIME) 2021 INFLUENZA VACCINE (#1) 2025 COVID-19 VACCINE (1 - 2023-2 5 season) 2025 MAMMOGRAM 01/13/2026 01/14/2024, 01/11/2023 Adult Td,Tdap Booster [...] topic Medical Devices Not on [place] [place] [address] MEDICARE PART A & B [facility] [place] Address: [facility] ATTN:ELISA [facility] [address] [address] [place] [address] MEDICARE PART A & [place] [address] [place] [address] [place] [address] MEDICARE PART A & [place] [address] [place] [address] MEDICARE PART A & B [facility] [place] Address: [facility] ATTN:ELISA CLAIMS [address] [address] [place] [address] MEDICARE PART A & [place] [address] MEDICARE PART A & B Care Teams Licensed Retail Supervisor Relationship Specialty Start Date End Date Rubina Devlin MD [address] [place] [address] [email or web address] PCP - General Pediatrics 10/07/24 Additional Source Comments The information contained in this document represents components of the legal health record. It is not the complete legal health record.[facility]
--- OUTSIDE RECORDS SUMMARY | 2025-05-10 17:40 | XMS_ITS | Encounter Summary ---
Author Organization [employer] Address [address] [facility] [address] [place] [address] Care Team Providers Care Payroll Coordinator Name Role Phone Sanaz Blanco Primary Care Provider Unavailable Mary Blunt Unavailable Unavailable Encounter Details Date Type Department Care Team (Latest Contact Info) Description 03/18/2025 Results Follow-Up [facility] MEDICAL [address] [place] [address] Rubina Devlin MD [address] [place] [address] Comprehensive metabolic panel Social History Tobacco Use Types Packs/Day Years [...] Description 09/10/2025 9:00 AM EST Office Visit [facility] [address] [place] [address] Rubina Devlin MD [address] [place] [address] documented as of this encounter Visit Diagnoses Not on filedocumented in this encounter Additional Health Concerns Assessment Noted Time PHQ-9 Depression Total Score: 10 025 11:56 AM EDT documented as of this encounter Care Teams Payroll Coordinator Relationship Specialty Start Date End Date Sanaz Blanco FNP PCP - General Family Medicine 08/27/22 Mary Blunt Community Health Worker 01/29/24 documented as of this encounter
--- OUTSIDE RECORDS SUMMARY | 2025-05-10 17:40 | XMS_ITS | Encounter Summary ---
Author Organization [employer] Address [address] [facility] [address] [place] [address] Care Team Providers Care Automobile Assembler Name Role Phone Sanaz Blanco PARACHUTE LINE TIER Primary Care Provider Unavailable Ene Lozano Unavailable Unavailable Mary Blunt Unavailable Unavailable Encounter Details Date Type Department Care Team (Late st Contact Info) Description 01/08/2024 Orders Only [facility] [address] [place] [address] Provider, MD Molina Social History Tobacco Use [...] Description 09/10/2025 9:00 AM EST Office Visit [place] [facility] [address] [place] [address] Rubina Devlin MD [address] [place] [address] documented as of this encounter Procedures Procedure Name Priority Date/Time Associated Diagnosis Comments DXA BONE DENSITY HIP/SPINE/PELVIS Routine 10/31/2023 5:43 AM EDT documented in this encounter Results * DXA BONE DENSITY HIP/SPINE/PELVIS (10/31/2023 5:43 AM EDT) Anatomical Region Laterality Modality Radiographic Peg ging Historical Provider MD GOMEZ DXA PROCEDURES Final Result documented in this encounter Visit Diagnoses Not on filedocumented in this encounter Additional Health Concerns Assessment Noted Time PHQ-9 Depression Total Score: 7 06/12/20 23 10:16 AM EST documented as of this encounter Care Teams Automobile Assembler Relationship Specialty Start Date End Date Sanaz Blanco FNP PCP - General Family Medicine 08/27/22 Ene Lozano Community Health Worker 12/10/22 4 Mary Blunt Community Health Worker 01/29/24 documented as of this encounter
--- OUTSIDE RECORDS SUMMARY | 2025-05-10 17:40 | XMS_ITS | Clinical Summary ---
Author Organization [employer] Address [address] [facility] [address] [place] [address] Care Team Providers Care Computational Geneticist Name Role Phone Sanaz Blanco MEDICAID BILLER Primary Care Provider Unavailable Mary Blunt Unavailable Unavailable Allergies Active Allergy Reactions Criticality Noted Date Comments Black [place] Flavoring Agent (Non-Screening) Itching Low 01/01/2024 [place] Hives 05/21/2011 Medications * This document contains [...] 90 tablet 3 5 09/22/19 26 Active sertraline (Zoloft) 50 MG tabletIndications :Depression, recurrent (CMS/HCC) Take 1 tablet (50 mg) by mouth Once per day. 90 tablet 3 5 03/11/20 26 Active Active Problems Problem Noted Date Diagnosed Date Right knee pain 06/27/2024 Overview (06/27/2024): Patient receiving injections in right knee for OA at [facility]. Helpful for pain. Also taking [...] 40 mg/dL 17 LDL Chol Calc ([facility]) 0 - 99 mg/dL 62 Last [...] organization. Date Type Department Care Team Description 04/29/2025 Travel 04/12/2025 Travel 03/18/2025 Results Follow-Up [facility] [address] [place] [address] Rubina Devlin MD Comprehensive metabolic panel 2025 9:00 AM EDT Office Visit [facility] [address] [place] [address] Rubina Devlin MD Primary hypertension (Primary Dx); Depression, recurrent (CMS/HCC); Hyperglycemia 03/15/2025 Travel 03/09/2025 Travel 03/03/2025 Travel 02/22/2025 Travel from Last 3 Months Immunizations Immunization [...] Description 09/10/2025 9:00 AM EST Office Visit [facility] [address] [place] [address] Rubina Devlin MD [address] [place] [address] Health Maintenance Due Date Last Done Comments CT Colonography 1955 FIT DNA/Cologuard 1955 FIT 1955 FOBT 1955 Sigmoidoscopy 1955 Pneumococcal Vaccine: 50+ Years (1 of 1 - PCV) 2006 Zoster Vaccines (1 of 2) 2006 COVID-19 Vaccine (1 - season) 2025 Influenza Vaccine (#1) 2025 Depression Monitoring 04/30/2025 [...] Resulting Agency Comment Performed at: 01 - [address] [id number] Preparation Center Coordinator: Sary Parker MD, Phone: [phone] us Rubina Devlin MD LAB BLOOD ORDERABLES [...] 2025 Narrative Resulting Agency Comment Performed at: - [facility] [address] [id number] Preparation Center Coordinator: Sary Parker MD, Phone: [phone] Rubina Devlin MD LAB BLOOD ORDERABLES Final Resul t Performing Organization Address [facility] Co de Phone Number [id number] 1 * Lipid Panel, Standard 53968 (08/10/2024 9:16 AM EST) Pathologist [facility] Cholesterol, Total 173 100 - 199 mg/dL [...] 6:05 AM EST Performed at: - [facility] [address] [id number] Preparation Center Coordinator: Sary Parker MD, Phone: [phone] Komal MARTINP LAB BLOOD ORDERABLES Deysi mily Result Performing Organization Address [facility] de Phone Number [id number] 1 * BI Mammogram Screening Tomosynthesis [...] (Negative) Lay letter mailed to patient WSN: [id number] Ordering Physician: Sanaz Blanco Dictated By: Apryl Gonzalez MD Dictated Date/Time: 01/14/24 1:23 pm Reviewed By: Apryl Gonzalez MD Signed By: Apryl Gonzalez MD Signed Date/Time: 01/14/24 1:23 pm Transcribed By: ARNAV Machine Sprayer Date/Time: 01/14/24 1:20 pm Birads: Procedure Note [...] (Negative) Lay letter mailed to patient WSN: [id number] Ordering Physician: Sanaz Blanco Dictated By: Apryl Gonzalez MD Dictated Date/Time: 01/14/24 1:23 pm Reviewed By: Apryl Gonzalez MD Signed By: Apryl Gonzalez MD Signed Date/Time: 01/14/24 1:23 pm Transcribed By: CSVelma Machine Sprayer Date/Time: 01/14/24 1:20 pm Birads: Sanaz Blanco MEDICAID BILLER IMG BI PROCEDURES Deysi l Result * Hepatits C Antibody w/Reflex HCV Quant PCR and Genotyping (08/29/2022 3:10 PM EST) Hepatitis C Virus Ab, Serum NEGATIVE (NEG) [facility] Comment: Reference range: Negative This test was performed on the Venegas Sap Basis immunoassay system. Testing performed or reported by [facility], a Service of [facility], [address] [place], [place] [address] [address] Kei Anne MD, Filter Tender Jelly [facility]# [id number] 08/29/2022 3:10 PM EST 08/29/2022 3:12 PM EST Sanaz Blanco MEDICAID BILLER LAB BLOOD ORDERABLES F inal Result [facility] [address] [place] [address] * Pap Smear (06/18/2022 12:00 AM EST) Swab Historical Provider LAB CYTOLOGY ORDERABLES F inal Result * Colonoscopy (12/27/2021) Colonoscopy 10 year recall Historical Provider HEALTH MAINTENANCE Final Result from Last 3 Months or Most Recently Relevant to Health Maintenance Insurance [place] [address] [place] [phone] [facility] Care Teams Computational Geneticist Relationship Specialty Start Date End Date Sanaz Blanco FNP PCP - General Family Medicine 08/27/22 Mary Blunt Community Health Worker 01/29/24
[2025-05-21 09:57] VITALS: BMI 29.2
[2025-06-04] VITALS (8 sets, daily range): BP systolic 121–142; BP diastolic 65–79; PULSE 70–86; RESP 12–16; TEMP 36.6–36.9; O2SAT 93–99
[2025-06-04] MEDS: Lactated Ringers 1,000 ML 100 ML IVCONT (07:29)
--- NOTE | 2025-06-04 08:25 | HO.ANESPROP2 ---
Documented by User: Carline Schafer NP 05/21/25 12:09 HPI - Anesthesia Eval Consult details Narrative: 70yo F for Right Shoulder Arthroscopy with distal clavicle excision,acromioplasty with Mini Open RCR, 06/04/25 s/p TKA 10/2024 with spinal/block PMFSH Active Problems Active Problems: All Active Problems Rotator cuff insufficiency of right shoulder (Acute) Status post total left knee replacement (Acute) Osteoarthritis of left knee (Acute) Tear of medial meniscus of left knee (Acute) Left knee pain (Acute) Past Medical History Medical History Depression Habitual snoring Murmur Elevated cholesterol HTN (hypertension) Tear of medial meniscus of knee Family History Family history of problems with anesthesia: No Surgical History Surgical History (Updated 05/21/25 @ 09:37 by Cori Villalpando RN) Hx of toe surgery (~07/2023) History of tonsillectomy History of left knee replacement (~10/2024) H/O colonoscopy H/O carpal tunnel repair S/P left knee arthroscopy Hx of appendectomy History of total right knee replacement (TKR) (10/20/21) History of Problems with Anesthesia: No Social History Social History Household Members: Spouse Housing: House Are you a primary manager home healthcare to a significant other at home: No Do you presently have visiting nurse or other home services: No Patient Tobacco Use Status: Former Tobacco user Tobacco use type: Cigarette Second Hand Smoke Exposure: No Use of substances other than those prescribed or required for medical reasons: No Substance Use Type: Marijuana Have you been hit, kicked, punched, or otherwise hurt by someone within the past year? If so, by whom?: No Are you DNR?: No Advance Directives: No Advance Directives Information Provided: Yes Advance Directives on File: No Patient : No : No Poor oral hygiene: Yes service: No Current occupational status: retired Meds Allergies Allergy/AdvReac Type Severity Reaction Status Date / Time walnut Allergy Intermediate tingling Verified 03/17/25 08:44 in mouth Home Medications ?Medication ?Instructions ?Recorded ?Confirmed ?Last Taken ?Type atorvastatin 40 mg tablet 40 mg PO Q48H 04/24/23 05/21/25 10/03/24 History calcium 600 mg (as carbonate)-vit 1 tab PO BID 04/24/23 05/21/25 10/04/24 History D3 20 mcg (800 unit) chewable tablet (Caltrate plus D) lisinopril 10 mg tablet 10 mg PO DAILY 12/25/23 05/21/25 10/04/24 History sertraline 25 mg tablet 50 mg PO BEDTIME 12/03/24 05/21/25 Unknown History Exam Height,Weight and Vital Signs: Height 5 ft 4 in Weight 77.111 kg Pertinent Lab Results Pertinent Lab Results: BMP 03/2025 WNL Narrative Narrative: EKG SR LAD LAFB ECHO 2022 LA mildly dilated LV size nml LV wall thickness mild increased LV sys function nml LVEF 60-65% No RWMA Grade 1 mild DD with impaired LV relaxation which may be nml No signif valve disease Assessment and Plan Assessment Anesthesia Assessment: Chart Reviewed Final Anesthetic Review Family History of Problems with Anesthesia: No History of Problems with Anesthesia: No Documented by User: Felecia Barboza DO 06/04/25 09:27 [facility] Past Medical History Medical History Depression Habitual snoring Murmur Elevated cholesterol HTN (hypertension) Tear of medial meniscus of knee Family History Family history of problems with anesthesia: No Surgical History Surgical History (Updated 05/21/25 @ 09:37 by Cori Villalpando RN) Hx of toe surgery (~07/2023) History of tonsillectomy History of left knee replacement (~10/2024) H/O colonoscopy H/O carpal tunnel repair S/P left knee arthroscopy Hx of appendectomy History of total right knee replacement (TKR) (10/20/21) History of Problems with Anesthesia: No Social History Social History Household Members: Spouse Housing: House Are you a primary manager home healthcare to a significant other at home: No Do you presently have visiting nurse or other home services: No Patient Tobacco Use Status: Former Tobacco user Tobacco use type: Cigarette Second Hand Smoke Exposure: No Use of substances other than those prescribed or required for medical reasons: No Substance Use Type: Marijuana Have you been hit, kicked, punched, or otherwise hurt by someone within the past year? If so, by whom?: No Are you DNR?: No Advance Directives: No Advance Directives Information Provided: Yes Advance Directives on File: No Patient : No : No Poor oral hygiene: Yes service: No Current occupational status: retired Meds Allergies Allergy/AdvReac Type Severity Reaction Status Date / Time walnut Allergy Intermediate tingling Verified 03/17/25 08:44 in mouth Home Medications ?Medication ?Instructions ?Recorded ?Confirmed ?Last Taken ?Type atorvastatin 40 mg tablet 40 mg PO Q48H 04/24/23 05/21/25 10/03/24 History calcium 600 mg (as carbonate)-vit 1 tab PO BID 04/24/23 05/21/25 10/04/24 History D3 20 mcg (800 unit) chewable tablet (Caltrate plus D) lisinopril 10 mg tablet 10 mg PO DAILY 12/25/23 05/21/25 10/04/24 History sertraline 25 mg tablet 50 mg PO BEDTIME 12/03/24 05/21/25 Unknown History Exam Exam Date and Time: 06/04/25 0825 Height,Weight and Vital Signs: Height 5 ft 4 in Weight 77.111 kg Vital Signs Temperature 97.9 F 06/04/25 07:14 Pulse Rate 70 06/04/25 07:14 Respiratory Rate 16 06/04/25 07:14 Blood Pressure 141/79 H 06/04/25 07:14 Pulse Oximetry 96 06/04/25 07:14 Oxygen Delivery Method Room Air 06/04/25 07:14 Temperature 97.9 F 06/04/25 07:14 Pulse Rate 70 06/04/25 07:14 Respiratory Rate 16 06/04/25 07:14 Blood Pressure 141/79 H 06/04/25 07:14 Pulse Oximetry 96 06/04/25 07:14 Oxygen Delivery Method Room Air 06/04/25 07:14 Airway Mallampati Class: II TM Dist: >3cm Neck ROM: Full Loose/Missing/Broken Teeth: No (patient denies any loose or broken teeth) Heart: S1S2 Lungs: CTAB Assessment and Plan Assessment Anesthesia Assessment: Anesthesia Plan Discussed and Chart Reviewed Final Anesthetic Review Family History of Problems with Anesthesia: No History of Problems with Anesthesia: No NPO: Yes ASA Class: II Final Preanesthetic Review: No Changes in Pt Med Stat, Meds/Allgs Chart Reviewed, Consent Obtained/Reviewed and Anes Risks/Benef Reviewed Patient Risk: Low Procedure Risk: Intermediate Anesthetic Plan Anesthetic Plan: GA, Regional Block (right brachial plexus block) and Agree w/ Assess. and Plan Disposition: Standard PACU
--- NOTE | 2025-06-04 11:23 | PM.OP ---
Brief Operative Note Date of Service: 06/04/25 Pre-op diagnosis: Right shoulder impingement syndrome, right shoulder acromioclavicular joint arthritis, right shoulder rotator cuff tear Post-op diagnosis: same Procedure: Right shoulder arthroscopic distal clavicle excision, right shoulder arthroscopic acromioplasty, right shoulder mini open rotator cuff repair Implants: 1 suture anchor (Kim [employer]hew Twinfix anchor with #2 Ultrabraid suture) Surgeon: Madi Sosa MD Anesthesia: GETA and regional Was an Mailroom Personnel used for this Procedure?: No Estimated blood loss (mL): 20 Pathology: none sent Condition: stable Disposition: PACU
--- NOTE | 2025-06-04 11:24 | P.OP_ITS ---
Operative Note Operative Note Date of Service: 06/04/25 Narrative: After the patient was identified as Raiza Oconnell and her right shoulder was initialed by myself the patient was brought to the holding area where a right shoulder interscalene regional block was performed by the anesthesiologist in routine fashion. The patient was then brought to the operating room where general anesthesia was induced by the anesthesiologist in routine fashion. The patient was given 2 g of IV Ancef preoperatively for infection prophylaxis. Examination under anesthesia of the patient's right shoulder showed full passive range of motion of the patient's right shoulder when compared to the left. The patient was gently positioned in the beach chair position with all bony prominences well padded. The patient's right shoulder region and upper extremity were prepped and draped in sterile fashion. A formal time-out was completed. A #11 scalpel blade was used to make a posterior portal 2 cm inferior and 1 cm medial to the posterolateral corner of the acromion. Blunt trocar technique was used to enter the glenohumeral joint in routine fashion. An anterior portal was made just lateral to the coracoid process after proper positioning was confirmed using a spinal needle. Diagnostic arthroscopy showed minimal degenerative changes of the glenoid and humeral head articular surfaces. There was a full-thickness tear of the supraspinatus tendon. There was degenerative fraying measuring approximately 20% of the biceps tendon width. The frayed fibers were debrided using the shaver. Following the debridement the remainder of the fibers were intact. There was no inflammation of the anterior joint capsule. The arthroscope was then placed from the posterior portal into the subacromial space. A lateral portal was made 2 fingerbreadths lateral to the anterior lateral corner of the acromion. The ArthroCare Wand was used to ablate soft tissues along the undersurface of the acromion as well as to excise the coracoacromial ligament. There was a sharp spur along the undersurface of the acromion which was removed using the hooded bur. The arthroscope was then placed into the lateral portal and the acromioplasty was completed with the bur in the posterior portal using the posterior aspect of the acromion as a cutting block. The ArthroCare Wand was then brought in through the anterior portal and was used to ablate soft tissues along the acromioclavicular joint and distal c lavicle. The posterior and superior ligamentous structures were left intact. A distal clavicle excision of 8 mm was performed using the hooded bur. Any remaining bursal tissue was removed using the arthroscopic shaver. The subacromial space was irrigated and then drained. All arthroscopic instruments were removed. Sterile gloves were changed and the shoulder was once again prepped with Betadine. A #15 scalpel blade was used to extend the lateral portal to the lateral edge of the acromion. The subacromial tissues were dissected using electrocautery down to the superficial deltoid fascia. The trocar split in the anterior raphe of the deltoid was then extended to the lateral edge of the acromion using electrocautery and curved Ocampo scissors. Any remaining bursal tissue was removed using curved Ocapmo scissors. Subacromial and subdeltoid adhesions were bluntly dissected. The undersurface of the acromion was palpated and it was smooth. A #2 Ethibond tag suture was placed into the supraspinatus tendon. The tendon was easily mobilized to its insertion point on the glenoid. The wound was irrigated with copious amounts of normal saline solution. One suture anchor was placed into the greater tuberosity in routine fashion. The rotator cuff repair was then performed using horizontal mattress sutures under minimal tension with the patient's elbow at their side. Following the repair the shoulder was taken through a full range of motion. The repair was stable. The wound was irrigated with copious amounts of normal saline solution. The superficial and deep deltoid fascia were closed with #1 Vicryl [id number] interrupted suture. The wound was once again irrigated. The subcutaneous tissues were closed with 2-0 Vicryl interrupted suture. The skin was closed with 3-0 Prolene subcuticular suture and Steri-Strips. The anterior and posterior portals were closed with 3-0 nylon interrupted suture. Dry sterile dressing was placed over all incisions. The patient's right upper extremity was placed into a sling. The patient was awoken and extubated in the operating room. The patient was transferred to the recovery room in stable condition.
== END 2025-06-04 13:13 | disposition home or self-care (01) ==
PROVIDERS: PCP Family Medicine; Visit Provider Orthopaedic Surgery
PROC: (CPT 23412; principal; 2025-06-04 09:00)
DX: M75.101 Unspecified rotator cuff tear or rupture of right shoulder, not specified as traumatic (principal); M75.41 Impingement syndrome of right shoulder; M19.011 Primary osteoarthritis, right shoulder; M25.511 Pain in right shoulder; M25.311 Other instability, right shoulder; I10 Essential (primary) hypertension; E78.00 Pure hypercholesterolemia, unspecified; F32.A Depression, unspecified; R06.83 Snoring; R01.1 Cardiac murmur, unspecified; Z96.653 Presence of artificial knee joint, bilateral; Z98.890 Other specified postprocedural states; Z87.891 Personal history of nicotine dependence
CPT/HCPCS: 23412; 29824; 29826; C1713; J0131; J0165; J0690; J0696; J1100; J2003; J2250; J2371; J2405; J2704; J2795; J3010

== ENCOUNTER → 2025-06-04 06:46 | Outpatient (BNV) | payer MEDICARE, OTHER, SELFPAY | PROVIDERS: PCP Family Medicine; Visit Provider Orthopaedic Surgery | DX: S46.011A Strain of muscle(s) and tendon(s) of the rotator cuff of right shoulder, initial encounter (principal); M75.41 Impingement syndrome of right shoulder; M19.011 Primary osteoarthritis, right shoulder | CPT/HCPCS: 23410; 29824 ==

== ENCOUNTER 2025-06-17 08:03 | Outpatient (REF) | payer MEDICARE, OTHER, SELFPAY ==
--- NOTE | ~2025-06-17 | XR_ITS ---
EXAMINATION: XR SHOULDER, RIGHT CLINICAL INFORMATION: M25.511 - Pain in right shoulder COMPARISON: Correlation MRI 02/19/2025 TECHNIQUE: Two views of the right shoulder. FINDINGS: Bone mineralization is decreased. Metallic surgical anchor in the humeral head. No visible acute fracture or dislocation. Mild superior positioning of the clavicle as compared to the acromion on one of the views, could represent sprain injury. No abnormal soft tissue calcification. XR/XR shoulder RT min 2V IMPRESSION: No acute osseous findings Postsurgical changes, surgical anchor in the humeral head Mild acromioclavicular malalignment could be technical versus sprain injury Electronically signed by: Gildardo Salas MD 06/17/2025 04:59 PM EST
== END 2025-06-17 08:04 | disposition home or self-care (01) ==
LOC: HO.HOSX 08:03
PROVIDERS: Visit Provider Orthopaedic Surgery
DX: M25.511 Pain in right shoulder (principal); Z96.652 Presence of left artificial knee joint
CPT/HCPCS: 73030; 99212

== ENCOUNTER 2025-06-17 08:49 | Outpatient (AMB) | payer MEDICARE, OTHER, SELFPAY ==
--- NOTE | 2025-06-17 08:59 | A.OFFVIS_ITS ---
Intake Visit Reasons: PO RT Shoulder 06/04/25 Intake Note: Mckenna is a 70 year old female who presents with complaints of mild to moderate discomfort in her right shoulder after undergoing right shoulder rotator cuff repair surgery on 06/04/2025. She has been resting her shoulder as per my instructions. She denies any fevers or chills. She has been taking oxycodone which gives her fairly good relief. Allergies walnut Allergy (Intermediate, Verified 06/17/25 09:01) tingling in mouth Medication List - Last Reconciled 06/17/25 by Madi Sosa MD acetaminophen 650 mg (2 x 325 mg) PO Q6H PRN 30 days atorvastatin 40 mg PO Q48H calcium carbonate-vitamin D3 600 mg-20 mcg (800 unit) (Caltrate plus D) 1 tab PO BID lisinopril 10 mg PO DAILY oxycodone 5 mg PO Q4H PRN sertraline 50 mg PO BEDTIME PFSH Medical History Depression Habitual snoring Murmur Elevated cholesterol HTN (hypertension) Tear of medial meniscus of knee Surgical History Hx of toe surgery (~07/2023) History of tonsillectomy History of left knee replacement (~10/2024) H/O colonoscopy H/O carpal tunnel repair S/P left knee arthroscopy Hx of appendectomy History of total right knee replacement (TKR) (10/20/21) Social History Household Members: Spouse Housing: House Are you a primary client care coordinator to a significant other at home: No Do you presently have visiting nurse or other home services: No Patient Tobacco Use Status: Former Tobacco user Tobacco use type: Cigarette Second Hand Smoke Exposure: No Substance Use Type: Marijuana service: No Current occupational status: retired Physical Exam Extrem Other: Right shoulder examination shows that the surgical incisions are healing well, no erythema, mild discomfort with gentle passive range of motion Results Reviewed Results Reviewed: X-rays of the patient's right shoulder taken today show bony changes consistent with distal clavicle excision and acromioplasty, 1 suture anchor in the proximal humerus with no signs of loosening Assessment & Plan Assessment & Plan (1) Right shoulder pain: Code(s): M25.511 - Pain in right shoulder Category: Medical Plan Ms. Oconnell is doing very well after undergoing right shoulder rotator cuff repair surgery on 06/04/2025. Her sutures were removed and Steri-Strips placed over her incisions. She can begin gentle passive range of motion exercises. I will hold off on active lifting until she is 8 weeks out from surgery. I will see her back at that time. I did refill her prescription for oxycodone. Feel free to call me at any time should questions regarding her orthopedic management arise. Orders: Orders XR shoulder RT min 2V Today M25.511 - Pain in right shoulder Medications: Changed From oxycodone Partial Fill upon patient request. Take 1-2 tabs every 4 hours as needed for pain following your right shoulder surgery. 5 mg PO Q4H PRN 40 tabs 0RF pain To oxycodone Partial Fill upon patient request. 5 mg PO Q4H PRN 40 tabs 0RF pain Coding Level of Care Code Global (84325) Diagnoses Right shoulder pain M25.511
--- OUTSIDE RECORDS SUMMARY | 2025-06-17 09:20 | XMS_ITS | Clinical Summary ---
[facility] Address [address] [place] [address] Care Team Providers Care Psychometric Examiner Name Role Phone Sanaz Blanco CHANGE BOOTH ATTENDANT Primary Care Provider Surgical History Surgery Date [...] Last Done Comments Breast Cancer Screening 1955 Colorectal Cancer Screening: Colonoscopy 1955 DTaP,Tdap,and Td Vaccines (1 - Tdap) 1975 Pneumococcal Vaccine: 50+ Ye ars (1 of 1 - PCV) 2006 Zoster Vaccines (1 of 2) 2006 Falls Risk Assessment 07/13/2022 Hepatitis C Screening 07/13/2022 Osteoporosis Screening (Bone Density Screening) 07/13/2022 Social Influencers of Health Screening 07/13/2022 Depression Screening 08/05/2024 COVID-19 Vaccine (1 - 2024-2 6 season) 2025 Influenza Vaccine (#1) 2025 RSV Immunization Adult [...] Documents on File Type Date Recorded Patient Blindstitch Hemmer Expl anation Health Care Decision (hx) 10/20/2021 AD REA DIRECTIVE Health Care Decision (hx) 10/20/2021 AD REA DIRECTIVE Care Teams Psychometric Examiner Relationship Specialty Start Date End Date Sanaz Blanco FNP PCP - General Family Medicine 06/16/21
--- OUTSIDE RECORDS SUMMARY | 2025-06-17 09:20 | XMS_ITS | Encounter Summary ---
Author Organization [employer] Address [address] [facility] [address] [place] [address] Care Team Providers Care Men'S Locker Room Attendant Name Role Phone Mary Blunt Unavailable Unavailable Pcp, Roderick Unassigned Primary Care Provider Niecy salazar Encounter Details Date Type Department Care Team (Latest Contact Info) Description 06/16/2025 Travel Social History Tobacco Use Types Packs/Day [...] Care Team (Late st Contact Info) Description 06/23/2025 10:30 AM EST [facility] [address] [place] [address] Salma Alcantara MD [address] [place] [address] 09/10/2025 9:00 AM EST Office Visit [facility] [address] [place] [address] Rubina Devlin MD [address] [facility] [place] [address] documented as of this encounter Visit Diagnoses Not on filedocumented in this encounter Additional Health Concerns Assessment Noted Time PHQ-9 Depression Total Score: 10 025 11:56 AM EDT documented as of this encounter Care Teams Men'S Locker Room Attendant Relationship Specialty Start Date End Date PcpRoderick Unassigned PCP - General Family Medicine 05/31/25 Mary Blunt Community Health Worker 01/29/24 documented as of this encounter
--- OUTSIDE RECORDS SUMMARY | 2025-06-17 09:20 | XMS_ITS | Clinical Summary ---
Author Organization [facility] Address [address] [place] [address] Care Team Providers Care Machine Cutter Name Role Phone Sanaz Blanco Primary Care Provider [phone]- [phone] Allergies No known active allergies Medications Medication [...] age to complete this topic Care Teams Machine Cutter Relationship Specialty Start Date End Date Sanaz Blanco [address] [facility] [place] [address] PCP - General Family Medicine 06/16/21
--- OUTSIDE RECORDS SUMMARY | 2025-06-17 09:20 | XMS_ITS | Clinical Summary ---
Author Organization [email or web address] Address [address] [facility] 7t [place] [address] Care Team Providers Care Manager Utilization Review Name Role Phone Mary Blunt Unavailable Unavailable PcpRoderick Unassigned Primary Care Provider U navailable Allergies Active Allergy Reactions Criticality Noted Date Comments Black Cotton Flavoring Agent (Non-Screening) Itching Low 01/01/2024 Cotton Hives 05/21/2011 Medications * This document contains [...] injections in right knee for OA at [facility]. Helpful for pain. Also taking ibuprofen [...] - 40 mg/dL 17 LDL Chol Calc ([facility]) 0 - 99 mg/dL 62 Last [...] organization. Date Type Department Care Team Description 06/16/2025 Travel 06/14/2025 Travel 06/03/2025 Travel 05/21/2025 Telephone [facility] MEDICAL [address] [place] [address] Margaret Jordan DO Care Coordination 05/17/2025 Travel 04/29/2025 Travel 04/12/2025 Travel 03/18/2025 Results Follow-Up [facility] MEDICAL [address] [place] [address] Rubina Devlin MD Comprehensive metabolic panel from Last 3 Months Immunizations Immunization Administration [...] the past 12 months, has t he [employer], gas, oil or water company threatened to [...] Description 06/23/2025 10:30 AM EST Office Visit [facility] MEDICAL [address] [place] [address] Salma Alcantara MD [address] [place] [address] 09/10/2025 9:00 AM EST Office Visit [facility] MEDICAL [address] [place] [address] Rubina Devlin MD [address] [place] [address] Health Maintenance Due Date Last Done Comments [...] Health Maintenance Results * Lipid Panel, Standard 18436 (08/10/2024 9:16 AM EST) Cholesterol, Total 173 [...] - 08/11/2024 6:05 AM EST Performed at: 01 - [facility] [address] [id number] Data Base Administrator: Sary Parker MD, Phone: [phone] Komalfuad Hecksantos SURGERY SCHEDULER LAB BLOOD ORDERABLES Deysi mily Result [facility] 1 * BI Mammogram Screening [...] (Negative) Lay letter mailed to patient WSN: [id number] Ordering Physician: Sanaz Blanco Dictated By: Apryl Gonzalez MD Dictated Date/Time: 01/14/24 1:23 pm Reviewed By: Apryl Gonzalez MD Signed By: Apryl Gonazlez MD Signed Date/Time: 01/14/24 1:23 pm Transcribed By: ARNAV Pearl Digger Date/Time: 01/14/24 1:20 pm Birads: Procedure Note [...] (Negative) Lay letter mailed to patient WSN: [id number] Ordering Physician: Sanaz Blanco Dictated By: Apryl Gonzalez MD Dictated Date/Time: 01/14/24 1:23 pm Reviewed By: Apryl Gonzalez MD Signed By: Apryl Gonzalez MD Signed Date/Time: 01/14/24 1:23 pm Transcribed By: ARNAV Pearl Digger Date/Time: 01/14/24 1:20 pm Birads: Sanaz Blanco [facility] IMG BI PROCEDURES Deysi l Result * Hepatits C Antibody w/Reflex HCV Quant PCR and Genotyping (08/29/2022 3:10 PM EST) Hepatitis C Virus Ab, Serum NEGATIVE (NEG) [facility] Comment: Reference range: Negative This test was performed on the [employer] Mult[employer] Pro[employer] immunoassay system. Testing performed or reported by [facility], a Service of [facility], [address] [place] [address] [place] [address] Kei Anne MD, Biochemistry Professor [facility]# [id number] 08/29/2022 3:10 PM EST 08/29/2022 3:12 PM EST Sanaz Blanco [facility] LAB BLOOD ORDERABLES F inal Result [facility] [address] [place] [address] * Pap Smear (06/18/2022 12:00 AM EST) Swab Historical Provider LAB CYTOLOGY ORDERABLES F inal Result * Hm Colonoscopy (12/27/2021) Colonoscopy 10 year recall Historical Provider HEALTH MAINTENANCE Final Result from Last 3 Months or Most Recently Relevant to Health Maintenance Insurance MEDICARE [facility] Care Teams Manager Utilization Review Relationship Specialty Start Date End Date Roderick Barrett Unassigned PCP - General Family Medicine 05/31/25 Mary Blunt Community Health Worker 01/29/24
--- OUTSIDE RECORDS SUMMARY | 2025-06-17 09:20 | XMS_ITS | Encounter Summary ---
Author Organization [employer] Address [address] [facility] 7t [place] [address] Care Team Providers Care Inclusion Teacher Name Role Phone Mary Blunt Unavailable Unavailable Pcp, Roderick Unassigned Primary Care Provider Niecy salazar Encounter Details Date Type Department Care Team (Latest Contact Info) Description 06/14/2025 Travel Social History Tobacco Use Types Packs/Day [...] Description 06/23/2025 10:30 AM EST Office Visit [facility] MED[facility] [address] [place] [address] Salma Alcantara MD [address] [place] [address] 09/10/2025 9:00 AM EST Office Visit [facility] [address] [place] [address] Rubina Devlin MD 73 [facility] [place] [address] documented as of this encounter Visit Diagnoses Not on filedocumented in this encounter Additional Health Concerns Assessment Noted Time PHQ-9 Depression Total Score: 10 025 11:56 AM EDT documented as of this encounter Care Teams Inclusion Teacher Relationship Specialty Start Date End Date PcpRoderick Unassigned PCP - General Family Medicine 05/31/25 Mary Blunt Community Health Worker 01/29/24 documented as of this encounter
--- OUTSIDE RECORDS SUMMARY | 2025-06-17 09:20 | XMS_ITS | Clinical Summary ---
Author Organization [facility] Address [address] [facility] [address] [place] [address] Phone Care Team Providers Care Insurance Claims Examiner Name Role Phone Rubina Devlin MD Primary Care Provider [phone] Allergies No known active allergies Medications calcium [...] VACCINE (#1) 2025 COVID-19 VACCINE (1 - 2024-2 6 season) 2025 MAMMOGRAM 01/13/2026 01/14/2024, 01/11/2023 Adult Td,Tdap Booster 05/16/2026 05/16/2016 LIPID PANEL 08/10/2029 08/10/2024 RSV VACCINE (1 - 1-dose 75+ series) 2031 HEPATITIS A VACCINES Aged Out No long er eligible based on patient's age to complete this topic HIB VACCINES Aged Out No longer eligi ble based on patient's age to complete this topic IPV VACCINES Aged Out No longer eligi ble based on patient's age to complete this topic MENINGOCOCCAL VACCINES (ACWY) Aged Out No longer eligible based on patient's age to complete this topic MENINGOCOCCAL VACCINES (B) Aged Out N o longer eligible based on patient's age to complete this topic Medical Devices Not on [place] [address] MEDICARE PART A & B [facility] [place] [address] MEDICARE PART A [place] [address] [place] [address] [place] [address] MEDICARE PART A & [place] [address] [place] [address] MEDICARE PART A & B [facility] [place] [address] MEDICARE PART [place] [address] [place] [id number] Care Teams Insurance Claims Examiner Relationship Specialty Start Date End Date Rubina Devlin MD [address] [place] [address] [email or web address] PCP - General Pediatrics 10/07/24 Additional Source Comments The information contained in this document represents components of the legal health record. It is not the complete legal health record.[facility]
--- OUTSIDE RECORDS SUMMARY | 2025-06-17 09:20 | XMS_ITS | Encounter Summary ---
Author Organization [employer] Address [address] [facility] 7t [place] [address] Care Team Providers Care Printing Estimator Name Role Phone Mary Blunt Unavailable Unavailable Margaret Jordan DO Primary Care Provider [phone] PcpRoderick Unassigned Primary Care Provider U navailable Reason for Visit * Reason Onset Date Comments Care Coordination 05/21/2025 Encounter Details Date Type Department Care Team (Late st Contact Info) Description 05/21/2025 Telephone Roderick [facility] MED[facility] [address] [place] [address] Margaret Jordan DO [address] [place] [address] Care Coordination Social History Tobacco Use Types Packs/Day Years [...] encounter Miscellaneous Notes * Telephone Encounter - Edelmira Herring - 05/21/2025 10:20 AM EDT [facility] called regarding the patient Patient is scheduled for right shoulder surgery on 06/04 [facility] is requesting the following records Last office visit note Recent labs EKG Fax number is [phone] documented in this encounter Plan of Treatment Upcoming Encounters Date Type Department Care Team (Late st Contact Info) Description 06/23/2025 10:30 AM EST Office Visit [facility] MEDICAL [address] [place] [address] Salma Alcantara MD [address] [place] [address] 09/10/2025 9:00 AM EST Office Visit [facility] [address] [place] [address] Rubina Devlin MD [address] [place] [address] documented as of this encounter Visit Diagnoses Not on filedocumented in this encounter Additional Health Concerns Assessment Noted Time PHQ-9 Depression Total Score: 10 025 11:56 AM EDT documented as of this encounter Care Teams Printing Estimator Relationship Specialty Start Date End Date Margaret Jordan DO [address] [place] [address] PCP - General Junior Account Manager 05/18/25 05/30/25 Roderick Barrett Unassigned PCP - General Family Medicine 05/31/25 Mary Blunt Community Health Worker 01/29/24 documented as of this encounter
--- OUTSIDE RECORDS SUMMARY | 2025-06-17 09:21 | XMS_ITS | Encounter Summary ---
Author Organization [employer] Address [address] [facility] 7t [place] [address] Care Team Providers Care Software Design Analyst Name Role Phone Sanaz Blanco Primary Care Provider Unavailable Ene Lozano Unavailable Unavailable Mary Blunt Unavailable Unavailable Margaret Jordan DO Primary Care Provider [phone] Pcp, Roderick Unassigned Primary Care Provider U navailable Encounter Details Date Type Department Care Team (Late st Contact Info) Description 01/08/2024 Orders Only Roderick [facility] MEDICAL [address] [place] [address] Provider, MD Molina Social History Tobacco Use [...] Description 06/23/2025 10:30 AM EST Office Visit [facility] MEDICAL [address] [place] [address] Salma Alcantara MD [address] [place] [address] 09/10/2025 9:00 AM EST Office Visit [facility] MEDICAL [address] [place] [address] Rubina Devlin MD [address] [place] [address] documented as of this encounter Procedures Procedure [...] documented as of this encounter Care Teams Software Design Analyst Relationship Specialty Start Date End Date Sanaz Blanco FNP PCP - General Family Medicine 08/27/22 05/17/25 Margaret Jordan DO [address] [place] [address] PCP - General Community Specialist 05/18/25 05/30/25 Roderick Barrett Unassigned PCP - General Family Medicine 05/31/25 Ene Lozano Community Health Worker 12/10/22 4 Mary Blunt Community Health Worker 01/29/24 documented as of this encounter
== END 2025-06-17 09:26 | disposition home or self-care (01) ==
LOC: HO.HOS 08:50
PROVIDERS: Visit Provider Orthopaedic Surgery
DX: M25.511 Pain in right shoulder (principal)
CPT/HCPCS: 99024

== ENCOUNTER → 2025-06-17 08:54 | Outpatient (BNV) | payer MEDICARE, OTHER, SELFPAY | PROVIDERS: Visit Provider Radiology Diagnostic Ultrasound | DX: M25.511 Pain in right shoulder (principal); Z98.890 Other specified postprocedural states | CPT/HCPCS: 73030 ==

== ENCOUNTER 2025-07-27 11:37 | Outpatient (AMB) | payer MEDICARE, OTHER, SELFPAY ==
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
[2025-07-27 11:54] VITALS: BMI 29.3
--- OUTSIDE RECORDS SUMMARY | 2025-07-27 13:01 | XMS_ITS | Clinical Summary ---
Author Organization [employer] [facility] Address [address] [place] [address] Care Team Providers Care Buck Presser Name Role Phone Sanaz Blanco ELECTRIC FRYING PAN REPAIRER Primary Care Provider Surgical History Surgery Date [...] Documents on File Type Date Recorded Patient Route Salesman Expl anation Health Care Decision (hx) 10/20/2021 AD REA DIRECTIVE Health Care Decision (hx) 10/20/2021 AD REA DIRECTIVE Care Teams Buck Presser Relationship Specialty Start Date End Date Sanaz Blanco FNP PCP - General Family Medicine 06/16/21
--- OUTSIDE RECORDS SUMMARY | 2025-07-27 13:01 | XMS_ITS | Encounter Summary ---
Author Organization [employer] Address [address] [facility] 7t [place] [address] Care Team Providers Care Wire Coater Name Role Phone Sanaz Blanco Primary Care Provider Unavailable Ene Lozano Unavailable Unavailable Mary Blunt Unavailable Unavailable Margaret Jordan DO Primary Care Provider [phone] Roderick Barrett Unassigned Primary Care Provider U Beatrice Molina NP Primary Care Provider [phone] Encounter Details Date Type Department Care Team (Late st Contact Info) Description 01/08/2024 Orders Only Roderick [facility] MEDICAL [address] [place] [address] Provider, MD Molina Social History Tobacco Use [...] Description 09/10/2025 9:00 AM EST Office Visit [facility] MEDICAL [address] [place] [address] Rubina Devlin MD [address] [place] [address] documented as of this encounter Procedures Procedure [...] documented as of this encounter Care Teams Wire Coater Relationship Specialty Start Date End Date Sanaz Blanco FNP PCP - General Family Medicine 08/27/22 05/17/25 Margaret Jordan DO [address] [place] [address] PCP - General Kayak Maker 05/18/25 05/30/25 Roderick Barrett Unassigned PCP - General Family Medicine 05/31/25 07/07/25 Beatrice Fuentes NP [address] [place] [address] PCP - General 07/08/25 nEe Lozano Community Health Worker 12/10/22 Mary Patel Community Health Worker 01/29/24 documented as of this encounter
--- OUTSIDE RECORDS SUMMARY | 2025-07-27 13:01 | XMS_ITS | Clinical Summary ---
Author Organization [facility] Prior to 01/02/[address] [place] [address] Care Team Providers Care School Cafeteria Cook Head Name Role Phone Sanaz Blanco Primary Care Provider [phone] Allergies No known active allergies Medications Medication [...] age to complete this topic Care Teams School Cafeteria Cook Head Relationship Specialty Start Date End Date Sanaz Blanco [address] [facility] [place] [address] PCP - General Family Medicine 06/16/21
--- OUTSIDE RECORDS SUMMARY | 2025-07-27 13:01 | XMS_ITS | Clinical Summary ---
Author Organization [employer] Address [address] [facility] 7t [place] [address] Care Team Providers Care Metal Machine Setter Name Role Phone Mary Blunt Unavailable Unavailable Beatrice Fuentes NP Primary Care Provider [phone] Allergies Active Allergy Reactions Criticality Noted Date Comments Black Melrose Flavoring Agent (Non-Screening) Itching Low 01/01/2024 Melrose Hives 05/21/2011 Medications * This document contains [...] injections in right knee for OA at [facility]. Helpful for pain. Also taking ibuprofen and [...] - 40 mg/dL 17 LDL Chol Calc ([facility]) 0 - 99 mg/dL 62 [...] organization. Date Type Department Care Team Description 07/08/2025 Travel 07/02/2025 Travel 06/16/2025 Travel 06/14/2025 Travel 06/03/2025 Travel 05/21/2025 Telephone [facility] MEDICAL [address] [place], [place] [id number] Margaret Jordan DO Care Coordination 05/17/2025 Travel 04/29/2025 Travel from Last 3 Months Immunizations Immunization [...] your housing situation today? I have rey sing 09/02/[address] you li [...] Description 09/10/2025 9:00 AM EST Office Visit [facility] MED[facility] [address] [place] [address] Rubina Devlin MD [address] [place] [address] Health Maintenance Due Date Last Done Comments CT Colonography 1956 FIT DNA/Cologuard 1956 FIT 1956 FOBT 1956 Sigmoidoscopy 1956 Alcohol/Substance Use Screening 1968 Pneumococcal Vaccine: 50+ Years (1 of 1 - PCV) 2006 Zoster Vaccines (1 of 2) 2006 COVID-19 Vaccine (1 - 2024- season) 2025 Influenza Vaccine (#1) 2025 Depression Monitoring 04/30/2025 10/28/2024, 025 SDOH Screening 06/27/2025 06/27/2024 Tobacco Screening 06/27/2025 [...] Health Maintenance Results * Lipid Panel, Standard 78084 (08/10/2024 9:16 AM EST) Cholesterol, Total 173 [...] AM EST Performed at: 01 - [facility] [address] [id number] Hospital Administrative Assistant: Sary Parker MD, Phone: [phone] Komal Gardner PREPARATION OPERATOR LAB BLOOD ORDERABLES Deysi minor Result [...] (Negative) Lay letter mailed to patient WSN: [id number] Ordering Physician: Sanaz Blanco Dictated By: Apryl Gonzalez MD Dictated Date/Time: 01/14/24 1:23 pm Reviewed By: Apryl Gonzalez MD Signed By: Apryl Gonzalez MD Signed Date/Time: 01/14/24 1:23 pm Transcribed By: ARNAV Insole Reinforcer Date/Time: 01/14/24 1:20 pm Birads: Procedure Note [...] (Negative) Lay letter mailed to patient WSN: [id number] Ordering Physician: Sanaz Blanco Dictated By: Apryl Gonzalez MD Dictated Date/Time: 01/14/24 1:23 pm Reviewed By: Apryl Gonzalez MD Signed By: Apryl Gonzalez MD Signed Date/Time: 01/14/24 1:23 pm Transcribed By: ARNAV Insole Reinforcer Date/Time: 01/14/24 1:20 pm Birads: Sanaz Blanco PREPARATION OPERATOR IMG BI PROCEDURES Deysi l Result * Hepatits C Antibody w/Reflex HCV Quant PCR and Genotyping (08/29/2022 3:10 PM EST) Hepatitis C Virus Ab, Serum NEGATIVE (NEG) [facility] Comment: Reference range: Negative This test was performed on the [employer]ang[employer] immunoassay system. Testing performed or reported by [facility], a Service of [facility], [address] [place] [address] Kei Anne MD, Making Machine Operator [place]# [id number] 08/29/2022 3:10 PM EST 08/29/2022 3:12 PM EST Sanaz Blanco [facility] LAB BLOOD ORDERABLES F inal Result [facility] [address] [place] [address] * Pap Smear (06/18/2022 12:00 AM EST) Swab Historical Provider LAB CYTOLOGY ORDERABLES F inal Result * Hm Colonoscopy (12/27/2021) Colonoscopy 10 year recall us Historical Provider HEALTH MAINTENANCE Final Result from Last 3 Months or Most Recently Relevant to Health Maintenance Insurance MEDICARE [facility] Care Teams Metal Machine Setter Relationship Specialty Start Date End Date Beatrice Fuentes NP [address] [place] [address] PCP - General 07/08/25 Mary Blunt Community Health Worker 01/29/24
--- OUTSIDE RECORDS SUMMARY | 2025-07-27 13:01 | XMS_ITS | Clinical Summary ---
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 PCP - General Pediatrics 10/07/24 Additional Source Comments The information contained in this document represents components of the legal health record. It is not the complete legal health record.[facility]
== END 2025-07-27 12:20 | disposition home or self-care (01) ==
LOC: HO.HOS 11:38
PROVIDERS: PCP Family Medicine; Visit Provider Orthopaedic Surgery
DX: M25.511 Pain in right shoulder (principal); M25.562 Pain in left knee
CPT/HCPCS: 99024

== ENCOUNTER 2025-07-27 11:56 | Outpatient (REF) | payer MEDICARE, OTHER, SELFPAY ==
--- NOTE | ~2025-07-27 | XR_ITS ---
EXAMINATION: XR KNEE, LEFT CLINICAL INFORMATION: M25.562 - Pain in left knee COMPARISON: X-ray 11/06/2024 TECHNIQUE: Three views of the left knee. FINDINGS: Total knee arthroplasty without evidence of complications. Expected positioning alignment. No acute periprosthetic fracture. Small effusion. No suspicious soft tissue calcification. XR/XR knee LT 3V IMPRESSION: Total knee arthroplasty without evidence of complications. Small effusion.. Electronically signed by: Gildardo Salas MD 07/27/2025 02:02 PM TEAGAN VARELA
--- NOTE | ~2025-07-27 | XR_ITS ---
EXAMINATION: XR SHOULDER, RIGHT CLINICAL INFORMATION: M25.511 - Pain in right shoulder COMPARISON: X-ray 06/17/2025 TECHNIQUE: Two views of the right shoulder. FINDINGS: Bone mineralization is decreased. Redemonstrated metallic surgical anchor in the head. No visible acute fracture or dislocation. Mild superior positioning of the clavicle with respect to the acromion, similar to previous. No abnormal soft tissue calcification. XR/XR shoulder RT min 2V IMPRESSION: No acute osseous findings. Mild AC joint malalignment, unchanged from previous. Electronically signed by: Gildardo Salas MD 07/28/2025 11:30 AM TEAGAN
--- OUTSIDE RECORDS SUMMARY | 2025-07-27 13:10 | XMS_ITS | Data Portability ---
Author Organization [facility] - [facility], [facility] Address [address] [place] [address] Support Name Relationship Address Phone RAIZA OCONNELL self [address] [place] [address] Assessment Encounter Date Assessment Date Assessment LastModified by Organization Details LastModified Time 10/22/2023 10/22/2023 X-RAYS: Three standing views of the left foot were ordered, obtained and reviewed by me today at [facility], demonstrating healed hallux MTP joint with [...] condition, to please contact our office immediately. [email or web address] Not available 10/22/2023 12:39:14 Plan of Treatment Reminders Order Date Submit Date Provider Name Organization Details Last Modified By Last Modified Time Details Appointments None record ed. Lab None record ed. Referral None record ed. Procedures None record ed. Surgeries None record ed. Imaging XR, foot, 3 or more view 12:21:5 5 Tye Baxter MD Not available [facility] 4 14:04:37 MedicationOrders None record ed. VaccineOrders None record ed. Patient TargetsNo targets recorded. Patient InstructionsNo instructions recorded. Reason for Referral None Reported. Problems Name Problem SNOMED Code Status Onset Date Resolution Date Notes Provider Name and Address Organization Details Recorded Time No complaints 847388081 Active Status : 'I'; Not Available [facility] 4 09:25:00 Problem Notes None recorded. Medical Equipment None Reported. Allergies Allergen ID Allergen Name Allergen Category Reaction Reaction Severity Criticality Documentation Date Start Date Code Code System Note Provider Name and Address Organization Details Recorded Time 53916 walnut allergeni c extract food Not available Not available Not available 10/07/20232010 85294 0 RxNorm Aller gyRea ction : 'Skin React ion'; Not Available [facility] 4 12:31:57 No known drug allergies Medications Name Authored On Sig Start Date Stop Date Status Note Indication Fill Status Repeat Number Dispense Quantity LastModified by Organization Details LastModified Time aceta minop hen 500 mg table t 4 12:14:16 TAKE 2 TABL ETS BY MOUT H EVER Y 8 HOUR S NEED ED FOR PAIN active Not Available Not availab le 0 Not Available Not Available [facility] 10/22/2023 12:14:16 amoxi cilli n 500 mg capsu le 4 12:14:16 TAKE 4 CAPS ULES BY MOUT H 1 HOUR PRIO R TO DENT AL APPO INTM ENT active Not Available Not availab le 0 Not Available Not Available [facility] 10/22/2023 12:14:16 aspir in 325 mg table t,del ayed relea se 4 12:14:16 TAKE 1 TABL ET DIAMANTE Y TO STAR T THE DAY AFTE R SURG BACILIO active Not Available Not availab le 0 Not Available Not Available [facility] 10/22/2023 12:14:16 teresa calci ferol (rikki min D3) 125 mcg (5,00 0 unit) capsu le 4 12:14:16 TAKE 1 CAPS ULE BY MOUT H EVER Y DAY active Not Available Not availab le 0 Not Available Not Available [facility] 10/22/2023 12:14:16 melox icam 7.5 mg table t 4 12:14:16 TAKE ONE TABL ET BY MOUT H AT BEDT DANIELA active Not Available Not availab le 0 Not Available Not Available [facility] 10/22/2023 12:14:16 oxyco done 5 mg table t 4 12:14:16 TAKE 1 TABL ET BY MOUT H EVER Y 12 HOUR S NEED ED FOR PAIN . DO NOT DRIV E WHIL E ON THIS MEDI JUNE ON active Not Available Not availab le 0 Not Available Not Available [facility] 10/22/2023 12:14:16 oxyco done- aceta minop hen 5 mg-32 5 mg table t 4 12:14:16 TAKE ONE TABL ET BY MOUT H EVER Y DAY NEED ED FOR PAIN active Not Available Not availab le 0 Not Available Not Available [facility] 10/22/2023 12:14:16 oxyco done HCl-o xycod one-A SA 4 09:05:38 1 tab q 12 HRS PRN PAIN DO NOT DRIV E WHIL E ON THIS MEDI JUNE ON 2023 active Statu s: 'Curr ent'; Not Available Not availab le 0 Not Available Not Available [facility] 01/28/2024 09:05:38 Vitals Date Recorded Body height Body mass index (BMI) Body weight Provider Name and Address Organization Details Last Updated DateTime 10/22/2023 162.56 cm 30 kg/m2 40210.66 g BEBETO Norris [place] - [facility] 10/22/2023 12:23:46 Social History Social History Observation Description Date Observed Sex Unknown 08/04/2024 Legal Sex Female Status Not (finding) 07/27/20 No social history survey screeners recorded No social history SDOH screeners recorded Functional Status None recorded. No Functional Screening assessment recorded No Functional SDOH screeners recorded Mental Status None recorded. No Mental Screening assessment recorded No Mental SDOH screeners recorded Family History Nothing Reported. Medical History No medical history recorded. Gynecological HistoryNo gynecological history recorded. Obstetrics History GPAL:G 0 P 0 0 0 0 Past Encounters Encounter ID Performer Location Encounter Start Date Encounter Closed Date Diagnosis/Indication Diagnosis SNOMED-CT Code Diagnosis ICD10 Code Diagnosis IMO Codes Diagnosis Note [id number] MD Josiah Cowan [address] [place] [address] 10/22/2023 12:13:20 11/11/2023 11:44:06 Pain in left foot 1454195500 95165 M79.672 Follow-up orthopedic assessment 468219215 Z47.89 Hammer toe 708540402 M20 .42 Health Concerns Section Related Observation LastModified by Organization Detai ls LastModified Time None Recorded Concern Status LastModified by Organization Details LastModified Time None Recorded SDOH Concern Status LastModified by Organization [facility] LastModified Time None Recorded Advance Directives Directive None Recorded Payers Insurance Date Sequence Insurance Name Policy Number Policy Ball Covered Member ID Ball Member ID Guarantor Name 03/13/2024 2 () Raiza Epstein Spingler [id number] Raiza Epstein Spingler 03/13/2024 1 MEDICARE [place]: [employer] Raiza Epstein Spingler [id number] Raiza Epsetin Spingler Notes Date Note Type Note Provider Name and Address Organization Details Recorded Time 10/22/2023 text/html ROS as noted in the HPI Raiza is a very pleasant 68-year-old woman who is 14 weeks [...] No interval change. Tye Baxter MD [address] [facility] [facility] [address], [place], [address], [facility] - [facility] 10/22/2023 16:51:18 Care Team Name Role Member ID Specialty Address Phone None Recorded. OBGyn Episode No OBEpisode recorded.
--- OUTSIDE RECORDS SUMMARY | 2025-07-27 13:10 | XMS_ITS | Data Portability ---
Author Organization [place] [facility] Lucian Leos AONE [place] Address [address] [place] [address] Care Team Providers Care Cuff Setter Lockstitch Name Role Phone SULMA IBANEZ Primary Care Provider [phone] Assessment Encounter Date Assessment Date Assessment LastModified [...] findings at length with the patient today. We discussed the nature and etiology of this problem along with current treatment options. We discussed the expected course and outcomes and what to expect. We also discussed risks and benefits. All of their questions were answered today, and there was exhibited understanding and comprehension of all that was discussed. 10 minutes were spent reviewing previous imaging and charting. 10 minutes were spent obtaining patient history. 5 minutes were spent on physical exam. 5minutes were spent explaining diagnosis and assessment. Today's documentation was made using voice recognition software. This note may contain grammatical errors secondary to the software. [email or web address] Not available 12/10/2022 15:14:18 02/08/2023 02/08/2023 HPI : T bonnie you for the pleasure of requesting a [...] degrees. The knee is stable within that pcnff-vd-vxxwyc to AP and ML stress. The alignment [...] patient is a good candidate for surgical reconstruction. Plan for left total knee replacement, robotic assisted, on May 09, 2023 at [facility]. Not available 02/08/2023 14:35:02 Plan of Treatment Reminders Order Date Submit Date Provider Last Modified By Organization Details Last Modified Time Details Appointments None recorded. Lab None recorded. Referral None recorded. Procedures None recorded. Surgeries total knee replacement (SURG) 2022 023 [id number] [facility], [address] [place], [address], 3 14:38:05 Imaging XR, knee, 3 view 2022 023 [facility], [address], [address], [place], [address], 3 15:40:51 XR, hip, unilateral, 2 or 3 view 2022 023 [facility], [address], [address], [place], [address], 3 15:40:51 XR, knee, 1 or 2 view 2022 023 [place]arus [facility], [address], [place], [address], 3 10:10:03 Medication Orders Kenalog 40 mg/mL suspension for injection 2022 023 [place] [address] [facility], [address] [place], [address], 3 15:16:32 lidocaine (PF) 10 mg/mL (1 %) injection solution 2022 023 [place] [address] [facility], [address] [place], [address], 3 15:16:31 Patient TargetsNo targets recorded. Patient Instructions Encounter Date Encounter Id Patient Instructions Last Modified By Organization Details Last Modified Time 02/08/2023 [id number] AP, lateral, Ann, and patellar radiographs views of the left knee taken today demonstrate left knee degenerative joint disease with joint space narrowing, osteophyte formation, and subchondral sclerosis. There is wuqi-hx-xcdg articulation in the lateral compartment. AP pelvis, [...] Name and Address Organization Details Recorded Time Pain of left knee joint 2237210175880 07 Active 2022 Yu Gaines MD [address], [facility] [place], [address], [place] [facility] 3 15:26:34 Osteoarthri tis of left knee joint 1907845380325 09 Active 2022 MANDY VARGHESE PA-C [address], [facility] [place], [address], [place] [facility], [facility] 3 15:12:56 Tear of medial meniscus of knee 783769270 Active 2022 MANDY VARGHESE PA-C [address], [facility] [place], [address], [place] [facility], [facility] 3 15:14:58 Arthritis of knee 845668316 Active 2022 Kyrie Montelongo MD [address], [facility] [place], [address], [place] [facility] 3 14:35:26 Problem Notes None recorded. Procedures Surgical History Date Name Laterality Status Provider Name and Address Organization Details Recorded Time 12/11/19 23 Knee Joint/Bursa Asp & Inj completed MANDY VARGHESE PA-C [address], [place], [address], [place] [facility] 12/10/2022 15:16:24 Total knee arthroplasty completed Evie Royal [place] [facility] 10/23/2022 14:59:13 Carpal tunnel surgery completed Evie Royal [place] [facility] 10/23/2022 14:59:26 Imaging Results None recorded. Procedure Notes None recorded. Medical Equipment None Reported. Allergies No known drug allergies Medications Name Sig Start Date Stop Date Status Note LastModified by Organization Details LastModified Time celecoxib 200 mg capsule Take 200 mg by mouth daily. 2021 active Not Available Not Available Not Avai lable atorvastati n 40 mg tablet Take 1 tablet (40 mg total) by mouth every other day. active Not Available Not Available No t Available tramadol 50 mg tablet TAKE ONE TO TWO TABLETS BY MOUTH AT BEDTIME FOR 5 DAYS active Not Available Not Available No t Available acetaminoph en 500 mg tablet TAKE TWO TABLETS BY MOUTH EVERY 6 HOURS NEEDED FOR MODERATE PAIN 2020 active Not Available Not Available Not Avai lable amoxicillin 500 mg tablet Take 4 tabs 1 hour prior to dental appointme nt 2021 active Not Available Not Available Not Avai lable calcium 315 mg (as citrate)-er gocalcifero l (vit D2) 200 unit tablet Take 1 tablet by mouth 2 (two) times a day. active Not Available Not Available No t Available Kenalog 40 mg/mL suspension for injection Take 1 mL by injection route. 2022 active Not Available Not Available Not Avai lable meloxicam 7.5 mg tablet TAKE ONE TABLET BY MOUTH AT BEDTIME active Not Available Not Available No t Available methylpredn isolone acetate 40 mg/mL suspension for injection 06/16 completed Not Available Not Available Not Available gabapentin 300 mg capsule Take 300 mg by mouth every evening. 2021 active Not Available Not Available Not Avai lable lisinopril 5 mg tablet TAKE ONE TABLET BY MOUTH EVERY DAY active Not Available Not Available No t Available ibuprofen 600 mg tablet TAKE ONE TABLET BY MOUTH FOUR TIMES A DAY NEEDED FOR SEVERE PAIN WITH FOOD OR MILK 2020 active Not Available Not Available Not Avai lable oxycodone 5 mg tablet TAKE 1 TO [...] Updated DateTime 10/23/2022 162.56 cm 30.9 kg/m2 [address]73.[address] [facility] 10/23/2022 14:58:35 Date Recorded Body height Provider Name an d Address Organization Details Last Updated DateTime 12/10/[address] [place] [facility] 12/10/2022 13:32:33 Date Recorded Body height Body mass index (BMI) Body weight Provider Name and Address Organization Details Last Updated DateTime 02/08/2023 162.56 cm 33.5 kg/m2 [address]65.[address] [facility] 02/08/2023 14:09:59 Date Recorded Body mass index (BMI) Body height Body weight Provider Name and Address Organization Details Last Updated DateTime 04/09/2023 30.9 kg/m2 162.6 cm 19140 g Not Available [facility] 04/26/2025 23:36:04 Social History Question Answer Notes LastModified by Organizat ion Details LastModified Time Tobacco Smoking Status Former Smoker Dejan Turpinnchard null, [place] [facility] 02/08/2023 14:10:29 When Did You Quit Smoking? 16+yearssinc elastcigaret te [email or web address] Information not available 02/08/2023 Sex: Unknown Functional Status Question Answer Note LastModified by Organizat ion Details LastModified Time How many times per week do you consume alcohol? 5-7 times per week [email or web address] Information not available 02/08/2023 Do you use any illicit or recreational drugs? No [email or web address] Information not available 02/08/2023 Do you or have you ever used any other forms of tobacco or nicotine? No [email or web address] Information not available 02/08/2023 What is your level of alcohol consumption? Moderate [email or web address] Information not available 02/08/2023 Mental Status None recorded. Family History Nothing Reported. Medical History Condition Response Hypertension Y Gynecological HistoryNo gynecological history recorded. Obstetrics History GPAL:G 0 P 0 0 0 0 Past Encounters Encounter ID Performer Location Encounter Start Date Encounter Closed Date Diagnosis/Indication Diagnosis SNOMED-CT Code Diagnosis ICD10 Code Diagnosis IMO Codes Diagnosis Note [id number] MD BINA Shelley [facility] [address] [address] 10/23/2022 14:52:33 10/23/2022 15:23:27 Pain of right knee joint 9793229977 97197 M25.561 Pain of le ft knee joint 9947063296 41747 M25.562 [id number] [address] [address] 12/10/2022 13:22:40 12/10/2022 14:01:57 Osteoarthritis of left knee joint 6675196873 29170 M17.12 Tear of me dial meniscus of knee 039872407 S83.242D [id number] [facility] [address] [address] 02/08/2023 13:47:32 02/08/2023 14:41:47 Pain of left knee joint 8314194265 62525 M25.562 Pain of le ft hip joint 1905850612 01993 M25.552 Osteoarthr itis of left knee joint 3048456432 14294 M17.12 Arthritis of knee 796284 002 M13.869 Health Concerns Section Related Observation LastModified by Organization Detai ls LastModified Time None Recorded Concern Status LastModified by Organization Details LastModified Time None Recorded Advance Directives Directive None Recorded Payers Insurance Date Sequence Insurance Name Policy Number Policy Ball Covered Member ID Ball Member ID Guarantor Name 02/05/2023 1 [place]IC[place]: [employer] Raiza Epstein Spingler [id number] Raiza Epstein Spingler 05/01/2023 2 () Raiza Epstein Spingler [id number] Raiza Boles Notes Date Note Type Note Provider Name and Address Organization Details Recorded Time 10/23/2022 text/html The patient presents with complaints of mild intermittent discomfort in [...] several times per day. Yu Gaines MD [address] [place] [address],[address], [address], [place] [facility] 10/23/2022 15:26:43 12/10/2022 text/html Dr. Gaines assessment / Plan date of visit 10/23/2022 Ms. [...] are available. 1. Pain of right knee glwxdT75.561: Pain in right knee XR KNEE, 1 OR 2 VIEW, [id number]. Pain of left knee ropigO76.562: Pain in left knee Return to Office [...] evaluation and treatment discussion regarding her MRI[facility] [address] [place] [address] Patient: JOE BOLESANNE Lucian JacobB./Age/Sex: 1955 - 67 - FUnit#: [id number] Location/Status: SPDIMRI/REG CLIAccount#: [id number] Mnemonic/Ordering Site: [facility]/SPMAINOrdering Physician: YU GAINES MD [...] joint effusion is seen. There is no Bolaños s cyst.There are moderate degenerative changes of [...] MDElectronically Signed by: IZZY JONES MDDic Date/Time: 11/07/22 0509Sign date/Time: 11/07/229 MANDY VARGHESE PA-C [address] [place] [address], [address], [place] [facility] 12/10/2022 15:17:07 OBGyn Episode No OBEpisode recorded.
== END 2025-07-27 11:57 | disposition home or self-care (01) ==
LOC: HO.HOSX 11:56
PROVIDERS: Visit Provider Orthopaedic Surgery
DX: M25.511 Pain in right shoulder (principal); M25.562 Pain in left knee; Z96.653 Presence of artificial knee joint, bilateral
CPT/HCPCS: 73030; 73562

== ENCOUNTER → 2025-07-27 11:58 | Outpatient (BNV) | payer MEDICARE, OTHER, SELFPAY | PROVIDERS: Visit Provider Radiology Diagnostic Ultrasound | DX: M25.462 Effusion, left knee (principal); Z96.652 Presence of left artificial knee joint | CPT/HCPCS: 73030; 73562 ==